=== PATIENT | female | born 1945 | race Caucasian/White ===

== ENCOUNTER → 2019-04-16 10:38 | Outpatient (CLI) | payer MEDICARE, OTHER, SELFPAY ==
--- NOTE | ~2019-04-16 | MM_ITS ---
EXAMINATION: MM screening sukh BI w michelle HISTORY: Screening mammogram TECHNIQUE: Craniocaudal and mediolateral oblique 3-D tomosynthesis images were obtained and synthetic 2-D images were generated. CAD analysis was submitted and interpreted. COMPARISON: Comparison to multiple prior studies sequentially, with oldest reviewed study dated 04/14. BREAST PARENCHYMAL COMPOSITION: There are scattered areas of fibroglandular density. FINDINGS: The left breast is stable without evidence for malignancy. There is a developing cluster of calcifications in the upper outer quadrant of the right breast which are increased in number and den sity compared with prior studies. IMPRESSION: 1. Developing cluster of nonspecific calcifications, upper outer quadrant of the right breast. 2. Magnification views are recommended. BI-RADS Category 0: Incomplete: Needs additional imaging evaluation. Reviewed, dictated and finalized at location A. APEUTIC MASSAGE TECHNICIAN IMPRESSION: 1. Developing cluster of nonspecific calcifications, upper outer quadrant of th e right breast. 2. Magnification views are recommended. BI-RADS Category 0: Incomplete: Needs additional imaging evaluation.
== END ==
PROVIDERS: Visit Provider Internal Medicine
DX: Z12.31 Encounter for screening mammogram for malignant neoplasm of breast (principal); R92.8 Other abnormal and inconclusive findings on diagnostic imaging of breast
CPT/HCPCS: 77063; 77067

== ENCOUNTER → 2019-04-24 09:15 | Outpatient (CLI) | payer MEDICARE, SELFPAY ==
--- NOTE | ~2019-04-24 | MM_ITS ---
EXAMINATION: MM diagnostic mammo unilat RT HISTORY: Follow-up right breast calcifications TECHNIQUE: Additional 3-D tomosynthesis images of the right breast were performed and synthetic 2-D i mages were generated. CAD analysis was submitted and interpreted. COMPARISON: Comparison to multiple prior studies sequentially, with oldest reviewed study dated 05/14. FINDINGS: Breast composed of scattered areas of fibroglandular density. There is a cluster of pleomor phic calcifications in the upper outer quadrant of the right breast which are not specifically benign . No suspicious masses or architectural distortion. IMPRESSION: 1. Clustered pleomorphic right breast calcifications, upper outer quadrant. 2. Stereotactic right breast biopsy recommended. BI-RADS category 4, suspicious findings. Reviewed, dictated and finalized at location A. UELS PLANT MANAGER
== END ==
PROVIDERS: PCP Internal Medicine; Visit Provider Internal Medicine
DX: R92.8 Other abnormal and inconclusive findings on diagnostic imaging of breast (principal)
CPT/HCPCS: 77065

== ENCOUNTER 2019-12-23 12:23 | Inpatient (IN) | payer MEDICARE, SELFPAY ==
[2019-12-23] VITALS (34 sets, daily range): BP systolic 104–129; BP diastolic 41–89; PULSE 67–147; RESP 20–35; TEMP 36.6–36.7; O2SAT 90–99; BMI 30.8
--- NOTE | ~2019-12-23 | XR_ITS ---
EXAMINATION: XR chest 1V portable EXAM DATE: 12/23/2019 13:09 INDICATION: Tachycardia. Lymphoma. TECHNIQUE: Portable AP frontal chest x-ray was obtained. Comparison is made to prior examination from 04/01/2018. FINDINGS: Interval placement of a right-sided portacatheter, line appears intact. There is cardiomega ly and pulmonary vascular congestion. Small to moderate left pleural effusion with adjacent atelectas is, new finding compared to prior study. There is no pneumothorax suspected. There is aortic arterios clerosis. Mild thoracic dextroscoliosis. The bones are osteopenic. There are bony degenerative morales es. IMPRESSION: 1. Cardiomegaly, congestion. 2. Development of small to moderate left pleural effusion, adjacent atelectasis. Reviewed, dictated and finalized at location B. CTOR OF LABOR AND DELIVERY IMPRESSION: 1. Cardiomegaly, congestion. 2. Development of small to moderate left pleural effusion, adjacent atelectasi s.
--- NOTE | 2019-12-23 13:05 | PC.NURSE ---
LAB CALLED FOR ADD-ON'S AT THIS TIME.
--- NOTE | 2019-12-23 13:06 | ECG_ITS ---
Measurements Intervals [place] Rate: 139 P: IN: 0 QRS: -19 QRSD: 110 T: 181 QT: 361 QTc: 551 Interpretive Statements ATRIAL FLUTTER/TACHYCARDIA WITH RAPID VENTRICULAR RESPONSE ST-T WAVE ABNORMALITY IN ANTEROLAT/HIGH LAT LEADS- CONSIDER ISCHEMIA ABNORMAL ECG Electronically Signed On 12-23-2019 13:30:21 DIRECTOR OF DIRECT MARKETING by Flip Staley D.O.
[2019-12-23 13:16] LABS: Basophils Percent Auto 0.3 % (0.2-1.2); Hematocrit 44.3 % (37.0-47.0); Hemoglobin 13.9 g/dL (12.0-15.0); Immature Granulocyte Absolute 0.27 K/mm3 (0.00-0.031); Immature Granulocyte Percent A 3.1 % (0-0.5); Lymphocytes Absolute Auto 1.54 K/mm3 (0.9-3.2); Lymphocytes Percent Auto 17.9 % (18.3-44.2); Mean Corpuscular HGB Conc 31.4 g/dl (32-36); Mean Corpuscular Hemoglobin 26.3 pg (26-34); Mean Corpuscular Volume 83.9 fl (80-100); Mean Platelet Volume 9.8 fl (7.4-10.4); Monocytes Absolute Auto 1.7 K/mm3 (0.1-0.6); Monocytes Percent Auto 19.8 % (2.6-8.5); Neutrophils Absolute Auto 5.1 K/mm3 (1.3-6.7); Neutrophils Percent Auto 58.9 % (45.5-73.1); Platelet Count Result 370 k/mm3 (150-375); Red Blood Count 5.28 M/mm3 (4.2-5.4); Red Cell Distribution Width 15.3 % (11.5-14.5); White Blood Count 8.6 K/mm3 (4.5-10.0)
[2019-12-23 13:26] LABS: INR 1.1; Prothrombin Time 14.4 Seconds (11.1-14.7)
[2019-12-23 13:27] LABS: Partial Thromboplastin Time 31.3 SECONDS (22.3-36.8)
--- NOTE | 2019-12-23 13:31 | ED.ARRPALP ---
HPI - Arrhythmia/Palpitations General Chief Complaint: Arrhythmia/Palpitations Stated Complaint: elevated heart rate Time Seen by Provider: 12/23/19 12:37 Source: patient Mode of arrival: ambulatory Limitations: no limitations History of Present Illness HPI narrative: This patient is a 74 year old female with history CLL who presents for evaluation of tachycardia. She states today she went to have chemotherapy but she was found to have an elevated HR. She was given 2 L IVF by her oncologist and she was referred to her geological specialist Dr. Lizama. He wanted to admit patient to [facility] for new onset atrial flutter with 2:1 but patient did not want to be admitted to [facility]. He referred patient to [place] [facility] for evaluation . PAtient denies any chest pain, sob, palpitations, nausea, vomiting, diarrhea or fever. Dr. Lizama reports this is new onset. She reports she has had history of this in the past. Related Data Home Medications Medication Instructions Recorded Confirmed aspirin 81 mg tablet,delayed 81 mg PO DAILY 07/09/19 07/09/19 release carvedilol 25 mg tablet 25 mg PO Q12H 07/09/19 07/09/19 cholecalciferol (vitamin D3) 1,250 1,250 mcg PO WEEKLY 07/09/19 07/09/19 mcg (50,000 unit) capsule dicyclomine 20 mg tablet 20 mg PO TID 07/09/19 07/09/19 levothyroxine 13 mcg capsule 13 mcg PO 2XW 07/09/19 07/09/19 lisinopril 40 mg tablet 40 mg PO DAILY 07/09/19 07/09/19 metformin 1,000 mg tablet,extended 1,000 mg PO DAILY 07/09/19 07/09/19 release 24hr simvastatin 20 mg tablet 20 mg PO DAILY 07/09/19 07/09/19 venetoclax [Venclexta] 200 mg PO DAILY 12/23/19 Allergies Allergy/AdvReac Type Severity Reaction Status Date / Time No Known Allergies Allergy Unverified 08/21/17 10:00 Review of Systems Review of Systems: All systems reviewed & are unremarkable except as noted in HPI and below Cardiovascular: Cardiovascular: Denies chest pain Respiratory: Respiratory: Denies cough and Denies dyspnea Gastrointestinal: Gastrointestinal: Denies abdominal pain, Denies nausea and Denies vomiting Musculoskeletal: Musculoskeletal: Denies back pain PMFSH Past Medical History Medical History Diabetes per pt, last A1c was 6.0 History of blood clots Hypertension Non-Hodgkin lymphoma Surgical History Surgical History History of cholecystectomy History of hip replacement right 2012 History of knee replacement, total left: 2006 and right: 2009 Family History Family History (Updated 07/09/19 @ 13:18 by Mima Dyer) Mother Hypertension Father Cancer Lung cancer Sibling Heart disease Daughter Bone cancer Social History Social History (Updated 07/09/19 @ 13:21 by Mima Dyer) Smoking status: Never smoker Second hand tobacco smoke exposure: No Alcohol intake: never Substance use: never Gender identity (if verbalized by the patient): Female Spiritual care concerns: No Exam Const: General: no acute distress and alert Orientation/consciousness: patient oriented x3 HENMT: Head: normocephalic and atraumatic Face and sinus: face symmetric Throat: posterior oropharynx normal Eyes: EOM: EOMs intact bilaterally Chest: Chest palpation & inspection: normal inspection of the chest Resp: Effort & Inspection: normal respiratory effort and no retractions Auscultation: clear to auscultation bilaterally Cardio: Rate: tachycardic Rhythm: regular rhythm Heart sounds: no murmurs GI: GI Palp: Yes Soft to palpation, No Tenderness to palpation present (GI), No Guarding due to palpation present (GI), No Rigid due to palpation and No Hernia present Skin: General skin exam: normal color Rashes: no rashes Neuro: General: patient oriented x3 and moves all extremities Psych: Mental Status: mental status grossly normal Affect: normal affect Course Consultations Consul
[2019-12-23 13:45] LABS: Lactic Acid Reflex 1.9 mmol/L (0.7-2.1)
[2019-12-23 13:59] LABS: Alanine Aminotransferase 17 U/L (4-35); Albumin Level 3.2 g/dL (3.5-5.1); Alkaline Phosphatase 115 U/L (38-126); Anion Gap 7 mmol/L (8-16); Aspartate Amino Transferase 30 U/L (14-36); Bilirubin,Total 0.3 mg/dL (0.2-1.3); Blood Urea Nitrogen 16 mg/dL (7-17); Calcium 9.7 mg/dL (8.4-10.2); Carbon Dioxide 31 mmol/L (22-30); Chloride 101 mmol/L (98-107); Estimated CRCL calculation 40 ml/min; Estimated Glomerular Filt Rate 48; Glucose 108 mg/dL (65-105); Magnesium 1.7 mg/dL (1.6-2.3); Potassium 3.5 mmol/L (3.4-5.0); Sodium 139 mmol/L (137-145)
[2019-12-23] MEDS: dilTIAZem HCl INJ 25 MG/5 ML VIAL 15 MG IV PUSH (14:00)
--- NOTE | 2019-12-23 14:45 | PC.NURSE ---
spoke with whitney mcdonough about adding troponin level to bloodwork, WHITNEY Mcdonough states unless the hospitalist wants one, I'm not ordering one. Will continue to monitor.
[2019-12-23 15:44] LABS: NT Pro B Type Natriuretic Pept 4100 PG/ML (5-100)
--- NOTE | 2019-12-23 15:46 | PC.NURSE ---
meal tray provided to pt at this time.
[2019-12-23] MEDS: ENOXAPARIN 80 MG/0.8 ML SYRINGE SUB-Q (16:14)
[2019-12-23] MEDS: FUROSEMIDE INJ 40 MG/4 ML VIAL 20 MG IV PUSH (16:18)
--- NOTE | 2019-12-23 17:06 | ADMGEN ---
This patient, Kavitha Ceron, was admitted to IMU Room 207-01 on 12-23-2019 at 1630. Patient/family oriented to hospital policies and general routines including ID bracelet, bed and alarms, visiting hours, pain management, procedures, bathroom and other care routines, personal items, smoking policy, room service/diet, and visiting hours. Information on how to activate the Rapid Response Team has been discussed. Patient/Family are encouraged to report perceived risks to care and to ask questions if they do not understand what they are told or what they should do.
--- NOTE | 2019-12-23 18:45 | PM.IMHP ---
H&P: HPI History of Present Illness Date/Time: 12/23/19 18:50 Chief complaint: New Onset Atrial Flutter with RVR Narrative: Kavitha Ceron is a 74-year-old female with hypothyroidism, obstructive sleep apnea, type 2 diabetes mellitus, hypertension, and CLL who presented to the emergency department earlier today at the direction of her operations support coordinator, Dr. Lizama for further treatment and evaluation of new onset atrial flutter with rapid ventricular response. She was scheduled for chemotherapy today and was found to be tachycardic and thus she was referred to her operations support coordinator instead. Her operations support coordinator wanted to admit her to [facility] for treatment of new onset atrial flutter with 2 to 1 conduction however the patient did not want to be admitted to that facility and she was directed to the emergency department here at [facility]. Interestingly she is asymptomatic and thus it is difficult to tell how long she has been in this rhythm. She goes on to tell me that she has a pulse oximeter at home that she monitors frequently ?because I am anxious? and she has noticed over the last month that she will occasionally have a pulse in the 130s to 140s which is occasionally irregular. She was given 2 L of fluid at her operations support coordinator office with no change in her rate. She also notes that her levothyroxine dose was decreased recently ?because my thyroid looked overactive.? She goes on to say that she has had as a 15 lb unintentional weight loss as well as increased anxiety, sweats, and diarrhea in the last month or so. She states compliance with her CPAP. She does not consume alcohol or caffeine. She has not had fever, chest pain, pleuritic pain, palpitations, shortness of breath, syncope, near syncope, nausea, or vomiting. Review of Systems Review of Systems: Narrative: Twelve systems were reviewed with pertinent positives and negatives as per HPI. She has had an aunt intentional weight loss as detailed in HPI. No sick contacts. She denies recent travel. No exposure to those positive for COVID-19. She denies cough and shortness of breath. She has loose stools off and on which is not a new finding. No dysuria. No lower extremity edema, calf pain, or tenderness. No orthopnea or PND. Except as documented, all other systems were reviewed and are negative. [facility] Past Medical History Medical History (Updated 12/23/19 @ 22:23 by Nicolette Castro PA-C) Chronic lymphocytic leukemia Patient of Dr. Anderson. Depression with anxiety Diverticulitis History of DVT of lower extremity Hyperlipidemia Hypertension Nephrolithiasis Obstructive sleep apnea on CPAP Osteoarthritis Type 2 diabetes mellitus Reported recent hemoglobin A1c of 6.0%. Surgical History Surgical History (Updated 12/23/19 @ 22:18 by Nicolette Castro PA-C) History of cardiac catheterization (~2002) Patient reports clean coronary arteries. History of cataract extraction History of cholecystectomy History of detached retina repair History of dilatation and curettage History of knee replacement, total Left: 2006 Right: 2009 History of lymph node biopsy History of right hip replacement (~2011) Family History Family History Mother Hypertension Father Cancer Lung cancer Sibling Heart disease Daughter Bone cancer Social History Social History (Updated 12/23/19 @ 22:19 by Nicolette Castro PA-C) Social History: Surrogate decision maker: Khalif Ceron, spouse. Code status: Full code. Smoking status: Never smoker Second hand tobacco smoke exposure: No Alcohol intake: never Substance use: never Additional living arrangements comments: Resides with her in [place]. They had 3 children, all who are . Daughter from bone cancer at age 46. One son in a motorcycle accident age 19, the other perished in a motor vehicle accident at age 54. Additional oc
[2019-12-23 20:20] LABS: Glucose Point of Care 127 (65-105)
[2019-12-23] MEDS: lisinopriL 20 MG TABLET 40 MG PO (22:52)
[2019-12-23] MEDS: GABAPENTIN 300 MG CAPSULE PO (22:52)
[2019-12-24] VITALS (30 sets, daily range): BP systolic 100–177; BP diastolic 47–88; PULSE 54–124; RESP 14–36; TEMP 35.7–36.7; O2SAT 92–100; BMI 30.8
[2019-12-24 05:29] LABS: Basophils Percent Auto 0.4 % (0.2-1.2); Hematocrit 38.2 % (37.0-47.0); Immature Granulocyte Absolute 0.18 K/mm3 (0.00-0.031); Lymphocytes Absolute Auto 1.25 K/mm3 (0.9-3.2); Mean Corpuscular HGB Conc 31.4 g/dl (32-36); Mean Corpuscular Hemoglobin 26.4 pg (26-34); Mean Corpuscular Volume 84.1 fl (80-100); Mean Platelet Volume 9.6 fl (7.4-10.4); Monocytes Absolute Auto 0.7 K/mm3 (0.1-0.6); Monocytes Percent Auto 16.4 % (2.6-8.5); Neutrophils Absolute Auto 2.3 K/mm3 (1.3-6.7); Neutrophils Percent Auto 51.2 % (45.5-73.1); Platelet Count Result 268 k/mm3 (150-375); Red Blood Count 4.54 M/mm3 (4.2-5.4); Red Cell Distribution Width 15.3 % (11.5-14.5); White Blood Count 4.5 K/mm3 (4.5-10.0)
[2019-12-24 05:42] LABS: Alanine Aminotransferase 13 U/L (4-35); Albumin Level 2.9 g/dL (3.5-5.1); Alkaline Phosphatase 94 U/L (38-126); Anion Gap 8 mmol/L (8-16); Aspartate Amino Transferase 28 U/L (14-36); Bilirubin,Total 0.3 mg/dL (0.2-1.3); Blood Urea Nitrogen 21 mg/dL (7-17); Calcium 9.5 mg/dL (8.4-10.2); Carbon Dioxide 30 mmol/L (22-30); Chloride 101 mmol/L (98-107); Estimated CRCL calculation 39 ml/min; Estimated Glomerular Filt Rate 48; Glucose 120 mg/dL (65-105); Magnesium 1.7 mg/dL (1.6-2.3); Potassium 3.3 mmol/L (3.4-5.0); Sodium 139 mmol/L (137-145)
[2019-12-24 05:51] LABS: Hemoglobin A1C 5.7 % (<5.7)
[2019-12-24] MEDS: ENOXAPARIN 80 MG/0.8 ML SYRINGE SUB-Q ×2 (06:35→18:28)
[2019-12-24] MEDS: ACIDOPHILUS/BULGARICUS CHEWABLE TABLET 1 TABLET PO (08:38)
[2019-12-24] MEDS: lisinopriL 20 MG TABLET 40 MG PO ×2 (08:39→19:59)
[2019-12-24] MEDS: SPIRONOLACTONE 25 MG TABLET PO (08:39)
[2019-12-24] MEDS: cloNIDine 0.3 MG/24 HR PATCH 1 PATCH TOPICAL (08:40)
[2019-12-24] MEDS: ROSUVASTATIN 10 MG TABLET PO (08:40)
[2019-12-24] MEDS: ASPIRIN 81 MG ENTERIC TABLET PO (08:43)
[2019-12-24 08:49] LABS: Glucose Point of Care 118 (65-105)
[2019-12-24] MEDS: POTASSIUM CHLORIDE 20 MEQ TABLET 40 MEQ PO (11:28)
--- NOTE | 2019-12-24 11:35 | PM.CNCAR ---
Assessment and Plan Assessment and plan (1) Atrial flutter: Qualifiers: Atrial flutter type: unspecified Qualified Code(s): I48.92 - Unspecified atrial flutter Code(s): I48.92 - Unspecified atrial flutter Status: Acute Assessment and Plan: will discontinue her diltiazem drip. Risks benefits alternatives were discussed and she is agreeable for a ROBERT guided cardioversion. She is NPO. She has been in atrial flutter for greater than 48 hours and so ROBERT is needed. She has received anticoagulation in the form of full-dose Lovenox. She has a chads Vasc score of 7 and will need to be discharged on oral anticoagulation form of Xarelto or Eliquis. Will start her on Xarelto 20 mg daily tonight. Discontinue subcutaneous enoxaparin. Will also check a free T4 level and replace her magnesium at 2 g IV x1. (2) Hypertension associated with diabetes: Code(s): E11.59 - Type 2 diabetes mellitus with other circulatory complications; I10 - Essential (primary) hypertension Status: Acute (3) Obstructive sleep apnea on CPAP: Code(s): G47.33 - Obstructive sleep apnea (adult) (pediatric); Z99.89 - Dependence on other enabling machines and devices Status: Acute Assessment and Plan: she has not been using her CPAP routinely as of late. Recommend compliance and she is understanding and agreeable (4) Hypokalemia: Code(s): E87.6 - Hypokalemia Status: Acute Assessment and Plan: KCL 40 mEq p.o. x1 History of Present Illness History of Present Illness Consult date/time: 12/24/19 11:35 Requesting physician: Clare Mcdonough MD Consult reason: Other (Atrial flutter) Reason For Visit: New Onset Atrial Flutter with RVR Narrative: date of service 12/24/2019 Reason for consultation atrial flutter History patient is a 74-year-old female who has diabetes, CLL, hypertension, history of stroke who was in the process of getting her outpatient chemotherapy yesterday whenever it was noted that she was tachycardic. She you did not want to be admitted at [facility] and came here for or admission. She was found to be in atrial flutter. She was started on diltiazem drip. Heart rate is reasonably controlled but she is still in atrial flutter. Chest x-ray did show pulmonary vascular congestion. She was given IV diuretics. Patient does state that she has checked her pulse oximeter over the past week or so and her heart rate has been elevated. She has felt lethargic and tired. No chest pain however. No significant shortness of breath, syncope, presyncope, paroxysmal nocturnal dyspnea, orthopnea, edema or palpitations. She has not been using her CPAP. Review of Systems Review of Systems: All systems reviewed & are unremarkable except as noted in HPI and below Constitutional: Constitutional: Reports lethargy Eyes: Eyes: Denies blurry vision ENT: Reports Normal hearing present Cardiovascular: Cardiovascular: Denies chest pain Respiratory: Respiratory: Denies dyspnea Gastrointestinal: Gastrointestinal: Denies abdominal pain Genitourinary: Genitourinary: Denies flank pain Musculoskeletal: Musculoskeletal: Denies neck pain Integumentary/Breasts: Skin/Breast: Denies dry skin and Denies pruritus Neurologic: Denies headache(s) and Denies numbness Psychiatric: Psychiatric: Denies anxiety and Denies confusion Endocrine: Endocrine: Denies excessive sweating and Reports fatigue Hematologic/Lymphatic: Hematologic/Lymphatic: Denies easy bleeding and Denies easy bruising Allergic/Immunologic: Allergic/Immunologic: Denies GI upset with certain foods PMFSH Past Medical History Medical History Chronic lymphocytic leukemia Patient of Dr. Anderson. Depression with anxiety Diverticulitis History of DVT of lower extremity Hyperlipidemia Hypertension Nephrolithiasis Obstructive sleep apnea on CPAP Osteoa
[2019-12-24 11:57] LABS: Glucose Point of Care 129 (65-105)
--- NOTE | 2019-12-24 13:10 | WPDMODSED ---
Moderate Sedation Note-Pt Data Patient Data Diagnosis: atrial flutter Present Complaint: atrial flutter Procedure to be performed/Plan: Multiplanar transesophageal echocardiography with color flow and pulse wave Doppler Agitated saline study Electrical cardioversion Moderate sedation Allergies Allergy/AdvReac Type Severity Reaction Status Date / Time No Known Allergies Allergy Verified 12/23/19 17:21 Home Medications Medication Instructions Recorded Confirmed Type alprazolam 1 mg PO BID PRN 12/23/19 12/23/19 History aspirin [Adult Low Dose Aspirin] 81 mg PO DAILY 12/23/19 12/23/19 History clonidine 0.3 mg TOPICAL WEEKLY 12/23/19 12/23/19 History ergocalciferol (vitamin D2) 50,000 unit PO WEEKLY 12/23/19 12/23/19 History gabapentin 300 mg PO HS 12/23/19 12/23/19 History lactobacillus combination no.8 3,000 mmu cells PO DAILY 12/23/19 12/23/19 History [Adult Probiotic] levothyroxine 175 mcg PO DIRECTED 12/23/19 12/23/19 History lisinopril 40 mg PO BID 12/23/19 12/23/19 History metformin 500 mg PO DAILY 12/23/19 12/23/19 History rosuvastatin 10 mg PO DAILY 12/23/19 12/23/19 History spironolactone 25 mg PO DAILY 12/23/19 12/23/19 History venetoclax [Venclexta] 200 mg PO DAILY 12/23/19 12/23/19 History Current Medications: Active Medications Alprazolam (Alprazolam (*Crx) 0.5 Mg Tablet) 1 mg PO BID PRN PRN Reason: Anxiety Aspirin (Aspirin 81 Mg Enteric Tablet) 81 mg PO DAILY [facility] Last Admin: 12/24/19 08:43 Dose: 81 mg Documented by: Clonidine HCl (Clonidine 0.3 Mg/24 Hr Patch) 1 patch TOPICAL We@0900 [facility] Last Admin: 12/24/19 08:40 Dose: 1 patch Documented by: Enoxaparin Sodium (Enoxaparin 80 Mg/0.8 Ml Syringe) 80 mg SUB-Q Q12H [facility] Last Admin: 12/24/19 06:35 Dose: 80 mg Documented by: Gabapentin (Gabapentin 300 Mg Capsule) 300 mg PO HS [facility] Last Admin: 12/23/19 22:52 Dose: 300 mg Documented by: Diltiazem HCl (Cardizem 100 Mg/D5w 100 Ml) 100 mg in 100 mls @ 10 mls/hr IV CONT .Q10H [facility]; Protocol Last Admin: 12/24/19 08:34 Dose: 10 mg/hr, 10 mls/hr Documented by: Magnesium Sulfate (Magnesium Sulf 2 Gm/Water 50ml) 2 gm in 50 mls @ 50 mls/hr IVPB ONCE ONE Stop: 12/24/19 13:32 Lactobacillus Acidophilus (Acidophilus/Bulgaricus Chewable Tablet) 1 tablet PO DAILY [facility] Stop: 01/23/20 09:01 Last Admin: 12/24/19 08:38 Dose: 1 tablet Documented by: Levothyroxine Sodium (Levothyroxine Sodium 100 Mcg Tablet) 100 mcg PO MoFr@0630 [facility] Levothyroxine Sodium (Levothyroxine Sodium 75 Mcg Tablet) 75 mcg PO MoFr@0630 [facility] Lisinopril (Lisinopril 20 Mg Tablet) 40 mg PO Q12HR [facility] Last Admin: 12/24/19 08:39 Dose: 40 mg Documented by: Non-Formulary Medication (Venetoclax [Venclexta]) 200 mg PO DAILY [facility] Stop: 01/23/20 09:01 Rosuvastatin Calcium (Rosuvastatin 10 Mg Tablet) 10 mg PO DAILY [facility] Last Admin: 12/24/19 08:40 Dose: 10 mg Documented by: Spironolactone (Spironolactone 25 Mg Tablet) 25 mg PO DAILY [facility] Last Admin: 12/24/19 08:39 Dose: 25 mg Documented by: Sedation/Anesthesia: No previous sedation/anesthesia problems (including family history). [facility] Past Medical History Medical History Chronic lymphocytic leukemia Patient of Dr. Anderson. Depression with anxiety Diverticulitis History of DVT of lower extremity Hyperlipidemia Hypertension Hypertension associated with diabetes Nephrolithiasis Obstructive sleep apnea on CPAP Osteoarthritis Type 2 diabetes mellitus Reported recent hemoglobin A1c of 6.0%. Surgical History Surgical History History of cardiac catheterization (~2002) Patient reports clean coronary arteries. History of cataract extraction History of cholecystectomy History of detached retina repair History of dilatation and curettage History of knee replacement, total Left: 2006 Right: 2009 History of lymph node biopsy History of right hip replacement (~
--- NOTE | 2019-12-24 13:26 | PM.IMPN ---
Progress Note: A&P Assessment and Plan (1) Atrial flutter with rapid ventricular response: Code(s): I48.92 - Unspecified atrial flutter Status: Acute (2) Cardiomegaly: Code(s): I51.7 - Cardiomegaly Status: Acute (3) Obstructive sleep apnea on CPAP: Code(s): G47.33 - Obstructive sleep apnea (adult) (pediatric); Z99.89 - Dependence on other enabling machines and devices Status: Acute (4) Chronic lymphocytic leukemia: Code(s): C91.10 - Chronic lymphocytic leukemia of B-cell type not having achieved remission Status: Acute (5) Type 2 diabetes mellitus: Code(s): E11.9 - Type 2 diabetes mellitus without complications Status: Acute (6) Hypertension: Code(s): I10 - Essential (primary) hypertension Status: Acute Additional Plan The patient has been admitted to the hospitalist service for further treatment evaluation of new onset atrial flutter with rapid ventricular response. She is asymptomatic with this, thus it is difficult to tell how long this has been going on. Etiology not entirely clear at this time. Currently on a Cardizem drip with improvement in her rate. Continue Lovenox 1 milligram/kilogram b.i.d. for stroke prophylaxis. Echocardiogram ordered for a.m. Pt seen by cardiology, pt is going down for ROBERT. Subjective Date/time seen: 12/24/19 13:26 Interval history: 74-year-old female with hypothyroidism, obstructive sleep apnea, type 2 diabetes mellitus, hypertension, and CLL who presented to the emergency department earlier today at the direction of her superannuation clerk, Dr. Lizama for further treatment and evaluation of new onset atrial flutter with rapid ventricular response. Seen by cardiology and myself, pt is going down for ROBERT. Review of Systems Review of Systems: All systems reviewed & are unremarkable except as noted in HPI and below Exam Narrative: Exam Narrative: General: Well-developed elderly female, chronically ill-appearing HEENT: Slightly hard of hearing. Neck: Supple. Respiratory: Clear Cardiovascular: Irregular rhythm with S1-S2. Gastrointestinal: Abdomen is soft, nontender, and nondistended with positive bowel sounds. Skin: Warm and dry. No rash or lesions on limited exam. Extremities: No cyanosis, clubbing, or edema. Radial and pedal pulses intact. Negative Jasvir sign bilateral. Neurological: Alert. Cranial nerves 2-12 are grossly intact. No gross focal deficits to casual conversation. Psychiatric: Pleasant and cooperative with normal mood and affect. Judgment and insight intact. Objective Data Vital Signs Vital Signs: Vital Signs - 24 hr 12/23/19 13:30 12/23/19 13:32 12/23/19 13:57 Temperature Pulse Rate 137 H 133 H 139 H Respiratory Rate 20 22 H 29 H Blood Pressure 127/86 110/60 Pulse Oximetry 94 91 94 12/23/19 13:59 12/23/19 14:02 12/23/19 14:15 Temperature Pulse Rate 139 H 140 H 112 H Respiratory Rate 28 H 33 H 31 H Blood Pressure Pulse Oximetry 93 96 92 12/23/19 14:30 12/23/19 14:31 12/23/19 14:50 Temperature Pulse Rate 136 H 138 H 138 H Respiratory Rate 25 H 32 H 23 H Blood Pressure 104/76 104/76 Pulse Oximetry 90 92 93 12/23/19 15:00 12/23/19 15:01 12/23/19 15:02 Temperature Pulse Rate 141 H 141 H 139 H Respiratory Rate 26 H 29 H 20 Blood Pressure 106/83 Pulse Oximetry 12/23/19 15:07 12/23/19 15:11 12/23/19 15:15 Temperature Pulse Rate 143 H 142 H 141 H Respiratory Rate 26 H 27 H Blood Pressure 106/83 110/77 Pulse Oximetry 94 93 12/23/19 15:16 12/23/19 16:23 12/23/19 16:35 Temperature 36.6 C Pulse Rate 142 H 120 H 144 H Respiratory Rate 31 H 24 H 20 Blood Pressure 125/89 129/75 122/62 Pulse Oximetry 94 99 97 12/23/19 16:36 12/23/19 17:25 12/23/19 17:30 Temperature Pulse Rate 142 H 93 95 Respiratory Rate Blood Pressure 116/51 L Pulse Oximetry 12/23/19 18:00 12/23/19 18:01 12/23/19 19:46 Temperature 36.7
--- NOTE | 2019-12-24 14:01 | P.OP_ITS ---
Procedure Note - Detailed Date of procedure: 12/24/19 Pre-op diagnosis: New Onset Atrial Flutter with RVR Post-op diagnosis: same Procedure performed: moderate sedation Attempted ROBERT Description of procedure: after discussing the risks, benefits and alternatives of the procedure the patient agreeable via verbal and written informed consent. Risks discussed included esophageal rupture perforation, shocking into a more problematic heart rhythm, stroke. After time-out was taken and after already having established continuous monitor car operator, pulse oxygenation and serial blood pressure assessments, sedation was initiated. Moderate sedation: A total of 3 mg of Versed and 50 mcg of fentanyl are given in divided dosages. Hurricaine spray to hypopharynx x2 for local anesthetic. Medications were administered and patient was monitored by Aleisha Field RN procedure start time 1:44 p.m. Procedure stop time 1:52 p.m. After attempts were made to esophageal intubate the patient, procedure was aborted because of inability to Access.. Blood loss: None Complications: None Surgeon: Ray Warren MD Complications: No immediate complications Condition: stable Disposition: floor Findings: As detailed above Plan: Anticoagulation x4 weeks then outpatient elective cardioversion without ROBERT
[2019-12-24] MEDS: MAGNESIUM SULF 2 GM/WATER 50ML 2 GM/50 ML BAG IVPB (16:15)
[2019-12-24] MEDS: dilTIAZem HCL 60 MG TABLET PO ×2 (18:28→23:18)
[2019-12-24] MEDS: GABAPENTIN 300 MG CAPSULE PO (19:58)
--- NOTE | 2019-12-24 22:29 | ECHO_ITS ---
Patient Info Name: Kavitha Ceron Age: 74 years : 1945 Gender: Female Ht: 63 in Wt: 174 lbs BSA: 1.90 m2 HR: 100 bpm BP: 115 / 51 mmHg Heart Rhythm: Atrial Flutter Technical Quality: Good Exam Date: 12/24/2019 12:00 PM Exam Location: [facility] Patient Status: Inpatient Admit Date: 12/23/2019 Staff Ordering Physician: Nicolette Castro PA-C Child Day Care Teacher: Berny Banerjee RDCS Attending Provider: Shana Martinez MD Referring Physician: Gloria ALVARES; Exam Type: CA echo doppler color flow Study Info Indications 427.32 - Atrial flutter Complete two-dimensional, color flow and Doppler transthoracic echocardiogram is performed. History/Risk Factors Atrial flutter; HTN, DM2. Summary 1. Complete two-dimensional, color flow and Doppler transthoracic echocardiogram is performed. 2. Left ventricular chamber dimension is normal. 3. Left ventricular systolic function is normal, estimated at 60-65%. 4. There is mildly increased left ventricular wall thickness. 5. The left ventricular diastolic function is abnormal. 6. Left atrial chamber dimension is mildly enlarged. 7. There is mild mitral valve regurgitation. 8. The mitral valve has calcified annulus. 9. There is mild tricuspid valve regurgitation. 10. Mild pulmonary hypertension, estimated pulmonary arterial systolic pressure is 36 mmHg. Left Ventricle Left ventricular chamber dimension is normal. Left ventricular systolic function is normal, estimated at 60-65%. There is mildly increased left ventricular wall thickness. The left ventricular diastolic function is abnormal. Right Ventricle Right ventricular chamber dimension is normal. Right ventricular systolic function is normal. Left Atria Left atrial chamber dimension is mildly enlarged. Right Atria Right atrial chamber dimension is normal. Atrial Septum Intact interatrial septum visualized by color flow imaging. Aortic Valve The aortic valve is trileaflet. There is mild aortic valve sclerosis. There is no aortic valve stenosis. There is trace aortic valve regurgitation. Pulmonic Valve The pulmonic valve is normal. There is no pulmonic valve stenosis. There is trace pulmonic regurgitation. Mitral Valve The mitral valve has calcified annulus. There is no mitral valve stenosis. There is mild mitral valve regurgitation. Tricuspid Valve The tricuspid valve leaflets are normal. There is no significant tricuspid valve stenosis. There is mild tricuspid valve regurgitation. Mild pulmonary hypertension, estimated pulmonary arterial systolic pressure is 36 mmHg. Pericardium/Pleural The pericardium appears epicardial fat pad. There is no pericardial effusion. Inferior Vena Cava Dilated inferior vena cava with >50% collapse upon inspiration consistent with elevated right atrial pressure, 10 mmHg. Aorta The aortic root size at the sinus of Valsalva is normal. The prox ascending aorta size is normal. There is mild aortic atherosclerosis. Left Ventricular Outflow Tract Name Value Normal LVOT 2D LVOT Diameter 1.9 cm LVOT Doppler
[2019-12-25] VITALS (11 sets, daily range): BP systolic 108–139; BP diastolic 53–62; PULSE 65–70; RESP 20–21; TEMP 35.7–35.9; O2SAT 94–97
[2019-12-25] MEDS: ENOXAPARIN 80 MG/0.8 ML SYRINGE SUB-Q (06:11)
[2019-12-25] MEDS: dilTIAZem HCL 60 MG TABLET PO (06:11)
[2019-12-25] MEDS: lisinopriL 20 MG TABLET 40 MG PO (09:05)
[2019-12-25] MEDS: ACIDOPHILUS/BULGARICUS CHEWABLE TABLET 1 TABLET PO (09:06)
[2019-12-25] MEDS: ROSUVASTATIN 10 MG TABLET PO (09:06)
[2019-12-25] MEDS: ASPIRIN 81 MG ENTERIC TABLET PO (09:06)
[2019-12-25] MEDS: SPIRONOLACTONE 25 MG TABLET PO (09:06)
--- NOTE | 2019-12-25 10:47 | PM.PNCARD ---
Progress Note: A&P Assessment and Plan (1) Atrial flutter: Qualifiers: Atrial flutter type: unspecified Qualified Code(s): I48.92 - Unspecified atrial flutter Code(s): I48.92 - Unspecified atrial flutter Status: Acute Assessment and Plan: Unable to pass probe for ROBERT 12/24/2019. Will plan cardioversion in [address] Warren. Rate is controlled on short-acting diltiazem. Will transition her to long-acting Cardizem CD 240 mg at noon today. Will monitor her blood pressure and heart rate response for few hours and discharge her later this afternoon. Currently anticoagulated with Lovenox. Will transition her to Eliquis 5 mg q 12 hours Echocardiogram 12/24/2019: Left ventricular chamber dimension is normal. Left ventricular systolic function is normal, estimated at 60-65%. There is mildly increased left ventricular wall thickness. The left ventricular diastolic function is abnormal. Left atrial chamber dimension is mildly enlarged. There is mild mitral valve regurgitation. The mitral valve has calcified annulus. There is mild tricuspid valve regurgitation. Mild pulmonary hypertension, estimated pulmonary arterial systolic pressure is 36 mmHg. Left ventricular chamber dimension is normal. (2) Hypertension associated with diabetes: Code(s): E11.59 - Type 2 diabetes mellitus with other circulatory complications; I10 - Essential (primary) hypertension Status: Acute Assessment and Plan: Better controlled. Will decrease lisinopril to 40 mg daily at discharge with the addition of the long-acting diltiazem. Continue clonidine patch and spironolactone for now. (3) Obstructive sleep apnea on CPAP: Code(s): G47.33 - Obstructive sleep apnea (adult) (pediatric); Z99.89 - Dependence on other enabling machines and devices Status: Acute Assessment and Plan: She has not been using her CPAP routinely as of late. Recommend compliance and she is understanding and agreeable (4) Hypokalemia: Code(s): E87.6 - Hypokalemia Status: Acute Assessment and Plan: Potassium supplemented yesterday. Will check BMP before discharge today. Additional Plan Plan discussed with Dr. Warren 1100 12/25/1999 Subjective Date/time seen: 12/25/19 10:47 Interval history: Follow-up for: Atrial flutter with rapid ventricular response, hypertension, sleep apnea with CPAP use, diabetes, CLL currently undergoing chemotherapy Date of service 12/25/2019 Subjective: Denied chest pain, pressure, tightness or squeezing. No shortness of breath with exertional activities. No orthopnea, no PND no dizziness or lightheadedness no palpitations. Review of Systems Constitutional: Constitutional: Denies excessive sweating, Reports fatigue and Denies headache(s) Eyes: Eyes: Denies blurry vision ENT: Denies headache(s) and Denies neck pain Cardiovascular: Cardiovascular: Denies chest pain and Denies dyspnea Respiratory: Respiratory: Denies dyspnea Gastrointestinal: Gastrointestinal: Denies abdominal pain Genitourinary: Genitourinary: Denies flank pain Musculoskeletal: Musculoskeletal: Denies neck pain and Denies numbness Integumentary/Breasts: Skin/Breast: Denies dry skin and Denies pruritus Neurologic: Denies confusion, Denies headache(s) and Denies numbness Psychiatric: Psychiatric: Denies anxiety and Denies confusion Endocrine: Endocrine: Denies excessive sweating and Reports fatigue Hematologic/Lymphatic: Hematologic/Lymphatic: Denies easy bleeding and Denies easy bruising Allergic/Immunologic: Allergic/Immunologic: Denies GI upset with certain foods Exam Narrative: Exam Narrative: Pleasant, cooperative female laying comfortably in bed. No distress. Const: General: comfortable and no acute distress Orientation/consciousness: No confusion HENMT: General
[2019-12-25 11:54] LABS: Anion Gap 4 mmol/L (8-16); Blood Urea Nitrogen 18 mg/dL (7-17); Calcium 9.5 mg/dL (8.4-10.2); Carbon Dioxide 34 mmol/L (22-30); Chloride 101 mmol/L (98-107); Estimated CRCL calculation 48 ml/min; Estimated Glomerular Filt Rate > 60; Glucose 111 mg/dL (65-105); Potassium 3.8 mmol/L (3.4-5.0); Sodium 139 mmol/L (137-145)
--- NOTE | 2019-12-25 13:03 | PM.DS ---
DS: Admitting Diagnosis Admitting Diagnosis Admitting Diagnosis: New Onset Atrial Flutter with RVR 74-year-old female with hypothyroidism, obstructive sleep apnea, type 2 diabetes mellitus, hypertension, and CLL who presented to the emergency department earlier today at the direction of her set rider, Dr. Lizama for further treatment and evaluation of new onset atrial flutter with rapid ventricular response. Seen by cardiology and myself. DS: Discharge Diagnosis Discharge Diagnosis (1) Atrial flutter with rapid ventricular response: Code(s): I48.92 - Unspecified atrial flutter Status: Acute Assessment and Plan: The patient has been admitted to the hospitalist service for further treatment evaluation of new onset atrial flutter with rapid ventricular response. She is asymptomatic with this, thus it is difficult to tell how long this has been going on. Etiology not entirely clear at this time. Currently on a Cardizem drip with improvement in her rate. Continue Lovenox 1 milligram/kilogram b.i.d. for stroke prophylaxis. Echocardiogram ordered for a.m. Pt seen by cardiology, pt is going down for ROBERT. Unfortunately ROBERT is unsuccessful, pt will need oral diltiazem and eliquis. Pt will return for cardioversion in 6 weeks time under cardiology. Echocardiogram 12/24/2019 shows: Left ventricular chamber dimension is normal. Left ventricular systolic function is normal, estimated at 60-65%. There is mildly increased left ventricular wall thickness. The left ventricular diastolic function is abnormal. Left atrial chamber dimension is mildly enlarged. There is mild mitral valve regurgitation. The mitral valve has calcified annulus. There is mild tricuspid valve regurgitation. Mild pulmonary hypertension, estimated pulmonary arterial systolic pressure is 36 mmHg. Left ventricular chamber dimension is normal. (2) Cardiomegaly: Code(s): I51.7 - Cardiomegaly Status: Chronic (3) Obstructive sleep apnea on CPAP: Code(s): G47.33 - Obstructive sleep apnea (adult) (pediatric); Z99.89 - Dependence on other enabling machines and devices Status: Chronic (4) Chronic lymphocytic leukemia: Code(s): C91.10 - Chronic lymphocytic leukemia of B-cell type not having achieved remission Status: Chronic (5) Type 2 diabetes mellitus: Code(s): E11.9 - Type 2 diabetes mellitus without complications Status: Chronic Assessment and Plan: Continue home medications (6) Hypertension: Code(s): I10 - Essential (primary) hypertension Status: Chronic Assessment and Plan: Continue home medications DS: Summary Time Spent with Patient Time attestation: Total time spent providing and/or coordinating discharge services:40 minutes on day of dischrage Exam Narrative: Exam Narrative: General: Well-developed elderly female, chronically ill-appearing HEENT: Slightly hard of hearing. Neck: Supple. Respiratory: Clear Cardiovascular: Irregular rhythm with S1-S2. Gastrointestinal: Abdomen is soft, nontender, and nondistended with positive bowel sounds. Skin: Warm and dry. No rash or lesions on limited exam. Extremities: No cyanosis, clubbing, or edema. Radial and pedal pulses intact. Negative Jasvir sign bilateral. Neurological: Alert. Cranial nerves 2-12 are grossly intact. No gross focal deficits to casual conversation. Psychiatric: Pleasant and cooperative with normal mood and affect. Judgment and insight intact. DS: Data Data Completed and Pending Labs on day of discharge: Labs from last 24 hours 12/25/19 11:22 Sodium 139 Potassium 3.8 Chloride 101 Carbon Dioxide 34 H Anion Gap 4 L BUN 18 H Creatinine 0.90 Estim Creat Clear Calc 48 Estimated GFR > 60 Glucose 111 H Calcium 9.5 Preliminary micro results at discharge 12/23/19 18:24 Blood Culture - Preliminary Blood 12/23/19 19:16 Blood Culture - Preliminary Blood Di
== END 2019-12-25 15:48 | disposition home or self-care (01) | DRG 309 ==
LOC: ANHED 13:05 → ANHIMU 15:40
PROVIDERS: Internal Medicine Cardiovascular Disease; Nurse Practitioner Adult Health; Physician Assistant; Admitting Provider Family Medicine; Emergency Provider General Practice; PCP Internal Medicine; Visit Provider Family Medicine
PROC: (CPT 93312; principal; 2019-12-24 13:00)
DX: I48.92 Unspecified atrial flutter (principal); C91.10 Chronic lymphocytic leukemia of B-cell type not having achieved remission; Z53.8 Procedure and treatment not carried out for other reasons; I51.7 Cardiomegaly; G47.33 Obstructive sleep apnea (adult) (pediatric); I10 Essential (primary) hypertension; E87.6 Hypokalemia; E11.59 Type 2 diabetes mellitus with other circulatory complications; E78.5 Hyperlipidemia, unspecified; I27.20 Pulmonary hypertension, unspecified; M19.90 Unspecified osteoarthritis, unspecified site; F41.8 Other specified anxiety disorders; Z96.641 Presence of right artificial hip joint; Z96.653 Presence of artificial knee joint, bilateral; Z90.49 Acquired absence of other specified parts of digestive tract; Z86.73 Personal history of transient ischemic attack (TIA), and cerebral infarction without residual deficits; Z86.718 Personal history of other venous thrombosis and embolism; Z98.49 Cataract extraction status, unspecified eye
CPT/HCPCS: 36415; 71045; 80048; 80053; 83036; 83605; 83735; 83880; 84443; 85025; 85610; 85730; 87040; 93005; 93306; 93312; 93320; 93325; 96365; 99285; A9270; J1650; J1940; J2250; J3010; J3475; J7040

== ENCOUNTER 2020-01-03 20:22 | Inpatient (IN) | payer MEDICARE, SELFPAY ==
--- NOTE | ~2020-01-03 | XR_ITS ---
XR chest 2V DATE: 01/07/2020 14:15 INDICATION: Congestive heart failure TECHNIQUE: PA and lateral chest COMPARISON: 12/23/2019 portable AP chest FINDINGS: Cardiac megaly. Aortic calcification. There are bibasilar infiltrates and/atelectasis and small bilateral pleural effusions. Pulmonary vasc ular congestion improved. Diminished prominence of the minor fissure suggesting resolution of subpleu ral edema. Right Port-A-Cath catheter tip overlies the proximal superior vena cava. No pneumothorax. Diffuse osteopenia. Dextroscoliosis and degenerative spurring of the thoracic spine. Diffuse osteopenia. IMPRESSION: Diminished congestive changes since 01/05/2020 Bibasilar infiltrate and/atelectasis and small bilateral pleural effusions Cardiomegaly, aortic atherosclerosis Reviewed, dictated and finalized at location B. CIATE STORE LEADER
--- NOTE | ~2020-01-03 | XR_ITS ---
EXAMINATION: XR chest 1V portable EXAM DATE: 01/03/2020 21:18 INDICATION: Shortness of breath, chest discomfort, low-grade fever. History atrial fibrillation. TECHNIQUE: Portable AP frontal chest x-ray was obtained. Comparison is made to prior examination from 12/23/2019. FINDINGS: There is a right-sided portacatheter, IJ approach. There is moderate cardiomegaly. Small to moderate pleural effusions, appears unchanged on the left but has developed on the right. Associated adjacent nonspecific airspace disease partly atelectasis. Superimposed edema or pneumonia not exclud able. No pneumothorax. Some chronic hyperinflation. There are bony degenerative changes. IMPRESSION: 1. Cardiomegaly, small to moderate bilateral pleural effusions and adjacent atelectasis. 2. Basilar pneumonia and/or edema not excludable. Reviewed, dictated and finalized at location G. TANK OPERATOR IMPRESSION: 1. Cardiomegaly, small to moderate bilateral pleural effusions and adjacent at electasis. 2. Basilar pneumonia and/or edema not excludable.
--- NOTE | ~2020-01-03 | XR_ITS ---
EXAMINATION: XR chest 1V portable DATE: 01/05/2020 06:23 INDICATION: Congestive heart failure. COVID-19 negative on 01/03/2020. TECHNIQUE: A single frontal view of the chest was obtained. COMPARISON: Chest single view 01/03/2020, CT abdomen and pelvis 03/12/2017 FINDINGS: There are small pleural effusions. There are airspace opacities at the lung bases. No pneum othorax. Cardiomegaly is noted. There is a right internal jugular port with tip in superior vena cava . IMPRESSION: 1. Stable small pleural effusions. 2. Stable airspace opacities at the lung bases, consistent with atelectasis versus pneumonia. 3. Cardiomegaly. Reviewed, dictated and finalized at location A. PROJECT MANAGER IMPRESSION: 1. Stable small pleural effusions. 2. Stable airspace opacities at the lung bases, consistent with atelectasis kenney veronica pneumonia. 3. Cardiomegaly.
--- NOTE | 2020-01-03 20:48 | ECG_ITS ---
Measurements Intervals Holmen Rate: 138 P: ID: 0 QRS: -3 QRSD: 110 T: 221 QT: 281 QTc: 427 Interpretive Statements ATRIAL FLUTTER/TACHYCARDIA WITH RAPID VENTRICULAR RESPONSE ST-T WAVE ABNORMALITY IN LATERAL LEADS- CONIDER ISCHEMIA BASELINE ARTIFACT- I, II, III, AVR, AVL, AVF, V1-V2 ABNORMAL ECG Electronically Signed On 01-04-2020 8:51:18 BLACK TOP ROLLER by Flip Staley D.O.
--- NOTE | 2020-01-03 20:50 | ED.SOB ---
HPI - SOB/Dyspnea General Chief Complaint: Chest Pain Stated Complaint: high heart rate Time Seen by Provider: 01/03/20 20:40 Source: patient Mode of arrival: ambulatory Limitations: no limitations History of Present Illness HPI Narrative: This patient is a 74 year old female with history of atrial flutter, CLL on chemo, and anxiety who presents for evaluation of rapid heart rate and shortness of breath. Patient states she has had shortness of breath for 3 days and it is getting worse. She has been talking to the office of Dr. Warren about her symptoms and her elevated heart rate. Her heart rate has consistently been elevated to the 140s. She denies chest pain, cough, nausea, vomiting or diarrhea. She does report constant shortness of breath. Her reports she had a fever last night but no fever today. She is taking Diltiazem 240 and she took the medication this morning at 10 am. She last had chemotherapy on Sunday, and her oncologist is Dr. Duffy. Related Data Home Medications Medication Instructions Recorded Confirmed Adult Probiotic 3,000 mmu cells PO DAILY 12/23/19 01/04/20 Venclexta 200 mg PO DAILY 12/23/19 01/04/20 alprazolam 1 mg PO BID PRN 12/23/19 01/04/20 aspirin [Adult Low Dose Aspirin] 81 mg PO DAILY 12/23/19 01/04/20 clonidine 0.3 mg TOPICAL WEEKLY 12/23/19 01/04/20 ergocalciferol (vitamin D2) 50,000 unit PO WEEKLY 12/23/19 01/04/20 gabapentin 300 mg PO HS 12/23/19 01/04/20 levothyroxine 175 mcg PO DIRECTED 12/23/19 01/04/20 metformin 500 mg PO DAILY 12/23/19 01/04/20 rosuvastatin 10 mg PO DAILY 12/23/19 01/04/20 spironolactone 25 mg PO DAILY 12/23/19 01/04/20 Allergies Allergy/AdvReac Type Severity Reaction Status Date / Time No Known Allergies Allergy Verified 12/23/19 17:21 Review of Systems Review of Systems: All systems reviewed & are unremarkable except as noted in HPI and below Constitutional: Constitutional: Denies chills and Denies fever(s) Cardiovascular: Cardiovascular: Denies chest pain Respiratory: Respiratory: Denies cough and Reports dyspnea Gastrointestinal: Gastrointestinal: Denies abdominal pain PMFSH Past Medical History Medical History Chronic lymphocytic leukemia Patient of Dr. Anderson. Depression with anxiety Diverticulitis History of DVT of lower extremity Hyperlipidemia Hypertension Hypertension associated with diabetes Nephrolithiasis Obstructive sleep apnea on CPAP Osteoarthritis Type 2 diabetes mellitus Reported recent hemoglobin A1c of 6.0%. Surgical History Surgical History History of cardiac catheterization (~2002) Patient reports clean coronary arteries. History of cataract extraction History of cholecystectomy History of detached retina repair History of dilatation and curettage History of knee replacement, total Left: 2006 Right: 2009 History of lymph node biopsy History of right hip replacement (~2011) Family History Family History Mother Hypertension Father Cancer Lung cancer Sibling Heart disease Daughter Bone cancer Social History Social History Social History: Surrogate decision maker: Khalif Ceron, spouse. Code status: Full code. Smoking status: Never smoker Second hand tobacco smoke exposure: No Alcohol intake: never Substance use: never Additional living arrangements comments: Resides with her in [place]. They had 3 children, all who are . Daughter from bone cancer at age 46. One son in a motorcycle accident age 19, the other perished in a motor vehicle accident at age 54. 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 Gender identity (if verbalized by the patient): Female Spiritual care concerns: No
[2020-01-03 20:58] VITALS: PULSE 139; RESP 30; TEMP 37.4; O2SAT 97
[2020-01-03 21:02] LABS: Basophils Percent Auto 0.2 % (0.2-1.2); Hematocrit 41.4 % (37.0-47.0); Hemoglobin 13.4 g/dL (12.0-15.0); Immature Granulocyte Absolute 0.24 K/mm3 (0.00-0.031); Immature Granulocyte Percent A 2.8 % (0-0.5); Lymphocytes Absolute Auto 0.66 K/mm3 (0.9-3.2); Lymphocytes Percent Auto 7.8 % (18.3-44.2); Mean Corpuscular HGB Conc 32.4 g/dl (32-36); Mean Corpuscular Hemoglobin 26.6 pg (26-34); Mean Corpuscular Volume 82.3 fl (80-100); Mean Platelet Volume 10.4 fl (7.4-10.4); Monocytes Absolute Auto 0.9 K/mm3 (0.1-0.6); Monocytes Percent Auto 10.5 % (2.6-8.5); Neutrophils Absolute Auto 6.7 K/mm3 (1.3-6.7); Neutrophils Percent Auto 78.7 % (45.5-73.1); Platelet Count Result 197 k/mm3 (150-375); Red Blood Count 5.03 M/mm3 (4.2-5.4); Red Cell Distribution Width 16.8 % (11.5-14.5); White Blood Count 8.5 K/mm3 (4.5-10.0)
[2020-01-03 21:13] LABS: INR 2.2; Partial Thromboplastin Time 49.4 SECONDS (22.3-36.8); Prothrombin Time 24.9 Seconds (11.1-14.7)
[2020-01-03 21:25] LABS: Alanine Aminotransferase 14 U/L (4-35); Albumin Level 3.9 g/dL (3.5-5.1); Alkaline Phosphatase 123 U/L (38-126); Anion Gap 12 mmol/L (8-16); Aspartate Amino Transferase 33 U/L (14-36); Bilirubin,Total 0.8 mg/dL (0.2-1.3); Blood Urea Nitrogen 14 mg/dL (7-17); Calcium 10.3 mg/dL (8.4-10.2); Carbon Dioxide 25 mmol/L (22-30); Chloride 100 mmol/L (98-107); Estimated CRCL calculation 40 ml/min; Estimated Glomerular Filt Rate 48; Glucose 160 mg/dL (65-105); Lactic Acid Reflex 1.5 mmol/L (0.7-2.1); Magnesium 1.6 mg/dL (1.6-2.3); Potassium 3.6 mmol/L (3.4-5.0); Sodium 137 mmol/L (137-145)
[2020-01-03 21:37] LABS: NT Pro B Type Natriuretic Pept 2640 PG/ML (5-100); Troponin I < 0.012 ng/mL (0.000-0.034)
[2020-01-03] MEDS: dilTIAZem HCl INJ 25 MG/5 ML VIAL 15 MG IV PUSH (21:40)
[2020-01-03 21:42] VITALS: BP 104/47; PULSE 134
[2020-01-03 22:34] VITALS: BP 109/77; PULSE 110; RESP 28; O2SAT 93
--- NOTE | 2020-01-03 23:01 | PM.IMHP ---
H&P: HPI History of Present Illness Date/Time: 01/03/20 23:01 Chief complaint: atrial flutter with RVR Narrative: This is a 74-year-old female obese female with hypothyroidism, obstructive sleep apnea, type 2 diabetes mellitus, hypertension, and CLL who presented to the hospital today secondary to heart palpitations and shortness of breath. She noticed that she has had a heart rate up no 130s for over the past day now. Her binder cutter has told her that as long as her heart rate comes down that it is okay for to go up briefly. She decided come to the hospital tonight as her heart rate simply would not come down. Associated symptoms include shortness of breath and generalized fatigue. She denies any chest pain or coughing. The patient also reports having intermittent fevers including 1 last night. She is known to get infusion treatments for her leukemia and her last treatment was on December 29. Her reports that she has had decreased p.o. intake of food since she has been discharged from the hospital almost 2 weeks ago. The patient has been compliant with home home medications including her Eliquis therapy. She denies any abdominal pain, nausea, vomiting, headache, neck stiffness, dysuria, hematuria, lower extremity swelling or redness, or focal neurological deficits. The patient was evaluated emergency room and found to be in atrial flutter with rapid ventricular response. She was started on a diltiazem IV drip for rate control. Chest x-ray which was obtained tonight demonstrated interval worsening of left-sided pleural effusion and now with right-sided pleural effusion and increased pulmonary congestion. ER provider has consulted Cardiology, Dr. Briscoe. The patient was swabbed for COVID-19 in the ER tonight. No other complaints. Review of Systems Review of Systems: All systems reviewed & are unremarkable except as noted in HPI and below PMFSH Past Medical History Medical History Chronic lymphocytic leukemia Patient of Dr. Anderson. Depression with anxiety Diverticulitis History of DVT of lower extremity Hyperlipidemia Hypertension Hypertension associated with diabetes Nephrolithiasis Obstructive sleep apnea on CPAP Osteoarthritis Type 2 diabetes mellitus Reported recent hemoglobin A1c of 6.0%. Surgical History Surgical History History of cardiac catheterization (~2002) Patient reports clean coronary arteries. History of cataract extraction History of cholecystectomy History of detached retina repair History of dilatation and curettage History of knee replacement, total Left: 2006 Right: 2009 History of lymph node biopsy History of right hip replacement (~2011) Family History Family History Mother Hypertension Father Cancer Lung cancer Sibling Heart disease Daughter Bone cancer Social History Social History Social History: Surrogate decision maker: Khalif Ceron, spouse. Code status: Full code. Smoking status: Never smoker Second hand tobacco smoke exposure: No Alcohol intake: never Substance use: never Additional living arrangements comments: Resides with her in [place]. They had 3 children, all who are . Daughter from bone cancer at age 46. One son in a motorcycle accident age 19, the other perished in a motor vehicle accident at age 54. 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 Gender identity (if verbalized by the patient): Female Spiritual care concerns: No Meds Home Medications and Allergies Home Medications Medication Instructions Recorded Confirmed Type Adult Probiotic 3,000 mmu cells PO DAILY 12/23/19 01/04/20 History Venclexta 200 mg P
[2020-01-03 23:49] LABS: Add Urine Microscopic? YES; Amorphous Sediment Urine Few; Appearance Urine Cloudy (Clear); Bacteria Urine 1+ /hpf; Bilirubin Urine Negative (Negative); Blood Urine Negative (Negative); Color Urine Amber (Yellow); Glucose Urine UA Negative (Negative); Ketones Urine Negative (Negative); Leukocyte Esterase Ur Trace LEU/UL (Negative); Mucus Urine Few /lpf; Nitrate Urine Negative (Negative); Protein Urine 2+ mg/dL (Negative); RBC Urine 0-2 /hpf (0-2); Specific Grav Ur 1.019 (1.001-1.035); Squamous Epithelial Cell Urine Many /hpf (Few); WBC Urine 31-50 /hpf
[2020-01-04] VITALS (17 sets, daily range): BP systolic 102–157; BP diastolic 58–86; PULSE 61–138; RESP 18–28; TEMP 35.8–36.6; O2SAT 91–97; BMI 31.5
[2020-01-04] MEDS: METOPROLOL TARTRATE 25 MG TABLET PO ×3 (00:54→21:38)
[2020-01-04] MEDS: FUROSEMIDE INJ 40 MG/4 ML VIAL 20 MG IV PUSH (00:55)
[2020-01-04 01:46] LABS: Glucose Point of Care 143 (65-105)
--- NOTE | 2020-01-04 04:02 | PC.NURSE ---
This patient, Kavitha Ceron, was admitted to IMU Room 204-01. Patient/family oriented to hospital policies and general routines including ID bracelet, bed and alarms, visiting hours, pain management, procedures, bathroom and other care routines, personal items, smoking policy, room service/diet, and visiting hours. Information on how to activate the Rapid Response Team has been discussed. Patient/Family are encouraged to report perceived risks to care and to ask questions if they do not understand what they are told or what they should do.
[2020-01-04 05:26] LABS: Basophils Percent Auto 0.3 % (0.2-1.2); Hematocrit 37.5 % (37.0-47.0); Hemoglobin 11.9 g/dL (12.0-15.0); Immature Granulocyte Absolute 0.29 K/mm3 (0.00-0.031); Immature Granulocyte Percent A 4.6 % (0-0.5); Lymphocytes Absolute Auto 1.14 K/mm3 (0.9-3.2); Lymphocytes Percent Auto 18.2 % (18.3-44.2); Mean Corpuscular HGB Conc 31.7 g/dl (32-36); Mean Corpuscular Hemoglobin 26.2 pg (26-34); Mean Corpuscular Volume 82.4 fl (80-100); Mean Platelet Volume 10.4 fl (7.4-10.4); Monocytes Absolute Auto 0.7 K/mm3 (0.1-0.6); Monocytes Percent Auto 11.7 % (2.6-8.5); Neutrophils Absolute Auto 4.1 K/mm3 (1.3-6.7); Neutrophils Percent Auto 65.2 % (45.5-73.1); Platelet Count Result 176 k/mm3 (150-375); Red Blood Count 4.55 M/mm3 (4.2-5.4); Red Cell Distribution Width 16.5 % (11.5-14.5); White Blood Count 6.3 K/mm3 (4.5-10.0)
[2020-01-04 05:45] LABS: Alanine Aminotransferase 12 U/L (4-35); Albumin Level 3.4 g/dL (3.5-5.1); Alkaline Phosphatase 95 U/L (38-126); Anion Gap 7 mmol/L (8-16); Aspartate Amino Transferase 27 U/L (14-36); Bilirubin,Total 0.6 mg/dL (0.2-1.3); Blood Urea Nitrogen 18 mg/dL (7-17); Calcium 9.9 mg/dL (8.4-10.2); Carbon Dioxide 29 mmol/L (22-30); Chloride 99 mmol/L (98-107); Estimated CRCL calculation 39 ml/min; Estimated Glomerular Filt Rate 48; Glucose 134 mg/dL (65-105); Potassium 3.5 mmol/L (3.4-5.0); Sodium 135 mmol/L (137-145)
[2020-01-04 09:10] LABS: Glucose Point of Care 112 (65-105)
--- NOTE | 2020-01-04 09:46 | PM.CNCAR ---
Assessment and Plan Assessment and plan (1) Atrial flutter with rapid ventricular response: Code(s): I48.92 - Unspecified atrial flutter Status: Acute Assessment and Plan: 74-year-old female with atrial flutter on chronic anticoagulation with apixaban; hypertension, diabetes mellitus type 2, CLL, hypothyroidism on thyroxine replacement, AMAN, anxiety. Patient admitted with palpitations and shortness of breath, found to be in atrial flutter with RVR. Patient also reported fever at home. -patient is currently in isolation, COVID-19 PCR is pending. -her heart rate has significantly improved with IV diltiazem, which will be bridged with oral diltiazem and oral metoprolol tartrate. -continue anticoagulation with apixaban -gentle diuresis with furosemide; monitor renal function and electrolytes. -repeat chest x-ray in morning to check for improvement pulmonary vascular congestion and pleural effusions. -continue to monitor on telemetry -patient will keep her outpatient scheduled appointment for DC cardioversion, unless it is indicated earlier. -recommend outpatient evaluation by electrophysiology for consideration for atrial flutter ablation. (2) Diastolic CHF: Code(s): I50.30 - Unspecified diastolic (congestive) heart failure Status: Acute Assessment and Plan: Gentle diuresis; blood pressure control History of Present Illness History of Present Illness Consult date/time: 01/04/20 09:46 Date of consult: 01/04/2020 Reason for consult: Atrial flutter with RVR Requesting physician: Chief complaint: HPI: 74-year-old female with atrial flutter on chronic anticoagulation with apixaban; hypertension, diabetes mellitus type 2, CLL, hypothyroidism on thyroxine replacement, AMAN, anxiety. Patient was recently admitted to [facility] on 12/24/2019 with tachycardia and found to be in atrial flutter with RVR. She was initiated on anticoagulation. She had attempted ROBERT-guided cardioversion on 12/24/2019, but reportedly unable to intubate, therefore cardioversion was not performed. Patient was initiated on rate control with metoprolol tartrate and diltiazem, and started on anticoagulation with apixaban. She was anticipated to undergo outpatient cardioversion. Patient returned to [facility] on 01/03/2020 with complaints of palpitations and shortness of breath for last 3 days. Patient notes that her heart rates were elevated at home and 140s. Patient also had fever, and reported that her temperature was up to 103? F. Her COVID PCR is pending. Her EKG which I personally evaluated showed atrial flutter with RVR, heart rate 138 beats per minute, ST-T abnormalities. Patient was initiated on IV diltiazem, and her heart rates improved to 60s and 70s on telemetry. First set of troponins negative. NT proBNP is elevated at 2640. Chest x-ray shows cardiomegaly, small to moderate bilateral pleural effusions and adjacent atelectasis; basilar pneumonia and/or edema not excludable. Recent echocardiogram from 12/24/2019 showed mild LVH, EF 60-65%, mild MR. Recent TSH was normal. Reason For Visit: atrial flutter with RVR Review of Systems Review of Systems: Narrative: General: Positive for fever, generalized fatigue Psychological: Positive for anxiety Ophthalmic: negative for loss of vision ENT: Negative for epistaxis, headaches Allergy and immunology: Negative for hives, nasal congestion Hematologic and lymphatic: Negative for overt bleeding problems Endocrine: Negative for hot flashes, palpitations Respiratory: Negative for cough, hemoptysis Cardiovascular: Negative for chest pain, positive for palpitations, shortness of breath Gastrointestinal: Negative for abdominal pain, nausea, vomiting, hematochezia Musculoskeletal: Negative for myalgia, joint pains Neurological: Negative for weakness Dermatological: Negative for rash, skin discoloration PMFSH Past Medical History Medical History (Reviewed 01/04/20
[2020-01-04] MEDS: APIXABAN 5 MG TABLET PO ×2 (09:59→21:37)
[2020-01-04] MEDS: ACIDOPHILUS/BULGARICUS CHEWABLE TABLET 1 TABLET PO (09:59)
[2020-01-04] MEDS: metFORMIN HCL 500 MG TABLET PO (09:59)
[2020-01-04] MEDS: ASPIRIN 81 MG ENTERIC TABLET PO (10:00)
[2020-01-04] MEDS: ROSUVASTATIN 10 MG TABLET PO (10:00)
[2020-01-04] MEDS: SPIRONOLACTONE 25 MG TABLET PO (10:00)
[2020-01-04] MEDS: lisinopriL 20 MG TABLET 40 MG PO (10:00)
[2020-01-04 12:56] LABS: Glucose Point of Care 106 (65-105)
[2020-01-04] MEDS: dilTIAZem HCL CD 180 MG CAP.ER.24H PO (13:34)
[2020-01-04] MEDS: FUROSEMIDE 40 MG TABLET PO (13:35)
[2020-01-04] MEDS: ACETAMINOPHEN 325 MG TABLET 650 MG PO (15:45)
--- NOTE | 2020-01-04 16:11 | PM.IMPN ---
Progress Note: A&P Assessment and Plan (1) Atrial flutter with rapid ventricular response: Code(s): I48.92 - Unspecified atrial flutter Status: Acute Assessment and Plan: ----- patient was well controlled on a diltiazem drip but is now tachycardic again after being transition to oral. Cardiology has been contacted by the nurse and we will wait further additional recommendations. She is on Eliquis currently for stroke prophylaxis. Continue furosemide and repeat chest x-ray ordered for the morning.\ . (2) Suspected 2019 novel coronavirus infection: Code(s): Z20.828 - Contact with and (suspected) exposure to other viral communicable diseases Status: Acute Assessment and Plan: ----- patient had subjective fever before admission and was COVID-19 swabbed. Continue isolation until resulted. COVID-19 seems less likely (3) Hypertension: Qualifiers: Hypertension type: unspecified Qualified Code(s): I10 - Essential (primary) hypertension Code(s): I10 - Essential (primary) hypertension Status: Chronic Assessment and Plan: ----- last blood pressure 143/71. Continue metoprolol, Lasix,spironolactone, diltiazem and lisinopril (4) Obstructive sleep apnea on CPAP: Code(s): G47.33 - Obstructive sleep apnea (adult) (pediatric); Z99.89 - Dependence on other enabling machines and devices Status: Chronic Assessment and Plan: ----- continue home CPAP once COVID-19 negative (5) Chronic lymphocytic leukemia: Code(s): C91.10 - Chronic lymphocytic leukemia of B-cell type not having achieved remission Status: Chronic Assessment and Plan: ------continue oncology recommendations. (6) Type 2 diabetes mellitus: Qualifiers: 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 custodial insulin use: without keno terminal operator use 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 complication status: without complication Qualified Code(s): E11.9 - Type 2 diabetes mellitus without complications Code(s): E11.9 - Type 2 diabetes mellitus without complications Status: Chronic Assessment and Plan: ----- last glucose 106. Continue metformin and sliding scale insulin (7) Hypothyroidism: Qualifiers: Hypothyroidism type: unspecified Qualified Code(s): E03.9 - Hypothyroidism, unspecified Code(s): E03.9 - Hypothyroidism, unspecified Status: Chronic Assessment and Plan: ----- continue levothyroxine p.o. TSH normal 12/22 Time Spent With Patient Time with patient: 25 - 35 minutes Subjective Date/time seen: 01/04/20 16:11 Interval history: Pt is a 74-year-old female here for AFib with RVR and COVID-19 rule out. Patient was seen today and states she usually can't feel that her heart is racing but today she can. She does not have any chest pain, arm pain or jaw pain at this time. She is not short of breath with sitting or walking short distances. She has not had any cough or contacts that have COVID-19. She denies nausea, vomiting, fevers and diarrhea. Eating and drinking well. Review of Systems Review of Systems: All systems reviewed & are unremarkable except as noted in HPI and below Exam Narrative: Exam Narrative: General: Well developed well nourished patient in NAD HEENT: normocephalic Neck: supple Neuro: Alert and oriented x4 CV: Irregularly irregular with rate of 130 on exam. Telemetry shws paroxysmal atrial fibrillation currently rate of 138 Resp:CTA Abd: Soft, non distended. No pain to palpation. Positive bowel sounds Extremities: No swelling, erythema, or pain to palpation. Objective Data Vital Signs Vital Signs: Vital Signs - 24 hr 01/03/20 20:58 01/03/20 21:42 01/03/20 22:34 Temperature 99.3 F Pulse Rate 139 H 134 H 110 H Respiratory Rate 30 H 28 H Blood Pressure 104/47 L 109/77 Pulse Oximetry 97 93 01/04/20 00:48 01/04/20 03:35 01/04/20 04:00 Temperature 96.8 F L Pulse Rat
[2020-01-04 17:16] LABS: Glucose Point of Care 119 (65-105)
[2020-01-04 20:05] LABS: Glucose Point of Care 171 (65-105)
[2020-01-04] MEDS: GABAPENTIN 300 MG CAPSULE PO (21:37)
[2020-01-04 23:54] LABS: SARS-CoV-2 RNA PCR Negative
[2020-01-05] VITALS (16 sets, daily range): BP systolic 103–150; BP diastolic 50–107; PULSE 50–105; RESP 18–20; TEMP 36.1–36.7; O2SAT 90–97; BMI 31.5
[2020-01-05 05:29] LABS: Hematocrit 41.4 % (37.0-47.0); Hemoglobin 13.2 g/dL (12.0-15.0); Mean Corpuscular HGB Conc 31.9 g/dl (32-36); Mean Corpuscular Hemoglobin 26.2 pg (26-34); Mean Corpuscular Volume 82.1 fl (80-100); Mean Platelet Volume 10.2 fl (7.4-10.4); Platelet Count Result 215 k/mm3 (150-375); Red Blood Count 5.04 M/mm3 (4.2-5.4); Red Cell Distribution Width 16.6 % (11.5-14.5); White Blood Count 5.9 K/mm3 (4.5-10.0)
[2020-01-05 05:38] LABS: INR 2.1; Prothrombin Time 24.3 Seconds (11.1-14.7)
[2020-01-05 05:40] LABS: Anion Gap 9 mmol/L (8-16); Blood Urea Nitrogen 20 mg/dL (7-17); Calcium 10.4 mg/dL (8.4-10.2); Carbon Dioxide 31 mmol/L (22-30); Chloride 99 mmol/L (98-107); Estimated CRCL calculation 39 ml/min; Estimated Glomerular Filt Rate 48; Glucose 143 mg/dL (65-105); Potassium 3.6 mmol/L (3.4-5.0); Sodium 139 mmol/L (137-145)
[2020-01-05] MEDS: dilTIAZem HCL CD 180 MG CAP.ER.24H PO (08:37)
[2020-01-05] MEDS: LEVOTHYROXINE SODIUM 100 MCG TABLET PO (08:37)
[2020-01-05] MEDS: APIXABAN 5 MG TABLET PO ×2 (08:37→20:53)
[2020-01-05] MEDS: LEVOTHYROXINE SODIUM 75 MCG TABLET PO (08:37)
[2020-01-05] MEDS: SPIRONOLACTONE 25 MG TABLET PO (08:37)
[2020-01-05] MEDS: lisinopriL 10 MG TABLET PO (08:37)
[2020-01-05] MEDS: FUROSEMIDE 40 MG TABLET PO (08:37)
[2020-01-05] MEDS: metFORMIN HCL 500 MG TABLET PO (08:37)
[2020-01-05] MEDS: ACIDOPHILUS/BULGARICUS CHEWABLE TABLET 1 TABLET PO (08:37)
[2020-01-05] MEDS: ROSUVASTATIN 10 MG TABLET PO (08:37)
[2020-01-05] MEDS: METOPROLOL TARTRATE 25 MG TABLET PO ×2 (08:37→20:53)
[2020-01-05 09:39] LABS: Glucose Point of Care 122 (65-105)
--- NOTE | 2020-01-05 09:59 | PM.PNCARD ---
Progress Note: A&P Assessment and Plan (1) Atrial flutter with rapid ventricular response: Code(s): I48.92 - Unspecified atrial flutter Status: Acute Assessment and Plan: 74-year-old female with atrial flutter on chronic anticoagulation with apixaban; hypertension, diabetes mellitus type 2, CLL, hypothyroidism on thyroxine replacement, AMAN, anxiety. Admitted with palpitations and shortness of breath, found to be in atrial flutter with RVR. She also reported fever at home. COVID-19 ruled out. Was bridged to p.o. Cardizem yesterday however went back into atrial flutter with rapid ventricular response and was restarted on a diltiazem drip. Heart rate elevated this morning prior to medications. Diltiazem drip at 5 milligrams/hour. Heart rate 64-61 at this time. Discontinue Cardizem drip again. Will add additional Cardizem CD 120 mg this evening at 6:00 p.m.. She seems to be rate controlled until her medications start to wear off. Will change her Cardizem CD in the morning to 120 mg (for a total dose 240 mg daily) tomorrow starting at 6:00 a.m.. Continue Metoprolol tartrate 25 mg every 12 hours. She states that she takes this generally in the morning and in the evening before bedtime. Monitor blood pressure and heart rate with medication changes. Continue anticoagulation with apixaban She is scheduled for outpatient cardioversion on February 05 after she has been anticoagulated since for 6 weeks. She expresses a concern that she cannot wait that long. Discussed need to wait as she is unable to have transesophageal echocardiogram to confirm that she does not have any apical clot. May need outpatient evaluation by wealth management director for consideration for atrial flutter ablation sooner than later. (2) Diastolic CHF: Qualifiers: Heart failure chronicity: acute Qualified Code(s): I50.31 - Acute diastolic (congestive) heart failure Code(s): I50.30 - Unspecified diastolic (congestive) heart failure Status: Acute Assessment and Plan: Intake and output this not reflect much diuresis. Will give an additional 20 mg IV push this morning. She still complains of short of notice of breath even when her heart rate is better controlled. Chest x-ray from this morning personally reviewed still with pulmonary vascular congestion. Additional Plan Plan discussed with Dr. Slaughter 1050 01/05/2020. Subjective Date/time seen: 01/05/20 09:59 Interval history: Follow-up for: Atrial flutter with rapid ventricular response. COVID 19 has been ruled out. Date of service: 01/05/2020 Subjective: Denied chest discomfor. Short of breath with conversation and any activty. No lightheadedness or palpitations. Review of Systems Constitutional: Constitutional: Denies chills, Denies fever(s) and Denies headache(s) Eyes: Eyes: Denies blind spots and Denies blurry vision ENT: Reports Normal hearing present, Denies dizziness and Denies epistaxis Cardiovascular: Cardiovascular: Denies chest pain, Denies pedal edema, Denies leg edema and Reports dyspnea on exertion Respiratory: Respiratory: Reports dyspnea on exertion Gastrointestinal: Gastrointestinal: Denies abdominal pain, Denies bloating, Denies nausea and Denies vomiting Genitourinary: Genitourinary: Denies hematuria Musculoskeletal: Musculoskeletal: Denies back pain and Denies myalgias Integumentary/Breasts: Skin/Breast: Denies erythema and Denies rash Neurologic: Denies Abnormal speech present, Denies dizziness and Denies syncope Psychiatric: Psychiatric: Denies anxiety Endocrine: Endocrine: Denies cold intolerance, Denies excessive sweating, Denies fatigue and Denies flushing Hematologic/Lymphatic: Hematologic/Lymphatic: Denies easy bleeding and Denies easy bruising Allergic/Immunologic: Allergic/Immunologic: Denies lip swelling, Denies throat swelling and Denies tongue swelling
[2020-01-05] MEDS: POTASSIUM CHLORIDE 20 MEQ TABLET PO (12:27)
[2020-01-05] MEDS: FUROSEMIDE INJ 40 MG/4 ML VIAL 20 MG IV PUSH (12:32)
[2020-01-05 12:40] LABS: Glucose Point of Care 137 (65-105)
--- NOTE | 2020-01-05 13:35 | PM.IMPN ---
Progress Note: A&P Assessment and Plan (1) Atrial flutter with rapid ventricular response: Code(s): I48.92 - Unspecified atrial flutter Status: Acute Assessment and Plan: ----- Patient has been on and off IV diltizem since admitted. Plan to restart oral today to see if she continues to be controlled. She was SOB today with activity, will continue lasix. CXR unchanged. She is on Eliquis currently for stroke prophylaxis. . (2) Suspected 2019 novel coronavirus infection: Code(s): Z20.828 - Contact with and (suspected) exposure to other viral communicable diseases Status: Acute Assessment and Plan: ----- patient had subjective fever before admission and is negative for covid. (3) Hypertension: Qualifiers: Hypertension type: unspecified Qualified Code(s): I10 - Essential (primary) hypertension Code(s): I10 - Essential (primary) hypertension Status: Chronic Assessment and Plan: ----- last blood pressure 121/50. Continue metoprolol, Lasix,spironolactone, diltiazem and lisinopril (4) Obstructive sleep apnea on CPAP: Code(s): G47.33 - Obstructive sleep apnea (adult) (pediatric); Z99.89 - Dependence on other enabling machines and devices Status: Chronic Assessment and Plan: ----- continue home CPAP (5) Chronic lymphocytic leukemia: Code(s): C91.10 - Chronic lymphocytic leukemia of B-cell type not having achieved remission Status: Chronic Assessment and Plan: ------continue oncology recommendations. (6) Type 2 diabetes mellitus: Qualifiers: 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 truck terminal manager insulin use: without fci use 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 complication status: without complication Qualified Code(s): E11.9 - Type 2 diabetes mellitus without complications Code(s): E11.9 - Type 2 diabetes mellitus without complications Status: Chronic Assessment and Plan: ----- last glucose 137. Continue metformin and sliding scale insulin (7) Hypothyroidism: Qualifiers: Hypothyroidism type: unspecified Qualified Code(s): E03.9 - Hypothyroidism, unspecified Code(s): E03.9 - Hypothyroidism, unspecified Status: Chronic Assessment and Plan: ----- continue levothyroxine p.o. TSH normal 12/22 Subjective Date/time seen: 01/05/20 13:35 Interval history: Pt is a 74-year-old female here for AFib with RVR. patient was seen today and states she is feeling short of breath when walking to the bathroom. This is not typical for her but feels better when she is at rest. She no longer has feelings of palpitations at this time and no chest pain has been reported. She is eating and drinking well and has no additional complaints. Denies swelling. Exam Narrative: Exam Narrative: General: Well developed well nourished patient in NAD HEENT: normocephalic Neck: supple Neuro: Alert and oriented x4 CV: irregularly irregular with a rate of 70 currently. She had atrial fib/flutter earlier this morning Resp:CTA Abd: Soft, non distended. No pain to palpation. Positive bowel sounds Extremities: No swelling, erythema, or pain to palpation. Objective Data Vital Signs Vital Signs: Vital Signs - 24 hr 01/04/20 14:00 01/04/20 15:45 01/04/20 16:00 Temperature Pulse Rate 96 138 H 132 H Respiratory Rate Blood Pressure Pulse Oximetry 01/04/20 16:53 01/04/20 18:00 01/04/20 20:00 Temperature 96.7 F L 97.9 F Pulse Rate 106 H 92 72 Respiratory Rate 20 18 Blood Pressure 102/64 138/58 L Pulse Oximetry 95 97 01/04/20 23:53 01/05/20 00:49 01/05/20 02:00 Temperature 97.9 F Pulse Rate 77 50 L 85 Respiratory Rate 20 20 Blood Pressure 127/76 Pulse Oximetry 97 90 90 01/05/20 04:00 01/05/20 06:00 01/05/20 08:00 Temperature 97.9 F 97 F L Pulse Rate 105 H 80 73 Respiratory Rate 18 18 20 Blood Pressure 150/76 H 145/107 H Pulse Oxim
[2020-01-05 17:34] LABS: Glucose Point of Care 143 (65-105)
[2020-01-05] MEDS: LOPERAMIDE HCL 2 MG CAPSULE PO (17:55)
[2020-01-05 20:46] LABS: Glucose Point of Care 144 (65-105)
[2020-01-05] MEDS: GABAPENTIN 300 MG CAPSULE PO (20:53)
[2020-01-06] VITALS (18 sets, daily range): BP systolic 101–123; BP diastolic 46–62; PULSE 51–132; RESP 14–20; TEMP 36.2–36.7; O2SAT 90–99
[2020-01-06 04:35] LABS: Hematocrit 35.6 % (37.0-47.0); Hemoglobin 11.4 g/dL (12.0-15.0); Mean Corpuscular Volume 81.3 fl (80-100); Mean Platelet Volume 9.5 fl (7.4-10.4); Platelet Count Result 182 k/mm3 (150-375); Red Blood Count 4.38 M/mm3 (4.2-5.4); Red Cell Distribution Width 16.3 % (11.5-14.5); White Blood Count 4.4 K/mm3 (4.5-10.0)
[2020-01-06 04:51] LABS: Anion Gap 6 mmol/L (8-16); Blood Urea Nitrogen 26 mg/dL (7-17); Calcium 9.7 mg/dL (8.4-10.2); Carbon Dioxide 32 mmol/L (22-30); Chloride 99 mmol/L (98-107); Estimated CRCL calculation 43 ml/min; Estimated Glomerular Filt Rate 54; Glucose 133 mg/dL (65-105); Potassium 3.5 mmol/L (3.4-5.0); Sodium 137 mmol/L (137-145)
[2020-01-06 06:11] LABS: Vitamin D 25 Hydroxy 44.3 ng/mL
[2020-01-06 08:34] LABS: Glucose Point of Care 128 (65-105)
[2020-01-06] MEDS: lisinopriL 10 MG TABLET PO (08:58)
[2020-01-06] MEDS: metFORMIN HCL 500 MG TABLET PO (08:58)
[2020-01-06] MEDS: ACIDOPHILUS/BULGARICUS CHEWABLE TABLET 1 TABLET PO (08:58)
[2020-01-06] MEDS: METOPROLOL TARTRATE 25 MG TABLET PO ×2 (08:59→20:17)
[2020-01-06] MEDS: ROSUVASTATIN 10 MG TABLET PO (08:59)
[2020-01-06] MEDS: FUROSEMIDE 40 MG TABLET PO (08:59)
[2020-01-06] MEDS: SPIRONOLACTONE 25 MG TABLET PO (08:59)
[2020-01-06] MEDS: APIXABAN 5 MG TABLET PO ×2 (08:59→20:17)
[2020-01-06] MEDS: dilTIAZem HCL CD 180 MG CAP.ER.24H PO (08:59)
--- NOTE | 2020-01-06 09:26 | PM.PNCARD ---
Progress Note: A&P Assessment and Plan (1) Atrial flutter with rapid ventricular response: Code(s): I48.92 - Unspecified atrial flutter Status: Acute Assessment and Plan: 74-year-old female with atrial flutter on chronic anticoagulation with apixaban; hypertension, diabetes mellitus type 2, CLL, hypothyroidism on thyroxine replacement, AMAN, anxiety. Admitted with palpitations and shortness of breath, found to be in atrial flutter with RVR. She also reported fever at home. COVID-19 negative. Patient was on IV diltiazem, which was bridged with oral diltiazem and metoprolol. Patient is back and forth in atrial flutter with RVR with heart rate in the 130s. Will change long-acting diltiazem to short-acting diltiazem 90 mg p.o. q.6 hours with holding parameters; continue metoprolol tartrate. Hold lisinopril and spironolactone for now to avoid hypotension and make room for AV david blocking agents. Continue anticoagulation with apixaban She is scheduled for outpatient cardioversion on February 05. Her previous attempted cardioversion was aborted due to difficulty in doing the ROBERT on her. Patient is unable to tolerate the recurrent episodes of atrial flutter with RVR. After discussion with the patient, she is willing to be evaluated by electrophysiology for consideration for radiofrequency ablation. I attempted to call electrophysiology, awaiting call back. If feasible, will prefer transfer of patient to either [facility] or [facility] for EP evaluation and consideration for inpatient radiofrequency ablation. (2) Diastolic CHF: Qualifiers: Heart failure chronicity: acute Qualified Code(s): I50.31 - Acute diastolic (congestive) heart failure Code(s): I50.30 - Unspecified diastolic (congestive) heart failure Status: Acute Assessment and Plan: Continue gentle diuresis with furosemide Subjective Date/time seen: 01/06/20 09:26 Interval history: Follow-up for: Atrial flutter with rapid ventricular response. COVID 19 negative. Date of service: 01/05/2020 Subjective: Denied chest discomfor. Short of breath with conversation and any activty. No lightheadedness or palpitations. Date of service: 01/06/2020: Patient reports palpitations. She is back in atrial flutter with RVR with heart rates in 130s. Patient has been on diltiazem and metoprolol oral. She denies chest pain. She has shortness of breath with exertion. Exam Narrative: Exam Narrative: PHYSICAL EXAMINATION: GENERAL: Alert, oriented, no acute distress MENTAL STATUS: affect appropriate to mood EYES: Extraocular movements intact, no pallor EARS: External ears appear normal, hearing grossly normal NOSE: Normal and patent, no discharge MOUTH: Mucous membranes moist, tongue normal NECK: Supple, no JVD CHEST: Decreased breath sounds bilaterally. Increased respiratory rate with conversation HEART: Tachycardia, irregular rhythm ABDOMEN: Soft, nontender NEUROLOGICAL: Alert, oriented, normal speech, no gross motor deficits MUSCULOSKELETAL: Arthritic changes; no amputation EXTREMITIES: No pedal edema, no clubbing, no cyanosis SKIN: no rash on the exposed area, no cyanosis PSYCHIATRIC: Normal mood, appropriate affect Neuro: Cranial nerves: Yes Normal hearing present Speech: No Abnormal speech present Objective Data Vital Signs Vital Signs: Vital Signs - 24 hr 01/05/20 10:00 01/05/20 12:00 01/05/20 14:00 Temperature 36.3 C L Pulse Rate 61 64 87 Respiratory Rate 18 Blood Pressure 121/50 L Pulse Oximetry 92 01/05/20 16:00 01/05/20 18:00 01/05/20 19:55 Temperature 36.2 C L 36.5 C Pulse Rate 55 L 91 92 Respiratory Rate 18 18 Blood Pressure 120/87 130/71 Pulse Oximetry 96 97 01/05/20 20:00 01/05/20 20:53 01/05/20 22:00 Temperature Pulse Rate 95 91 86 Respiratory Rate 18 Blood Pressure Pulse Oximet
--- NOTE | 2020-01-06 10:38 | PM.IMPN ---
Progress Note: A&P Assessment and Plan (1) Atrial flutter with rapid ventricular response: Code(s): I48.92 - Unspecified atrial flutter Status: Acute Assessment and Plan: Off diltiazem drip, was bridged with oral diltiazem and metoprolol, continues to go in and out of a flutter. Management per cardiology - appreciate recommendations. Switched from long-acting diltiazem to short-acting diltiazem q.6, continue metoprolol. Lisinopril and spironolactone held. Continue Eliquis for stroke prophylaxis. Scheduled for outpatient cardioversion 02/06/20; Cardiology discussing possible transfer for electrophysiology evaluation. (2) Suspected 2019 novel coronavirus infection: Code(s): Z20.828 - Contact with and (suspected) exposure to other viral communicable diseases Status: Ruled-out Assessment and Plan: Ruled out. COVID negative. (3) Hypertension: Qualifiers: Hypertension type: unspecified Qualified Code(s): I10 - Essential (primary) hypertension Code(s): I10 - Essential (primary) hypertension Status: Chronic Assessment and Plan: Appreciate further input from cardiology. Today she is maintained on metoprolol, diltiazem, oral Lasix; spironolactone and lisinopril held. (4) Obstructive sleep apnea on CPAP: Code(s): G47.33 - Obstructive sleep apnea (adult) (pediatric); Z99.89 - Dependence on other enabling machines and devices Status: Chronic Assessment and Plan: Continue home CPAP (5) Chronic lymphocytic leukemia: Code(s): C91.10 - Chronic lymphocytic leukemia of B-cell type not having achieved remission Status: Chronic Assessment and Plan: Continue oncology recommendations. She describes she is undergoing chemotherapy and immunotherapy. (6) Type 2 diabetes mellitus: Qualifiers: 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 penitentiary insulin use: without penitentiary use 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 complication status: without complication Qualified Code(s): E11.9 - Type 2 diabetes mellitus without complications Code(s): E11.9 - Type 2 diabetes mellitus without complications Status: Chronic Assessment and Plan: A1c 5.7%. Blood sugars are stable. Continue to monitor with Accu-Cheks and cover with SSI. (7) Hypothyroidism: Qualifiers: Hypothyroidism type: unspecified Qualified Code(s): E03.9 - Hypothyroidism, unspecified Code(s): E03.9 - Hypothyroidism, unspecified Status: Chronic Assessment and Plan: Continue home levothyroxine. Subjective Date/time seen: 01/06/20 0845 Interval history: Ms. Ceron is a 74yo F admitted for atrial flutter with RVR. She reports feeling okay today, feeling weak. She denies chest pain or shortness of breath at present. She feels short of breath with walking. She says she does notice when her heart races but she is not feeling any palpitations at this time. She has tolerated some breakfast without nausea or vomiting. Review of Systems Review of Systems: All systems reviewed & are unremarkable except as noted in HPI and below Exam Narrative: Exam Narrative: General: Female resting comfortably sitting on edge of bed in no acute distress. HEENT: Normocephalic, EOMI, oral mucosa moist. Cardiovascular: Rate and rhythm irregular. Telemetry review shows A flutter rate 104bpm at time of my encounter, later in the morning is noted to be 63bpm. Respiratory: Diminished breath sounds bilaterally. Respirations even and nonlabored. Tolerating room air. Abdomen: Soft, non-tender, non-distended, bowel sounds present. Extremities: Peripheral pulses intact. No edema. Neuro: No foc
[2020-01-06] MEDS: dilTIAZem HCL TAB 30 MG, dilTIAZem HCL TAB 60 MG 90 MG PO ×2 (13:43→18:46)
[2020-01-06 16:52] LABS: Glucose Point of Care 122 (65-105)
[2020-01-06 16:52] LABS: Glucose Point of Care 108 (65-105)
[2020-01-06] MEDS: ACETAMINOPHEN 325 MG TABLET 650 MG PO (18:45)
[2020-01-06 20:12] LABS: Glucose Point of Care 170 (65-105)
[2020-01-06] MEDS: GABAPENTIN 300 MG CAPSULE PO (20:17)
[2020-01-07] VITALS (12 sets, daily range): BP systolic 103–120; BP diastolic 41–70; PULSE 47–90; RESP 18; TEMP 36.1–36.4; O2SAT 94–98
[2020-01-07 04:56] LABS: Basophils Percent Auto 0.3 % (0.2-1.2); Eosinophils Percent Auto 0.3 % (0-4.4); Hematocrit 35.6 % (37.0-47.0); Hemoglobin 11.4 g/dL (12.0-15.0); Immature Granulocyte Absolute 0.13 K/mm3 (0.00-0.031); Immature Granulocyte Percent A 3.9 % (0-0.5); Lymphocytes Absolute Auto 1.04 K/mm3 (0.9-3.2); Lymphocytes Percent Auto 31.5 % (18.3-44.2); Mean Corpuscular Hemoglobin 26.1 pg (26-34); Mean Corpuscular Volume 81.5 fl (80-100); Monocytes Absolute Auto 0.3 K/mm3 (0.1-0.6); Monocytes Percent Auto 9.7 % (2.6-8.5); Neutrophils Absolute Auto 1.8 K/mm3 (1.3-6.7); Neutrophils Percent Auto 54.3 % (45.5-73.1); Platelet Count Result 193 k/mm3 (150-375); Red Blood Count 4.37 M/mm3 (4.2-5.4); Red Cell Distribution Width 16.3 % (11.5-14.5); White Blood Count 3.3 K/mm3 (4.5-10.0)
[2020-01-07 05:18] LABS: Anion Gap 8 mmol/L (8-16); Blood Urea Nitrogen 30 mg/dL (7-17); Calcium 9.7 mg/dL (8.4-10.2); Carbon Dioxide 33 mmol/L (22-30); Chloride 95 mmol/L (98-107); Estimated CRCL calculation 36 ml/min; Estimated Glomerular Filt Rate 44; Glucose 121 mg/dL (65-105); Magnesium 1.6 mg/dL (1.6-2.3); Potassium 3.4 mmol/L (3.4-5.0); Sodium 136 mmol/L (137-145)
[2020-01-07] MEDS: dilTIAZem HCL TAB 30 MG, dilTIAZem HCL TAB 60 MG 90 MG PO ×3 (06:00→17:30)
[2020-01-07] MEDS: FUROSEMIDE 40 MG TABLET PO (08:07)
[2020-01-07] MEDS: ROSUVASTATIN 10 MG TABLET PO (08:07)
[2020-01-07] MEDS: metFORMIN HCL 500 MG TABLET PO (08:07)
[2020-01-07] MEDS: ERGOCALCIFEROL 50,000 UNIT CAPSULE 50000 UNITS PO (08:07)
[2020-01-07] MEDS: ACIDOPHILUS/BULGARICUS CHEWABLE TABLET 1 TABLET PO (08:07)
[2020-01-07] MEDS: APIXABAN 5 MG TABLET PO (08:07)
[2020-01-07] MEDS: METOPROLOL TARTRATE 25 MG TABLET PO (08:07)
--- NOTE | 2020-01-07 08:07 | WPDCDIQUERY2 ---
CDI Query Clarification Request -Cardiology has documented acute on chronic diastolic CHF -No mention of CHF by hospitalists -BNP 2640 on 01/02 -01/02 CXR impression, Cardiomegaly, small to moderate bilateral pleural effusions and adjacent atelectasis. Basilar pneumonia and/or edema not excludable -Lasix 20mg IV given once in ED and again on 01/04. Pt currently on Lasix 40mg po daily. Please clarify if acute on chronic diastolic CHF has been ruled in or ruled out.
[2020-01-07] MEDS: MAGNESIUM SULF 2 GM/WATER 50ML 2 GM/50 ML BAG IVPB (08:08)
[2020-01-07] MEDS: POTASSIUM CHLORIDE 20 MEQ TABLET PO ×2 (08:08→11:16)
[2020-01-07 08:11] LABS: Glucose Point of Care 127 (65-105)
--- NOTE | 2020-01-07 09:30 | PM.PNCARD ---
Progress Note: A&P Assessment and Plan (1) Atrial flutter with rapid ventricular response: Code(s): I48.92 - Unspecified atrial flutter Status: Acute Assessment and Plan: 74-year-old female with atrial flutter on chronic anticoagulation with apixaban; hypertension, diabetes mellitus type 2, CLL, hypothyroidism on thyroxine replacement, AMAN, anxiety. Admitted with palpitations and shortness of breath, found to be in atrial flutter with RVR. She also reported fever at home. COVID-19 negative. She is scheduled for outpatient cardioversion on February 05. Her previous attempted cardioversion was aborted due to difficulty in doing the ROBERT on her, and is too early to do a cardioversion safely since she has only been anticoagulated for 2 weeks. Patient is unable to tolerate the recurrent episodes of atrial flutter with RVR. After discussion with the patient, she is willing to be evaluated by electrophysiology for consideration for radiofrequency ablation. Dr. Rodriguez tried calling 3 toll line repairer yesterday to discuss transfer for EP evaluation and consideration for inpatient radiofrequency ablation, but has not received any call backs, so it looks like transfer would be difficult during the pandemic.. Heart rate has been difficult to control but doing well for nearly 24 hours with the addition of metoprolol and changing Cardizem to short-acting 90 mg q.6 hours. Mildly bradycardic last night. Her recent fever may have exacerbated her atrial flutter problems. Holding lisinopril and spironolactone for now to avoid hypotension and make room for AV david blocking agents. Continue anticoagulation with apixaban. Let's see how patient does today, up and ambulate, perhaps home tomorrow on current therapy. Keep cardioversion as scheduled on February 05 and outpatient follow-up with electrophysiology. If she has further a flutter RVR we may add amiodarone, though that would put her at risk of pharmacologic cardioversion. (2) Diastolic CHF: Qualifiers: Heart failure chronicity: acute Qualified Code(s): I50.31 - Acute diastolic (congestive) heart failure Code(s): I50.30 - Unspecified diastolic (congestive) heart failure Status: Acute Assessment and Plan: ACute diastolic CHF 2ng to a flutter RVR Lung sound clear, oxygen, blood pressure is somewhat soft, BUN elevating. Will reduce diuretic from furosemide 40 mg to 20 mg qd, maybe DC it depending on CXR results. Check CXR to assess for residual CHF. Extra Kcl for hypokalemia. (3) Fever: Code(s): R50.9 - Fever, unspecified Status: Acute Assessment and Plan: Fever has subsided, no obvious source of infection. COVID negative. Subjective Date/time seen: 01/07/20 09:30 Interval history: Follow-up for: Atrial flutter with rapid ventricular response. COVID 19 negative. Echo from earlier this month also showed cardiomegaly but EF 60-65%, diastolic dysfunction and mild MR. Date of service: 01/05/2020 Subjective: Denied chest discomfort. Short of breath with conversation and any activity. No lightheadedness or palpitations. Date of service: 01/06/2020: Patient reports palpitations. She is back in atrial flutter with RVR with heart rates in 130s. Patient has been on diltiazem and metoprolol oral. She denies chest pain. She has shortness of breath with exertion. Diltiazem chnaged to 90 mg q 6Hr Date of service: 01/07/2020: Patient has been feeling well overnight, short of breath at times yesterday but not today so far. A little lightheaded earlier today. 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 Tele: Heart rate has been controlled generally in the 60s, dropping to the 40s last night and her midnight dose of diltiazem was held. No longer on oxygen. Chest x-ray from the showed cardiomegaly and small effusions.
[2020-01-07 12:29] LABS: Glucose Point of Care 81 (65-105)
--- NOTE | 2020-01-07 17:11 | PM.DS ---
DS: Admitting Diagnosis Admitting Diagnosis Admitting Diagnosis: atrial flutter with RVR DS: Discharge Diagnosis Discharge Diagnosis (1) Atrial flutter with rapid ventricular response: Code(s): I48.92 - Unspecified atrial flutter Status: Acute Assessment and Plan: Date of Admission 01/03/20 Date of Discharge 01/07/20 Ms. Ceron is a 74yo F with history of with hypothyroidism, obstructive sleep apnea, type 2 diabetes mellitus, hypertension, and CLL who presented to the ED for evaluation of heart palpitations and shortness of breath. Workup showed that the patient was in a flutter RVR and chest XR showed effusions with increased pulmonary congestion. She was admitted to the hospitalist service for management of the tachyarrhythmia and acute on chronic CHF. She was evaluated by cardiology. She was started on diltiazem drip and maintained on her home chronic anticoagulation with Eliquis. She was gently diuresed with Lasix. Eventually she was bridged with oral diltiazem and maintained on her home metoprolol as well. Her rates improved with the medication adjustments made by cardiology. She was feeling well and hemodynamically stable for discharge on 01/07/20 with plans to follow up with Dr Hameed's office in 1 week for a repeat EKG. [facility] has plans to help her establish care with an risk advisor in the near future. She has an appointment for outpatient cardioversion 02/06/20 once she has been on anticoagulation x 6 weeks. Cardiac medications at discharge: -Diltiazem 90mg PO TID -Metoprolol tartrate 25mg PO Q12 - Eliquis 5mg PO BID - Lisinopril and spironolactone held (2) Suspected 2019 novel coronavirus infection: Code(s): Z20.828 - Contact with and (suspected) exposure to other viral communicable diseases Status: Ruled-out Assessment and Plan: Ruled out. COVID negative. (3) Hypertension: Qualifiers: Hypertension type: unspecified Qualified Code(s): I10 - Essential (primary) hypertension Code(s): I10 - Essential (primary) hypertension Status: Chronic Assessment and Plan: Pressures stable, on lower end of normal. Discharged maintained on metoprolol, diltiazem; spironolactone and lisinopril are held. (4) Obstructive sleep apnea on CPAP: Code(s): G47.33 - Obstructive sleep apnea (adult) (pediatric); Z99.89 - Dependence on other enabling machines and devices Status: Chronic Assessment and Plan: Continue home CPAP (5) Chronic lymphocytic leukemia: Code(s): C91.10 - Chronic lymphocytic leukemia of B-cell type not having achieved remission Status: Chronic Assessment and Plan: Continue oncology recommendations. She describes she is undergoing chemotherapy and immunotherapy. (6) Type 2 diabetes mellitus: Qualifiers: 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 care home insulin use: without assistant terminal manager use 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 complication status: without complication Qualified Code(s): E11.9 - Type 2 diabetes mellitus without complications Code(s): E11.9 - Type 2 diabetes mellitus without complications Status: Chronic Assessment and Plan: A1c 5.7%. Blood sugars are stable. Continue her metformin and follow up with PCP. (7) Hypothyroidism: Qualifiers: Hypothyroidism type: unspecified Qualified Code(s): E03.9 - Hypothyroidism, unspecified Code(s): E03.9 - Hypothyroidism, unspecified Status: Chronic Assessment and Plan: Continue home levothyroxine. (8) Diastolic CHF: Qualifiers: Heart failure chronicity: acute Qualified Code(s): I50.31 - Acute diastolic (celestina
[2020-01-07 17:22] LABS: Glucose Point of Care 121 (65-105)
== END 2020-01-07 18:41 | disposition home or self-care (01) | DRG 308 ==
LOC: ANHED 21:08 → ANHIMU 01-04 03:49
PROVIDERS: Physician Assistant; Admitting Provider Family Medicine; Emergency Provider General Practice; PCP Internal Medicine; Visit Provider Internal Medicine
DX: I48.92 Unspecified atrial flutter (principal); I50.33 Acute on chronic diastolic (congestive) heart failure; C91.10 Chronic lymphocytic leukemia of B-cell type not having achieved remission; Z20.828 Contact with and (suspected) exposure to other viral communicable diseases; E11.59 Type 2 diabetes mellitus with other circulatory complications; I11.0 Hypertensive heart disease with heart failure; E03.9 Hypothyroidism, unspecified; G47.33 Obstructive sleep apnea (adult) (pediatric); F41.8 Other specified anxiety disorders; E78.5 Hyperlipidemia, unspecified; M19.90 Unspecified osteoarthritis, unspecified site; Z96.653 Presence of artificial knee joint, bilateral; Z79.01 Long term (current) use of anticoagulants; Z79.82 Long term (current) use of aspirin; Z79.84 Long term (current) use of oral hypoglycemic drugs; Z79.899 Other long term (current) drug therapy; Z86.718 Personal history of other venous thrombosis and embolism; Z98.49 Cataract extraction status, unspecified eye; Z99.89 Dependence on other enabling machines and devices
CPT/HCPCS: 36415; 71045; 71046; 80048; 80053; 81001; 82306; 83605; 83735; 83880; 84484; 85025; 85027; 85610; 85730; 87086; 87088; 87635; 93005; 96365; 96366; 96375; 99285; A9270; C9803; G0378; J1940; J3475; U0003

== ENCOUNTER 2020-01-14 09:32 | Outpatient (CLI) | payer MEDICARE, SELFPAY ==
[2020-01-14 10:12] LABS: Anion Gap 9 mmol/L (8-16); Blood Urea Nitrogen 17 mg/dL (7-17); Calcium 9.7 mg/dL (8.4-10.2); Carbon Dioxide 27 mmol/L (22-30); Chloride 108 mmol/L (98-107); Estimated Glomerular Filt Rate 54; Glucose 117 mg/dL (65-105); Potassium 4.1 mmol/L (3.4-5.0); Sodium 144 mmol/L (137-145)
== END 2020-01-14 09:33 | disposition home or self-care (01) ==
PROVIDERS: PCP Internal Medicine; Referring Provider Internal Medicine; Visit Provider Physician Assistant
DX: I50.30 Unspecified diastolic (congestive) heart failure (principal)
CPT/HCPCS: 36415; 80048

== ENCOUNTER 2020-02-02 02:07 | Outpatient (CLI) | payer MEDICARE, SELFPAY ==
[2020-02-02 18:35] LABS: SARS-CoV-2 RNA PCR Negative
== END 2020-02-02 02:08 | disposition home or self-care (01) ==
LOC: ANHCOVIDDT 02:08
PROVIDERS: PCP Internal Medicine; Visit Provider Internal Medicine Cardiovascular Disease
DX: Z01.812 Encounter for preprocedural laboratory examination (principal); Z20.828 Contact with and (suspected) exposure to other viral communicable diseases
CPT/HCPCS: 87635; C9803; U0003

== ENCOUNTER 2020-02-05 05:25 | Day surgery (SDC) | payer MEDICARE, SELFPAY ==
[2020-02-04 14:09] VITALS: BMI 32.6
[2020-02-04 14:40] VITALS: BMI 32.5
[2020-02-04 14:43] VITALS: BMI 32.5
[2020-02-05] VITALS (8 sets, daily range): BP systolic 103–148; BP diastolic 47–76; PULSE 72–93; RESP 18–25; TEMP 37.7; O2SAT 91–98; BMI 32.9
--- NOTE | 2020-02-05 10:22 | ECG_ITS ---
ATRIAL FLUTTER WITH RAPID VENTRICULAR RESPONSE BORDERLINE ST-T WAVE ABNORMALITY- LAT/HIGH LAT LEADS ABNORMAL ECG Electronically Signed On 02-05-2020 13:14:50 AUDIO VISUAL ENGINEER by Flip Staley D.O. COMPARED TO ECG 01/03/2020 20:38:01 NO SIGNIFICANT CHANGES MTDD
[2020-02-05 11:05] LABS: Anion Gap 6 mmol/L (8-16); Blood Urea Nitrogen 15 mg/dL (7-17); Carbon Dioxide 33 mmol/L (22-30); Chloride 98 mmol/L (98-107); Estimated CRCL calculation 46 ml/min; Estimated Glomerular Filt Rate 54; Glucose 152 mg/dL (65-105); Magnesium 1.7 mg/dL (1.6-2.3); Potassium 3.6 mmol/L (3.4-5.0); Sodium 137 mmol/L (137-145)
[2020-02-05] MEDS: POTASSIUM CHLORIDE 20 MEQ TABLET 40 MEQ PO (12:30)
--- NOTE | 2020-02-05 12:30 | WPDMODSED ---
Moderate Sedation Note-Pt Data Patient Data Diagnosis: Atrial flutter Present Complaint: atrial flutter Procedure to be performed/Plan: 1. Moderate sedation 2. Electrical cardioversion Allergies Allergy/AdvReac Type Severity Reaction Status Date / Time No Known Allergies Allergy Verified 02/05/20 11:37 Home Medications Medication Instructions Recorded Confirmed Type Adult Probiotic 3,000 mmu cells PO DAILY 12/23/19 02/04/20 History Venclexta 200 mg PO DAILY 12/23/19 02/04/20 History alprazolam 1 mg PO BID PRN 12/23/19 02/04/20 History aspirin [Adult Low Dose Aspirin] 81 mg PO DAILY 12/23/19 02/04/20 History ergocalciferol (vitamin D2) 50,000 unit PO WEEKLY 12/23/19 02/04/20 History gabapentin 300 mg PO HS 12/23/19 02/04/20 History levothyroxine 175 mcg PO DIRECTED 12/23/19 02/04/20 History metformin 500 mg PO DAILY 12/23/19 02/04/20 History rosuvastatin 10 mg PO DAILY 12/23/19 02/04/20 History spironolactone 25 mg PO DAILY 12/23/19 02/04/20 History Eliquis 5 mg PO Q12HR #60 tablet 12/25/19 02/04/20 Rx lisinopril 40 mg PO DAILY #30 tablet 12/25/19 02/04/20 Rx diltiazem HCl 90 mg PO TID 30 Days #90 tablet 01/07/20 02/04/20 Rx metoprolol tartrate 25 mg PO Q12HR 30 Days #60 tablet 01/07/20 02/04/20 Rx furosemide 20 mg PO DAILY 02/04/20 02/04/20 History Sedation/Anesthesia: No previous sedation/anesthesia problems (including family history). [facility] Past Medical History Medical History Chronic lymphocytic leukemia Patient of Dr. Anderson. Depression with anxiety Diverticulitis History of DVT of lower extremity Hyperlipidemia Hypertension Hypertension associated with diabetes Nephrolithiasis Obstructive sleep apnea on CPAP Osteoarthritis Type 2 diabetes mellitus Reported recent hemoglobin A1c of 6.0%. Surgical History Surgical History History of cardiac catheterization (~2002) Patient reports clean coronary arteries. History of cataract extraction History of cholecystectomy History of detached retina repair History of dilatation and curettage History of knee replacement, total Left: 2006 Right: 2009 History of lymph node biopsy History of right hip replacement (~2011) Family History Family History Mother Hypertension Father Cancer Lung cancer Sibling Heart disease Daughter Bone cancer Social History Social History Social History: Surrogate decision maker: Khalif Ceron, spouse. Code status: Full code. Smoking status: Never smoker Second hand tobacco smoke exposure: No Alcohol intake: never Substance use: never Substance use type: does not use Living arrangements: with family Additional living arrangements comments: Resides with her in [place]. They had 3 children, all who are . Daughter from bone cancer at age 46. One son in a motorcycle accident age 19, the other perished in a motor vehicle accident at age 54. 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 Gender identity (if verbalized by the patient): Female Spiritual care concerns: No Mod Sed Physical Exam Physical Exam Pre Procedural Exam: Normal: Appearance, Eyes, Ears, Nose, Neck, Throat, Airway, Lungs, Heart Size, Heart Rate, Neuro Exam, Abdomen, Extremities and Skin and Variation: Heart Rhythm ( regularly irregular) Hours since solid foods: 12 Hours since liquid intake: 12 Internal Medicine - PN: Obj Da Vital Signs Vital Signs: Vital Signs - 24 hr 02/05/20 10:30 Temperature 37.7 C H Pulse Rate 93 Respiratory Rate 25 H Blood Pressure 148/63 H Pulse Oximetry 91 Labs CBC & Chem 7: 02/05/20 10:36 02/05/20 10:36 Labs: Laboratory Results - last 24 hr 02/05/20 10:36
--- NOTE | 2020-02-05 12:35 | PM.IMHP ---
H&P: HPI History of Present Illness Date/Time: 02/05/20 12:35 Chief Complaint: atrial flutter Narrative: Kavitha Ceron is a 74 year old female with atrial flutter. She is here today for cardioversion. Currently denies any chest pain or shortness of breath. Review of Systems Review of Systems: All systems reviewed & are unremarkable except as noted in HPI and below Constitutional: Constitutional: Denies weakness Eyes: Eyes: Denies blurry vision ENT: Denies epistaxis Cardiovascular: Cardiovascular: Denies leg edema Respiratory: Respiratory: Denies hemoptysis and Denies dyspnea Gastrointestinal: Gastrointestinal: Denies diarrhea Genitourinary: Genitourinary: Denies flank pain Musculoskeletal: Musculoskeletal: Denies neck pain Integumentary/Breasts: Skin/Breast: Denies rash Neurologic: Denies confusion PMFSH Past Medical History Medical History Chronic lymphocytic leukemia Patient of Dr. Anderson. Depression with anxiety Diverticulitis History of DVT of lower extremity Hyperlipidemia Hypertension Hypertension associated with diabetes Nephrolithiasis Obstructive sleep apnea on CPAP Osteoarthritis Type 2 diabetes mellitus Reported recent hemoglobin A1c of 6.0%. Surgical History Surgical History History of cardiac catheterization (~2002) Patient reports clean coronary arteries. History of cataract extraction History of cholecystectomy History of detached retina repair History of dilatation and curettage History of knee replacement, total Left: 2006 Right: 2009 History of lymph node biopsy History of right hip replacement (~2011) Family History Family History Mother Hypertension Father Cancer Lung cancer Sibling Heart disease Daughter Bone cancer Social History Social History Social History: Surrogate decision maker: Khalif Ceron, spouse. Code status: Full code. Smoking status: Never smoker Second hand tobacco smoke exposure: No Alcohol intake: never Substance use: never Substance use type: does not use Living arrangements: with family Additional living arrangements comments: Resides with her in [place]. They had 3 children, all who are . Daughter from bone cancer at age 46. One son in a motorcycle accident age 19, the other perished in a motor vehicle accident at age 54. 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 Gender identity (if verbalized by the patient): Female Spiritual care concerns: No Meds Home Medications and Allergies Home Medications Medication Instructions Recorded Confirmed Type Adult Probiotic 3,000 mmu cells PO DAILY 12/23/19 02/04/20 History Venclexta 200 mg PO DAILY 12/23/19 02/04/20 History alprazolam 1 mg PO BID PRN 12/23/19 02/04/20 History aspirin [Adult Low Dose Aspirin] 81 mg PO DAILY 12/23/19 02/04/20 History ergocalciferol (vitamin D2) 50,000 unit PO WEEKLY 12/23/19 02/04/20 History gabapentin 300 mg PO HS 12/23/19 02/04/20 History levothyroxine 175 mcg PO DIRECTED 12/23/19 02/04/20 History metformin 500 mg PO DAILY 12/23/19 02/04/20 History rosuvastatin 10 mg PO DAILY 12/23/19 02/04/20 History spironolactone 25 mg PO DAILY 12/23/19 02/04/20 History Eliquis 5 mg PO Q12HR #60 tablet 12/25/19 02/04/20 Rx lisinopril 40 mg PO DAILY #30 tablet 12/25/19 02/04/20 Rx diltiazem HCl 90 mg PO TID 30 Days #90 tablet 01/07/20 02/04/20 Rx metoprolol tartrate 25 mg PO Q12HR 30 Days #60 tablet 01/07/20 02/04/20 Rx furosemide 20 mg PO DAILY 02/04/20 02/04/20 History Allergies Allergy/AdvReac Type Severity Reaction Status Date / Time No Known Allergies Allergy Verified 02/05/20 11:37 Vital Signs Vital Signs - 24 hr
--- NOTE | 2020-02-05 12:50 | WPDCARDVER ---
Cardioversion Cardioversion Date of procedure: 02/05/20 Procedure: 1. Electrical cardioversion 2. Moderate sedation Pre-op diagnosis: atrial flutter Post-op diagnosis: same Indications: atrial flutter Description of procedure: after discussing the risks, benefits alternatives of the procedure patient agreeable via verbal and written informed consent. Risks discussed included stroke, adverse reaction to anesthesia, shocking into a more problematic heart rhythm, skin irritation or burn. After establishing continuous telemetry monitoring, pulse oxygenation and serial blood pressure assessments, time-out was taken in the procedure was initiated. Procedure start time 12:39 p.m. Procedure stop time 12:48 p.m. Complications: None Blood loss: None Medications were administered and patient was monitored by Isha Castaneda RN Medications given: 3 mg Versed and 50 mcg of fentanyl given in divided dosages. After adequate sedation, patient was successfully cardioverted out of atrial flutter into sinus rhythm using 100 joules of biphasic synchronized energy x1. Sedation: As above Findings: as above Conclusion: 1. Successful congregation of sinus rhythm using 100 joules of synchronized biphasic energy 2. Moderate sedation
--- NOTE | 2020-02-05 12:55 | ECG_ITS ---
Measurements Intervals [place] Rate: 72 P: -4 PA: 174 QRS: 20 QRSD: 102 T: 130 QT: 392 QTc: 431 Interpretive Statements SINUS RHYTHM INCOMPLETE RIGHT BUNDLE BRANCH BLOCK ST-T WAVE ABNORMALITY IN HIGH LATERAL LEADS- CONSIDER ISCHEMIA BASELINE ARTIFACT- II, III ABNORMAL ECG Electronically Signed On 02-05-2020 13:15:22 WHITE SPOOLER by Flip QUINONES
--- NOTE | 2020-02-05 14:06 | SUR.PREOP ---
1400 D/c instructions reviewed with patient, questions answered pt verbalized understanding. IV d/c'd, cath intact, pressure applied. Pt transported via wheelchair to [facility] where her drove her home in private vehicle.
== END 2020-02-05 14:00 | disposition home or self-care (01) ==
PROVIDERS: PCP Internal Medicine; Visit Provider Internal Medicine Cardiovascular Disease
PROC: 5A2204Z Restoration of Cardiac Rhythm, Single (ICD-10-PCS; principal; 2020-02-05 11:30)
DX: I48.20 Chronic atrial fibrillation, unspecified (principal); Z79.82 Long term (current) use of aspirin; Z79.84 Long term (current) use of oral hypoglycemic drugs; F41.8 Other specified anxiety disorders; K57.92 Diverticulitis of intestine, part unspecified, without perforation or abscess without bleeding; E78.5 Hyperlipidemia, unspecified; I10 Essential (primary) hypertension; E11.9 Type 2 diabetes mellitus without complications; Z87.442 Personal history of urinary calculi; Z87.898 Personal history of other specified conditions; G47.33 Obstructive sleep apnea (adult) (pediatric); M19.90 Unspecified osteoarthritis, unspecified site; Z86.718 Personal history of other venous thrombosis and embolism; E03.9 Hypothyroidism, unspecified
CPT/HCPCS: 36415; 80048; 83735; 92960; A9270; J2250; J3010; J7040

== ENCOUNTER → 2020-03-11 08:15 | Outpatient (CLI) | payer MEDICARE, SELFPAY ==
--- NOTE | ~2020-03-11 | MMUS_ITS ---
EXAMINATION: MM diagnostic sukh LT w michelle, US breast LT limited HISTORY: Left breast pain TECHNIQUE: ML, MLO and craniocaudal full field and spot 3-D tomosynthesis images of the left breast w ere performed and synthetic 2-D images were generated. CAD analysis was submitted and interpreted. Hi gh resolution targeted left breast ultrasound was performed. COMPARISON: 04/16/2019 bilateral digital screening mammogram BREAST PARENCHYMAL COMPOSITION: There are scattered areas of fibroglandular density. FINDINGS: MAMMOGRAPHIC FINDINGS: A low-density circumscribed approximately 7.5 mm opacity is noted in the mid to upper inner left sabino st at mid depth. Sonographic correlation was performed. Otherwise no suspicious mass, architectural distortion, malignant calcification, skin thickening or r etraction or significant new or developing density of the left breast is evident. There are scattered benign calcifications. ULTRASOUND: Corresponding to the mammographic finding is at 11:00 3 cm from nipple sonolucency measuring 3.7 x 7. 1 x 6.6 mm, without internal vascularity, with no suspicious shadowing, consistent with simple cyst. IMPRESSION: 1. No mammographic evidence of malignancy 2. Routine annual mammographic screening is recommended. BI-RADS Category 2: Benign finding(s). Reviewed, dictated and finalized at location A. NCT PROFESSOR OF [employer]ORY IMPRESSION: 1. No mammographic evidence of malignancy 2. Routine annual mammographic screening is recommended. BI-RADS Category 2: Benign finding(s).
== END ==
PROVIDERS: PCP Internal Medicine; Visit Provider Internal Medicine
DX: N64.4 Mastodynia (principal)
CPT/HCPCS: 76642; 77061; 77065; G0279

== ENCOUNTER 2020-05-07 12:26 | Inpatient (IN) | payer MEDICARE, SELFPAY ==
[2020-05-07] VITALS (7 sets, daily range): BP systolic 84–133; BP diastolic 33–59; PULSE 67–76; RESP 18–20; TEMP 37.1–37.2; O2SAT 91–94
--- NOTE | ~2020-05-07 | CT_ITS ---
EXAMINATION: CT diagnostic chest wo con DATE: 05/21/2020 09:48 INDICATION: pneumonia TECHNIQUE: Computed tomography (CT) of the chest was performed without intravenous contrast. Addition al 3D reconstructions utilizing coronal maximum intensity projection (MIP) were performed. Automated exposure control and iterative reconstruction technique were employed. The dose-length product was 52 5.78 mGy-cm. COMPARISON: 05/15/2020 FINDINGS: Similar pattern of extensive patchy groundglass opacities throughout both lungs with slight improveme nt in the left upper lobe and slight worsening in the right lung. No pleural effusion or pneumothorax . Mild cardiomegaly. Atherosclerotic coronary artery catheter cases along with aortic valve and marvin l annular calcification. No pericardial effusion. Ectatic ascending thoracic aorta measuring up to 3. 9 cm. Right internal jugular central venous port catheter with distal tip at the caudal superior vena cava. No pathologically enlarged thoracic lymphadenopathy. Cholecystectomy clips at the gallbladder fossa. There are bridging osteophytes at multiple levels in the spine, consistent with diffuse idiopa thic skeletal hyperostosis (DISH). T12 hemangioma. IMPRESSION: 1. Similar pattern of diffuse lung disease most likely secondary to COVID pneumonia with slight incre ase in the right lung and slight improvement in the left upper lobe. 2. Mild cardiomegaly. Reviewed, dictated and finalized at location A. IMPRESSION: 1. Similar pattern of diffuse lung disease most likely secondary to COVID pneum onia with slight increase in the right lung and slight improvement in the left upper lobe. 2. Mild cardiomegaly.
--- NOTE | ~2020-05-07 | XR_ITS ---
EXAMINATION: XR chest 1V portable INDICATION: Increased oxygen needs, hypoxia TECHNIQUE: Portable AP chest at 0803 hours COMPARISON: 05/14/2020 FINDINGS: A right internal jugular Port-A-Cath is noted. Diffuse opacities persist in all lung zones with worsening in the left mid and lower lung zones. There is no pleural effusion or pneumothorax. Ca rdiomegaly is noted. IMPRESSION: 1. Diffuse lung disease with worsening in the left mid and lower lung zones, consistent with pulmonar y edema and/or pneumonia and/or atelectasis. 2. Cardiomegaly. Reviewed, dictated and finalized at location A. IMPRESSION: 1. Diffuse lung disease with worsening in the left mid and lower lung zones, co nsistent with pulmonary edema and/or pneumonia and/or atelectasis. 2. Cardiomegaly.
--- NOTE | ~2020-05-07 | XR_ITS ---
XR chest 1V portable 05/20/2020 09:48 Indication: Pneumonia Procedure: AP portable chest Comparison: Comparison to multiple prior studies sequentially, with oldest reviewed study dated 05/13. Findings: Portacatheter tip in the SVC. Cardiomegaly. Diffuse bilateral airspace disease, compatible with edema or pneumonia. No significant effusion. No pneumothorax. No acute osseous abnormality. Impression: 1: Diffuse bilateral airspace disease which may represent edema or pneumonia. No significant change c ompared with 05/18/2020. 2: Cardiomegaly. Reviewed, dictated and finalized at location B. Impression: 1: Diffuse bilateral airspace disease which may represent edema or pneumonia. N o significant change compared with 05/18/2020. 2: Cardiomegaly.
--- NOTE | ~2020-05-07 | CT_ITS ---
EXAMINATION: CTA chest PE protocol DATE: 05/15/2020 10:24 INDICATION: Shortness of breath TECHNIQUE: Computed tomography angiography (CTA) of the chest was performed with 100 mL Omnipaque-350 intravenous contrast timed to evaluate the pulmonary arteries. Coronal maximum intensity projection 3D-reconstructions were created by the technologist. The dose-length product (DLP) was 747.13 mGy-cm. Automated exposure control and iterative reconstruction technique were employed. COMPARISON: 05/04/2016 FINDINGS: The pulmonary arteries are well-opacified. No pulmonary embolism is identified. There are w idespread groundglass opacities throughout all lung zones, worst in the mid and lower lung zones. The re are trace pleural effusions. No pneumothorax is identified. Cardiomegaly is noted. There are no pa thologically enlarged thoracic lymph nodes. There are bridging osteophytes at multiple levels in the spine, consistent with diffuse idiopathic skeletal hyperostosis (DISH). A hemangioma is noted at the T12 vertebral body. The gallbladder is surgically absent. IMPRESSION: 1. Diffuse lung disease, consistent with COVID 19 pneumonia. 2. No pulmonary embolism identified. Reviewed, dictated and finalized at location A.
--- NOTE | ~2020-05-07 | XR_ITS ---
EXAMINATION: XR chest 1V portable EXAM DATE: 05/14/2020 21:09 INDICATION: Low o2 saturation TECHNIQUE: Portable AP frontal chest x-ray was obtained. Comparison is made to prior examination from 05/13/2020. FINDINGS: Again there is extensive bilateral ill-defined airspace disease, consistent with edema and/ or pneumonia. Cardiomegaly and pulmonary vascular congestion also unchanged. No pneumothorax or sizab le pleural effusion. There are bony degenerative changes. Right-sided portacatheter. IMPRESSION: Diffuse bilateral edema and/or pneumonia unchanged. Cardiomegaly, congestion. Reviewed, dictated and finalized at location G.
--- NOTE | ~2020-05-07 | XR_ITS ---
XR chest 1V portable DATE: 05/09/2020 12:48 INDICATION: Pulmonary infiltrates. Weakness. TECHNIQUE: Portable upright AP chest on 05/09/2020 at 1242 hours COMPARISON: 05/07/2020 AP and lateral chest FINDINGS: Right Port-A-Cath catheter tip overlies the proximal superior vena cava. Cardiomegaly. There is aortic arch calcification. Pulmonary vascular congestion. There are patchy bilateral pulmonary infiltrates involving the mid and lower lung zones. Differential diagnosis includes pulmonary edema and pneumonia. Diffuse osteopenia. Dextroscoliosis and degenerative spurring of the thoracic spine. Postoperative change is noted at the right upper quadrant, consistent with cholecystectomy. IMPRESSION: Cardiomegaly, pulmonary vascular congestion, bilateral pulmonary infiltrates. Findings simon ggest congestive heart failure, pulmonary edema. Pneumonia is not excluded Reviewed, dictated and finalized at location A. IMPRESSION: Cardiomegaly, pulmonary vascular congestion, bilateral pulmonary in filtrates. Findings suggest congestive heart failure, pulmonary edema. Pneumoni a is not excluded
--- NOTE | ~2020-05-07 | XR_ITS ---
XR chest 1V portable 05/12/2020 02:49 Indication: Shortness of breath Procedure: AP portable chest Comparison: Comparison to multiple prior studies sequentially, with oldest reviewed study dated 12/20. Findings: There has been progression of diffuse bilateral airspace disease, consistent with pneumonia . Portacatheter tip in the SVC. No pneumothorax. No significant effusion. No acute osseous abnormalit y. Impression: 1: Interval progression of diffuse bilateral airspace disease, consistent with pneumonia. Pulmonary e chasity not excluded. Reviewed, dictated and finalized at location A. Impression: 1: Interval progression of diffuse bilateral airspace disease, consistent with pneumonia. Pulmonary edema not excluded.
--- NOTE | ~2020-05-07 | XR_ITS ---
EXAMINATION: XR chest 1V portable DATE: 05/27/2020 05:32 INDICATION: Shortness of breath. COVID-19 pneumonia. TECHNIQUE: A single frontal view of the chest was obtained. COMPARISON: Chest single view 05/20/2020, chest CT 05/21/2020 FINDINGS: There are patchy airspace opacities and interstitial opacities in all lung zones bilaterall y with relative sparing of the lung apices. No pleural effusion. Cardiomegaly is noted. There is a ri ght internal jugular port with tip in superior vena cava. IMPRESSION: 1. Stable diffuse lung disease, consistent with pneumonia versus pulmonary edema versus diffuse alveo lar damage. 2. Cardiomegaly. Reviewed, dictated and finalized at location A. IMPRESSION: 1. Stable diffuse lung disease, consistent with pneumonia versus pulmonary bianca a versus diffuse alveolar damage. 2. Cardiomegaly.
--- NOTE | ~2020-05-07 | XR_ITS ---
EXAMINATION: XR chest 2V EXAM DATE: 05/07/2020 13:26 INDICATION: weakness; CA remission 2 mos ago; denies HTN. TECHNIQUE: Frontal and lateral projections of the chest obtained and reviewed. Comparison is made to prior examination from 01/07/2020. FINDINGS: There is right-sided Chemo-Port with intact catheter. There is cardiomegaly and pulmonary vascular congestion. There is indistinct reticulation with a bibasal predominance which may indicate pulmonary edema. Developing infection not excludable. No pneumothorax. No pleural effusion. Patient h as diffuse idiopathic skeletal hyperostosis (DISH). There are bony degenerative changes. There is aortic arteriosclerosis. IMPRESSION: 1. Findings suspicious for mild CHF exacerbation. 2. Can't exclude developing infection rather than cardiogenic edema. Reviewed, dictated and finalized at location A.
--- NOTE | ~2020-05-07 | XR_ITS ---
EXAMINATION: XR chest 1V portable EXAM DATE: 05/31/2020 07:31 INDICATION: Shortness of breath. COVID pneumonia. TECHNIQUE: Portable AP frontal chest x-ray was obtained. There is no prior study for comparison. FINDINGS: Interval development of moderate amount of gas within the right side of the supraclavicular region, source unknown. There is no pneumothorax identified, but suspicion of pneumomediastinum. T here is a right-sided portacatheter. Extensive bilateral acute airspace disease again noted, with ryan e increase in regions of atelectasis compared to previous examination. No sizable pleural effusion. T he cardiomediastinal silhouette is prominent but magnified on this AP technique. There are bony degen erative changes. IMPRESSION: 1. Right supraclavicular emphysema. Suspicion of pneumomediastinum. 2. Extensive bilateral airspace disease, appearance consistent with subacute COVID pneumonia. Reviewed, dictated and finalized at location A. IMPRESSION: 1. Right supraclavicular emphysema. Suspicion of pneumomediastinum. 2. Extensive bilateral airspace disease, appearance consistent with subacute C OVID pneumonia.
--- NOTE | ~2020-05-07 | XR_ITS ---
XR chest 1V portable 05/13/2020 05:49 Indication: Shortness of breath Procedure: AP portable chest Comparison: Comparison to multiple prior studies sequentially, with oldest reviewed study dated 12/20. Findings: Diffuse bilateral airspace disease unchanged. Portacatheter tip in the SVC. No significant pleural effusion or pneumothorax. No acute osseous abnormality. Impression: 1: Diffuse bilateral airspace disease unchanged, pneumonia versus edema. Reviewed, dictated and finalized at location A. Impression: 1: Diffuse bilateral airspace disease unchanged, pneumonia versus edema.
--- NOTE | ~2020-05-07 | XR_ITS ---
EXAMINATION: XR chest 1V portable DATE: 05/18/2020 06:12 INDICATION: Post COVID pneumonia TECHNIQUE: frontal view of the chest was obtained. COMPARISON: Chest radiograph dated 05/15/2020 FINDINGS: Right internal jugular central venous port catheter with distal tip at the cephalad superior vena cav a. No significant change in diffuse patchy airspace opacities in all lung zones on both the left and rig ht. No pneumothorax or pleural effusion. Cardiomegaly. IMPRESSION: 1. No significant interval change in diffuse bilateral lung disease which could represent computed pn eumonia, pulmonary edema, atelectasis/scarring or some combination thereof. 2. Cardiomegaly. Reviewed, dictated and finalized at location A. IMPRESSION: 1. No significant interval change in diffuse bilateral lung disease which could represent computed pneumonia, pulmonary edema, atelectasis/scarring or some co mbination thereof. 2. Cardiomegaly.
--- NOTE | 2020-05-07 12:45 | ECG_ITS ---
Measurements Intervals [place] Rate: 66 P: -5 MS: 118 QRS: 7 QRSD: 94 T: 69 QT: 372 QTc: 392 Interpretive Statements SINUS RHYTHM WITH SHORT MS INTERVAL INCOMPLETE RIGHT BUNDLE BRANCH BLOCK BORDERLINE ST-T WAVE ABNORMALITY- HIGH LATERAL LEADS BASELINE ARTIFACT- II, III, AVR, AVL, AVF BORDERLINE ECG Electronically Signed On 05-07-2020 13:47:20 CDT by Flip Staley D.O.
[2020-05-07 13:03] LABS: Basophils Percent Auto 0.3 % (0.2-1.2); Hematocrit 39.4 % (37.0-47.0); Hemoglobin 12.8 g/dL (12.0-15.0); Immature Granulocyte Absolute 0.03 K/mm3 (0.00-0.031); Immature Granulocyte Percent A 0.8 % (0-0.5); Lymphocytes Absolute Auto 0.29 K/mm3 (0.9-3.2); Lymphocytes Percent Auto 7.7 % (18.3-44.2); Mean Corpuscular HGB Conc 32.5 g/dl (32-36); Mean Corpuscular Hemoglobin 28.9 pg (26-34); Mean Corpuscular Volume 88.9 fl (80-100); Mean Platelet Volume 10.2 fl (7.4-10.4); Monocytes Absolute Auto 0.4 K/mm3 (0.1-0.6); Monocytes Percent Auto 9.8 % (2.6-8.5); Neutrophils Absolute Auto 3.1 K/mm3 (1.3-6.7); Neutrophils Percent Auto 81.4 % (45.5-73.1); Platelet Count Result 123 k/mm3 (150-375); Red Blood Count 4.43 M/mm3 (4.2-5.4); Red Cell Distribution Width 15.9 % (11.5-14.5); White Blood Count 3.8 K/mm3 (4.5-10.0)
[2020-05-07 13:19] LABS: Alanine Aminotransferase 20 U/L (4-35); Albumin Level 3.6 g/dL (3.5-5.1); Alkaline Phosphatase 77 U/L (38-126); Anion Gap 6 mmol/L (8-16); Aspartate Amino Transferase 77 U/L (14-36); Bilirubin,Total 0.3 mg/dL (0.2-1.3); Blood Urea Nitrogen 24 mg/dL (7-17); Calcium 8.7 mg/dL (8.4-10.2); Carbon Dioxide 26 mmol/L (22-30); Chloride 105 mmol/L (98-107); Estimated CRCL calculation 30 ml/min; Estimated Glomerular Filt Rate 34; Glucose 122 mg/dL (65-105); Potassium 3.8 mmol/L (3.4-5.0); Sodium 137 mmol/L (137-145)
--- NOTE | 2020-05-07 13:36 | ED.GENADULT ---
HPI - General Adult General Chief complaint: Weakness Stated complaint: weakness Time Seen by Provider: 05/07/20 12:38 History of Present Illness HPI narrative: Patient is a 74-year-old female who presents ER with weakness. Patient has history of CLL and has finished her chemotherapy and is currently on oral pill for the medication. Patient was diagnosed with COVID-19 on 04/21/2020 and was released by the health department on 05/01/2020. She received her second Covid vaccination on 05/04/2020. reports that patient has had increased weakness since having Covid. She is not been eating or drinking as well she is recently developed some loose stools. Patient has dizziness when going from sitting to standing. Patient denies any runny nose or sore throat or productive cough. She denies exertional dyspnea. She was never diagnosed with pneumonia while having Covid and had not been on steroids or antibiotics. Related Data Home Medications Medication Instructions Recorded Confirmed Adult Probiotic 3,000 mmu cells PO DAILY 12/23/19 02/04/20 Venclexta 200 mg PO DAILY 12/23/19 02/04/20 alprazolam 1 mg PO BID PRN 12/23/19 02/04/20 aspirin [Adult Low Dose Aspirin] 81 mg PO DAILY 12/23/19 02/04/20 ergocalciferol (vitamin D2) 50,000 unit PO WEEKLY 12/23/19 02/04/20 gabapentin 300 mg PO HS 12/23/19 02/04/20 levothyroxine 175 mcg PO DIRECTED 12/23/19 02/04/20 rosuvastatin 10 mg PO DAILY 12/23/19 02/04/20 spironolactone 25 mg PO DAILY 12/23/19 02/04/20 furosemide 20 mg PO DAILY 02/04/20 02/04/20 Allergies Allergy/AdvReac Type Severity Reaction Status Date / Time No Known Allergies Allergy Verified 05/07/20 18:53 Review of Systems Review of Systems: All systems reviewed & are unremarkable except as noted in HPI and below Constitutional: Constitutional: Denies chills, Reports fatigue, Denies fever(s) and Reports weakness ENT: Denies nasal congestion and Denies sore throat Cardiovascular: Cardiovascular: Denies chest pain and Denies radiating jaw, neck or arm pain Respiratory: Respiratory: Denies cough, Denies dyspnea and Denies wheezing Gastrointestinal: Gastrointestinal: Denies abdominal pain, Reports diarrhea, Denies nausea and Denies vomiting Genitourinary: Genitourinary: Denies nocturia and Denies dysuria Neurologic: Reports dizziness, Denies focal weakness and Denies numbness PMF Past Medical History Medical History Chronic lymphocytic leukemia Patient of Dr. Anderson. Depression with anxiety Diverticulitis History of DVT of lower extremity Hyperlipidemia Hypertension Hypertension associated with diabetes Nephrolithiasis Obstructive sleep apnea on CPAP Osteoarthritis Type 2 diabetes mellitus Reported recent hemoglobin A1c of 6.0%. Surgical History Surgical History History of cardiac catheterization (~2002) Patient reports clean coronary arteries. History of cataract extraction History of cholecystectomy History of detached retina repair History of dilatation and curettage History of knee replacement, total Left: 2006 Right: 2009 History of lymph node biopsy History of right hip replacement (~2011) Family History Family History Mother Hypertension Father Cancer Lung cancer Sibling Heart disease Daughter Bone cancer Social History Social History Social History: Surrogate decision maker: Khalif Ceron, spouse. Code status: Full code. Smoking status: Never smoker Second hand tobacco smoke exposure: No Alcohol intake: never Substance use: never Substance use type: does not use Additional living arrangements comments: Resides with her in [place]. They had 3 children, all who are . Daughter from bone cancer at age 46. One son
[2020-05-07 14:15] LABS: NT Pro B Type Natriuretic Pept 603 PG/ML (5-100)
[2020-05-07] MEDS: SODIUM CHLORIDE 0.9% IV 1,000 ML 999 ML IV CONT ×2 (14:40→17:14)
[2020-05-07 15:32] LABS: Add Urine Microscopic? YES; Appearance Urine Cloudy (Clear); Bacteria Urine Trace /hpf; Bilirubin Urine Negative (Negative); Blood Urine Negative (Negative); Color Urine Amber (Yellow); Glucose Urine UA Negative (Negative); Ketones Urine Negative (Negative); Leukocyte Esterase Ur Negative LEU/UL (Negative); Mucus Urine Rare /lpf; Nitrate Urine Negative (Negative); Protein Urine 2+ mg/dL (Negative); RBC Urine 0-2 /hpf (0-2); Specific Grav Ur 1.018 (1.001-1.035); Squamous Epithelial Cell Urine Many /hpf (Few); Urobilinogen Urine Negative mg/dL (<2.0)
--- NOTE | 2020-05-07 18:32 | ADMGEN ---
This patient, Kavitha Ceron, was admitted to Medical Room 257-01. Patient/family oriented to hospital policies and general routines including ID bracelet, bed and alarms, visiting hours, pain management, procedures, bathroom and other care routines, personal items, smoking policy, room service/diet, and visiting hours. Information on how to activate the Rapid Response Team has been discussed. Patient/Family are encouraged to report perceived risks to care and to ask questions if they do not understand what they are told or what they should do.
[2020-05-07] MEDS: SODIUM CHLORIDE 0.9% IV 1,000 ML 125 ML IV CONT (18:49)
--- NOTE | 2020-05-07 20:00 | PM.IMHP ---
H&P: HPI History of Present Illness Date/Time: 05/07/20 20:00 Chief Complaint: Generalized weakness. Narrative: This is a 74-year-old female with hypothyroidism, obstructive sleep apnea, type 2 diabetes mellitus, hypertension, paroxysmal atrial flutter status post cardioversion, and chronic lymphocytic leukemia who presented to the emergency department earlier today from home for evaluation of generalized weakness. She has not been feeling well for at least 3 weeks and in fact tested positive for COVID-19 on 04/21/2020. Since that time she has had progressive weakness and continues to have a decrease in appetite and frequent loose stools. Health department released her from quarantine on 05/01/2020 and she received her 2nd COVID vaccine on 05/04/2020. Since that time she has felt progressively worse and is knows that her blood pressures have been running a bit low. Over the last couple of days she has been feeling lightheaded and dizzy upon standing and reports a near syncopal episode earlier today. She continues to take her antihypertensives and I believe she took them this morning as well. In the emergency department her blood pressures were running soft, as low as 84/33 but have responded nicely to IV fluids and she feels perhaps a bit better. No fever, chills, or sweats. She denies headache. She has not had any falls. No syncope. No chest pain, pleuritic pain, or palpitations. She denies significant cough and shortness of breath. No vomiting. She also denies orthopnea, PND, and lower extremity edema. Review of Systems Review of Systems: Narrative: Twelve systems were reviewed with pertinent positives and negatives as per HPI. Except as documented, all other systems were reviewed and are negative. [facility] Past Medical History Medical History (Updated 05/07/20 @ 23:08 by Nicolette Castro PA-C) Chronic kidney disease, stage 3 Baseline GFR ranges between 48 and 54%. Chronic lymphocytic leukemia Patient of Dr. Anderson. COVID-19 (~04/21/20) Depression with anxiety Diastolic dysfunction Echocardiogram in 12/2019 showed normal left ventricular systolic function with an EF of 60 to 65% and diastolic dysfunction. Diverticulitis History of DVT of lower extremity Hyperlipidemia Hypertension Nephrolithiasis Obstructive sleep apnea on CPAP Osteoarthritis Paroxysmal atrial flutter Status post cardioversion in January 2020. Type 2 diabetes mellitus Reported recent hemoglobin A1c of 6.0%. Surgical History Surgical History History of cardiac catheterization (~2002) Patient reports clean coronary arteries. History of cataract extraction History of cholecystectomy History of detached retina repair History of dilatation and curettage History of knee replacement, total Left: 2006 Right: 2009 History of lymph node biopsy History of right hip replacement (~2011) Family History Family History Mother Hypertension Father Cancer Lung cancer Sibling Heart disease Daughter Bone cancer Social History Social History Social History: Surrogate decision maker: Khalif Ceron, spouse. Code status: Full code. Smoking status: Never smoker Second hand tobacco smoke exposure: No Alcohol intake: never Substance use: never Substance use type: does not use Additional living arrangements comments: Resides with her in [place]. They had 3 children, all who are . Daughter from bone cancer at age 46. One son in a motorcycle accident age 19, the other perished in a motor vehicle accident at age 54. 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 Gender identity (if verbalized by the patient): Female Spiritual care concerns: No Meds Home Medications and Allergies Home
[2020-05-07] MEDS: SODIUM CHLORIDE 0.9% IV 1,000 ML 80 ML IV CONT (20:33)
[2020-05-07] MEDS: CENTRAL LINE FLUSH 10 ML IV PUSH (20:34)
[2020-05-07] MEDS: GABAPENTIN 300 MG CAPSULE PO (23:49)
[2020-05-07] MEDS: APIXABAN 5 MG TABLET PO (23:49)
[2020-05-08] VITALS (14 sets, daily range): BP systolic 104–172; BP diastolic 52–78; PULSE 79–108; RESP 16–20; TEMP 36.4–39.4; O2SAT 89–94
[2020-05-08] MEDS: CENTRAL LINE FLUSH 10 ML IV PUSH ×3 (05:34→21:30)
[2020-05-08] MEDS: SODIUM CHLORIDE 0.9% IV 1,000 ML 80 ML IV CONT ×2 (05:38→17:53)
[2020-05-08] MEDS: ACETAMINOPHEN 325 MG TABLET 650 MG PO ×2 (05:43→21:32)
[2020-05-08 06:30] LABS: Alanine Aminotransferase 17 U/L (4-35); Albumin Level 3.1 g/dL (3.5-5.1); Alkaline Phosphatase 63 U/L (38-126); Anion Gap 2 mmol/L (8-16); Aspartate Amino Transferase 63 U/L (14-36); Bilirubin,Total 0.2 mg/dL (0.2-1.3); Blood Urea Nitrogen 17 mg/dL (7-17); Calcium 7.9 mg/dL (8.4-10.2); Carbon Dioxide 27 mmol/L (22-30); Chloride 110 mmol/L (98-107); Estimated CRCL calculation 51 ml/min; Estimated Glomerular Filt Rate > 60; Glucose 88 mg/dL (65-105); Magnesium 1.7 mg/dL (1.6-2.3); Potassium 3.7 mmol/L (3.4-5.0); Sodium 139 mmol/L (137-145)
[2020-05-08 06:36] LABS: Hematocrit 36.1 % (37.0-47.0); Hemoglobin 11.7 g/dL (12.0-15.0); Mean Corpuscular HGB Conc 32.4 g/dl (32-36); Mean Corpuscular Hemoglobin 28.3 pg (26-34); Mean Corpuscular Volume 87.4 fl (80-100); Mean Platelet Volume 9.6 fl (7.4-10.4); Platelet Count Result 113 k/mm3 (150-375); Red Blood Count 4.13 M/mm3 (4.2-5.4); Red Cell Distribution Width 15.4 % (11.5-14.5); White Blood Count 2.1 K/mm3 (4.5-10.0)
[2020-05-08] MEDS: ASCORBIC ACID 500 MG TABLET 1000 MG PO (08:49)
[2020-05-08] MEDS: APIXABAN 5 MG TABLET PO ×2 (08:49→21:30)
[2020-05-08] MEDS: ACYCLOVIR 400 MG TABLET PO (08:49)
[2020-05-08] MEDS: ROSUVASTATIN 10 MG TABLET PO (08:49)
[2020-05-08] MEDS: CHOLECALCIFEROL 1,000 UNITS TABLET 1000 UNITS PO (08:49)
--- NOTE | 2020-05-08 14:42 | PM.IMPN ---
Progress Note: A&P Assessment and Plan (1) Paroxysmal atrial flutter: Code(s): I48.92 - Unspecified atrial flutter Status: Acute Assessment and Plan: rate control currently stable diltiazem has been held due to hypotension we restarted when possible clinical (2) Chronic kidney disease, stage 3: Code(s): N18.30 - Chronic kidney disease, stage 3 unspecified Status: Acute Assessment and Plan: patient's BUN and creatinine at baseline (3) Orthostatic hypotension: Code(s): I95.1 - Orthostatic hypotension Status: Acute Assessment and Plan: patient being fluid resuscitated continue to monitor over intake/ output balance (4) Obstructive sleep apnea on CPAP: Code(s): G47.33 - Obstructive sleep apnea (adult) (pediatric); Z99.89 - Dependence on other enabling machines and devices Status: Chronic Assessment and Plan: CPAP at night (5) Chronic lymphocytic leukemia: Code(s): C91.10 - Chronic lymphocytic leukemia of B-cell type not having achieved remission Status: Chronic Assessment and Plan: patient undergoing chemotherapy follow-up in the outpatient setting (6) Type 2 diabetes mellitus: Qualifiers: 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 care home insulin use: without manager intermediate use 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 complication status: without complication Qualified Code(s): E11.9 - Type 2 diabetes mellitus without complications Code(s): E11.9 - Type 2 diabetes mellitus without complications Status: Chronic Assessment and Plan: insulin sliding scale as needed hemoglobin A1c is 6 (7) Abnormal chest x-ray: Code(s): R93.89 - Abnormal findings on diagnostic imaging of other specified body structures Status: Acute Assessment and Plan: will hold off antibiotics for now clinically no signs of pneumonia Subjective Date/time seen: 05/08/20 14:42 I feel fine Review of Systems Review of Systems: Narrative: patient is here due to weakness after undergoing her chemotherapy treatment Constitutional: Comments: no fevers no rigors or chills Cardiovascular: Comments: no chest pain or shortness of breath no PND no orthopnea Respiratory: Comments: no cough or sputum production Gastrointestinal: Comments: no nausea no vomiting no diarrhea no abdominal pain Musculoskeletal: Comments: generalized weakness Integumentary/Breasts: Comments: no rashes Neurologic: Comments: no sensorimotor deficit Exam Narrative: Exam Narrative: laying in bed in no acute distress Const: General: comfortable, no acute distress, well developed, alert, awake and other ( chronically ill-looking) Nutritional Appearance: average body habitus Orientation/consciousness: patient oriented x3 HENMT: Head: normal to inspection, normocephalic and atraumatic Ears: hearing grossly normal bilaterally Face and sinus: normal facial exam Eyes: General: appearance normal, both eyes and all related structures Pupils: Equal, round and reactive pupils present EOM: EOMs intact bilaterally Neck: Neck: full ROM, no lymphadenopathy and no JVD Thyroid: thyroid normal Lymphatic: no lymphadenopathy noted Resp: Effort & Inspection: normal respiratory effort and able to speak in complete sentences Auscultation: clear to auscultation bilaterally Cardio: Jugular venous distension: no JVD Rate: regular rate Rhythm: regular rhythm Heart sounds: S1 normal heart sound present and S2 normal heart sound present GI: GI Palp: Yes Soft to palpation and Yes No hepatosplenomegaly present : General: Yes deferred Skin: Rashes: no rashes Wounds: no wounds Neuro: General: patient oriented x3 and CN's II-XI intact bilaterally Cranial nerves: Yes CN's II-XII intact bilaterally and Yes Equal, round and reactive pupils present Cognition (Neuro): normal cognition Speech: normal speech Gait exam (Neuro): Normal gait present Motor exam (neuro): 5/5 motor s
--- NOTE | 2020-05-08 17:21 | PHAR ---
Drug Name: Diannadaniela Ingredients: Venetoclax -- 100 MG Related Documents: [employer]UG[employer] Evaluations - VENETOCLAX Color: Pale Yellow Shape: [place] Imprint: 100 , V Form: Oral Tablet
[2020-05-08] MEDS: ONDANSETRON INJ 4 MG/2 ML VIAL IV PUSH (20:28)
[2020-05-08] MEDS: GABAPENTIN 300 MG CAPSULE PO (21:30)
[2020-05-09] VITALS (16 sets, daily range): BP systolic 110–182; BP diastolic 46–72; PULSE 61–101; RESP 16–18; TEMP 35.8–37.7; O2SAT 86–97
[2020-05-09] MEDS: SODIUM CHLORIDE 0.9% IV 1,000 ML 80 ML IV CONT ×2 (05:54→18:05)
[2020-05-09] MEDS: CENTRAL LINE FLUSH 10 ML IV PUSH ×3 (05:54→20:16)
[2020-05-09] MEDS: ACYCLOVIR 400 MG TABLET PO (08:40)
[2020-05-09] MEDS: ASCORBIC ACID 500 MG TABLET 1000 MG PO (08:41)
[2020-05-09] MEDS: APIXABAN 5 MG TABLET PO ×2 (08:41→20:16)
[2020-05-09] MEDS: CHOLECALCIFEROL 1,000 UNITS TABLET 1000 UNITS PO (08:41)
[2020-05-09] MEDS: ROSUVASTATIN 10 MG TABLET PO (08:41)
--- NOTE | 2020-05-09 11:24 | PM.IMPN ---
Progress Note: A&P Assessment and Plan (1) Weakness generalized: Code(s): R53.1 - Weakness Status: Acute Assessment and Plan: Patient presented with primary complaint of generalized weakness she has had chronic lymphoma for which she just recently finished chemotherapy currently on immunotherapy Will obtain a PT OT will assess patient's knee it going home (2) Chronic lymphocytic leukemia: Code(s): C91.10 - Chronic lymphocytic leukemia of B-cell type not having achieved remission Status: Chronic Assessment and Plan: Just recently culminated her chemotherapy Currently on immunotherapy Will follow-up in outpatient setting with oncology (3) Abnormal chest x-ray: Code(s): R93.89 - Abnormal findings on diagnostic imaging of other specified body structures Status: Acute Assessment and Plan: Patient with conflicting in chest x-ray open presentation to emergency no clinical picture of pneumonia will repeat HX is rate today if infiltrates persist will start on antibiotic (4) Paroxysmal atrial flutter: Code(s): I48.92 - Unspecified atrial flutter Status: Acute Assessment and Plan: Rate controlled (5) Chronic kidney disease, stage 3: Code(s): N18.30 - Chronic kidney disease, stage 3 unspecified Status: Acute Assessment and Plan: Continue to monitor BUN and creatinine Daily BMP (6) Orthostatic hypotension: Code(s): I95.1 - Orthostatic hypotension Status: Acute Assessment and Plan: Has been fluid resuscitated Will stop Fluids However patient with poor oral intake Will add Megace Will obtain dietitian consult as well (7) Diastolic CHF: Qualifiers: Heart failure chronicity: acute Qualified Code(s): I50.31 - Acute diastolic (congestive) heart failure Code(s): I50.30 - Unspecified diastolic (congestive) heart failure Status: Acute Assessment and Plan: Appears to be compensated Continue to monitor (8) Obstructive sleep apnea on CPAP: Code(s): G47.33 - Obstructive sleep apnea (adult) (pediatric); Z99.89 - Dependence on other enabling machines and devices Status: Chronic Assessment and Plan: Continue CPAP (9) Type 2 diabetes mellitus: 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 and HS However patient's last hemoglobin A1c was 6% (10) Atrial flutter: Qualifiers: Atrial flutter type: unspecified Qualified Code(s): I48.92 - Unspecified atrial flutter Code(s): I48.92 - Unspecified atrial flutter Status: Acute Assessment and Plan: rate control On Eliquis Subjective Date/time seen: 05/09/20 11:24 I feel fine Review of Systems Review of Systems: Narrative: Patient here due to fatigue Constitutional: Constitutional: Reports fatigue and Reports poor appetite Cardiovascular: Comments: No chest pain or shortness of breath no PND no orthopnea no leg swelling Respiratory: Comments: No cough no sputum production Gastrointestinal: Comments: No nausea no vomiting no abdominal pain no diarrhea Genitourinary: Comments: No pain or burning with urination Musculoskeletal: Comments: Generalized weakness Integumentary/Breasts: Comments: No rash Neurologic: Comments: No sensorimotor deficit Exam Const: General: comfortable, no acute distress, well developed, alert, awake and other (Chronically ill appy) Nutritional Appearance: average body habitus Orientation/consciousness: patient oriented x3 HENMT: Head: normal to inspection, normocephalic and atraumatic Ears: hearing grossly normal bilaterally Face and sinus: normal facial
[2020-05-09] MEDS: MEGESTROL ACETATE (*CHEMO) 40 MG TABLET PO ×3 (13:15→20:16)
[2020-05-09] MEDS: ACETAMINOPHEN 325 MG TABLET 650 MG PO ×2 (14:03→20:19)
--- NOTE | 2020-05-09 14:38 | PCOTNOTE ---
Pt refused OT eval due to being too cold and tired. Stated she would like to try tomorrow morning.
--- NOTE | 2020-05-09 14:40 | PCPTNOTE ---
attempted eval...patient declined, she is cold and tired, doesn't know how she could do anything today...agreed to try in the morning...will see tomorrow as able
[2020-05-09] MEDS: GABAPENTIN 300 MG CAPSULE PO (20:16)
[2020-05-10] VITALS (11 sets, daily range): BP systolic 103–163; BP diastolic 52–83; PULSE 64–100; RESP 16–18; TEMP 36.1–38.1; O2SAT 85–96; BMI 32.4
[2020-05-10] MEDS: CENTRAL LINE FLUSH 10 ML IV PUSH ×3 (05:46→20:08)
[2020-05-10] MEDS: SODIUM CHLORIDE 0.9% IV 1,000 ML 80 ML IV CONT ×2 (05:48→20:06)
[2020-05-10] MEDS: ONDANSETRON INJ 4 MG/2 ML VIAL IV PUSH (07:48)
[2020-05-10 08:44] LABS: Hematocrit 36.7 % (37.0-47.0); Hemoglobin 12.2 g/dL (12.0-15.0); Immature Granulocyte Absolute 0.02 K/mm3 (0.00-0.031); Immature Granulocyte Percent A 0.9 % (0-0.5); Lymphocytes Absolute Auto 0.27 K/mm3 (0.9-3.2); Lymphocytes Percent Auto 12.4 % (18.3-44.2); Mean Corpuscular HGB Conc 33.2 g/dl (32-36); Mean Corpuscular Hemoglobin 29.1 pg (26-34); Mean Corpuscular Volume 87.6 fl (80-100); Mean Platelet Volume 9.6 fl (7.4-10.4); Monocytes Absolute Auto 0.2 K/mm3 (0.1-0.6); Monocytes Percent Auto 9.2 % (2.6-8.5); Neutrophils Absolute Auto 1.7 K/mm3 (1.3-6.7); Neutrophils Percent Auto 77.5 % (45.5-73.1); Platelet Count Result 109 k/mm3 (150-375); Red Blood Count 4.19 M/mm3 (4.2-5.4); Red Cell Distribution Width 15.5 % (11.5-14.5); White Blood Count 2.2 K/mm3 (4.5-10.0)
--- NOTE | 2020-05-10 08:47 | PCPTNOTE ---
Attempted PT eval. Pt refused, states she's not feeling well. Encouraged her to participate w/ therapy and she still refused. Will try again later today.
[2020-05-10 08:53] LABS: Anion Gap 5 mmol/L (8-16); Blood Urea Nitrogen 8 mg/dL (7-17); Calcium 7.7 mg/dL (8.4-10.2); Carbon Dioxide 27 mmol/L (22-30); Chloride 107 mmol/L (98-107); Estimated CRCL calculation 56 ml/min; Estimated Glomerular Filt Rate > 60; Glucose 93 mg/dL (65-105); Potassium 3.1 mmol/L (3.4-5.0); Sodium 139 mmol/L (137-145)
[2020-05-10] MEDS: ACYCLOVIR 400 MG TABLET PO (09:17)
[2020-05-10] MEDS: ASCORBIC ACID 500 MG TABLET 1000 MG PO (09:17)
[2020-05-10] MEDS: APIXABAN 5 MG TABLET PO ×2 (09:17→20:07)
[2020-05-10] MEDS: ROSUVASTATIN 10 MG TABLET PO (09:18)
[2020-05-10] MEDS: CHOLECALCIFEROL 1,000 UNITS TABLET 1000 UNITS PO (09:18)
[2020-05-10] MEDS: MEGESTROL ACETATE (*CHEMO) 40 MG TABLET PO ×4 (09:18→20:07)
[2020-05-10] MEDS: ACETAMINOPHEN 325 MG TABLET 650 MG PO ×2 (09:31→16:45)
--- NOTE | 2020-05-10 12:21 | PCNSR ---
On 05/10/20, the student, April Coombs, provided care and completed [facility] documentation on this patient. I have reviewed the student's documentation and agree with the findings.
--- NOTE | 2020-05-10 13:02 | PM.IMPN ---
Progress Note: A&P Assessment and Plan (1) Lung infiltrate: Code(s): R91.8 - Other nonspecific abnormal finding of lung field Status: Acute Assessment and Plan: on presentation patient was not so obvious infiltrate on chest x-ray chest x-ray repeated yesterday show more defined infiltrates patient has been started on cefepime and Zithromax blood cultures have been obtained supportive care continue to monitor (2) Weakness generalized: Code(s): R53.1 - Weakness Status: Acute Assessment and Plan: will order PT OT to work with patient likely secondary to illness and chemotherapy (3) Dehydration: Code(s): E86.0 - Dehydration Status: Acute Assessment and Plan: patient has been adequately fluid resuscitated continue to monitor daily intake and output (4) Suspected 2019 novel coronavirus infection: Code(s): Z20.828 - Contact with and (suspected) exposure to other viral communicable diseases Status: Ruled-out Assessment and Plan: patient tested positive for COVID-19 on the 21 of April will continue to monitor (5) Diastolic dysfunction: Code(s): I51.89 - Other ill-defined heart diseases Status: Chronic Assessment and Plan: stable continue to monitor (6) Obstructive sleep apnea on CPAP: Code(s): G47.33 - Obstructive sleep apnea (adult) (pediatric); Z99.89 - Dependence on other enabling machines and devices Status: Chronic Assessment and Plan: CPAP at nighttime (7) Atrial flutter with rapid ventricular response: Code(s): I48.92 - Unspecified atrial flutter Status: Acute Assessment and Plan: rate control anticoagulated (8) Type 2 diabetes mellitus: Qualifiers: 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 group home insulin use: without group home use 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 complication status: without complication Qualified Code(s): E11.9 - Type 2 diabetes mellitus without complications Code(s): E11.9 - Type 2 diabetes mellitus without complications Status: Chronic Assessment and Plan: patient's last hemoglobin A1c was 6% continue to monitor Subjective Date/time seen: 05/10/20 13:02 I feel fine Review of Systems Review of Systems: Narrative: patient with generalized weakness and fatigue she just completed chemotherapy currently on p.o. immunomodulating Constitutional: Comments: no fevers no rigors noted poor appetite ENT: Comments: no nasal congestion or discharge no dysphasia Cardiovascular: Comments: no chest pain no PND no orthopnea Respiratory: Comments: no shortness of breath no cough no sputum Gastrointestinal: Comments: no nausea no vomiting no diarrhea no constipation no abdominal pain Musculoskeletal: Comments: no muscle pain or joint pain Integumentary/Breasts: Comments: no rash Neurologic: Comments: no sensorimotor deficit Exam Narrative: Exam Narrative: this is a chronically ill-looking female laying in bed in no acute distress generalized pallor evidence Const: General: comfortable, no acute distress, well developed, alert and awake Nutritional Appearance: average body habitus Orientation/consciousness: patient oriented x3 HENMT: Head: normal to inspection, normocephalic and atraumatic Ears: hearing grossly normal bilaterally Face and sinus: normal facial exam Eyes: General: appearance normal, both eyes and all related structures Pupils: Equal, round and reactive pupils present EOM: EOMs intact bilaterally Neck: Neck: full ROM, no lymphadenopathy and no JVD Thyroid: thyroid normal Lymphatic: no lymphadenopathy noted Resp: Effort & Inspection: normal respiratory effort and able to speak in complete sentences Auscultation: clear to auscultation bilaterally Cardio: Jugular venous distension: no JVD Rate: regular rate Rhythm: regular rhythm Heart sounds: S1 normal heart sound present and S2 normal heart sound present GI
--- NOTE | 2020-05-10 13:47 | PCPTNOTE ---
Attempted PT eval. Pt lying in bed w/ ice pack on head. Pt states she has a bad headache and does not want to get up. Will try again tomorrow.
--- NOTE | 2020-05-10 13:52 | P.CDI_ITS ---
CDI Query Clarification Request - Suspected 2019 novel coronavirus infection: Z20.828 - Contact with and (suspected) exposure to other viral communicable diseases Status: Ruled-out patient tested positive for COVID-19 on the 21 of April documented in progress notes. Please clarify if COVID 19 is: * Acute manifestation/Current infection * Sequelae or residual effect of COVID 19 * History of COVID 19 * Unable to determine <Kavitha Gusman RN - Last Filed: 05/10/20 13:57> Clarified Diagnosis (1) Suspected 2019 novel coronavirus infection: Code(s): Z20.828 - Contact with and (suspected) exposure to other viral communicable diseases <Kavitha Gusman RN - Last Filed: 05/10/20 13:57> Status: Ruled-out <Kavitha Gusman RN - Last Filed: 05/10/20 13:57> Assessment and Plan: Patient tested positive for Covid 19 on 04/21/20 presented to the hospital ED with generalized fatigue, preliminary chest xr wok up in ED with faint infiltrate which on repeat chest xr shows manifested diffuse infiltrate, patient started on Cefepime and Zithromax. However unable to tell if this infiltrates are from Covid 19 it's been roughly 19 days. Will continue to mo nitor. <Brandt Chris MD - Last Filed: 05/10/20 18:24>
[2020-05-10] MEDS: GABAPENTIN 300 MG CAPSULE PO (20:07)
[2020-05-11] VITALS (19 sets, daily range): BP systolic 96–169; BP diastolic 51–74; PULSE 76–93; RESP 16–20; TEMP 36.4–39.6; O2SAT 88–96
[2020-05-11] MEDS: ACETAMINOPHEN 325 MG TABLET 650 MG PO ×2 (05:50→17:51)
[2020-05-11] MEDS: CENTRAL LINE FLUSH 10 ML IV PUSH ×3 (05:51→22:10)
[2020-05-11] MEDS: APIXABAN 5 MG TABLET PO ×2 (08:33→21:26)
[2020-05-11] MEDS: ACYCLOVIR 400 MG TABLET PO (08:33)
[2020-05-11] MEDS: ASCORBIC ACID 500 MG TABLET 1000 MG PO (08:33)
[2020-05-11] MEDS: ROSUVASTATIN 10 MG TABLET PO (08:34)
[2020-05-11] MEDS: MEGESTROL ACETATE (*CHEMO) 40 MG TABLET PO ×4 (08:34→21:26)
[2020-05-11] MEDS: CHOLECALCIFEROL 1,000 UNITS TABLET 1000 UNITS PO (08:34)
--- NOTE | 2020-05-11 09:13 | PC.NURSE ---
Water Resource Engineer called Dr. Chris to see pt. Pt returned from walking to bathroom and was very S.O.B took awhile to recover pulse ox was 80% RA oxygen re-applied at 2Ln spo2 82%, increased to 4LNC 86% increased to 6LNC 91%. Once patient rested in bed pulse ox increased to 98% with 6LNC, Oxygen decreased to 4LNC Spo2 98%, decreased to 3lnc 94%. Dr. Chris on floor to see patient, ordered albuterol every 6 hrs and incentive spirometer.
--- NOTE | 2020-05-11 09:19 | PCPTNOTE ---
Attempted PT eval. Caterina ORTEGA stated to hold therapy due to decreased O2 sats. Will try again at later time.
[2020-05-11] MEDS: SODIUM CHLORIDE 0.9% IV 1,000 ML 80 ML IV CONT ×2 (09:46→22:53)
--- NOTE | 2020-05-11 10:14 | PCOTNOTE ---
Per RN, patient feeling better but suggested holding off till this PM to see patient for OT. Will attempt then.
--- NOTE | 2020-05-11 12:36 | PM.IMPN ---
Progress Note: A&P Assessment and Plan (1) Lung infiltrate: Code(s): R91.8 - Other nonspecific abnormal finding of lung field Status: Acute Assessment and Plan: patient is currently on cefepime and Zithromax await cultures (2) Weakness generalized: Code(s): R53.1 - Weakness Status: Acute Assessment and Plan: likely secondary to chronic illness participating in therapy with physical therapy and occupational therapy (3) Diastolic dysfunction: Code(s): I51.89 - Other ill-defined heart diseases Status: Chronic Assessment and Plan: seems to be euvolemic will continue to monitor daily intake and output (4) Chronic kidney disease, stage 3: Code(s): N18.30 - Chronic kidney disease, stage 3 unspecified Status: Acute Assessment and Plan: continue to monitor BUN and creatinine at patient's baseline (5) Suspected 2019 novel coronavirus infection: Code(s): Z20.828 - Contact with and (suspected) exposure to other viral communicable diseases Status: Ruled-out Assessment and Plan: patient tested positive for COVID on the 21 of April (6) Obstructive sleep apnea on CPAP: Code(s): G47.33 - Obstructive sleep apnea (adult) (pediatric); Z99.89 - Dependence on other enabling machines and devices Status: Chronic Assessment and Plan: CPAP at night time (7) Chronic lymphocytic leukemia: Code(s): C91.10 - Chronic lymphocytic leukemia of B-cell type not having achieved remission Status: Chronic Assessment and Plan: patient is status post chemotherapy on immunomodulator follow-up in outpatient setting (8) Type 2 diabetes mellitus: Qualifiers: 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 long winder tender insulin use: without senior care use 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 complication status: without complication Qualified Code(s): E11.9 - Type 2 diabetes mellitus without complications Code(s): E11.9 - Type 2 diabetes mellitus without complications Status: Chronic Assessment and Plan: patient's last hemoglobin A1c was 6% well controlled continue to monitor (9) Atrial flutter with rapid ventricular response: Code(s): I48.92 - Unspecified atrial flutter Status: Acute Assessment and Plan: rate controlled Subjective Date/time seen: 05/11/20 12:36 I feel better Review of Systems Review of Systems: Narrative: patient presented to emergency room due to generalized weakness and poor appetite Constitutional: Comments: poor appetite Cardiovascular: Comments: no shortness of breath no leg swelling no chest pain Respiratory: Comments: shortness of breath with activity Gastrointestinal: Comments: no nausea no vomiting no diarrhea no constipation no abdominal pain Musculoskeletal: Comments: no muscle pain no joint pain Integumentary/Breasts: Comments: no rashes Neurologic: Comments: no sensorimotor deficit Exam Narrative: Exam Narrative: chronically ill looking Const: General: comfortable, no acute distress, well developed, alert and awake Nutritional Appearance: average body habitus Orientation/consciousness: patient oriented x3 HENMT: Head: normal to inspection, normocephalic and atraumatic Ears: hearing grossly normal bilaterally Face and sinus: normal facial exam Eyes: General: appearance normal, both eyes and all related structures Pupils: Equal, round and reactive pupils present EOM: EOMs intact bilaterally Neck: Neck: full ROM, no lymphadenopathy and no JVD Thyroid: thyroid normal Lymphatic: no lymphadenopathy noted Resp: Effort & Inspection: normal respiratory effort and able to speak in complete sentences Auscultation: clear to auscultation bilaterally Cardio: Jugular venous distension: no JVD Rate: regular rate Rhythm: regular rhythm Heart sounds: S1 normal heart sound present and S2 normal heart sound present GI: GI Palp: Yes Soft to palpation and
[2020-05-11] MEDS: ALBUTEROL SULFATE NEB 2.5 MG/0.5 ML INH INHALATION (20:15)
[2020-05-11] MEDS: GABAPENTIN 300 MG CAPSULE PO (21:28)
[2020-05-12] VITALS (29 sets, daily range): BP systolic 117–146; BP diastolic 51–70; PULSE 73–97; RESP 16–20; TEMP 36.2–39.3; O2SAT 86–100
[2020-05-12] MEDS: ALBUTEROL SULFATE NEB 2.5 MG/0.5 ML INH INHALATION ×4 (02:23→20:00)
--- NOTE | 2020-05-12 02:40 | PC.NURSE ---
Pt required increased bleed in from 3L to 4.5L with CPAP. pt has been saturating 90-91 since placed on CPAP a 2130. RT spot check at 0230 shows 86-87%. Dr Marte notified and new orders have been received.
--- NOTE | 2020-05-12 02:52 | PM.EVENT ---
Event Note Event Note Event Note: Called by nursing staff to evaluate this patient as she was found to be desaturating down to the 80s and has required to be placed on 4L of oxygen bleed in on her CPAP. On arrival to bedside the patient has IV fluids running and on exam she has coarse bilateral diffuse crackles. CXR was obtained which demonstrated bilateral pulmonary edema. ABG was obtained. Lasix 40 mg IV once was administerd. I will continue to evaluate overnight as needed.
[2020-05-12 02:56] LABS: Base Excess ABG 0.8 mEq/l (+/-2.0); Device OTHER DEVICE; Fractional Inspired Oxygen 40 %; HCO3 ABG 24.4 mEq/l (22.0-26.0); Modified Allen's Test Pass; Oxygen Content ABG 14.6 %vol (16.0-22.0); Oxyhemoglobin 88.4 % THb (90.0-100.0); PCO2 ABG 35.5 mmHg (35.0-45.0); PO2 ABG 56.4 mmHg (80.0-100.0); PO2 FiO2 Ratio Arterial Blood 1.41 %; Site Drawn RIGHT RADIAL; Total Hemoglobin 11.7 g/dL (12.0-18.0); pH ABG 7.455 (7.350-7.450)
[2020-05-12] MEDS: FUROSEMIDE INJ 40 MG/4 ML VIAL IV PUSH (03:05)
--- NOTE | 2020-05-12 05:34 | PC.NURSE ---
Dr Marte notified pt O2 sats 86-89% on 5L CPAP bleed and increased to 6L with no improvement. Hiflow NC ordered, RT initiated. pt currently on 10L hiflow sats 100%.
[2020-05-12 06:57] LABS: Hematocrit 34.7 % (37.0-47.0); Hemoglobin 11.9 g/dL (12.0-15.0); Immature Granulocyte Absolute 0.02 K/mm3 (0.00-0.031); Immature Granulocyte Percent A 0.8 % (0-0.5); Lymphocytes Absolute Auto 0.22 K/mm3 (0.9-3.2); Lymphocytes Percent Auto 9.3 % (18.3-44.2); Mean Corpuscular HGB Conc 34.3 g/dl (32-36); Mean Corpuscular Hemoglobin 29.5 pg (26-34); Mean Corpuscular Volume 86.1 fl (80-100); Mean Platelet Volume 9.4 fl (7.4-10.4); Monocytes Absolute Auto 0.2 K/mm3 (0.1-0.6); Monocytes Percent Auto 8.5 % (2.6-8.5); Neutrophils Absolute Auto 1.9 K/mm3 (1.3-6.7); Neutrophils Percent Auto 81.4 % (45.5-73.1); Platelet Count Result 94 k/mm3 (150-375); Red Blood Count 4.03 M/mm3 (4.2-5.4); Red Cell Distribution Width 15.3 % (11.5-14.5); White Blood Count 2.4 K/mm3 (4.5-10.0)
[2020-05-12 07:11] LABS: Anion Gap 3 mmol/L (8-16); Blood Urea Nitrogen 9 mg/dL (7-17); Carbon Dioxide 32 mmol/L (22-30); Chloride 103 mmol/L (98-107); Estimated CRCL calculation 57 ml/min; Estimated Glomerular Filt Rate > 60; Glucose 86 mg/dL (65-105); Potassium 2.7 mmol/L (3.4-5.0); Sodium 138 mmol/L (137-145)
[2020-05-12] MEDS: CENTRAL LINE FLUSH 10 ML IV PUSH ×3 (08:07→22:38)
[2020-05-12] MEDS: MAGNESIUM SULF 2 GM/WATER 50ML 2 GM/50 ML BAG IVPB (08:13)
[2020-05-12] MEDS: POTASSIUM CHLORIDE 20 MEQ TABLET 40 MEQ PO (08:14)
[2020-05-12] MEDS: MEGESTROL ACETATE (*CHEMO) 40 MG TABLET PO ×4 (08:21→21:42)
[2020-05-12] MEDS: CHOLECALCIFEROL 1,000 UNITS TABLET 1000 UNITS PO (08:22)
[2020-05-12] MEDS: ASCORBIC ACID 500 MG TABLET 1000 MG PO (08:22)
[2020-05-12] MEDS: ROSUVASTATIN 10 MG TABLET PO (08:22)
[2020-05-12] MEDS: ACYCLOVIR 400 MG TABLET PO (08:22)
[2020-05-12] MEDS: APIXABAN 5 MG TABLET PO ×2 (08:22→21:42)
--- NOTE | 2020-05-12 09:48 | PCPTNOTE ---
The PT treatment was unable to be completed today due to patient refusal. Will continue per Plan of Care frequency and duration.
[2020-05-12] MEDS: ACETAMINOPHEN 325 MG TABLET 650 MG PO (11:21)
--- NOTE | 2020-05-12 13:51 | PCOTNOTE ---
Attempted to see patient this pm. Pt reported already completing ADLs and declined exercises at this time.
[2020-05-12 14:46] LABS: Potassium 3.8 mmol/L (3.4-5.0)
--- NOTE | 2020-05-12 15:24 | PM.IMPN ---
Progress Note: A&P Assessment and Plan (1) Lung infiltrate: Code(s): R91.8 - Other nonspecific abnormal finding of lung field Status: Acute Assessment and Plan: patient is currently on cefepime and Zithromax blood cultreus has been negative. patient had yet another spike of temperature today. will add flagyl for anaerobic. ?aspiration. since cultures did not come back positive unlikely MRSA so will hold on vancomycin. await cultures (2) Weakness generalized: Code(s): R53.1 - Weakness Status: Acute Assessment and Plan: likely secondary to chronic illness participating in therapy with physical therapy and occupational therapy (3) Diastolic dysfunction: Code(s): I51.89 - Other ill-defined heart diseases Status: Chronic Assessment and Plan: cxr with congestive changes. receive a dose of lasix this am. hypokaemia, will replace it. will check bnp and recheck cxr in am. continue oxygen supplemenation. check ECHO diused 2.5 l since lasix. will redose as needed. reheck cxr in am. (4) Chronic kidney disease, stage 3: Code(s): N18.30 - Chronic kidney disease, stage 3 unspecified Status: Acute Assessment and Plan: continue to monitor BUN and creatinine at patient's baseline (5) Suspected 2019 novel coronavirus infection: Code(s): Z20.828 - Contact with and (suspected) exposure to other viral communicable diseases Status: Ruled-out Assessment and Plan: patient tested positive for COVID on the 21 of April (6) Obstructive sleep apnea on CPAP: Code(s): G47.33 - Obstructive sleep apnea (adult) (pediatric); Z99.89 - Dependence on other enabling machines and devices Status: Chronic Assessment and Plan: CPAP at night time (7) Chronic lymphocytic leukemia: Code(s): C91.10 - Chronic lymphocytic leukemia of B-cell type not having achieved remission Status: Chronic Assessment and Plan: patient is status post chemotherapy on immunomodulator follow-up in outpatient setting (8) Type 2 diabetes mellitus: Qualifiers: 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 intermediate accountant insulin use: without intermediate accountant use 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 complication status: without complication Qualified Code(s): E11.9 - Type 2 diabetes mellitus without complications Code(s): E11.9 - Type 2 diabetes mellitus without complications Status: Chronic Assessment and Plan: patient's last hemoglobin A1c was 6% well controlled continue to monitor (9) Atrial flutter with rapid ventricular response: Code(s): I48.92 - Unspecified atrial flutter Status: Acute Assessment and Plan: rate controlled Subjective Date/time seen: 05/12/20 15:24 overniht event noted. oxygen was up to 10 l now with lasix, it has been down to 7 l. she still feels crabby she states. she is warm to touch, no nausea, vomiting. she reports its sore everywhere. she deenies any overt shortness of breath. Review of Systems Constitutional: Constitutional: Reports fatigue, Reports lethargy, Reports poor appetite and Reports weakness Eyes: Eyes: Denies blurry vision and Denies photophobia ENT: Denies epistaxis and Denies nasal discharge Cardiovascular: Cardiovascular: Denies chest pain and Denies palpitations Respiratory: Respiratory: Reports cough, Denies hemoptysis, Denies dyspnea, Reports dyspnea on exertion and Denies wheezing Gastrointestinal: Gastrointestinal: Denies abdominal pain, Denies bloating, Denies constipation, Denies diarrhea, Denies nausea and Denies vomiting Genitourinary: Genitourinary: Denies hematuria and Denies flank pain Musculoskeletal: Musculoskeletal: Denies back pain and Denies neck pain Integumentary/Breasts: Skin/Breast: Denies dry skin and Denies pruritus Neurologic: Denies abnormal gait and Denies vertigo Psychiatric: Psychiatric: Denies anxiety and Denies confusion Endocrine: Endocrine: Repor
[2020-05-12 16:05] LABS: NT Pro B Type Natriuretic Pept 2830 PG/ML (5-100)
[2020-05-12] MEDS: metroNIDAZOLE 500 MG/ISO 100ML 500 MG/100 ML BAG 100 MG IVPB ×2 (16:12→22:37)
[2020-05-12] MEDS: GABAPENTIN 300 MG CAPSULE PO (21:42)
[2020-05-13] VITALS (25 sets, daily range): BP systolic 97–152; BP diastolic 44–86; PULSE 68–119; RESP 16–20; TEMP 36.3–39.2; O2SAT 88–98
--- NOTE | 2020-05-13 | ECHO_ITS ---
Patient Info Name: Kavitha Ceron Age: 74 years : 1945 Gender: Female Ht: 64 in Wt: 195 lbs BSA: 2.03 m2 BP: 97 / 44 mmHg Heart Rhythm: Indeterminant Technical Quality: Poor Exam Date: 05/13/2020 1:30 PM Exam Location: [facility] Patient Status: Inpatient Admit Date: 05/07/2020 Staff Ordering Physician: Gume Ambriz MD Field Administrator: Shantell Mayers RDCS Attending Provider: Janak Brandt MD Exam Type: CA echo dop color flow w con Study Info Indications R06.02 - Shortness of breath I50.9 - Heart failure, unspecified Complete two-dimensional, color flow and Doppler transthoracic echocardiogram is performed with contrast to opacify the left ventricle and to improve the deliniation of the left ventricle endocardial borders. Contrast/Agitated Saline Contrast/Ag. Saline: Definity Amount: 2.00 ml Administered By: Sabina Montgomery RN Reason for Poor Study: poor echocardiographic windows Summary 1. Normal left ventricular size with good contractility of all segments and no focal wall motion abnormalities. Calculated ejection fraction is 60 3%, visual 60-65%. Grade 2 diastolic dysfunction is present. Mild left ventricular hypertrophy. 2. Mild right ventricular enlargement and hypokinesis. 3. No significant valve disease. 4. Mild pulmonary hypertension, estimated pulmonary arterial systolic pressure is 36 mmHg. 5. Anterior echogenic area is present. This could be a pericardial effusion with thickened exudate, thickened pericardium, or simply a fat pad. Consider CT of the chest for further clarification. 6. Rhythm is indeterminate. Left Ventricle Left ventricular chamber dimension is normal. Left ventricular systolic function is normal, estimated at 60-65%. There is mildly increased left ventricular wall thickness. Left ventricular septal wall motion is normal. The left ventricular diastolic function is grade II diastolic dysfunction. Right Ventricle Right ventricular chamber dimension is mildly enlarged. Right ventricular systolic function is reduced. Left Atria Left atrial chamber dimension is normal. Right Atria Right atrial chamber dimension is normal. Aortic Valve The aortic valve is trileaflet. There is mild aortic valve sclerosis. There is no aortic valve stenosis. There is no aortic valve regurgitation. Pulmonic Valve The pulmonic valve is normal. There is no pulmonic valve stenosis. There is no pulmonic regurgitation. Mitral Valve The mitral valve has calcified annulus. There is no mitral valve stenosis. There is no mitral valve regurgitation. Tricuspid Valve The tricuspid valve leaflets are normal. There is no significant tricuspid valve stenosis. There is trace tricuspid valve regurgitation. Mild pulmonary hypertension, estimated pulmonary arterial systolic pressure is 36 mmHg. Pericardium/Pleural The pericardium appears normal. There is no pericardial effusion. Inferior Vena Cava Normal inferior vena cava with >50% collapse upon inspiration consistent with Empty right atrial pressure, 10 mmHg. Aorta The aortic root size at the sinus of Valsalva is normal. The prox ascending aorta size is normal. Left Ventricular Outflow Tract Name Value Normal LVOT 2D -
[2020-05-13] MEDS: ACETAMINOPHEN 325 MG TABLET 650 MG PO ×2 (02:29→11:34)
[2020-05-13] MEDS: ALBUTEROL SULFATE NEB 2.5 MG/0.5 ML INH INHALATION ×4 (03:05→20:02)
[2020-05-13] MEDS: metroNIDAZOLE 500 MG/ISO 100ML 500 MG/100 ML BAG 100 MG IVPB ×2 (05:11→14:14)
[2020-05-13] MEDS: CENTRAL LINE FLUSH 10 ML IV PUSH ×3 (05:13→20:25)
[2020-05-13 06:29] LABS: Hematocrit 33.7 % (37.0-47.0); Immature Granulocyte Absolute 0.03 K/mm3 (0.00-0.031); Immature Granulocyte Percent A 1.1 % (0-0.5); Lymphocytes Absolute Auto 0.22 K/mm3 (0.9-3.2); Lymphocytes Percent Auto 8.3 % (18.3-44.2); Mean Corpuscular HGB Conc 32.6 g/dl (32-36); Mean Corpuscular Hemoglobin 28.9 pg (26-34); Mean Corpuscular Volume 88.7 fl (80-100); Mean Platelet Volume 9.7 fl (7.4-10.4); Monocytes Absolute Auto 0.3 K/mm3 (0.1-0.6); Monocytes Percent Auto 10.2 % (2.6-8.5); Neutrophils Absolute Auto 2.1 K/mm3 (1.3-6.7); Neutrophils Percent Auto 80.4 % (45.5-73.1); Platelet Count Result 91 k/mm3 (150-375); Red Cell Distribution Width 15.6 % (11.5-14.5); White Blood Count 2.7 K/mm3 (4.5-10.0)
[2020-05-13 07:06] LABS: Anion Gap 4 mmol/L (8-16); Blood Urea Nitrogen 12 mg/dL (7-17); Calcium 8.3 mg/dL (8.4-10.2); Carbon Dioxide 31 mmol/L (22-30); Chloride 105 mmol/L (98-107); Estimated CRCL calculation 46 ml/min; Estimated Glomerular Filt Rate 54; Glucose 91 mg/dL (65-105); Potassium 3.1 mmol/L (3.4-5.0); Sodium 140 mmol/L (137-145)
[2020-05-13] MEDS: CHOLECALCIFEROL 1,000 UNITS TABLET 1000 UNITS PO (08:37)
[2020-05-13] MEDS: ROSUVASTATIN 10 MG TABLET PO (08:37)
[2020-05-13] MEDS: ASCORBIC ACID 500 MG TABLET 1000 MG PO (08:37)
[2020-05-13] MEDS: APIXABAN 5 MG TABLET PO ×2 (08:37→20:24)
[2020-05-13] MEDS: MEGESTROL ACETATE (*CHEMO) 40 MG TABLET PO ×4 (08:38→20:25)
[2020-05-13] MEDS: ACYCLOVIR 400 MG TABLET PO (08:38)
[2020-05-13] MEDS: FUROSEMIDE INJ 40 MG/4 ML VIAL IV PUSH (08:47)
--- NOTE | 2020-05-13 09:57 | PM.IMPN ---
Progress Note: A&P Assessment and Plan (1) Lung infiltrate: Code(s): R91.8 - Other nonspecific abnormal finding of lung field Status: Acute Assessment and Plan: patient is currently on cefepime and Zithromax blood cultreus has been negative. patient had yet another spike of temperature today. will add flagyl for anaerobic. ?aspiration. since cultures did not come back positive unlikely MRSA so will hold on vancomycin. await cultures (2) Weakness generalized: Code(s): R53.1 - Weakness Status: Acute Assessment and Plan: likely secondary to chronic illness participating in therapy with physical therapy and occupational therapy (3) Diastolic dysfunction: Code(s): I51.89 - Other ill-defined heart diseases Status: Chronic Assessment and Plan: cxr with congestive changes. receive a dose of lasix this am. hypokaemia, will replace it. will check bnp and recheck cxr in am. continue oxygen supplemenation. check ECHO diused 2.5 l since lasix. will redose as needed. reheck cxr in am. (4) Chronic kidney disease, stage 3: Code(s): N18.30 - Chronic kidney disease, stage 3 unspecified Status: Acute Assessment and Plan: continue to monitor BUN and creatinine at patient's baseline (5) Suspected 2019 novel coronavirus infection: Code(s): Z20.828 - Contact with and (suspected) exposure to other viral communicable diseases Status: Ruled-out Assessment and Plan: patient tested positive for COVID on the 21 of April (6) Obstructive sleep apnea on CPAP: Code(s): G47.33 - Obstructive sleep apnea (adult) (pediatric); Z99.89 - Dependence on other enabling machines and devices Status: Chronic Assessment and Plan: CPAP at night time (7) Chronic lymphocytic leukemia: Code(s): C91.10 - Chronic lymphocytic leukemia of B-cell type not having achieved remission Status: Chronic Assessment and Plan: patient is status post chemotherapy on immunomodulator follow-up in outpatient setting (8) Type 2 diabetes mellitus: Qualifiers: 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 bed bug exterminator insulin use: without bed bug exterminator use 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 complication status: without complication Qualified Code(s): E11.9 - Type 2 diabetes mellitus without complications Code(s): E11.9 - Type 2 diabetes mellitus without complications Status: Chronic Assessment and Plan: patient's last hemoglobin A1c was 6% well controlled continue to monitor (9) Atrial flutter with rapid ventricular response: Code(s): I48.92 - Unspecified atrial flutter Status: Acute Assessment and Plan: rate controlled Additional Plan Patient is on multiple antibiotics. Chest x-ray did not show any significant improvement. Will continue current treatment and request Infectious Disease consultation. Potassium was replaced. Will recheck in the morning. Subjective Date/time seen: 05/13/20 09:58 Interval history: Patient was seen during the morning rounds today. Feeling slightly better today. Mild shortness of breath. No chest pain. No abdominal pain, no nausea, no vomiting. Mood stable. Review of Systems Constitutional: Constitutional: Reports fatigue, Reports lethargy, Reports poor appetite and Reports weakness Eyes: Eyes: Denies blurry vision and Denies photophobia ENT: Denies vertigo, Denies epistaxis, Denies nasal discharge and Denies neck pain Cardiovascular: Cardiovascular: Denies chest pain, Denies palpitations, Denies dyspnea and Reports dyspnea on exertion Respiratory: Respiratory: Reports cough, Denies hemoptysis, Denies dyspnea, Reports dyspnea on exertion and Denies wheezing Gastrointestinal: Gastrointestinal: Denies abdominal pain, Denies bloating, Denies constipation, Denies diarrhea, Denies nausea and Denies vomiting Genitourinary: Genitourinary: Denies hematuria and Denies flank pain Musculoskeletal:
[2020-05-13] MEDS: MAGNESIUM OXIDE 400 MG TABLET PO (11:06)
--- NOTE | 2020-05-13 11:15 | PCOTNOTE ---
Attempted to see Pt for AM OT session. Pt declined to participate in therapy session including ADLs, therapeutic activities, and bue strengthening due to not feeling good. Will continue per POC duration and frequency tomorrow.
--- NOTE | 2020-05-13 11:31 | PCNFU ---
Nutrition Follow-Up Complete: Inadequate oral intake related to nausea, vomiting, and poor appetite as evidenced by average meal consumption of 13% and patient reported weight loss of 20 pounds in the past 2 weeks. Goal: Patient to consume 75% or more of meals on current diet order. Patient is progressing towards goal. No new goal at this time. Pt current nutrition is a heart healthy diet. Last recorded weight is 88.5 kg. Stable weight upon admission. Bowel Motility: + BM 05/12 Labs Reviewed: Hgb 11.0, Hct 33.7, K 3.1, GFR 54 Meds Noted: Zithromax, Eliquis, Crestor, Vitamin D, Heparin Sodium, Vitamin C, Neurontin, Megace, Acyclovir Additional Notes: Spoke with patient. patient reports having a poor appetite but eating as much as she can. She is receiving ensure compact BID providing her with an additional 220 calories and 9 grams of protein. She enjoys receiving the nutritional supplement. She has been eating anywhere from 0-90% of meals and refused two meals. Monitor patients labs, medications, weight, and oral intake every 5 days.
--- NOTE | 2020-05-13 12:15 | PCNSR ---
On 05/13/20, the student,April Coombs, provided care and completed [facility] documentation on this patient. I have reviewed the student's documentation and agree with the findings.
--- NOTE | 2020-05-13 12:31 | WPDCDIQUERY2 ---
CDI Query Clarification Request 1) - Lung infiltrate and ?aspiration documented -Pt on Zithromax, Cefepime and Flagyl IV -CXR 05/13 impression: Diffuse bilateral airspace disease unchanged, pneumonia vs edema -Pt with temp up to 102.8 on 05/12 and 102.6 early 05/13 Please clarify if there is a corresponding diagnosis for CXR findings of lung infiltrate. 2) -05/12 ABG's pH 7.455 pCO2 35.5 pO2 56.4 HCO3 24.4 O2 sats 91% on 5L O2 -Pt was placed on high flow nasal cannula at 10L and has been weaned down to 6L -Lasix 40mg IV given 05/12 and pt started on Lasix 40mg IV daily -BNP 2830 on 05/12 - cxr with congestive changes. receive a dose of lasix this am documented 05/13 -Diastolic CHF has been documented Please clarify acuity of diastolic CHF: Acute, Chronic, Acute on chronic, unable to determine.
[2020-05-13] MEDS: PERFLUTREN LIPID MICROSPHERES 1.5 ML VIAL DILUTED TO 10 ML TOTAL VOLUME IV PUSH (14:05)
--- NOTE | 2020-05-13 15:02 | WPDINFPN2 ---
Progress Note: A&P Assessment and Plan (1) Fever: Qualifiers: Fever type: unspecified Qualified Code(s): R50.9 - Fever, unspecified Code(s): R50.9 - Fever, unspecified Status: Acute Assessment and Plan: 1. Fever, lung source, unknown microbiology 2. CLL 3. CoVid 19 infection, symptomatic 3/ 4. DM 5. Multiple joint replacements REC Ctx #1 (stop cefepime due to low suspicion for Pseudomonas and potential BOOK SEWER toxicity of cefepime) and TMP-SMX #1. Beta-d Glucan assay, helpful to exclude PJP if negative. Serologies for other lung pathogens. I think she needs diuresis. On O2. No treatment specific to CoVid. Consider bronchoscopy if above non-diagnostic and still hypoxic/febrile. Subjective Date/time seen: 05/13/20 15:02 Objective Data Vital Signs Vital Signs: Vital Signs - 24 hr 05/12/20 15:07 05/12/20 18:00 05/12/20 19:02 Temperature 36.2 C L Pulse Rate 73 82 Respiratory Rate 20 18 Blood Pressure 129/70 143/66 H Pulse Oximetry 97 05/12/20 20:00 05/12/20 20:02 05/12/20 20:08 Temperature Pulse Rate 83 Respiratory Rate 18 Blood Pressure Pulse Oximetry 96 96 05/12/20 20:12 05/12/20 21:57 05/12/20 23:25 Temperature 37.7 C H Pulse Rate 88 97 96 Respiratory Rate 18 18 Blood Pressure 146/62 H Pulse Oximetry 91 92 05/13/20 02:00 05/13/20 02:29 05/13/20 03:07 Temperature 39.2 C H 39.2 C H Pulse Rate 95 96 Respiratory Rate 16 18 Blood Pressure 124/63 Pulse Oximetry 91 90 05/13/20 03:40 05/13/20 04:00 05/13/20 05:21 Temperature 36.4 C 36.4 C Pulse Rate 99 96 Respiratory Rate 18 18 Blood Pressure 97/44 L Pulse Oximetry 93 05/13/20 08:38 05/13/20 09:50 05/13/20 09:58 Temperature Pulse Rate 96 82 Respiratory Rate 20 20 20 Blood Pressure Pulse Oximetry 91 91 05/13/20 10:00 05/13/20 10:02 05/13/20 10:05 Temperature 36.4 C L Pulse Rate 84 Respiratory Rate 16 Blood Pressure 110/62 108/58 L 108/56 L Pulse Oximetry 96 05/13/20 14:18 05/13/20 14:25 Temperature Pulse Rate 92 76 Respiratory Rate 20 20 Blood Pressure Pulse Oximetry Intake/Output Intake/Output: Intake & Output 05/10/20 05/11/20 05/12/20 05/13/20 23:59 23:59 23:59 23:59 Intake Total 3490 3430 1700 600 Output Total 750 1800 3200 Balance 2740 1630 -1500 600 Meds/Results Medications: Active Medications Generic Name Dose Route Start Last Admin Trade Name Freq PRN Reason Stop Dose Admin Acetaminophen 650 mg 05/07/20 16:56 05/13/20 11:34 Acetaminophen 325 Mg Tablet PO 650 mg Q4H PRN Administration Mild Pain (1-3) or Fever Acyclovir 400 mg 05/08/20 09:00 05/13/20 08:38 Acyclovir 400 Mg Tablet PO 400 mg DAILY ROXANN Administration Albuterol 2.5 mg 05/11/20 20:00 05/13/20 14:18 Albuterol Sulfate Neb 2.5 Mg/0.5 Ml Inh INHALATION 2.5 mg Q6HRT ROXANN Administration Apixaban 5 mg 05/07/20 23:20 05/13/20 08:37 Apixaban 5 Mg Tablet PO 5 mg Q12HR ROXANN Administration Ascorbic Acid 1,000 mg 05/08/20 09:00 05/13/20 08:37 Ascorbic Acid 500 Mg Tablet PO 1,000 mg DAILY ROXANN Administration Furosemide 40 mg 05/13/20 09:00 05/13/20 08:47 Furosemide Inj 40 Mg/4 Ml Vial IV PUSH 40 mg DAILY ROXANN Administration Gabapentin 300 mg 05/07/20 23:15 05/12/20 21:42 Gabapentin 300 Mg Capsule PO 300 mg HS ROXANN Administration Heparin Sodium (Beef Lung) 50 units 05/07/20 16:12 Heparin Flush 50 Units/5 Ml Syringe IV PUSH PRN PRN after intermittent infusion Ceftriaxone Sodium/Dextrose 1 gm in 50 mls @ 100 mls/hr 05/13/20 15:00 Rocephin 1 Gm/D5w 50 Ml IVPB Q24H ROXANN Trimethoprim/Sulfamethoxazole 268 mls @ 260 mls/hr 05/13/20 18:00 18 ml/ Dextrose IVPB Q6HR ROXANN Magnesium Oxide 400 mg 05/13/20 10:00 05/13/20 11:06 Magnesium Oxide 400 Mg Tablet PO 400 mg QAM ROXANN Administration Megestrol Acetate 40 mg 05/09/20 13:00 05/13/20 1
[2020-05-13] MEDS: POTASSIUM CHLORIDE 20 MEQ TABLET 40 MEQ PO (17:21)
--- NOTE | 2020-05-13 19:54 | CONS_ITS ---
DATE OF CONSULTATION: 05/13/2020 REASON FOR CONSULTATION: Fever. HISTORY OF PRESENT ILLNESS: A 74-year-old female who has been on treatment for CLL for about the last 8 months and that she had 7 rounds of IV chemotherapy and now on maintenance with Venclexta. She has had no recent neutropenia. She has been on no antibacterials recently at home, though is on acyclovir presumably for suppression. She is on no antifungal suppressants. She has never had previous lung illness, previous lung infection, previous bloodstream infection. She had contact with grand children in last weekend in March and on the morning of the , she began experiencing malaise. She had received her 1st coronavirus vaccination the previous day, April 20. With the next several days, she also developed 1-day of loss of smell. Later on the day of April 21, she had a positive coronavirus test, following 2 prior negative tests done last year at various times. Her has since tested negative. No particular therapy was recommended for her positive diagnosis test. She did have malaise as well as chills without michele rigors. There is no known fever at home. No dyspnea. Shortly, before her current admission she had sputum with blood streaks, but otherwise has had no cough nor sputum production. She has had no chest pain. Has had some nausea, anorexia, headache, and generalized weakness. She presented to the hospital on May 07 with dizziness and generalized weakness. Has admitted since admission she has been febrile as noted below. She also has had oxygen desaturation, though without any sensation of air hunger or dyspnea on exertion. After she became febrile, blood cultures were collected for the 1st time and she was started on cefepime and azithromycin. Metronidazole was added today, consultation requested. She has not required any type of surgical intervention. No prior such episodes and she is unaware of the fever other than feeling cold. ALLERGIES: NONE KNOWN. HABITS: No tobacco. No alcohol to excess. PRESENT MEDICATIONS: List reviewed. She remains on her chemotherapy. FAMILY HISTORY: Not pertinent to her present illness. PAST MEDICAL HISTORY: Right hip replacement 2011, bilateral knee replacements at a later date, previous D and C, detached retina repair, cholecystectomy, cataracts, type 2 diabetes mellitus, PAF, DJD, AMAN, kidney stones, hypertension, hyperlipidemia, previous DVT, diastolic dysfunction, depression, and past stage 3 chronic renal insufficiency. REVIEW OF SYSTEMS: Some weight loss associated with her poor appetite. 14-point review otherwise negative. SOCIAL HISTORY: Retired. Lives locally. , 3 children, all have . PHYSICAL EXAMINATION: GENERAL: An elderly female, who appears younger than her actual age, in no distress at rest. VITAL SIGNS: Shortly after arrival she was febrile up to 38.6, and since then has had daily temperatures as high as 39.6 two days ago, in the last 24 hours T-max 39.2. 108/56, 76, 20, saturation is 96% on 6 L SKIN: No rashes. Warm and dry. No ulcerations. No areas of gangrene or necrosis. NODES: She has no axillary or cervical adenopathy. EENT: No conjunctival injection. Pupils are equal, round, and reactive to light. Oropharynx, oral mucosa normal. Teeth in good repair. NECK: Without meningismus, mass, tenderness. LUNGS: Clear to auscultation and percussion. Good air entry. No egophony, no fremitus change. CHEST: She has a right upper chest Port-A-Cath which is accessed. CARDIAC: Regular rate and rhythm with ectopics. No murmurs or gallops, no heaves. Pulses are 1+. ABDOMEN: Morbidly obese, nontender. No masses. No organomegaly. Normal bowel sounds. EXTREMITIES: No clubbing, cyanosis, or edema.
[2020-05-13] MEDS: GABAPENTIN 300 MG CAPSULE PO (20:25)
[2020-05-13] MEDS: ONDANSETRON INJ 4 MG/2 ML VIAL IV PUSH (21:24)
[2020-05-14] VITALS (20 sets, daily range): BP systolic 90–130; BP diastolic 43–81; PULSE 80–100; RESP 16–24; TEMP 35.9–37; O2SAT 83–96
[2020-05-14] MEDS: ALBUTEROL SULFATE NEB 2.5 MG/0.5 ML INH INHALATION ×4 (01:42→20:33)
[2020-05-14] MEDS: CENTRAL LINE FLUSH 10 ML IV PUSH ×3 (05:27→20:57)
[2020-05-14 05:37] LABS: Anion Gap 5 mmol/L (8-16); Blood Urea Nitrogen 14 mg/dL (7-17); Calcium 8.1 mg/dL (8.4-10.2); Carbon Dioxide 30 mmol/L (22-30); Chloride 102 mmol/L (98-107); Estimated CRCL calculation 46 ml/min; Estimated Glomerular Filt Rate 54; Glucose 85 mg/dL (65-105); Potassium 3.7 mmol/L (3.4-5.0); Sodium 137 mmol/L (137-145)
--- NOTE | 2020-05-14 08:28 | PM.IMPN ---
Progress Note: A&P Assessment and Plan (1) Lung infiltrate: Code(s): R91.8 - Other nonspecific abnormal finding of lung field Status: Acute Assessment and Plan: patient is currently on cefepime and Zithromax blood cultreus has been negative. patient had yet another spike of temperature today. will add flagyl for anaerobic. ?aspiration. since cultures did not come back positive unlikely MRSA so will hold on vancomycin. await cultures (2) Weakness generalized: Code(s): R53.1 - Weakness Status: Acute Assessment and Plan: likely secondary to chronic illness participating in therapy with physical therapy and occupational therapy (3) Diastolic dysfunction: Code(s): I51.89 - Other ill-defined heart diseases Status: Chronic Assessment and Plan: cxr with congestive changes. receive a dose of lasix this am. hypokaemia, will replace it. will check bnp and recheck cxr in am. continue oxygen supplemenation. check ECHO diused 2.5 l since lasix. will redose as needed. reheck cxr in am. (4) Chronic kidney disease, stage 3: Code(s): N18.30 - Chronic kidney disease, stage 3 unspecified Status: Acute Assessment and Plan: continue to monitor BUN and creatinine at patient's baseline (5) Suspected 2019 novel coronavirus infection: Code(s): Z20.828 - Contact with and (suspected) exposure to other viral communicable diseases Status: Ruled-out Assessment and Plan: patient tested positive for COVID on the 21 of April (6) Obstructive sleep apnea on CPAP: Code(s): G47.33 - Obstructive sleep apnea (adult) (pediatric); Z99.89 - Dependence on other enabling machines and devices Status: Chronic Assessment and Plan: CPAP at night time (7) Chronic lymphocytic leukemia: Code(s): C91.10 - Chronic lymphocytic leukemia of B-cell type not having achieved remission Status: Chronic Assessment and Plan: patient is status post chemotherapy on immunomodulator follow-up in outpatient setting (8) Type 2 diabetes mellitus: Qualifiers: 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 Chest x-ray did not show any significant improvement. Will continue current treatment and request Infectious Disease consultation. Potassium is normal now Will repeat chest x-ray in the morning. Start physical therapy. Possible discharge over the weekend. Subjective Date/time seen: 05/14/20 08:28 Interval history: Patient was seen during the morning rounds today. Feeling slightly better today. Decreased shortness of breath. No chest pain. No abdominal pain, no nausea, no vomiting. Mood stable. No new complaint. Review of Systems Constitutional: Constitutional: Reports fatigue, Reports lethargy, Reports poor appetite and Reports weakness Eyes: Eyes: Denies blurry vision and Denies photophobia ENT: Denies vertigo, Denies epistaxis, Denies nasal discharge and Denies neck pain Cardiovascular: Cardiovascular: Denies chest pain, Denies palpitations, Denies dyspnea and Reports dyspnea on exertion Respiratory: Respiratory: Reports cough, Denies hemoptysis, Denies dyspnea, Reports dyspnea on exertion and Denies wheezing Gastrointestinal: Gastrointestinal: Denies abdominal pain, Denies bloating, Denies constipation, Denies diarrhea, Denies nausea and Denies vo
[2020-05-14] MEDS: APIXABAN 5 MG TABLET PO ×2 (08:56→20:58)
[2020-05-14] MEDS: MEGESTROL ACETATE (*CHEMO) 40 MG TABLET PO ×4 (08:56→20:57)
[2020-05-14] MEDS: MAGNESIUM OXIDE 400 MG TABLET PO (08:56)
[2020-05-14] MEDS: CHOLECALCIFEROL 1,000 UNITS TABLET 1000 UNITS PO (08:56)
[2020-05-14] MEDS: FUROSEMIDE INJ 40 MG/4 ML VIAL IV PUSH (08:56)
[2020-05-14] MEDS: ROSUVASTATIN 10 MG TABLET PO (08:56)
[2020-05-14] MEDS: ASCORBIC ACID 500 MG TABLET 1000 MG PO (08:56)
[2020-05-14] MEDS: ACYCLOVIR 400 MG TABLET PO (08:56)
[2020-05-14] MEDS: POTASSIUM CHLORIDE 20 MEQ TABLET 40 MEQ PO (09:07)
[2020-05-14] MEDS: ONDANSETRON INJ 4 MG/2 ML VIAL IV PUSH ×2 (12:27→18:08)
--- NOTE | 2020-05-14 15:01 | WPDINFPN2 ---
Progress Note: A&P Assessment and Plan (1) Fever: Qualifiers: Fever type: unspecified Qualified Code(s): R50.9 - Fever, unspecified Code(s): R50.9 - Fever, unspecified Status: Acute Assessment and Plan: 1. Fever, lung source, unknown microbiology. Temp resolved for the moment 2. CLL 3. CoVid 19 infection, symptomatic 04/21/2020 4. DM 5. Multiple joint replacements REC Ctx #2 and TMP-SMX #2. Beta-d Glucan assay in process, helpful to exclude PJP if negative. Serologies for other lung pathogens also pending. On O2. No treatment specific to CoVid. Consider bronchoscopy if above non-diagnostic and still hypoxic/febrile. Subjective Date/time seen: 05/14/20 15:01 Interval history: no new complaints Exam Narrative: Exam Narrative: afebrile. Sats generally low 90s, on 6 lpm, down from 10 Const: General: in distress Resp: Effort & Inspection: abnormal respiratory effort Auscultation: clear to auscultation bilaterally, no rales, no rhonchi, no wheezes and diminished lung sounds Cardio: Rate: regular rate Rhythm: regular rhythm Heart sounds: no murmurs GI: Inspection: non-distended GI Palp: Yes Soft to palpation and No Tenderness to palpation present (GI) Skin: General skin exam: normal color and no rashes or lesions noted Objective Data Vital Signs Vital Signs: Vital Signs - 24 hr 05/13/20 18:30 05/13/20 20:00 05/13/20 20:04 Temperature 36.4 C L Pulse Rate 76 86 Respiratory Rate 16 20 Blood Pressure 146/62 H Pulse Oximetry 98 92 05/13/20 20:07 05/13/20 20:14 05/13/20 20:35 Temperature Pulse Rate 90 Respiratory Rate 20 Blood Pressure Pulse Oximetry 88 L 92 05/13/20 22:00 05/13/20 22:04 05/13/20 22:06 Temperature 37.2 C 37.2 C 37.2 C Pulse Rate 100 104 H 119 H Respiratory Rate 16 16 16 Blood Pressure 152/75 H 149/86 H 142/80 H Pulse Oximetry 92 93 94 05/13/20 22:30 05/14/20 01:40 05/14/20 01:44 Temperature Pulse Rate 68 96 96 Respiratory Rate 20 Blood Pressure Pulse Oximetry 92 91 05/14/20 01:54 05/14/20 02:00 05/14/20 06:00 Temperature 36.9 C 37.0 C Pulse Rate 98 100 94 Respiratory Rate 20 18 16 Blood Pressure 117/62 130/56 L Pulse Oximetry 96 93 05/14/20 08:15 05/14/20 08:25 05/14/20 10:00 Temperature 37.0 C Pulse Rate 88 90 90 Respiratory Rate 18 18 24 H Blood Pressure 106/46 L Pulse Oximetry 91 92 05/14/20 10:02 05/14/20 10:04 05/14/20 14:00 Temperature 35.9 C L Pulse Rate 80 Respiratory Rate 24 H Blood Pressure 97/81 L 90/55 L 115/43 L Pulse Oximetry 90 05/14/20 14:49 05/14/20 15:00 Temperature Pulse Rate 91 90 Respiratory Rate 18 18 Blood Pressure Pulse Oximetry Intake/Output Intake/Output: Intake & Output 05/11/20 05/12/20 05/13/20 05/14/20 23:59 23:59 23:59 23:59 Intake Total 3430 1700 1318 1106 Output Total 1800 3200 650 800 Balance 1630 -1500 668 306 Meds/Results Medications: Active Medications Generic Name Dose Route Start Last Admin Trade Name Ambreen PRN Reason Stop Dose Admin Acetaminophen 650 mg 05/07/20 16:56 05/13/20 11:34 Acetaminophen 325 Mg Tablet PO 650 mg Q4H PRN Administration Mild Pain (1-3) or Fever Acyclovir 400 mg 05/08/20 09:00 05/14/20 08:56 Acyclovir 400 Mg Tablet PO 400 mg DAILY ROXANN Administration Albuterol 2.5 mg 05/11/20 20:00 05/14/20 14:49 Albuterol Sulfate Neb 2.5 Mg/0.5 Ml Inh INHALATION 2.5 mg Q6HRT ROXANN Administration Apixaban 5 mg 05/07/20 23:20 05/14/20 08:56 Apixaban 5 Mg Tablet PO 5 mg Q12HR ROXANN Administration Ascorbic Acid 1,000 mg 05/08/20 09:00 05/14/20 08:56 Ascorbic Acid 500 Mg Tablet PO 1,000 mg DAILY ROXANN Administration Furosemide 40 mg 05/13/20 09:00 05/14/20 08:56 Furosemide Inj 40 Mg/4 Ml Vial IV PUSH 40 mg DAILY ROXANN Administration Gabapentin 300 mg 05/07/20 23:15 05/13/20 20:25 Gabapentin 300 Mg Capsule PO 300 mg HS ROXANN
[2020-05-14] MEDS: POTASSIUM CHLORIDE 20 MEQ PACKET (FOR LIQUID) 40 MEQ PO (17:20)
[2020-05-14] MEDS: GABAPENTIN 300 MG CAPSULE PO (20:58)
[2020-05-14 21:06] LABS: Alveolar/Arterial O2 Gradient 399.3 mmHg; Base Excess ABG 4.2 mEq/l (+/-2.0); Carboxyhemoglobin 0.3 % THb (0-2.0); Fractional Inspired Oxygen 70 %; HCO3 ABG 27.2 mEq/l (22.0-26.0); Methemoglobin ABG 0.4 %THb (0-1.5); Oxygen Content ABG 14.9 %vol (16.0-22.0); Oxygen Saturation ABG 93.9 % (95.0-100.0); Oxyhemoglobin 91.1 % THb (90.0-100.0); PCO2 ABG 35.1 mmHg (35.0-45.0); PO2 ABG 62.1 mmHg (80.0-100.0); PO2 FiO2 Ratio Arterial Blood 0.89 %; Reduced Hemoglobin 8.2 %THb (0-5.0); Total Hemoglobin 11.6 g/dL (12.0-18.0)
--- NOTE | 2020-05-14 21:08 | PM.EVENT ---
Event Note Event Note Event Note: The patient became hypoxic overnight. Her home a CPAP machine has already been ordered I did reiterate that she needs to use that. Her oxygen level was increased. Repeat chest x-ray and ABGs.
[2020-05-14] MEDS: FUROSEMIDE INJ 40 MG/4 ML VIAL 10 MG IV PUSH (21:41)
[2020-05-15] VITALS (28 sets, daily range): BP systolic 90–151; BP diastolic 44–64; PULSE 63–98; RESP 18–23; TEMP 36.1–36.9; O2SAT 90–98
[2020-05-15] MEDS: ALBUTEROL SULFATE NEB 2.5 MG/0.5 ML INH INHALATION ×4 (03:45→20:49)
[2020-05-15] MEDS: CENTRAL LINE FLUSH 10 ML IV PUSH ×3 (06:39→23:38)
[2020-05-15 06:50] LABS: Device HIGH FLOW NASAL CANN; Modified Allen's Test Pass; Site Drawn LEFT RADIAL
[2020-05-15 06:53] LABS: pH ABG 7.507 (7.350-7.450)
[2020-05-15] MEDS: ONDANSETRON INJ 4 MG/2 ML VIAL IV PUSH ×2 (07:12→14:30)
[2020-05-15] MEDS: FUROSEMIDE INJ 40 MG/4 ML VIAL IV PUSH ×2 (07:38→16:45)
[2020-05-15 08:29] LABS: Hematocrit 32.9 % (37.0-47.0); Immature Platelet Fraction Pct 5.7 % (0.9-11.2); Mean Corpuscular HGB Conc 33.4 g/dl (32-36); Mean Corpuscular Hemoglobin 28.8 pg (26-34); Mean Corpuscular Volume 86.1 fl (80-100); Mean Platelet Volume 11.4 fl (7.4-10.4); Platelet Count Result 111 k/mm3 (150-375); Red Blood Count 3.82 M/mm3 (4.2-5.4); Red Cell Distribution Width 15.5 % (11.5-14.5); White Blood Count 3.8 K/mm3 (4.5-10.0)
[2020-05-15 08:43] LABS: Potassium 3.8 mmol/L (3.4-5.0)
[2020-05-15 08:48] LABS: Alanine Aminotransferase 14 U/L (4-35); Alkaline Phosphatase 51 U/L (38-126); Anion Gap 5 mmol/L (8-16); Aspartate Amino Transferase 69 U/L (14-36); Bilirubin,Total 0.2 mg/dL (0.2-1.3); Blood Urea Nitrogen 14 mg/dL (7-17); Calcium 8.5 mg/dL (8.4-10.2); Carbon Dioxide 31 mmol/L (22-30); Chloride 96 mmol/L (98-107); Estimated CRCL calculation 42 ml/min; Estimated Glomerular Filt Rate 48; Glucose 107 mg/dL (65-105); Sodium 132 mmol/L (137-145)
--- NOTE | 2020-05-15 08:51 | PM.IMPN ---
Progress Note: A&P Assessment and Plan (1) Lung infiltrate: Code(s): R91.8 - Other nonspecific abnormal finding of lung field Status: Acute Assessment and Plan: patient is currently on cefepime and Zithromax blood cultreus has been negative. on flagyl. cefepime switched to ceftraixone. ID on board. on PJP treatment as well. (2) Weakness generalized: Code(s): R53.1 - Weakness Status: Acute Assessment and Plan: likely secondary to chronic illness participating in therapy with physical therapy and occupational therapy (3) Diastolic dysfunction: Code(s): I51.89 - Other ill-defined heart diseases Status: Chronic Assessment and Plan: cxr with congestive changes. worsneed. will redose lasix 40 mg iv this am. get cta chest. pulmonary consultation. ECHO with EF 60-65%, anterior echogenic area, coud be pericardial effusion w2ith thicekned exudate, thicekened pericardium or simply a fat pad. continue diuresis increase to twice daily. (4) Chronic kidney disease, stage 3: Code(s): N18.30 - Chronic kidney disease, stage 3 unspecified Status: Acute Assessment and Plan: continue to monitor BUN and creatinine at patient's baseline (5) Suspected 2019 novel coronavirus infection: Code(s): Z20.828 - Contact with and (suspected) exposure to other viral communicable diseases Status: Ruled-out Assessment and Plan: patient tested positive for COVID on the 21 of April (6) Obstructive sleep apnea on CPAP: Code(s): G47.33 - Obstructive sleep apnea (adult) (pediatric); Z99.89 - Dependence on other enabling machines and devices Status: Chronic Assessment and Plan: CPAP at night time (7) Chronic lymphocytic leukemia: Code(s): C91.10 - Chronic lymphocytic leukemia of B-cell type not having achieved remission Status: Chronic Assessment and Plan: patient is status post chemotherapy on immunomodulator follow-up in outpatient setting (8) Type 2 diabetes mellitus: Qualifiers: 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 residential insulin use: without terminal gauger use 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 complication status: without complication Qualified Code(s): E11.9 - Type 2 diabetes mellitus without complications Code(s): E11.9 - Type 2 diabetes mellitus without complications Status: Chronic Assessment and Plan: patient's last hemoglobin A1c was 6% well controlled continue to monitor (9) Atrial flutter with rapid ventricular response: Code(s): I48.92 - Unspecified atrial flutter Status: Acute Assessment and Plan: rate controlled Additional Plan cxr continues to be worse. believe these are congestive changes. on bactrim for possible PJP infection still hypoxic, will consult pulmaorny, get CTA chest, though on apixaban. diureis to continue with 40 mg iv bid. Subjective Date/time seen: 05/15/20 08:51 Interval history: patient's oxygenation worsened overnight. she is currently on airvo. was placed on bipap last night. she had 10 mg of iv lasix last evening. she is also gettting lasix 40 mg iv daily. no fever currently. she feels okay but has nausea. no abdominal pain. Review of Systems Constitutional: Constitutional: Reports fatigue, Reports lethargy, Reports poor appetite and Reports weakness Eyes: Eyes: Denies blurry vision and Denies photophobia ENT: Denies vertigo, Denies epistaxis, Denies nasal discharge and Denies neck pain Cardiovascular: Cardiovascular: Denies chest pain, Denies palpitations, Denies dyspnea and Reports dyspnea on exertion Respiratory: Respiratory: Reports cough, Denies hemoptysis, Denies dyspnea, Reports dyspnea on exertion and Denies wheezing Gastrointestinal: Gastrointestinal: Denies abdominal pain, Denies bloating, Denies constipation, Denies diarrhea, Reports nausea and Denies vomiting Genitourinary: Genitourinary: Denies hematuria and Denies flank pain
--- NOTE | 2020-05-15 10:19 | PCPTNOTE ---
Patient was transferred to IMU. Due to change in status, will need a re eval to resume treatment.
[2020-05-15] MEDS: ASCORBIC ACID 500 MG TABLET 1000 MG PO (12:12)
[2020-05-15] MEDS: MEGESTROL ACETATE (*CHEMO) 40 MG TABLET PO ×3 (12:13→20:22)
[2020-05-15] MEDS: MAGNESIUM OXIDE 400 MG TABLET PO (12:13)
[2020-05-15] MEDS: ROSUVASTATIN 10 MG TABLET PO (12:13)
[2020-05-15] MEDS: CHOLECALCIFEROL 1,000 UNITS TABLET 1000 UNITS PO (12:13)
[2020-05-15] MEDS: ACYCLOVIR 400 MG TABLET PO (12:13)
[2020-05-15] MEDS: APIXABAN 5 MG TABLET PO ×2 (12:14→20:22)
--- NOTE | 2020-05-15 13:26 | PM.CNPUL ---
Assessment and Plan Assessment and plan (1) Acute and chronic respiratory failure with hypoxia: Code(s): J96.21 - Acute and chronic respiratory failure with hypoxia Status: Acute Assessment and Plan: This patient has acute hypoxemic respiratory failure with worsening bilateral infiltrates which are ground-glass and airspace in nature. The differential here may be late onset inflammatory phase from COVID-19 infection. This seems to be more likely given the recent infection on April 21. Opportunistic infections such as atypical bacteria and fungi are also possible given her immune compromised state. I agree with ID in that she will likely need a bronchoscopy but given the severity of her hypoxia it is unsafe to do under conscious sedation and will likely have to be done once the patient is intubated and under general anesthesia. If this occurs it is very likely that the patient will remain on the ventilator and may even decline and get worse. I did explain to her all of this she was hesitant about the bronchoscopy but in the end she said to do what we can to save her life the plan today is to start her on high-dose systemic steroids to see if she gets clinically better. If she does not then a decision will be made to bring her to the Intensive Care Unit have her intubated so that we can safely do a bronchoscopy knowing all the risks that are mentioned above. I will start her on methylprednisolone 80 mg IV Q 6 hours and monitor her oxygen function. Which continue to monitor for any fevers or signs of sepsis including hypotension. We should have a low threshold for moving her to the intensive care unit. At this stage she appears to be stable where she is. (2) Bilateral pneumonia: Code(s): J18.9 - Pneumonia, unspecified organism Status: Acute History of Present Illness History of Present Illness Consult date: 05/15/20 Chief complaint: dehydration/orthostatic hypotension Narrative: This is a very pleasant 74-year-old female with a history of CLL who is currently immune-compromised on BCL-2 inhibitor and has other comorbidities including AMAN, diabetes, obesity, hyperlipidemia, Afib and hypertension as well as osteoarthritis. She developed COVID-19 infection on April 21 and had symptoms a day prior and went to the urgent care clinic and was sent home with no therapy as her case was considered mild at the time without evidence of hypoxia or pneumonia. She continued to feel weak over the past few weeks and about a week ago she brought herself to the emergency department as and was admitted with hypoxic respiratory failure and bilateral pneumonia. She denies fever chills or night sweats. She denies a cough. Denies hemoptysis. She was slightly pancytopenia which Rich comes to be improving. I believe her immune suppressive medications have been held as I do not see them on the current medication chart but she is of the view that she will getting them. Since she was approximately 3 weeks out from her COVID infection she was not started on systemic steroids or antiviral medication. She is currently on ceftriaxone, Bactrim clear. The Bactrim is covered BP. urine Legionella antigen, pneumococcal pneumonia and Histoplasma are currently pending. Between yesterday and today she has become more hypoxic and is now requiring high-flow oxygen but she denies being short of breath and does not appear to be in any respiratory distress. She had a CT of the chest done today which shows diffuse multi lobe were bilateral ground-glass opacities and airspace disease. When looking back at x-rays from many days ago it is obvious that her condition is worsening. Review of Systems Review of Systems: All systems reviewed & are unremarkable except as noted in HPI and below [facility] Past Medical History Medical History (Updated 05/15/20 @ 13:31 by Leonardo Osuna MD) Chronic kidney disease, stage 3 Baseline GFR ranges between 48 and
[2020-05-15] MEDS: methylPREDNISolone SOD SUCC 125 MG VIAL 80 MG IV PUSH ×3 (14:30→23:37)
[2020-05-15] MEDS: POTASSIUM CHLORIDE 20 MEQ TABLET.ER 40 MEQ PO (16:46)
[2020-05-15] MEDS: GABAPENTIN 300 MG CAPSULE PO (20:22)
[2020-05-16] VITALS (31 sets, daily range): BP systolic 85–136; BP diastolic 47–79; PULSE 56–80; RESP 16–20; TEMP 35.9–36.6; O2SAT 90–95
[2020-05-16] MEDS: ALBUTEROL SULFATE NEB 2.5 MG/0.5 ML INH INHALATION ×4 (02:46→20:31)
[2020-05-16 05:50] LABS: Legionella pneumophila Ag Ur Not Detected (Not Detected)
[2020-05-16 06:42] LABS: Hematocrit 32.8 % (37.0-47.0); Hemoglobin 10.9 g/dL (12.0-15.0); Immature Granulocyte Absolute 0.02 K/mm3 (0.00-0.031); Immature Granulocyte Percent A 0.9 % (0-0.5); Immature Platelet Fraction Pct 6.7 % (0.9-11.2); Lymphocytes Percent Auto 8.7 % (18.3-44.2); Mean Corpuscular HGB Conc 33.2 g/dl (32-36); Mean Corpuscular Hemoglobin 27.9 pg (26-34); Mean Corpuscular Volume 84.1 fl (80-100); Mean Platelet Volume 11.1 fl (7.4-10.4); Monocytes Absolute Auto 0.2 K/mm3 (0.1-0.6); Monocytes Percent Auto 6.6 % (2.6-8.5); Neutrophils Absolute Auto 1.9 K/mm3 (1.3-6.7); Neutrophils Percent Auto 83.8 % (45.5-73.1); Platelet Count Result 105 k/mm3 (150-375); Red Cell Distribution Width 15.1 % (11.5-14.5); White Blood Count 2.3 K/mm3 (4.5-10.0)
[2020-05-16] MEDS: methylPREDNISolone SOD SUCC 125 MG VIAL 80 MG IV PUSH ×4 (06:48→20:28)
[2020-05-16] MEDS: CENTRAL LINE FLUSH 10 ML IV PUSH ×3 (06:48→20:28)
[2020-05-16 06:50] LABS: Anion Gap 7 mmol/L (8-16); Blood Urea Nitrogen 21 mg/dL (7-17); Calcium 8.3 mg/dL (8.4-10.2); Carbon Dioxide 33 mmol/L (22-30); Chloride 94 mmol/L (98-107); Estimated CRCL calculation 36 ml/min; Estimated Glomerular Filt Rate 40; Glucose 141 mg/dL (65-105); Potassium 4.2 mmol/L (3.4-5.0); Sodium 134 mmol/L (137-145)
[2020-05-16] MEDS: ASCORBIC ACID 500 MG TABLET 1000 MG PO (07:59)
[2020-05-16] MEDS: MAGNESIUM OXIDE 400 MG TABLET PO (08:00)
[2020-05-16] MEDS: ROSUVASTATIN 10 MG TABLET PO (08:00)
[2020-05-16] MEDS: APIXABAN 5 MG TABLET PO ×2 (08:00→20:28)
[2020-05-16] MEDS: CHOLECALCIFEROL 1,000 UNITS TABLET 1000 UNITS PO (08:01)
[2020-05-16] MEDS: FUROSEMIDE INJ 40 MG/4 ML VIAL IV PUSH (08:01)
[2020-05-16] MEDS: ACYCLOVIR 400 MG TABLET PO (08:01)
[2020-05-16] MEDS: MEGESTROL ACETATE (*CHEMO) 40 MG TABLET PO ×4 (08:01→20:28)
[2020-05-16] MEDS: POTASSIUM CHLORIDE 20 MEQ TABLET.ER 40 MEQ PO (08:02)
--- NOTE | 2020-05-16 08:09 | PCOTNOTE ---
Discussed patient status with RN this morning. RN reports she is good to continue therapy at this time, with medical status change.
--- NOTE | 2020-05-16 09:04 | PM.PNPUL ---
Progress Note: A&P Assessment and Plan (1) Acute and chronic respiratory failure with hypoxia: Code(s): J96.21 - Acute and chronic respiratory failure with hypoxia Status: Acute Assessment and Plan: This patient has acute hypoxemic respiratory failure with worsening bilateral infiltrates which are ground-glass and airspace in nature. The differential here may be late onset inflammatory phase from COVID-19 infection. This seems to be more likely given the recent infection on April 21. Opportunistic infections such as atypical bacteria and fungi are also possible given her immune compromised state. I agree with ID in that she will likely need a bronchoscopy but given the severity of her hypoxia it is unsafe to do under conscious sedation and will likely have to be done once the patient is intubated and under general anesthesia. If this occurs it is very likely that the patient will remain on the ventilator and may even decline and get worse. Today she said that she does not want a bronchoscopy under any circumstances. - Continue methylprednisolone 80 mg IV q.6 hours continue monitoring oxygenation and weaning oxygen for sats of 92% or greater continue current antibiotics and current antiviral medications per ID recommendations I will hold her Venclexta chemotherapy medication for at least 2 weeks to give time for any possible infection to resolve and let her immune system recover somewhat hold Lasix and oral potassium as her creatinine is going up and there are no signs of congestive heart failure. (2) Bilateral pneumonia: Code(s): J18.9 - Pneumonia, unspecified organism Status: Acute Subjective Date/time seen: 05/16/20 09:04 Interval history: Kavitha feels like she is doing better today. She says that she is less short of breath. Her oxygen on high-flow has been weaned from 80% to 70% this morning. Today she voiced her opinion about the bronchoscopy and says that she does not want a bronchoscopy under any circumstances. Review of Systems Review of Systems: All systems reviewed & are unremarkable except as noted in HPI and below Exam Narrative: Exam Narrative: chronically ill looking, on airvo Const: General: comfortable, no acute distress, well developed, alert, awake and other (Chronically ill appy); No confusion Nutritional Appearance: average body habitus Orientation/consciousness: patient oriented x3 and No confusion HENMT: Head: normal to inspection, normocephalic and atraumatic Ears: hearing grossly normal bilaterally Face and sinus: normal facial exam Eyes: General: appearance normal, both eyes and all related structures Pupils: Equal, round and reactive pupils present EOM: EOMs intact bilaterally Direct Ophthalmoscopy: No photophobia Neck: Neck: full ROM, no lymphadenopathy and no JVD Thyroid: thyroid normal Lymphatic: no lymphadenopathy noted Resp: Effort & Inspection: normal respiratory effort, able to speak in complete sentences, not labored and no respiratory distress Auscultation: no crackles, no rales, no rhonchi, no wheezes and diminished lung sounds Cardio: Jugular venous distension: no JVD Rate: regular rate Rhythm: regular rhythm Heart sounds: S1 normal heart sound present and S2 normal heart sound present : General: Yes deferred Skin: General skin exam: pallor Rashes: no rashes Wounds: no wounds Neuro: General: patient oriented x3, CN's II-XI intact bilaterally and No confusion Cranial nerves: Yes CN's II-XII intact bilaterally and Yes Equal, round and reactive pupils present Cognition (Neuro): normal cognition Speech: normal speech Gait exam (Neuro): Normal gait present Motor exam (neuro): 5/5 motor strength present throughout Extrem: General: normal to inspection, full ROM, no joint enlargement and no pedal edema Objective Data Vital Signs Vital Signs: Vital Signs - 24 hr 05/15/20 09:32 05/15/20 09:44 05/15/20 10:00 Temperature 36.7 C Pu
--- NOTE | 2020-05-16 09:21 | PCPTNOTE ---
Discussed patient status with RN this morning. RN reports she is good to continue therapy at this time.
--- NOTE | 2020-05-16 11:28 | PM.IMPN ---
Progress Note: A&P Assessment and Plan (1) Lung infiltrate: Code(s): R91.8 - Other nonspecific abnormal finding of lung field Status: Acute Assessment and Plan: Patient is currently on multiple antibiotics. cefepime was switched to ceftraixone. ID on board. on PJP treatment as well. (2) Weakness generalized: Code(s): R53.1 - Weakness Status: Acute Assessment and Plan: likely secondary to chronic illness participating in therapy with physical therapy and occupational therapy (3) Diastolic dysfunction: Code(s): I51.89 - Other ill-defined heart diseases Status: Chronic Assessment and Plan: cxr with congestive changes. worsneed. will redose lasix 40 mg iv this am. get cta chest. pulmonary consultation. ECHO with EF 60-65%, anterior echogenic area, coud be pericardial effusion w2ith thicekned exudate, thicekened pericardium or simply a fat pad. continue diuresis increase to twice daily. (4) Chronic kidney disease, stage 3: Code(s): N18.30 - Chronic kidney disease, stage 3 unspecified Status: Acute Assessment and Plan: continue to monitor BUN and creatinine at patient's baseline (5) Suspected 2019 novel coronavirus infection: Code(s): Z20.828 - Contact with and (suspected) exposure to other viral communicable diseases Status: Ruled-out Assessment and Plan: patient tested positive for COVID on the 21 of April (6) Obstructive sleep apnea on CPAP: Code(s): G47.33 - Obstructive sleep apnea (adult) (pediatric); Z99.89 - Dependence on other enabling machines and devices Status: Chronic Assessment and Plan: CPAP at night time (7) Chronic lymphocytic leukemia: Code(s): C91.10 - Chronic lymphocytic leukemia of B-cell type not having achieved remission Status: Chronic Assessment and Plan: patient is status post chemotherapy on immunomodulator follow-up in outpatient setting (8) Type 2 diabetes mellitus: Qualifiers: 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 Patient expressed feeling that she does not want bronchoscopy at present time. Will monitor electrolytes and CBC. Subjective Date/time seen: 05/16/20 11:28 Interval history: Patient was seen during the morning rounds today. Patient is feeling slightly better today. Kavitha feels like she is breathing better now. She says that she is less short of breath. Her oxygen on high-flow has been weaned from 80% to 70% this morning. She has voiced her opinion about the bronchoscopy and said that she does not want a bronchoscopy under any circumstances. No chest pain. No nausea,vomiting or diarrhea. Mood stable. Review of Systems Constitutional: Constitutional: Reports fatigue, Reports lethargy, Reports poor appetite and Reports weakness Eyes: Eyes: Denies blurry vision and Denies photophobia ENT: Denies vertigo, Denies epistaxis, Denies nasal discharge and Denies neck pain Cardiovascular: Cardiovascular: Denies chest pain, Denies palpitations, Denies dyspnea and Reports dyspnea on exertion Respiratory: Respiratory: Reports cough, Denies hemoptysis, Denies dyspnea, Reports dyspnea on exertion and Denies wheezing Gastrointestinal: Gastrointestinal: Denies abdominal pain, Denies bloating, Denies constip
[2020-05-16] MEDS: ALPRAZolam (*CRX) 0.5 MG TABLET PO ×2 (15:05→23:34)
[2020-05-16] MEDS: GABAPENTIN 300 MG CAPSULE PO (20:28)
[2020-05-17] VITALS (26 sets, daily range): BP systolic 101–143; BP diastolic 51–70; PULSE 66–95; RESP 16–28; TEMP 35.5–36.2; O2SAT 89–99
[2020-05-17] MEDS: ALBUTEROL SULFATE NEB 2.5 MG/0.5 ML INH INHALATION ×4 (02:05→20:29)
[2020-05-17] MEDS: CENTRAL LINE FLUSH 10 ML IV PUSH ×3 (06:58→20:49)
[2020-05-17] MEDS: methylPREDNISolone SOD SUCC 125 MG VIAL 80 MG IV PUSH ×3 (06:58→18:24)
[2020-05-17] MEDS: ROSUVASTATIN 10 MG TABLET PO (08:14)
[2020-05-17] MEDS: ACYCLOVIR 400 MG TABLET PO (08:14)
[2020-05-17] MEDS: APIXABAN 5 MG TABLET PO ×2 (08:14→20:48)
[2020-05-17] MEDS: ASCORBIC ACID 500 MG TABLET 1000 MG PO (08:14)
[2020-05-17] MEDS: MAGNESIUM OXIDE 400 MG TABLET PO (08:14)
[2020-05-17] MEDS: MEGESTROL ACETATE (*CHEMO) 40 MG TABLET PO ×4 (08:14→20:48)
[2020-05-17] MEDS: CHOLECALCIFEROL 1,000 UNITS TABLET 1000 UNITS PO (08:14)
[2020-05-17 08:34] LABS: Pneumococcal Antigen Urine Not Detected (Not Detected)
--- NOTE | 2020-05-17 11:15 | PM.PNPUL ---
Progress Note: A&P Assessment and Plan (1) Acute and chronic respiratory failure with hypoxia: Code(s): J96.21 - Acute and chronic respiratory failure with hypoxia Status: Acute Assessment and Plan: 05/15 Patient with hypoxia and bilateral ground glass infiltrates post covid. No interstitial or reticulnodular infiltrates on CT scan. On Airvo 45L and 80%. Treated with ceftraizxone, bactrim and acyclovir per ID. Started on solumedrol 80 Q 6 emperically for post COVID inflammatory response. 05/16 On Airvo 45L and 80%. Today she said that she does not want a bronchoscopy under any circumstances. Continue methylprednisolone 80 mg IV q.6 hours continue monitoring oxygenation and weaning oxygen for sats of 92% or greater continue current antibiotics and current antiviral medications per ID recommendations I will hold her Venclexta chemotherapy medication for at least 2 weeks to give time for any possible infection to resolve and let her immune system recover somewhat hold Lasix and oral potassium as her creatinine is going up and there are no signs of congestive heart failure. 05/17 Clinically she feels better. Improved oxygenation on high dose steroids with solumedrol 80 Q 6 for 48 hours. Today on 8 L NC. Will repeat CXR on morning. (2) Obstructive sleep apnea on CPAP: Code(s): G47.33 - Obstructive sleep apnea (adult) (pediatric); Z99.89 - Dependence on other enabling machines and devices Status: Chronic Assessment and Plan: Patient on CPAP 10 on RA for last 5 years with nasal cushions. Attempted hospital BiPAP but did not tolerate hospital full face mask. 05/17 will attempt home CPAP machine with 8 L bleed in [facility]. Subjective Date/time seen: 05/17/20 11:15 Interval history: 05/15 Narrative: This is a very pleasant 74-year-old female with a history of CLL who is currently immune-compromised on BCL-2 inhibitor and has other comorbidities including AMAN (on CPAP 10 with room air for 5 years), diabetes, obesity, hyperlipidemia, Afib and hypertension as well as osteoarthritis. She developed COVID-19 infection on April 21 (tested at outside facility) and had symptoms a day prior and went to the urgent care clinic and was sent home with no therapy as her case was considered mild at the time without evidence of hypoxia or pneumonia. She continued to feel weak over the past few weeks and about a week ago she brought herself to the emergency department as and was admitted with hypoxic respiratory failure and bilateral pneumonia. She denies fever chills or night sweats. She denies a cough. Denies hemoptysis. She was slightly pancytopenia which Rich comes to be improving. I believe her immune suppressive medications have been held as I do not see them on the current medication chart but she is of the view that she will getting them. Since she was approximately 3 weeks out from her COVID infection she was not started on systemic steroids or antiviral medication. She is currently on ceftriaxone, Bactrim and acyclovir. Urine Legionella antigen is negative, urine pneumococcal pneumonia is negative and Histoplasma are currently pending. Between yesterday and today she has become more hypoxic and is now requiring high-flow oxygen but she denies being short of breath and does not appear to be in any respiratory distress. She had a CT of the chest done today which shows diffuse multi lobe were bilateral ground-glass opacities and airspace disease. When looking back at x-rays from many days ago it is obvious that her condition is worsening. She refuses bronchoscopy. Emperically started on solumedrol 80 mg IV Q6. On Airvo 45L and 80% 05/16 Interval history: Kavitha feels like she is doing better today. She says that she is less short of breath. Her oxygen on high-flow has been weaned from 80% to 70% this morning. Today she voiced her opinion about the bronchoscopy and says that she does not want a bronchoscopy under any circumstances
[2020-05-17] MEDS: ALPRAZolam (*CRX) 0.5 MG TABLET PO (14:29)
--- NOTE | 2020-05-17 14:59 | PM.IMPN ---
Progress Note: A&P Assessment and Plan (1) Bilateral pneumonia: Code(s): J18.9 - Pneumonia, unspecified organism Status: Acute Assessment and Plan: On ceftriaxone +Bactrim SEEMS TO HAVE IMPROVED (2) Acute and chronic respiratory failure with hypoxia: Code(s): J96.21 - Acute and chronic respiratory failure with hypoxia Status: Acute Assessment and Plan: Currently on high-flow nasal cannula Follow pulmonology recommendations Appreciated pulmonary (3) Lung infiltrate: Code(s): R91.8 - Other nonspecific abnormal finding of lung field Status: Acute Assessment and Plan: With repeat chest x-ray to assess for resolution or worsening or persistency (4) Weakness generalized: Code(s): R53.1 - Weakness Status: Acute Assessment and Plan: Likely secondary to acute on chronic illness PT OT when clinically appropriate (5) Paroxysmal atrial flutter: Code(s): I48.92 - Unspecified atrial flutter Status: Acute Assessment and Plan: rate controlled Continue to monitor (6) Diastolic dysfunction: Code(s): I51.89 - Other ill-defined heart diseases Status: Chronic Assessment and Plan: Appears to be compensated Monitor intake and output (7) Obstructive sleep apnea on CPAP: Code(s): G47.33 - Obstructive sleep apnea (adult) (pediatric); Z99.89 - Dependence on other enabling machines and devices Status: Chronic Assessment and Plan: On CPAP at home with nasal pillows at home We will attempt CPAP tonight as per pulmonology (8) Type 2 diabetes mellitus: Qualifiers: 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 ferry terminal agent insulin use: without ferry terminal agent use 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 complication status: without complication Qualified Code(s): E11.9 - Type 2 diabetes mellitus without complications Code(s): E11.9 - Type 2 diabetes mellitus without complications Status: Chronic Assessment and Plan: Insulin sliding scale as needed Subjective Date/time seen: 05/17/20 14:59 I feel better Review of Systems Review of Systems: Narrative: No new issues currently Constitutional: Comments: Not chills Cardiovascular: Comments: No PND nor orthopnea no leg swelling Respiratory: Comments: Shortness of breath Gastrointestinal: Comments: No nausea no vomiting no abdominal pain Musculoskeletal: Comments: No muscle or joint pain Integumentary/Breasts: Comments: No rash Neurologic: Comments: No sensory motor deficit Exam Narrative: Exam Narrative: Chronically ill-looking Const: General: comfortable, no acute distress, well developed, alert and awake Nutritional Appearance: average body habitus Orientation/consciousness: patient oriented x3 HENMT: Head: normal to inspection, normocephalic and atraumatic Ears: hearing grossly normal bilaterally Face and sinus: normal facial exam Eyes: General: appearance normal, both eyes and all related structures Pupils: Equal, round and reactive pupils present EOM: EOMs intact bilaterally Neck: Neck: full ROM, no lymphadenopathy and no JVD Thyroid: thyroid normal Lymphatic: no lymphadenopathy noted Resp: Effort & Inspection: normal respiratory effort and able to speak in complete sentences Auscultation: clear to auscultation bilaterally Cardio: Jugular venous distension: no JVD Rate: regular rate Rhythm: regular rhythm Heart sounds: S1 normal heart sound present and S2 normal heart sound present GI: GI Palp: Yes Soft to palpation and Yes No hepatosplenomegaly present : General: Yes deferred Skin: General skin exam: pallor (Generalized) Rashes: no rashes Wounds: no wounds Neuro: General: patient oriented x3 and CN's II-XI intact bilaterally Cranial nerves: Yes CN's II-XII intact bilaterally and Yes Equal, round and reactive pupils present Cognition (Neuro): normal cognition Speech: normal speech Gait exam (Neuro): Normal gait present Motor exam (neuro): 06/23 licha
[2020-05-17] MEDS: GABAPENTIN 300 MG CAPSULE PO (20:48)
--- NOTE | 2020-05-17 23:57 | PCRCNOTE ---
Unable to maintain pt SPO2 above 89% on her home CPAP with up to 10LPM oxygen bleed in. It appears that pts nasal pillows are not sealing against nares. Pt was unsure of the last time her nasal pillows were replaced so we discussed calling home care company when she is discharged to have her equipment checked and replaced as necessary. Pt was placed on Airvo at 40L/65% for overnight with SPO2 99%.
[2020-05-18] VITALS (28 sets, daily range): BP systolic 96–141; BP diastolic 46–71; PULSE 72–93; RESP 16–20; TEMP 36.1–36.6; O2SAT 90–100
[2020-05-18] MEDS: methylPREDNISolone SOD SUCC 125 MG VIAL 80 MG IV PUSH ×2 (00:59→06:35)
[2020-05-18] MEDS: ALBUTEROL SULFATE NEB 2.5 MG/0.5 ML INH INHALATION ×4 (02:25→19:45)
[2020-05-18] MEDS: CENTRAL LINE FLUSH 10 ML IV PUSH ×3 (06:36→21:10)
[2020-05-18 10:05] LABS: Hematocrit 35.2 % (37.0-47.0); Hemoglobin 11.8 g/dL (12.0-15.0); Mean Corpuscular HGB Conc 33.5 g/dl (32-36); Mean Corpuscular Volume 83.6 fl (80-100); Mean Platelet Volume 10.3 fl (7.4-10.4); Platelet Count Result 145 k/mm3 (150-375); Red Blood Count 4.21 M/mm3 (4.2-5.4); Red Cell Distribution Width 14.7 % (11.5-14.5); White Blood Count 8.2 K/mm3 (4.5-10.0)
[2020-05-18 10:17] LABS: Anion Gap 10 mmol/L (8-16); Blood Urea Nitrogen 36 mg/dL (7-17); Calcium 8.8 mg/dL (8.4-10.2); Carbon Dioxide 28 mmol/L (22-30); Chloride 90 mmol/L (98-107); Estimated CRCL calculation 27 ml/min; Estimated Glomerular Filt Rate 29; Glucose 193 mg/dL (65-105); Potassium 4.6 mmol/L (3.4-5.0); Sodium 128 mmol/L (137-145)
[2020-05-18] MEDS: MEGESTROL ACETATE (*CHEMO) 40 MG TABLET PO ×4 (10:26→21:10)
[2020-05-18] MEDS: ACYCLOVIR 400 MG TABLET PO (10:26)
[2020-05-18] MEDS: CHOLECALCIFEROL 1,000 UNITS TABLET 1000 UNITS PO (10:26)
[2020-05-18] MEDS: ROSUVASTATIN 10 MG TABLET PO (10:26)
[2020-05-18] MEDS: ASCORBIC ACID 500 MG TABLET 1000 MG PO (10:26)
[2020-05-18] MEDS: MAGNESIUM OXIDE 400 MG TABLET PO (10:27)
[2020-05-18] MEDS: APIXABAN 5 MG TABLET PO ×2 (10:27→21:10)
[2020-05-18] MEDS: ALTEPLASE 2 MG VIAL (CATHFLO) IV PUSH (10:28)
--- NOTE | 2020-05-18 11:19 | PCDIET ---
Nutrition Follow-Up Complete: Nutrition Diagnosis: Inadequate oral intake related to nausea, vomiting, and poor appetite as evidenced by average meal consumption of 13% and patient reported weight loss of 20 pounds in the past 2 weeks. Nutrition Goal: Patient to consume 75% or more of meals on current diet order. Goal in progress. Intakes significantly improved, and patient reports significant improvement in appetite with Megace. Does not care for Ensure Compact and would prefer alternate supplement. Recommend change to Frozen Nutritional Treat (300kcal, 9g protein) twice daily. Last recorded weight is 85.4 kg which is down from last review, but stable with admission. Bowel Motility: Last documented BM on 05/15/20. Labs Reviewed: Hgb (10.9), Hct (32.8), Glu (141), BUN (21), Cr (1.3), Na (134), Ca (8.3) Meds Noted: Albuterol, Vitamin C, Rocephin, Lasix, Mag-Ox, Megace, Solu Medrol, KCl, Crestor, Sulfa, Vitamin D Additional Notes: No skin breakdown documented. Will continue to monitor with same goal. Nutrition Monitoring and Evaluation: Follow up in 5 days.
--- NOTE | 2020-05-18 11:41 | PM.PNPUL ---
Progress Note: A&P Assessment and Plan (1) Acute and chronic respiratory failure with hypoxia: Code(s): J96.21 - Acute and chronic respiratory failure with hypoxia Status: Acute Assessment and Plan: 05/15 Patient with hypoxia and bilateral ground glass infiltrates post covid. No interstitial or reticulnodular infiltrates on CT scan. Etiology includes infection (bacterial, viral and opportunistic), post COVID inflammatory response. Doubt immune related toxicity due to chemotherapy. On Airvo 45L and 80%. Treated with ceftriaxone, bactrim and acyclovir per ID. Started on solumedrol 80 Q 6 emperically for post COVID inflammatory response. 05/16 On Airvo 45L and 80%. Today she said that she does not want a bronchoscopy under any circumstances. Continue methylprednisolone 80 mg IV q.6 hours continue monitoring oxygenation and weaning oxygen for sats of 92% or greater continue current antibiotics (ceftriaxone and septra started 05/13) and current antiviral (home dose of acyclovir since 05/08) medications per ID recommendations I will hold her Venclexta chemotherapy medication for at least 2 weeks to give time for any possible infection to resolve and let her immune system recover somewhat 05/17 Clinically she feels better. Improved oxygenation on high dose steroids with solumedrol 80 Q 6 for 48 hours. Today on 8 L NC. Will repeat CXR on morning. 05/18 States she continues to feel better. Still denies SOB, minimal cough. Walking in room. CXR unchanged diffuse infiltraes. Currently on NC oxygen at 7 L. Changed to prednisone 40 BID today. DC lasix as Cr 1.70, check BNP in morning. (2) Obstructive sleep apnea on CPAP: Code(s): G47.33 - Obstructive sleep apnea (adult) (pediatric); Z99.89 - Dependence on other enabling machines and devices Status: Chronic Assessment and Plan: Patient on CPAP 10 on RA for last 5 years with nasal cushions. Attempted hospital BiPAP but did not tolerate hospital full face mask. 05/17 will attempt home CPAP machine with 8 L bleed in tonight. 05/18 Home CPAP 10 with nasal pillows tried but her mask does not seal properly and had desats even on 10 L due to poor seal. Was swithced to Airvo 45L 65% las tnight. Called DME and they can't bring in new equipment while in-patient. Will attempt to obtain hospital nasal mask/pillows that will work,. She is unable to tolerate full face mask due top claustrophobia. Subjective Date/time seen: 05/18/20 11:41 Interval history: 05/15 Narrative: This is a very pleasant 74-year-old female with a history of CLL who is currently immune-compromised on BCL-2 inhibitor and has other comorbidities including AMAN (on CPAP 10 with room air for 5 years), diabetes, obesity, hyperlipidemia, Afib and hypertension as well as osteoarthritis. She developed COVID-19 infection on April 21 (tested at outside facility) and had symptoms a day prior and went to the urgent care clinic and was sent home with no therapy as her case was considered mild at the time without evidence of hypoxia or pneumonia. She continued to feel weak over the past few weeks and about a week ago she brought herself to the emergency department as and was admitted with hypoxic respiratory failure and bilateral pneumonia. She denies fever chills or night sweats. She denies a cough. Denies hemoptysis. She was slightly pancytopenia which Rich comes to be improving. I believe her immune suppressive medications have been held as I do not see them on the current medication chart but she is of the view that she will getting them. Since she was approximately 3 weeks out from her COVID infection she was not started on systemic steroids or antiviral medication. She is currently on ceftriaxone, Bactrim and acyclovir. Urine Legionella antigen is negative, urine pneumococcal pneumonia is negative and Histoplasma are currently pending. Between yesterday and today she has become more hypoxic and is now requiring high-flow oxygen
--- NOTE | 2020-05-18 15:59 | PM.IMPN ---
Progress Note: A&P Assessment and Plan (1) Acute and chronic respiratory failure with hypoxia: Code(s): J96.21 - Acute and chronic respiratory failure with hypoxia Status: Acute Assessment and Plan: patient is on nasal cannula 8 L of oxygen saturating in between 89-91% continue breathing treatment continue systemic steroid appreciate pulmonology note (2) Bilateral pneumonia: Code(s): J18.9 - Pneumonia, unspecified organism Status: Acute Assessment and Plan: on ceftriaxone Bactrim and acyclovir appreciate ID note (3) Obstructive sleep apnea on CPAP: Code(s): G47.33 - Obstructive sleep apnea (adult) (pediatric); Z99.89 - Dependence on other enabling machines and devices Status: Chronic Assessment and Plan: patient currently using BiPAP nighttime (4) Weakness generalized: Code(s): R53.1 - Weakness Status: Acute Assessment and Plan: likely secondary to chronic illness and acute illness PT OT (5) Diastolic dysfunction: Code(s): I51.89 - Other ill-defined heart diseases Status: Chronic Assessment and Plan: continue to monitor daily intake and output (6) Chronic kidney disease, stage 3: Code(s): N18.30 - Chronic kidney disease, stage 3 unspecified Status: Acute Assessment and Plan: continue to monitor will repeat BMP in the morning (7) Chronic lymphocytic leukemia: Code(s): C91.10 - Chronic lymphocytic leukemia of B-cell type not having achieved remission Status: Chronic Assessment and Plan: patient has completed her chemotherapy treatment she is on Venclexta Will hold Venclexta as per Pulmonology recs. (8) Type 2 diabetes mellitus: Qualifiers: 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 nursing home insulin use: without nursing home use 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 complication status: without complication Qualified Code(s): E11.9 - Type 2 diabetes mellitus without complications Code(s): E11.9 - Type 2 diabetes mellitus without complications Status: Chronic Assessment and Plan: continue to monitor hemoglobin A1c at 6 % Subjective Date/time seen: 05/18/20 15:59 a states that she feels better Review of Systems Review of Systems: Narrative: no new issues Constitutional: Comments: no rigors or chills no fevers Cardiovascular: Comments: no PND no orthopnea no leg swelling Respiratory: Comments: shortness of breath Gastrointestinal: Comments: improved appetite Genitourinary: Comments: no pain or burning with urination Musculoskeletal: Comments: no muscle pain or joint pain Integumentary/Breasts: Comments: no rashes Exam Narrative: Exam Narrative: sitting in the chair NC cannula on 8 L of oxygen Const: General: comfortable, no acute distress, well developed, alert, awake and other ( CHRONICALLY ILL-LOOKING) Nutritional Appearance: average body habitus Orientation/consciousness: patient oriented x3 HENMT: Head: normal to inspection, normocephalic and atraumatic Ears: hearing grossly normal bilaterally Face and sinus: normal facial exam Eyes: General: appearance normal, both eyes and all related structures Pupils: Equal, round and reactive pupils present EOM: EOMs intact bilaterally Neck: Neck: full ROM, no lymphadenopathy and no JVD Thyroid: thyroid normal Lymphatic: no lymphadenopathy noted Resp: Effort & Inspection: able to speak in complete sentences and other ( patient is on supplemental oxygen by nasal cannula on 8 L) Auscultation: clear to auscultation bilaterally and diminished lung sounds Cardio: Jugular venous distension: no JVD Rate: regular rate Rhythm: regular rhythm Heart sounds: S1 normal heart sound present and S2 normal heart sound present GI: GI Palp: Yes Soft to palpation and Yes No hepatosplenomegaly present : General: Yes deferred Skin: General skin exam: pallor Rashes: no rashes Wounds: no wounds Neuro: General: p
[2020-05-18] MEDS: predniSONE 20 MG TABLET 40 MG PO (16:12)
[2020-05-18] MEDS: ALPRAZolam (*CRX) 0.5 MG TABLET PO (21:10)
[2020-05-18] MEDS: GABAPENTIN 300 MG CAPSULE PO (21:10)
[2020-05-19] VITALS (29 sets, daily range): BP systolic 112–147; BP diastolic 46–64; PULSE 63–98; RESP 18–22; TEMP 36.2–36.9; O2SAT 86–98
[2020-05-19] MEDS: ALBUTEROL SULFATE NEB 2.5 MG/0.5 ML INH INHALATION ×4 (02:32→20:53)
[2020-05-19 06:13] LABS: NT Pro B Type Natriuretic Pept 939 PG/ML (5-100)
--- NOTE | 2020-05-19 08:33 | PM.PNPUL ---
Progress Note: A&P Assessment and Plan (1) Acute and chronic respiratory failure with hypoxia: Code(s): J96.21 - Acute and chronic respiratory failure with hypoxia Status: Acute Assessment and Plan: Patient with CLL, AMAN, DM, PAF s/p cardioversion admitted 05/07 with weakness and orhtosttic hypotension. COVID positive 04/21 and not well since then. Worsening hypoxia 2 L on 05/09, 3/ L on 05/11, 7- 10 L on 05/12, 6 L on 05/13 and 05/14 and Airvo on 05/[address] with bilateral ground glass infiltrates post covid. No interstitial or reticulnodular infiltrates on CT scan. Etiology includes infection (bacterial, viral and opportunistic), post COVID inflammatory response. Doubt immune related toxicity due to chemotherapy. On Airvo 45L and 80%. Treated with ceftriaxone, bactrim and acyclovir per ID. Started on solumedrol 80 Q 6 emperically for post COVID inflammatory response. 05/16 On Airvo 45L and 80%. Today she said that she does not want a bronchoscopy under any circumstances. Continue methylprednisolone 80 mg IV q.6 hours continue monitoring oxygenation and weaning oxygen for sats of 92% or greater continue current antibiotics (ceftriaxone and septra started 05/13) and current antiviral (home dose of acyclovir since 05/08) medications per ID recommendations I will hold her Venclexta chemotherapy medication for at least 2 weeks to give time for any possible infection to resolve and let her immune system recover somewhat 05/17 Clinically she feels better. Improved oxygenation on high dose steroids with solumedrol 80 Q 6 for 48 hours. Today on 8 L NC. Will repeat CXR on morning. 05/18 States she continues to feel better. Still denies SOB, minimal cough. Walking in room. CXR unchanged diffuse infiltraes. Currently on NC oxygen at 7 L. Changed to prednisone 40 BID today. DC lasix as Cr 1.70, check BNP in morning. 05/19 Feels well but remains hypoxic. BNP 939. Pred 40 BID (day 5). Will change to 40 Q day on 05/20. (2) Obstructive sleep apnea on CPAP: Code(s): G47.33 - Obstructive sleep apnea (adult) (pediatric); Z99.89 - Dependence on other enabling machines and devices Status: Chronic Assessment and Plan: Patient on CPAP 10 on RA for last 5 years with nasal cushions. Attempted hospital BiPAP but did not tolerate hospital full face mask. 05/17 will attempt home CPAP machine with 8 L bleed in tonight. 05/18 Home CPAP 10 with nasal pillows tried but her mask does not seal properly and had desats even on 10 L due to poor seal. Was swithced to Airvo 45L 65% las tnight. Called DME and they can't bring in new equipment while in-patient. Will attempt to obtain hospital nasal mask/pillows that will work,. She is unable to tolerate full face mask due top claustrophobia. 05/19 Wore her home CPAP10 with hospital nasal mask and 6 L bleed in and did well until she exerted herself and then desats to 70s and placed on 15 L NC oxygen. I put her back on home CPAP 10 with 8 L bleed in this morning and sats 91% and felt comfortable. Continue home machine tonight with FIO2 to maintain sats > 90%. Subjective Date/time seen: 05/19/20 08:33 Interval history: 05/15 Narrative: This is a very pleasant 74-year-old female with a history of CLL who is currently immune-compromised on BCL-2 inhibitor and has other comorbidities including AMAN (on CPAP 10 with room air for 5 years), diabetes, obesity, hyperlipidemia, Afib and hypertension as well as osteoarthritis. She developed COVID-19 infection on April 21 (tested at outside facility) and had symptoms a day prior and went to the urgent care clinic and was sent home with no therapy as her case was considered mild at the time without evidence of hypoxia or pneumonia. She continued to feel weak over the past few weeks and about a week ago she brought herself to the emergency department as and was admitted with hypoxic respiratory failure and bilateral pneumonia. She denies fever chills
[2020-05-19] MEDS: CENTRAL LINE FLUSH 10 ML IV PUSH ×3 (10:11→20:57)
[2020-05-19] MEDS: CHOLECALCIFEROL 1,000 UNITS TABLET 1000 UNITS PO (10:11)
[2020-05-19] MEDS: ASCORBIC ACID 500 MG TABLET 1000 MG PO (10:12)
[2020-05-19] MEDS: APIXABAN 5 MG TABLET PO ×2 (10:12→20:57)
[2020-05-19] MEDS: ROSUVASTATIN 10 MG TABLET PO (10:12)
[2020-05-19] MEDS: ACYCLOVIR 400 MG TABLET PO (10:13)
[2020-05-19] MEDS: MAGNESIUM OXIDE 400 MG TABLET PO (10:13)
[2020-05-19] MEDS: predniSONE 20 MG TABLET 40 MG PO ×2 (10:14→17:20)
[2020-05-19] MEDS: MEGESTROL ACETATE (*CHEMO) 40 MG TABLET PO ×4 (10:14→20:57)
--- NOTE | 2020-05-19 11:44 | PM.IMPN ---
Progress Note: A&P Assessment and Plan (1) Bilateral pneumonia: Code(s): J18.9 - Pneumonia, unspecified organism Status: Acute Assessment and Plan: Currently on ceftriaxone, acyclovir and Bactrim. Patient appears to have a slowly shown some improvement (2) Acute and chronic respiratory failure with hypoxia: Code(s): J96.21 - Acute and chronic respiratory failure with hypoxia Status: Acute Assessment and Plan: Patient on CPAP at nighttime Currently on high-flow nasal cannula at 7 L Repeat ABG today shows some hypoxemia however Ph shows compensation Continue to monitor Continuous pulse ox Appreciate pulmonology note (3) Weakness generalized: Code(s): R53.1 - Weakness Status: Acute Assessment and Plan: Likely secondary to chronic illness and acute illness PT OT (4) Paroxysmal atrial flutter: Code(s): I48.92 - Unspecified atrial flutter Status: Acute Assessment and Plan: Patient is status post cardioversion Rate controlled Continue to monitor (5) Diastolic dysfunction: Code(s): I51.89 - Other ill-defined heart diseases Status: Chronic Assessment and Plan: Patient is a slightly positive in her balance Continue to monitor intake and output Lasix p.r.n. as needed (6) Obstructive sleep apnea on CPAP: Code(s): G47.33 - Obstructive sleep apnea (adult) (pediatric); Z99.89 - Dependence on other enabling machines and devices Status: Chronic Assessment and Plan: The patient did well on CPAP last night with nasal mask Continue to monitor (7) Chronic lymphocytic leukemia: Code(s): C91.10 - Chronic lymphocytic leukemia of B-cell type not having achieved remission Status: Chronic Assessment and Plan: Patient has completed chemotherapy Holding Venclexta (8) Hemoglobin A1c less than 7.0%: Code(s): R73.09 - Other abnormal glucose Status: Acute Assessment and Plan: Continue to monitor Diet controlled Subjective Date/time seen: 05/19/20 11:44 I feel fine Review of Systems Review of Systems: Narrative: states that she feels fine however patient with episode of desaturation upon standing up and exerting herself Exam Narrative: Exam Narrative: The patient is lying in bed CPAP with nasal mask on. Const: General: comfortable, no acute distress, well developed, alert, awake and other ( chronically ill looking.) Nutritional Appearance: average body habitus Orientation/consciousness: patient oriented x3 HENMT: Head: normal to inspection, normocephalic and atraumatic Ears: hearing grossly normal bilaterally Face and sinus: normal facial exam Eyes: General: appearance normal, both eyes and all related structures Pupils: Equal, round and reactive pupils present EOM: EOMs intact bilaterally Neck: Neck: full ROM, no lymphadenopathy and no JVD Thyroid: thyroid normal Lymphatic: no lymphadenopathy noted Resp: Effort & Inspection: normal respiratory effort and able to speak in complete sentences Auscultation: clear to auscultation bilaterally and diminished lung sounds Cardio: Jugular venous distension: no JVD Rate: regular rate Rhythm: regular rhythm Heart sounds: S1 normal heart sound present and S2 normal heart sound present GI: GI Palp: Yes Soft to palpation and Yes No hepatosplenomegaly present : General: Yes deferred Skin: Rashes: no rashes Wounds: no wounds Neuro: General: patient oriented x3 and CN's II-XI intact bilaterally Cranial nerves: Yes CN's II-XII intact bilaterally and Yes Equal, round and reactive pupils present Cognition (Neuro): normal cognition Speech: normal speech Gait exam (Neuro): Normal gait present Motor exam (neuro): 5/5 motor strength present throughout Extrem: General: normal to inspection, full ROM, no joint enlargement and no pedal edema Objective Data Vital Signs Vital Signs: Vital Signs - 24 hr 05/18/20 12:00 05/18/20 12:04 0
[2020-05-19 12:14] LABS: Alveolar/Arterial O2 Gradient 458.6 mmHg; Base Excess ABG 4.3 mEq/l (+/-2.0); Fractional Inspired Oxygen 80 %; HCO3 ABG 27.7 mEq/l (22.0-26.0); Oxygen Saturation ABG 95.9 % (95.0-100.0); Oxyhemoglobin 92.9 % THb (90.0-100.0); PCO2 ABG 36.8 mmHg (35.0-45.0); PO2 ABG 73.2 mmHg (80.0-100.0); PO2 FiO2 Ratio Arterial Blood 0.91 %; Total Hemoglobin 11.4 g/dL (12.0-18.0); pH ABG 7.494 (7.350-7.450)
[2020-05-19 12:15] LABS: Device HIGH FLOW NASAL CANN; Modified Allen's Test Pass; Site Drawn LEFT RADIAL
[2020-05-19 15:42] LABS: Estimated CRCL calculation 31 ml/min; Estimated Glomerular Filt Rate 34
[2020-05-19] MEDS: GABAPENTIN 300 MG CAPSULE PO (20:57)
--- NOTE | 2020-05-19 22:17 | PC.NURSE ---
Pt desatting into low 80's while asleep. Pt switched to home CPAP with worsening sats noted into high 70's. Moved patient back to high juli AIRvo therapy 40L80% and able to maintain sats into the low 90's. Will continue to monitor.
[2020-05-20] VITALS (29 sets, daily range): BP systolic 122–153; BP diastolic 48–98; PULSE 72–93; RESP 18–24; TEMP 35.7–36.6; O2SAT 87–99
--- NOTE | 2020-05-20 | ECHO_ITS ---
Patient Info Name: Kavitha Ceron Age: 74 years : 1945 Gender: Female Ht: 64 in Wt: 192 lbs BSA: 2.02 m2 HR: 84 bpm BP: 132 / 52 mmHg Heart Rhythm: Sinus Rhythm Technical Quality: Fair Exam Date: 05/20/2020 10:32 AM Exam Location: [facility] Card Pulmonary Patient Status: Inpatient Admit Date: 05/07/2020 Staff Ordering Physician: Charles Gerard MD Ironing Pleater: Shantell Mayers RDCS Attending Provider: Janak Brandt MD Referring Physician: Moustapha MACIEL; Exam Type: CA echo limited w bubble study Study Info Indications J96.91 - Respiratory failure, unspecified with hypoxia Limited two-dimensional transthoracic echocardiogram is performed with agitated saline. Contrast/Agitated Saline Contrast/Ag. Saline: Agitated Saline Amount: 30.00 ml Administered By: Catarina Mortensen RN Summary 1. Left ventricular chamber dimension is normal. 2. Left ventricular systolic function is normal, estimated at 65-70%. 3. Left atrial chamber dimension is mildly enlarged. 4. Intact interatrial septum visualized by color flow and agitated saline imaging. Left Ventricle Left ventricular chamber dimension is normal. Left ventricular systolic function is normal, estimated at 65-70%. There is no increased left ventricular wall thickness. Right Ventricle Right ventricular chamber dimension is normal. Right ventricular systolic function is normal. Left Atria Left atrial chamber dimension is mildly enlarged. Right Atria Right atrial chamber dimension is normal. Atrial Septum Intact interatrial septum visualized by color flow and agitated saline imaging. Mitral Valve The mitral valve has calcified annulus. Tricuspid Valve The tricuspid valve leaflets are normal. Report Signatures
--- NOTE | 2020-05-20 01:06 | PCRCNOTE ---
CALLED TO PT ROOM FOR LOW SPO2. ATTEMPTED PT HOME CPAP WITH INCREASED O2 BLEED IN UP TO 11 LPM, SPO2 86%. CHANGED PT TO AIRVO HFT 40LPM/80% FOR SPO2 92%.
[2020-05-20] MEDS: ALBUTEROL SULFATE NEB 2.5 MG/0.5 ML INH INHALATION ×4 (02:34→20:45)
[2020-05-20 05:47] LABS: Rheumatoid Factor < 8.6 IU/ML (<12)
[2020-05-20] MEDS: CENTRAL LINE FLUSH 10 ML IV PUSH ×3 (06:11→20:36)
[2020-05-20] MEDS: MAGNESIUM OXIDE 400 MG TABLET PO (07:46)
[2020-05-20] MEDS: ROSUVASTATIN 10 MG TABLET PO (07:46)
[2020-05-20] MEDS: ACYCLOVIR 400 MG TABLET PO (07:46)
[2020-05-20] MEDS: APIXABAN 5 MG TABLET PO (07:46)
[2020-05-20] MEDS: predniSONE 20 MG TABLET 40 MG PO ×2 (07:46→16:37)
[2020-05-20] MEDS: MEGESTROL ACETATE (*CHEMO) 40 MG TABLET PO ×4 (07:46→20:36)
[2020-05-20] MEDS: CHOLECALCIFEROL 1,000 UNITS TABLET 1000 UNITS PO (07:46)
[2020-05-20] MEDS: ASCORBIC ACID 500 MG TABLET 1000 MG PO (07:46)
--- NOTE | 2020-05-20 10:11 | PM.PNPUL ---
Progress Note: A&P Assessment and Plan (1) Acute and chronic respiratory failure with hypoxia: Code(s): J96.21 - Acute and chronic respiratory failure with hypoxia Status: Acute Assessment and Plan: Patient with CLL, AMAN, DM, PAF s/p cardioversion admitted 05/07 with weakness and orhtosttic hypotension. COVID positive 04/21 and not well since then. Worsening hypoxia 2 L on 05/09, 3/ L on 05/11, 7- 10 L on 05/12, 6 L on 05/13 and 05/14 and Airvo on 05/[address] with bilateral ground glass infiltrates post covid. No interstitial or reticulnodular infiltrates on CT scan. Etiology includes infection (bacterial, viral and opportunistic), post COVID inflammatory response, acute interstial pneumonia. Doubt immune related toxicity due to chemotherapy or vasculitis. On Airvo 45L and 80%. Treated with ceftriaxone, bactrim and acyclovir per ID. Started on solumedrol 80 Q 6 emperically for post COVID inflammatory response. 05/16 On Airvo 45L and 80%. Today she said that she does not want a bronchoscopy under any circumstances. Continue methylprednisolone 80 mg IV q.6 hours continue monitoring oxygenation and weaning oxygen for sats of 92% or greater continue current antibiotics (ceftriaxone and septra started 05/13) and current antiviral (home dose of acyclovir since 05/08) medications per ID recommendations I will hold her Venclexta chemotherapy medication for at least 2 weeks to give time for any possible infection to resolve and let her immune system recover somewhat 05/17 Clinically she feels better. Improved oxygenation on high dose steroids with solumedrol 80 Q 6 for 48 hours. Today on 8 L NC. Will repeat CXR on morning. 05/18 States she continues to feel better. Still denies SOB, minimal cough. Walking in room. CXR unchanged diffuse infiltraes. Currently on NC oxygen at 7 L. Changed to prednisone 40 BID today. DC lasix as Cr 1.70, check BNP in morning. 05/19 Feels well but remains hypoxic. BNP 939. Pred 40 BID (day 5). ZOLTAN, ANCA, hypersenisitivity panel and RF sent. 05/20 worsening oxygenation yesterday and last night, now on high flow Airvo 40L and 88% with sats 89%. Will check CXR, bubble study. Continue prednisone 40 BID. (2) Obstructive sleep apnea on CPAP: Code(s): G47.33 - Obstructive sleep apnea (adult) (pediatric); Z99.89 - Dependence on other enabling machines and devices Status: Chronic Assessment and Plan: Patient on CPAP 10 on RA for last 5 years with nasal cushions. Attempted hospital BiPAP but did not tolerate hospital full face mask. 05/17 will attempt home CPAP machine with 8 L bleed in tonight. 05/18 Home CPAP 10 with nasal pillows tried but her mask does not seal properly and had desats even on 10 L due to poor seal. Was swithced to Airvo 45L 65% las tnight. Called DME and they can't bring in new equipment while in-patient. Will attempt to obtain hospital nasal mask/pillows that will work,. She is unable to tolerate full face mask due top claustrophobia. 05/19 Wore her home CPAP10 with hospital nasal mask and 6 L bleed in and did well until she exerted herself and then desats to 70s and placed on 15 L NC oxygen. I put her back on home CPAP 10 with 8 L bleed in this morning and sats 91% and felt comfortable. Continue home machine tonight with FIO2 to maintain sats > 90%. 05/20 not tolerating home machine from hypoxia. Continue high flow for now. Subjective Date/time seen: 05/20/20 10:11 Interval history: 05/15 Narrative: This is a very pleasant 74-year-old female with a history of CLL who is currently immune-compromised on BCL-2 inhibitor and has other comorbidities including AMAN (on CPAP 10 with room air for 5 years), diabetes, obesity, hyperlipidemia, Afib and hypertension as well as osteoarthritis. She developed COVID-19 infection on April 21 (tested at outside facility) and had symptoms a day prior and went to the urgent care clinic and was sent home with no therapy as her case
--- NOTE | 2020-05-20 13:03 | PCOTNOTE ---
Attempted therapy session with patient, but patient declined stating she was not feeling up to doing anything today and requested to check back tomorrow.
--- NOTE | 2020-05-20 13:25 | PM.IMPN ---
Progress Note: A&P Assessment and Plan (1) Acute and chronic respiratory failure with hypoxia: Code(s): J96.21 - Acute and chronic respiratory failure with hypoxia Status: Acute Assessment and Plan: currently on Airvo high-flow nasal cannula continue breathing treatments on high-dose steroids no significant improvement appreciate construction person note (2) Bilateral pneumonia: Code(s): J18.9 - Pneumonia, unspecified organism Status: Acute Assessment and Plan: currently on ceftriaxone, Bactrim and acyclovir will repeat a chest x-ray discussed with pulmonology (3) Weakness generalized: Code(s): R53.1 - Weakness Status: Acute Assessment and Plan: likely secondary to chronic illness and acute illness PTOT when clinically stable patient is desaturating with exertion (4) Paroxysmal atrial flutter: Code(s): I48.92 - Unspecified atrial flutter Status: Acute Assessment and Plan: rate controlled anticoagulated (5) Diastolic dysfunction: Code(s): I51.89 - Other ill-defined heart diseases Status: Chronic Assessment and Plan: stable continue to monitor intake and output (6) Obstructive sleep apnea on CPAP: Code(s): G47.33 - Obstructive sleep apnea (adult) (pediatric); Z99.89 - Dependence on other enabling machines and devices Status: Chronic Assessment and Plan: patient was not able to tolerate home equipment due to hypoxia continue high-flow for the time being (7) Type 2 diabetes mellitus: Qualifiers: 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: without regional intermodal truck driver use 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 complication status: without complication Qualified Code(s): E11.9 - Type 2 diabetes mellitus without complications Code(s): E11.9 - Type 2 diabetes mellitus without complications Status: Chronic Assessment and Plan: hemoglobin A1c is below 7 continue to monitor insulin sliding scale as needed (8) Atrial flutter with rapid ventricular response: Code(s): I48.92 - Unspecified atrial flutter Status: Acute Assessment and Plan: rate control on diltiazem on Eliquis (9) Hemoglobin A1c less than 7.0%: Code(s): R73.09 - Other abnormal glucose Status: Acute Assessment and Plan: continue to monitor Subjective Date/time seen: 05/20/20 13:25 I feel fine Review of Systems Review of Systems: Narrative: patient with some epistaxis overnight has been switched over to Airvo high-flow nasal cannula patient denies any other issues does not feel short of breath Constitutional: Comments: no fevers no rigors no chills Cardiovascular: Comments: no chest pain ,no leg swelling Respiratory: Comments: denies shortness of breath Gastrointestinal: Comments: no nausea vomiting abdominal pain Genitourinary: Comments: no pain or burning with urination Musculoskeletal: Comments: no muscle pain or joint pain Integumentary/Breasts: Comments: no rashes Neurologic: Comments: no sensorimotor deficit Exam Narrative: Exam Narrative: patient is laying in bed in no acute distress on Airvo high-flow nasal cannula obvious blood in the nares Const: General: comfortable, no acute distress, well developed, alert, awake and other ( chronically ill-looking) Nutritional Appearance: average body habitus Orientation/consciousness: patient oriented x3 HENMT: Head: normal to inspection, normocephalic and atraumatic Ears: hearing grossly normal bilaterally General nose exam: Epistaxis present bilaterally Face and sinus: normal facial exam Eyes: General: appearance normal, both eyes and all related structures Pupils: Equal, round and reactive pupils present EOM: EOMs intact bilaterally Neck: Neck: full ROM, no lymphadenopathy and no JVD Thyroid: thyroid normal Lymphatic: no lymphadenopathy noted Resp: Effort & Inspection: normal respiratory effort and
[2020-05-20] MEDS: POTASSIUM CHLORIDE 20 MEQ TABLET.ER 40 MEQ PO (17:12)
--- NOTE | 2020-05-20 17:43 | WPDPROCEDUR ---
Procedures Epistaxis Control Epistaxis Comment: Small bleeder located on the anterior right nasal septum abutting the cannula. Cauterized with silver nitrate. gelfoam placed against protecting from cannula.
--- NOTE | 2020-05-20 17:43 | WPDCN ---
Assessment and Plan Assessment and plan (1) Right-sided epistaxis: Code(s): R04.0 - Epistaxis Status: Acute Assessment and Plan: Please squirt nasal saline 6-10 times daily when awake. Antibiotic ointment to the anterior nasal passages bid. Recommend discontinuing nasal cannulas when able. HPI Data of Consult Date/Time: 05/20/20 17:43 Requesting Physician: Janak Brandt MD Primary Care Provider: Karan Lizama, Consult Narrative Narrative: Kavitha Ceron is a 74 year old female with right sided epistaxis and O2 dependent. Consulted for right sided epistaxis. Review of Systems ENT: Comments: Right anterior septal bleeding PMFSH Past Medical History Medical History (Updated 05/20/20 @ 17:45 by Eduardo Peguero MD) Chronic kidney disease, stage 3 Baseline GFR ranges between 48 and 54%. Chronic lymphocytic leukemia Patient of Dr. Anderson. COVID-19 (~04/21/20) Depression with anxiety Diastolic dysfunction Echocardiogram in 12/2019 showed normal left ventricular systolic function with an EF of 60 to 65% and diastolic dysfunction. Diverticulitis History of DVT of lower extremity Hyperlipidemia Hypertension Nephrolithiasis Obstructive sleep apnea on CPAP Osteoarthritis Paroxysmal atrial flutter Status post cardioversion in January 2020. Type 2 diabetes mellitus Reported recent hemoglobin A1c of 6.0%. Surgical History Surgical History History of cardiac catheterization (~2002) Patient reports clean coronary arteries. History of cataract extraction History of cholecystectomy History of detached retina repair History of dilatation and curettage History of knee replacement, total Left: 2006 Right: 2009 History of lymph node biopsy History of right hip replacement (~2011) Family History Family History Mother Hypertension Father Cancer Lung cancer Sibling Heart disease Daughter Bone cancer Social History Social History Social History: Surrogate decision maker: Khalif Ceron, spouse. Code status: Full code. Smoking status: Never smoker Second hand tobacco smoke exposure: No Alcohol intake: never Substance use: never Substance use type: does not use Additional living arrangements comments: Resides with her in [place]. They had 3 children, all who are . Daughter from bone cancer at age 46. One son in a motorcycle accident age 19, the other perished in a motor vehicle accident at age 54. 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 Gender identity (if verbalized by the patient): Female Spiritual care concerns: No Meds Home Medications and Allergies Home Medications Medication Instructions Recorded Confirmed Type Venclexta 100 mg PO DAILY 12/23/19 05/07/20 History gabapentin 300 mg PO HS 12/23/19 05/07/20 History rosuvastatin 10 mg PO DAILY 12/23/19 05/07/20 History Eliquis 5 mg PO Q12HR #60 tablet 12/25/19 05/07/20 Rx furosemide 20 mg PO DAILY 02/04/20 05/07/20 History acyclovir 400 mg PO DAILY 05/07/20 05/07/20 History ascorbic acid (vitamin C) 1 g PO DAILY 05/07/20 05/07/20 History cholecalciferol (vitamin D3) 25 mcg PO DAILY 05/07/20 05/07/20 History [Vitamin D3] diltiazem HCl 90 mg PO BID 05/07/20 05/07/20 History lisinopril 40 mg PO BID 05/07/20 05/07/20 History zinc oxide-zinc citrate 50 mg PO DAILY 05/07/20 05/07/20 History Allergies Allergy/AdvReac Type Severity Reaction Status Date / Time No Known Allergies Allergy Verified 05/07/20 18:53 Vital Signs Vital Signs - 24 hr 05/19/20 18:00 05/19/20 20:00 05/19/20 20:18 Temperature 36.3 C L 36.3 C L Pulse Rate 90 63 98 Respiratory Rate 20 22 H Blood Pressure 140/53 L 139/64 Pulse Oximetry 90 90 05/19/20
[2020-05-20] MEDS: FUROSEMIDE INJ 40 MG/4 ML VIAL IV PUSH (18:16)
[2020-05-20] MEDS: GABAPENTIN 300 MG CAPSULE PO (20:36)
[2020-05-21] VITALS (29 sets, daily range): BP systolic 134–151; BP diastolic 44–75; PULSE 79–94; RESP 12–24; TEMP 35.9–36.6; O2SAT 89–97
[2020-05-21] MEDS: ALBUTEROL SULFATE NEB 2.5 MG/0.5 ML INH INHALATION ×4 (02:13→20:44)
[2020-05-21] MEDS: CENTRAL LINE FLUSH 10 ML IV PUSH ×3 (05:32→21:20)
[2020-05-21 08:50] LABS: Basophils Percent Auto 0.2 % (0.2-1.2); Hematocrit 32.1 % (37.0-47.0); Hemoglobin 10.9 g/dL (12.0-15.0); Immature Granulocyte Absolute 0.15 K/mm3 (0.00-0.031); Immature Granulocyte Percent A 2.7 % (0-0.5); Immature Platelet Fraction Pct 5.4 % (0.9-11.2); Lymphocytes Absolute Auto 0.08 K/mm3 (0.9-3.2); Lymphocytes Percent Auto 1.4 % (18.3-44.2); Mean Corpuscular Hemoglobin 29.1 pg (26-34); Mean Corpuscular Volume 85.6 fl (80-100); Mean Platelet Volume 10.1 fl (7.4-10.4); Monocytes Absolute Auto 0.1 K/mm3 (0.1-0.6); Neutrophils Absolute Auto 5.2 K/mm3 (1.3-6.7); Neutrophils Percent Auto 93.7 % (45.5-73.1); Platelet Count Result 111 k/mm3 (150-375); Red Blood Count 3.75 M/mm3 (4.2-5.4); Red Cell Distribution Width 14.7 % (11.5-14.5); White Blood Count 5.6 K/mm3 (4.5-10.0)
[2020-05-21 09:01] LABS: Anion Gap 6 mmol/L (8-16); Blood Urea Nitrogen 34 mg/dL (7-17); Calcium 9.3 mg/dL (8.4-10.2); Carbon Dioxide 30 mmol/L (22-30); Chloride 93 mmol/L (98-107); Estimated CRCL calculation 36 ml/min; Estimated Glomerular Filt Rate 40; Glucose 135 mg/dL (65-105); Potassium 5.5 mmol/L (3.4-5.0); Sodium 129 mmol/L (137-145)
[2020-05-21] MEDS: MAGNESIUM OXIDE 400 MG TABLET PO (09:59)
[2020-05-21] MEDS: ACYCLOVIR 400 MG TABLET PO (10:01)
[2020-05-21] MEDS: MEGESTROL ACETATE (*CHEMO) 40 MG TABLET PO ×4 (10:01→21:19)
[2020-05-21] MEDS: CHOLECALCIFEROL 1,000 UNITS TABLET 1000 UNITS PO (10:02)
[2020-05-21] MEDS: predniSONE 20 MG TABLET 40 MG PO (10:02)
[2020-05-21] MEDS: ASCORBIC ACID 500 MG TABLET 1000 MG PO (10:02)
[2020-05-21] MEDS: ROSUVASTATIN 10 MG TABLET PO (10:03)
[2020-05-21] MEDS: POTASSIUM CHLORIDE 20 MEQ TABLET.ER 40 MEQ PO ×2 (10:43→17:22)
[2020-05-21] MEDS: NEOMYCIN/POLYMYXIN/BACITRACIN OINTMENT 15 GM TUBE 1 APPLIC TOPICAL (10:43)
[2020-05-21] MEDS: FUROSEMIDE INJ 40 MG/4 ML VIAL IV PUSH ×2 (10:43→17:23)
[2020-05-21 10:52] LABS: Ovalocytes 1+ (NORMAL); Platelet Estimate Decreased (Adequate)
--- NOTE | 2020-05-21 10:57 | PM.PNPUL ---
Progress Note: A&P Assessment and Plan (1) Acute and chronic respiratory failure with hypoxia: Code(s): J96.21 - Acute and chronic respiratory failure with hypoxia Status: Acute Assessment and Plan: Patient with CLL, AMAN, DM, PAF s/p cardioversion admitted 05/07 with weakness and orhtosttic hypotension. COVID positive 04/21 and not well since then. Worsening hypoxia 2 L on 05/09, 3/ L on 05/11, 7- 10 L on 05/12, 6 L on 05/13 and 05/14 and Airvo on 05/[address] with bilateral ground glass infiltrates post covid. No interstitial or reticulnodular infiltrates on CT scan. Etiology includes infection (bacterial, viral and opportunistic), post COVID pneumonia and or inflammatory response, acute interstitial pneumonia. Doubt immune related toxicity due to chemotherapy or vasculitis. On Airvo 45L and 80%. Treated with ceftriaxone, bactrim and acyclovir per ID. Started on solumedrol 80 Q 6 emperically for post COVID inflammatory response. 05/16 On Airvo 45L and 80%. Today she said that she does not want a bronchoscopy under any circumstances. Continue methylprednisolone 80 mg IV q.6 hours continue monitoring oxygenation and weaning oxygen for sats of 92% or greater continue current antibiotics (ceftriaxone and septra started 05/13) and current antiviral (home dose of acyclovir since 05/08) medications per ID recommendations I will hold her Venclexta chemotherapy medication for at least 2 weeks to give time for any possible infection to resolve and let her immune system recover somewhat 05/17 Clinically she feels better. Improved oxygenation on high dose steroids with solumedrol 80 Q 6 for 48 hours. Today on 8 L NC. Will repeat CXR on morning. 05/18 States she continues to feel better. Still denies SOB, minimal cough. Walking in room. CXR unchanged diffuse infiltraes. Currently on NC oxygen at 7 L. Changed to prednisone 40 BID today. DC lasix as Cr 1.70, check BNP in morning. 05/19 Feels well but remains hypoxic. BNP 939. Pred 40 BID (day 5). ZOLTAN, ANCA, hypersenisitivity panel pending and RF negative at < 8.6 05/20 worsening oxygenation yesterday and last night, now on high flow Airvo 40L and 88% with sats 89%. CXR no change. Bubble study negative for PFO. Continue prednisone 40 BID. ENT consulted for nose bleed (NS spray and antibioticointment nares) / Patient now treated with ceftriaxone (day 9), bacrim (Day 9), steroids for 7 days with imrpoved clinical condition, minimal change in CT scan (mild improve ROSA and mild worsen RLL infiltrates) and no change in oxygenation. Will DC ceftriaxone and bactrim as B-D glucan is negative. Patient is immunocompromised and clinical course consistent with COVID infection. Patient is deteriorating and given report of prolonged COVID replication in immunocompromised patient (The Journal of Infectious Diseases, Volume 223, Issue 1, 20 February 2020, Pages 23?27) will attempt course of remdesivir, dexamethasone 6 and convalescent plasma. (2) Obstructive sleep apnea on CPAP: Code(s): G47.33 - Obstructive sleep apnea (adult) (pediatric); Z99.89 - Dependence on other enabling machines and devices Status: Chronic Assessment and Plan: Patient on CPAP 10 on RA for last 5 years with nasal cushions. Attempted hospital BiPAP but did not tolerate hospital full face mask. 05/17 will attempt home CPAP machine with 8 L bleed in tonight. 05/18 Home CPAP 10 with nasal pillows tried but her mask does not seal properly and had desats even on 10 L due to poor seal. Was swithced to Airvo 45L 65% las tnight. Called DME and they can't bring in new equipment while in-patient. Will attempt to obtain hospital nasal mask/pillows that will work,. She is unable to tolerate full face mask due top claustrophobia. 05/19 Wore her home CPAP10 with hospital nasal mask and 6 L bleed in and did well until she exerted herself and then desats to 70s and placed on 15 L NC oxygen. I put her back on home CPAP 10 with
--- NOTE | 2020-05-21 11:20 | PCOTNOTE ---
Attempted therapy session with patient, but patient declined stating she didn't feel up to it and to check back later today.
--- NOTE | 2020-05-21 13:24 | PCDIET ---
Nutrition Follow-Up Complete: Nutrition Diagnosis: Inadequate oral intake related to nausea, vomiting, and poor appetite as evidenced by average meal consumption of 13% and patient reported weight loss of 20 pounds in the past 2 weeks. Nutrition Goal: Patient to consume 75% or more of meals on current diet order. Goal in progress. Patient with average of 35% of meals consumed since 05/19/20. Patient feels appetite is still a little better than before, but has not been eating much at meal times. Does report taking Frozen Nutritional Treat which is being provided twice per daily. Recommend adding Ensure Clear (240kcal, 8g protein) with breakfast daily. Could also consider liberalizing diet to 2g sodium without fat/cholesterol restrictions. Recommend discontinuing potassium supplement. Last recorded weight is 87 kg which is stable with last review. Bowel Motility: BM x 2 today. Labs Reviewed: Hgb (10.9), Hct (32.1), Glu (135), BUN (34), Cr (1.3), K (5.5), Na (129) Meds Noted: Acyclovir, Rocephin, Albuterol, Lasix, KCl, Prednisone, Crestor, Vitamin C, Mag-Ox, Megace, Sulfat, Vitamin D Additional Notes: No skin breakdown documented. Will continue to monitor with same goal. Nutrition Monitoring and Evaluation: Follow up every 3 days.
[2020-05-21 13:58] LABS: Alanine Aminotransferase 24 U/L (4-35)
[2020-05-21] MEDS: DEXAMETHASONE SOD PHOS INJ 4 MG/ML VIAL 6 MG IV PUSH (14:16)
[2020-05-21] MEDS: REMDESIVIR 200 MG/NS 250 ML 200 MG/250 ML BAG 250 MG IVPB (14:50)
--- NOTE | 2020-05-21 16:18 | PM.IMPN ---
Progress Note: A&P Assessment and Plan (1) Right-sided epistaxis: Code(s): R04.0 - Epistaxis Status: Acute Assessment and Plan: appreciate ENT note patient is status post a local cauterization with silver nitrate bleeding has stopped continue to monitor (2) Bilateral pneumonia: Code(s): J18.9 - Pneumonia, unspecified organism Status: Acute Assessment and Plan: patient is on ceftriaxone Bactrim and acyclovir however repeat CT of the chest shows worsening of the infiltrates (3) Acute and chronic respiratory failure with hypoxia: Code(s): J96.21 - Acute and chronic respiratory failure with hypoxia Status: Acute Assessment and Plan: the patient is currently on Airvo high-flow nasal cannula high-dose steroids patient saturating on 40 L and 90% FiO2 in between 92-95% (4) Weakness generalized: Code(s): R53.1 - Weakness Status: Acute Assessment and Plan: likely secondary to chronic illness and acute illness patient has not been able to exercise due to desaturation significant to 70% by only sitting by the edge of the bed encourage passage range of motion (5) Paroxysmal atrial flutter: Code(s): I48.92 - Unspecified atrial flutter Status: Acute Assessment and Plan: rate controlled hold in blood thinner due to epistaxis will receive home in another day or so provided epistaxis has been controlled (6) Diastolic dysfunction: Code(s): I51.89 - Other ill-defined heart diseases Status: Chronic Assessment and Plan: continue to monitor daily intake and output (7) Chronic kidney disease, stage 3: Code(s): N18.30 - Chronic kidney disease, stage 3 unspecified Status: Acute Assessment and Plan: continue to monitor BUN and creatinine continue BMPs daily (8) Obstructive sleep apnea on CPAP: Code(s): G47.33 - Obstructive sleep apnea (adult) (pediatric); Z99.89 - Dependence on other enabling machines and devices Status: Chronic Assessment and Plan: patient has not been able to tolerate her CPAP machine currently on high-flow nasal cannula with Airvo (9) Type 2 diabetes mellitus: Qualifiers: 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 Exam Narrative: Exam Narrative: laying in bed in no acute distress Const: General: comfortable, no acute distress, well developed, alert, awake and other ( chronically ill-looking) Nutritional Appearance: average body habitus Orientation/consciousness: patient oriented x3 HENMT: Head: normal to inspection, normocephalic and atraumatic Ears: hearing grossly normal bilaterally Face and sinus: normal facial exam Eyes: General: appearance normal, both eyes and all related structures Pupils: Equal, round and reactive pupils present EOM: EOMs intact bilaterally Neck: Neck: full ROM, no lymphadenopathy and no JVD Thyroid: thyroid normal Lymphatic: no lymphadenopathy noted Resp: Effort & Inspection: normal respiratory effort, able to speak in complete sentences and other ( on Airvo high-flow nasal cannula) Auscultation: clear to auscultation bilaterally and diminished lung sounds Cardio: Jugular venous distension: no JVD Rate: regular rate Rhythm: regular rhythm Heart sounds: S1 normal heart sound present and S2 normal heart sound present GI: GI Palp: Yes Soft to pa
[2020-05-21] MEDS: ALPRAZolam (*CRX) 0.5 MG TABLET PO (17:32)
[2020-05-21] MEDS: GABAPENTIN 300 MG CAPSULE PO (21:19)
[2020-05-22] VITALS (29 sets, daily range): BP systolic 137–167; BP diastolic 56–89; PULSE 78–105; RESP 18–23; TEMP 36.1–36.5; O2SAT 91–97
[2020-05-22 05:03] LABS: Alanine Aminotransferase 25 U/L (4-35); Estimated CRCL calculation 31 ml/min; Estimated Glomerular Filt Rate 34
[2020-05-22] MEDS: CENTRAL LINE FLUSH 10 ML IV PUSH ×3 (05:38→21:08)
[2020-05-22] MEDS: ROSUVASTATIN 10 MG TABLET PO (08:17)
[2020-05-22] MEDS: CHOLECALCIFEROL 1,000 UNITS TABLET 1000 UNITS PO (08:17)
[2020-05-22] MEDS: ACYCLOVIR 400 MG TABLET PO (08:18)
[2020-05-22] MEDS: ASCORBIC ACID 500 MG TABLET 1000 MG PO (08:18)
[2020-05-22] MEDS: DEXAMETHASONE SOD PHOS INJ 4 MG/ML VIAL 6 MG IV PUSH (08:18)
[2020-05-22] MEDS: FUROSEMIDE INJ 40 MG/4 ML VIAL IV PUSH ×2 (08:19→17:20)
[2020-05-22] MEDS: MAGNESIUM OXIDE 400 MG TABLET PO (08:20)
[2020-05-22] MEDS: POTASSIUM CHLORIDE 20 MEQ TABLET.ER 40 MEQ PO ×2 (08:20→17:20)
[2020-05-22] MEDS: MEGESTROL ACETATE (*CHEMO) 40 MG TABLET PO ×4 (08:20→21:08)
[2020-05-22] MEDS: ALBUTEROL SULFATE NEB 2.5 MG/0.5 ML INH INHALATION ×3 (08:29→21:43)
[2020-05-22] MEDS: TUBING, BLOOD PLUM PUMP TUBING 1 EACH XX (09:15)
[2020-05-22] MEDS: REMDESIVIR 100 MG/NS 250 ML 100 MG/250 ML BAG 250 MG IVPB (10:37)
--- NOTE | 2020-05-22 11:44 | PM.PNPUL ---
Progress Note: A&P Assessment and Plan (1) Acute and chronic respiratory failure with hypoxia: Code(s): J96.21 - Acute and chronic respiratory failure with hypoxia Status: Acute Assessment and Plan: Patient with CLL, AMAN, DM, PAF s/p cardioversion admitted 05/07 with weakness and orhtosttic hypotension. COVID positive 04/21 and not well since then. Worsening hypoxia 2 L on 05/09, 3/ L on 05/11, 7- 10 L on 05/12, 6 L on 05/13 and 05/14 and Airvo on 05/[address] with bilateral ground glass infiltrates post covid. No interstitial or reticulnodular infiltrates on CT scan. Etiology includes infection (bacterial, viral and opportunistic), post COVID pneumonia and or inflammatory response, acute interstitial pneumonia. Doubt immune related toxicity due to chemotherapy or vasculitis. On Airvo 45L and 80%. Treated with ceftriaxone, bactrim and acyclovir per ID. Started on solumedrol 80 Q 6 emperically for post COVID inflammatory response. 05/16 On Airvo 45L and 80%. Today she said that she does not want a bronchoscopy under any circumstances. Continue methylprednisolone 80 mg IV q.6 hours continue monitoring oxygenation and weaning oxygen for sats of 92% or greater continue current antibiotics (ceftriaxone and septra started 05/13) and current antiviral (home dose of acyclovir since 05/08) medications per ID recommendations I will hold her Venclexta chemotherapy medication for at least 2 weeks to give time for any possible infection to resolve and let her immune system recover somewhat 05/17 Clinically she feels better. Improved oxygenation on high dose steroids with solumedrol 80 Q 6 for 48 hours. Today on 8 L NC. Will repeat CXR on morning. 05/18 States she continues to feel better. Still denies SOB, minimal cough. Walking in room. CXR unchanged diffuse infiltraes. Currently on NC oxygen at 7 L. Changed to prednisone 40 BID today. DC lasix as Cr 1.70, check BNP in morning. 05/19 Feels well but remains hypoxic. BNP 939. Pred 40 BID (day 5). ZOLTAN, ANCA, hypersenisitivity panel pending and RF negative at < 8.6 05/20 worsening oxygenation yesterday and last night, now on high flow Airvo 40L and 88% with sats 89%. CXR no change. Bubble study negative for PFO. Continue prednisone 40 BID. ENT consulted for nose bleed (NS spray and antibioticointment nares) 4/2 Patient now treated with ceftriaxone (day 9), bacrim (Day 9), steroids for 7 days with imrpoved clinical condition, minimal change in CT scan (mild improve ROSA and mild worsen RLL infiltrates) and no change in oxygenation. Will DC ceftriaxone and bactrim as B-D glucan is negative. Patient is immunocompromised and clinical course consistent with COVID infection. Patient is deteriorating and given report of prolonged COVID replication in immunocompromised patient (The Journal of Infectious Diseases, Volume 223, Issue 1, 20 February 2020, Pages 23?27) will attempt course of remdesivir, dexamethasone 6 and convalescent plasma. / Required BiPAP overnight 10/5, 100% and tolerated full face mask. Now on 15 L NRB with sats 96. Still says she feels good. Nosebleed improved. Getting convalescent plasma now. Day 2 remdesivir and dexamethasone. (2) Obstructive sleep apnea on CPAP: Code(s): G47.33 - Obstructive sleep apnea (adult) (pediatric); Z99.89 - Dependence on other enabling machines and devices Status: Chronic Assessment and Plan: Patient on CPAP 10 on RA for last 5 years with nasal cushions. Attempted hospital BiPAP but did not tolerate hospital full face mask. 05/17 will attempt home CPAP machine with 8 L bleed in tonight. 05/18 Home CPAP 10 with nasal pillows tried but her mask does not seal properly and had desats even on 10 L due to poor seal. Was swithced to Airvo 45L 65% las tnight. Called DME and they can't bring in new equipment while in-patient. Will attempt to obtain hospital nasal mask/pillows that will work,. She is unable to tolerate full face mask due
--- NOTE | 2020-05-22 12:47 | PM.IMPN ---
Progress Note: A&P Assessment and Plan (1) Acute and chronic respiratory failure with hypoxia: Code(s): J96.21 - Acute and chronic respiratory failure with hypoxia Status: Acute Assessment and Plan: patient require BiPAP overnight 10/5 FiO2 of 100% currently on non-rebreather at 15 L saturating at 91-92% (2) Bilateral pneumonia: Code(s): J18.9 - Pneumonia, unspecified organism Status: Acute Assessment and Plan: patient is on Bactrim, Remdesivir ceftriaxone has been discontinued CT of the lungs with extensive diffuse infiltrates (3) Right-sided epistaxis: Code(s): R04.0 - Epistaxis Status: Acute Assessment and Plan: a status post silver nitrate cautery resolved (4) Weakness generalized: Code(s): R53.1 - Weakness Status: Acute Assessment and Plan: likely secondary to chronic illness and acute illness patient desaturates with minimal activity hold of PT OT for now maybe passive range of motion as an alternative (5) Paroxysmal atrial flutter: Code(s): I48.92 - Unspecified atrial flutter Status: Acute Assessment and Plan: rate controlled Eliquis held because of epistaxis might be able to resume (6) Diastolic dysfunction: Code(s): I51.89 - Other ill-defined heart diseases Status: Chronic Assessment and Plan: stable continue to monitor daily intake and output (7) Chronic kidney disease, stage 3: Code(s): N18.30 - Chronic kidney disease, stage 3 unspecified Status: Acute Assessment and Plan: continue to monitor your kidney function daily BMP (8) Obstructive sleep apnea on CPAP: Code(s): G47.33 - Obstructive sleep apnea (adult) (pediatric); Z99.89 - Dependence on other enabling machines and devices Status: Chronic Assessment and Plan: patient uses a CPAP with nasal pillows however has not been able to tolerated and the hospital also patient had epistaxis on BiPAP overnight (9) Hemoglobin A1c less than 7.0%: Code(s): R73.09 - Other abnormal glucose Status: Acute Assessment and Plan: continue to monitor Subjective Date/time seen: 05/22/20 12:47 patient states that she had a hard night Review of Systems Review of Systems: Narrative: patient was on BiPAP overnight, however denies any issues at the present time. Exam Narrative: Exam Narrative: lying in bed in no acute distress she is on a non-rebreather mask and on 15 L saturating on 92% Const: General: comfortable, no acute distress, well developed, alert, awake and other ( chronically ill-looking) Nutritional Appearance: average body habitus Orientation/consciousness: patient oriented x3 HENMT: Head: normal to inspection, normocephalic and atraumatic Ears: hearing grossly normal bilaterally Face and sinus: normal facial exam Eyes: General: appearance normal, both eyes and all related structures Pupils: Equal, round and reactive pupils present EOM: EOMs intact bilaterally Neck: Neck: full ROM, no lymphadenopathy and no JVD Thyroid: thyroid normal Lymphatic: no lymphadenopathy noted Resp: Effort & Inspection: normal respiratory effort and able to speak in complete sentences Auscultation: diminished lung sounds Cardio: Jugular venous distension: no JVD Rate: regular rate Rhythm: regular rhythm Heart sounds: S1 normal heart sound present and S2 normal heart sound present GI: GI Palp: Yes Soft to palpation and Yes No hepatosplenomegaly present : General: Yes deferred Skin: Rashes: no rashes Wounds: no wounds Neuro: General: patient oriented x3 and CN's II-XI intact bilaterally Cranial nerves: Yes CN's II-XII intact bilaterally and Yes Equal, round and reactive pupils present Cognition (Neuro): normal cognition Speech: normal speech Gait exam (Neuro): Normal gait present Motor exam (neuro): 5/5 motor strength present throughout Extrem: Gener
[2020-05-22] MEDS: GABAPENTIN 300 MG CAPSULE PO (21:08)
[2020-05-22] MEDS: NEOMYCIN/POLYMYXIN/BACITRACIN OINTMENT 15 GM TUBE 1 APPLIC TOPICAL (21:09)
[2020-05-22] MEDS: SALINE 0.65% NAS SOLN 44 ML BTL 1 SPRAY NASAL (21:09)
[2020-05-22] MEDS: ALPRAZolam (*CRX) 0.5 MG TABLET PO (21:47)
[2020-05-23] VITALS (31 sets, daily range): BP systolic 121–150; BP diastolic 43–83; PULSE 86–107; RESP 16–44; TEMP 35.7–36.6; O2SAT 91–98
[2020-05-23] MEDS: ALBUTEROL SULFATE NEB 2.5 MG/0.5 ML INH INHALATION ×4 (04:03→21:03)
[2020-05-23] MEDS: CENTRAL LINE FLUSH 10 ML IV PUSH ×3 (05:01→21:15)
[2020-05-23 05:28] LABS: Basophils Percent Auto 0.3 % (0.2-1.2); Hematocrit 35.1 % (37.0-47.0); Hemoglobin 11.4 g/dL (12.0-15.0); Immature Granulocyte Percent A 2.7 % (0-0.5); Lymphocytes Absolute Auto 0.14 K/mm3 (0.9-3.2); Lymphocytes Percent Auto 1.9 % (18.3-44.2); Mean Corpuscular HGB Conc 32.5 g/dl (32-36); Mean Corpuscular Hemoglobin 27.9 pg (26-34); Mean Corpuscular Volume 85.8 fl (80-100); Mean Platelet Volume 9.6 fl (7.4-10.4); Monocytes Absolute Auto 0.2 K/mm3 (0.1-0.6); Monocytes Percent Auto 2.2 % (2.6-8.5); Neutrophils Absolute Auto 6.9 K/mm3 (1.3-6.7); Neutrophils Percent Auto 92.9 % (45.5-73.1); Platelet Count Result 77 k/mm3 (150-375); Red Blood Count 4.09 M/mm3 (4.2-5.4); Red Cell Distribution Width 14.7 % (11.5-14.5); White Blood Count 7.4 K/mm3 (4.5-10.0)
[2020-05-23 05:52] LABS: Anion Gap 3 mmol/L (8-16); Blood Urea Nitrogen 47 mg/dL (7-17); Calcium 10.3 mg/dL (8.4-10.2); Carbon Dioxide 32 mmol/L (22-30); Chloride 97 mmol/L (98-107); Estimated CRCL calculation 27 ml/min; Estimated Glomerular Filt Rate 29; Glucose 110 mg/dL (65-105); Potassium 6.2 mmol/L (3.4-5.0); Sodium 132 mmol/L (137-145)
[2020-05-23] MEDS: DEXTROSE 50% 25 GM/50 ML SYRINGE IV PUSH (06:38)
[2020-05-23] MEDS: SODIUM BICARBONATE 8.4% 50 MEQ/50 ML VIAL IV PUSH (06:40)
[2020-05-23] MEDS: CALCIUM GLUC 1,000 MG/NS 50 ML 1,000 MG/50 ML BAG 100 MG IVPB (06:42)
[2020-05-23] MEDS: INSULIN HUMAN REGULAR (*BKC) 100 UNITS/ML 10 UNITS IV PUSH (06:42)
[2020-05-23 06:52] LABS: Alanine Aminotransferase 27 U/L (4-35)
[2020-05-23 07:02] LABS: NT Pro B Type Natriuretic Pept 986 PG/ML (5-100)
[2020-05-23 08:21] LABS: Glucose Point of Care 125 (65-105)
[2020-05-23 08:35] LABS: Anion Gap 7 mmol/L (8-16); Blood Urea Nitrogen 45 mg/dL (7-17); Calcium 10.4 mg/dL (8.4-10.2); Carbon Dioxide 31 mmol/L (22-30); Chloride 97 mmol/L (98-107); Estimated CRCL calculation 30 ml/min; Estimated Glomerular Filt Rate 34; Glucose 109 mg/dL (65-105); Potassium 5.5 mmol/L (3.4-5.0); Sodium 135 mmol/L (137-145)
[2020-05-23] MEDS: NEOMYCIN/POLYMYXIN/BACITRACIN OINTMENT 15 GM TUBE 1 APPLIC TOPICAL (09:02)
[2020-05-23] MEDS: SALINE 0.65% NAS SOLN 44 ML BTL 1 SPRAY NASAL (09:03)
[2020-05-23] MEDS: ASCORBIC ACID 500 MG TABLET 1000 MG PO (09:04)
[2020-05-23] MEDS: MEGESTROL ACETATE (*CHEMO) 40 MG TABLET PO ×4 (09:04→21:15)
[2020-05-23] MEDS: ROSUVASTATIN 10 MG TABLET PO (09:04)
[2020-05-23] MEDS: CHOLECALCIFEROL 1,000 UNITS TABLET 1000 UNITS PO (09:05)
[2020-05-23] MEDS: MAGNESIUM OXIDE 400 MG TABLET PO (09:05)
[2020-05-23] MEDS: ACYCLOVIR 400 MG TABLET PO (09:06)
[2020-05-23] MEDS: DEXAMETHASONE SOD PHOS INJ 4 MG/ML VIAL 6 MG IV PUSH (09:07)
[2020-05-23] MEDS: FUROSEMIDE INJ 40 MG/4 ML VIAL IV PUSH ×2 (09:10→18:21)
[2020-05-23 09:14] LABS: Glucose Point of Care 94 (65-105)
[2020-05-23] MEDS: REMDESIVIR 100 MG/NS 250 ML 100 MG/250 ML BAG 250 MG IVPB (10:09)
[2020-05-23 10:24] LABS: Glucose Point of Care 130 (65-105)
[2020-05-23 11:23] LABS: Glucose Point of Care 142 (65-105)
--- NOTE | 2020-05-23 12:23 | PM.PNPUL ---
Progress Note: A&P Assessment and Plan (1) Acute and chronic respiratory failure with hypoxia: Code(s): J96.21 - Acute and chronic respiratory failure with hypoxia Status: Acute Assessment and Plan: Patient with CLL, AMAN, DM, PAF s/p cardioversion admitted 05/07 with weakness and orhtosttic hypotension. COVID positive 04/21 and not well since then. Worsening hypoxia 2 L on 05/09, 3/ L on 05/11, 7- 10 L on 05/12, 6 L on 05/13 and 05/14 and Airvo on 05/[address] with bilateral ground glass infiltrates post covid. No interstitial or reticulnodular infiltrates on CT scan. Etiology includes infection (bacterial, viral and opportunistic), post COVID pneumonia and or inflammatory response, acute interstitial pneumonia. Doubt immune related toxicity due to chemotherapy or vasculitis. On Airvo 45L and 80%. Treated with ceftriaxone, bactrim and acyclovir per ID. Started on solumedrol 80 Q 6 emperically for post COVID inflammatory response. Lasic 40 IV BID. 05/16 On Airvo 45L and 80%. Today she said that she does not want a bronchoscopy under any circumstances. Continue methylprednisolone 80 mg IV q.6 hours continue monitoring oxygenation and weaning oxygen for sats of 92% or greater continue current antibiotics (ceftriaxone and septra started 05/13) and current antiviral (home dose of acyclovir since 05/08) medications per ID recommendations I will hold her Venclexta chemotherapy medication for at least 2 weeks to give time for any possible infection to resolve and let her immune system recover somewhat 05/17 Clinically she feels better. Improved oxygenation on high dose steroids with solumedrol 80 Q 6 for 48 hours. Today on 8 L NC. Will repeat CXR on morning. 05/18 States she continues to feel better. Still denies SOB, minimal cough. Walking in room. CXR unchanged diffuse infiltraes. Currently on NC oxygen at 7 L. Changed to prednisone 40 BID today. DC lasix as Cr 1.70, check BNP in morning. 05/19 Feels well but remains hypoxic. BNP 939. Pred 40 BID (day 5). ZOLTAN, ANCA, hypersenisitivity panel pending and RF negative at < 8.6 05/20 worsening oxygenation yesterday and last night, now on high flow Airvo 40L and 88% with sats 89%. CXR no change. Bubble study negative for PFO. Continue prednisone 40 BID. ENT consulted for nose bleed (NS spray and antibioticointment nares) 4/2 Patient now treated with ceftriaxone (day 9), bacrim (Day 9), steroids for 7 days with imrpoved clinical condition, minimal change in CT scan (mild improve ROSA and mild worsen RLL infiltrates) and no change in oxygenation. Will DC ceftriaxone and bactrim as B-D glucan is negative. Patient is immunocompromised and clinical course consistent with COVID infection. Patient is deteriorating and given report of prolonged COVID replication in immunocompromised patient (The Journal of Infectious Diseases, Volume 223, Issue 1, 20 February 2020, Pages 23?27) will attempt course of remdesivir, dexamethasone 6 and convalescent plasma. 05/22 Required BiPAP overnight 10/5, 100% and tolerated full face mask. Now on 15 L NRB with sats 96. Still says she feels good. Nosebleed improved. Getting convalescent plasma now. Day 2 remdesivir and dexamethasone. 05/23 Using BiPAP overnight 10/5, 70% and tolerated full face mask. Now on 15 L NRB with sats 95. Wean as tolerated. Still says she feels good. Nosebleed improved. Day 3 remdesivir and dexamethasone. Continue (2) Obstructive sleep apnea on CPAP: Code(s): G47.33 - Obstructive sleep apnea (adult) (pediatric); Z99.89 - Dependence on other enabling machines and devices Status: Chronic Assessment and Plan: Patient on CPAP 10 on RA for last 5 years with nasal cushions. Attempted hospital BiPAP but did not tolerate hospital full face mask. 05/17 will attempt home CPAP machine with 8 L bleed in tonight. 05/18 Home CPAP 10 with nasal pillows tried but her mask does not seal properly and had desats even on 10 L due to poor s
[2020-05-23 12:44] LABS: Glucose Point of Care 141 (65-105)
--- NOTE | 2020-05-23 13:48 | PCPTNOTE ---
Patient declined treatment this session due to just getting up with OT, and is just to tired.
[2020-05-23 14:12] LABS: Glucose Point of Care 171 (65-105)
--- NOTE | 2020-05-23 14:26 | PM.IMPN ---
Progress Note: A&P Assessment and Plan (1) Bilateral pneumonia: Code(s): J18.9 - Pneumonia, unspecified organism Status: Acute Assessment and Plan: extensive infiltrates on CT of the lungs patient was on ceftriaxone, Bactrim, acyclovir. Now on Remdesivir and Dexamethasone continue to monitor (2) Acute and chronic respiratory failure with hypoxia: Code(s): J96.21 - Acute and chronic respiratory failure with hypoxia Status: Acute Assessment and Plan: currently on non-rebreather at 15 L saturating at 95% BiPAP overnight appreciate pulmonology note (3) Obstructive sleep apnea on CPAP: Code(s): G47.33 - Obstructive sleep apnea (adult) (pediatric); Z99.89 - Dependence on other enabling machines and devices Status: Chronic Assessment and Plan: currently wearing BiPAP (4) Weakness generalized: Code(s): R53.1 - Weakness Status: Acute Assessment and Plan: patient has been unable to work with PT OT due to profound desaturation when getting up and minimally exerting herself (5) Right-sided epistaxis: Code(s): R04.0 - Epistaxis Status: Acute Assessment and Plan: status pose silver nitrate cautery no new bleed (6) Paroxysmal atrial flutter: Code(s): I48.92 - Unspecified atrial flutter Status: Acute Assessment and Plan: rate controlled holding Eliquis (7) Chronic kidney disease, stage 3: Code(s): N18.30 - Chronic kidney disease, stage 3 unspecified Status: Acute Assessment and Plan: continue to monitor (8) Hemoglobin A1c less than 7.0%: Code(s): R73.09 - Other abnormal glucose Status: Acute Assessment and Plan: continue to monitor (9) Suspected 2019 novel coronavirus infection: Code(s): Z20.828 - Contact with and (suspected) exposure to other viral communicable diseases Status: Ruled-out Assessment and Plan: patient tested positive to Coronavirus COVID-19 Subjective Date/time seen: 05/23/20 14:26 I am fine Review of Systems Review of Systems: Narrative: patient states that she feels well and she denies any issues Exam Narrative: Exam Narrative: patient is currently on 15 L with non-rebreather mask and saturating at 95% Const: General: comfortable, no acute distress, well developed, alert, awake and other ( chronically ill looking) Nutritional Appearance: average body habitus Orientation/consciousness: patient oriented x3 HENMT: Head: normal to inspection, normocephalic and atraumatic Ears: hearing grossly normal bilaterally Face and sinus: normal facial exam Eyes: General: appearance normal, both eyes and all related structures Pupils: Equal, round and reactive pupils present EOM: EOMs intact bilaterally Neck: Neck: full ROM, no lymphadenopathy and no JVD Thyroid: thyroid normal Lymphatic: no lymphadenopathy noted Resp: Effort & Inspection: normal respiratory effort and able to speak in complete sentences Auscultation: diminished lung sounds Cardio: Jugular venous distension: no JVD Rate: regular rate Rhythm: regular rhythm Heart sounds: S1 normal heart sound present and S2 normal heart sound present GI: GI Palp: Yes Soft to palpation and Yes No hepatosplenomegaly present : General: Yes deferred Skin: Rashes: no rashes Wounds: no wounds Neuro: General: patient oriented x3 and CN's II-XI intact bilaterally Cranial nerves: Yes CN's II-XII intact bilaterally and Yes Equal, round and reactive pupils present Cognition (Neuro): normal cognition Speech: normal speech Gait exam (Neuro): Normal gait present Motor exam (neuro): 5/5 motor strength present throughout Extrem: General: normal to inspection, full ROM, no joint enlargement and no pedal edema Objective Data Vital Signs Vital Signs: Vital Signs - 24 hr 05/22/20 16:00 05/22/20 18:00 05/22/20 20:00 Temperature 97.7 F 97.5 F L Pulse Rate 102 H
[2020-05-23 17:21] LABS: Glucose Point of Care 215 (65-105)
[2020-05-23 19:03] LABS: Glucose Point of Care 211 (65-105)
[2020-05-23] MEDS: APIXABAN 5 MG TABLET PO (21:15)
[2020-05-23] MEDS: GABAPENTIN 300 MG CAPSULE PO (21:15)
[2020-05-24] VITALS (28 sets, daily range): BP systolic 112–141; BP diastolic 50–75; PULSE 86–110; RESP 12–28; TEMP 36.4–36.7; O2SAT 78–98
[2020-05-24] MEDS: ALBUTEROL SULFATE NEB 2.5 MG/0.5 ML INH INHALATION ×4 (03:28→20:44)
[2020-05-24] MEDS: CENTRAL LINE FLUSH 10 ML IV PUSH ×3 (05:59→21:04)
[2020-05-24 07:32] LABS: Alanine Aminotransferase 19 U/L (4-35); Estimated CRCL calculation 30 ml/min; Estimated Glomerular Filt Rate 34
--- NOTE | 2020-05-24 08:26 | PM.PNPUL ---
Progress Note: A&P Assessment and Plan (1) Acute and chronic respiratory failure with hypoxia: Code(s): J96.21 - Acute and chronic respiratory failure with hypoxia Status: Acute Assessment and Plan: Patient with CLL, AMAN, DM, PAF s/p cardioversion admitted 05/07 with weakness and orhtosttic hypotension. COVID positive 04/21 and not well since then. Worsening hypoxia 2 L on 05/09, 3/ L on 05/11, 7- 10 L on 05/12, 6 L on 05/13 and 05/14 and Airvo on 05/[address] with bilateral ground glass infiltrates post covid. No interstitial or reticulnodular infiltrates on CT scan. Etiology includes infection (bacterial, viral and opportunistic), post COVID pneumonia and or inflammatory response, acute interstitial pneumonia. Doubt immune related toxicity due to chemotherapy or vasculitis. On Airvo 45L and 80%. Treated with ceftriaxone, bactrim and acyclovir per ID. Started on solumedrol 80 Q 6 emperically for post COVID inflammatory response. Lasic 40 IV BID. 05/16 On Airvo 45L and 80%. Today she said that she does not want a bronchoscopy under any circumstances. Continue methylprednisolone 80 mg IV q.6 hours continue monitoring oxygenation and weaning oxygen for sats of 92% or greater continue current antibiotics (ceftriaxone and septra started 05/13) and current antiviral (home dose of acyclovir since 05/08) medications per ID recommendations I will hold her Venclexta chemotherapy medication for at least 2 weeks to give time for any possible infection to resolve and let her immune system recover somewhat 05/17 Clinically she feels better. Improved oxygenation on high dose steroids with solumedrol 80 Q 6 for 48 hours. Today on 8 L NC. Will repeat CXR on morning. 05/18 States she continues to feel better. Still denies SOB, minimal cough. Walking in room. CXR unchanged diffuse infiltraes. Currently on NC oxygen at 7 L. Changed to prednisone 40 BID today. DC lasix as Cr 1.70, check BNP in morning. 05/19 Feels well but remains hypoxic. BNP 939. Pred 40 BID (day 5). ZOLTAN, ANCA, hypersenisitivity panel pending and RF negative at < 8.6 05/20 worsening oxygenation yesterday and last night, now on high flow Airvo 40L and 88% with sats 89%. CXR no change. Bubble study negative for PFO. Continue prednisone 40 BID. ENT consulted for nose bleed (NS spray and antibiotic ointment nares) 4/2 Patient now treated with ceftriaxone (day 9), bacrim (Day 9), steroids for 7 days with imrpoved clinical condition, minimal change in CT scan (mild improve ROSA and mild worsen RLL infiltrates) and no change in oxygenation. Will DC ceftriaxone and bactrim as B-D glucan is negative. Patient is immunocompromised and clinical course consistent with COVID infection. Patient is deteriorating and given report of prolonged COVID replication in immunocompromised patient (The Journal of Infectious Diseases, Volume 223, Issue 1, 20 February 2020, Pages 23?27) will attempt course of remdesivir, dexamethasone 6 and convalescent plasma. 4/3 Required BiPAP overnight 10/5, 100% and tolerated full face mask. Now on 15 L NRB with sats 96. Still says she feels good. Nosebleed improved. Getting convalescent plasma now. Day 2 remdesivir and dexamethasone. 4/4 Using BiPAP overnight 10/5, 70% and tolerated full face mask. Now on 15 L NRB with sats 95. Wean as tolerated. Still says she feels good. Nosebleed improved. Day 3 remdesivir and dexamethasone. 4/5 On 15 L NRB last night with sats 96%. Now on 15 L NRB with sats 91-96%. Still says she feels good. Nosebleed improved. Day 4 remdesivir and dexamethasone. At this point I believe she has COVID pneumonia without any additional cardiac or pulmonary issues leading to her hypoxia if her ZOLTAN, ANCA and hypersenitivity panels are negative (pending now). Hopefully she will improve with convalescent plasma remdesivir and dexamethasone which are the only recommended treatment options available at this time. For now continue remdesivir and dexamethason
[2020-05-24] MEDS: APIXABAN 5 MG TABLET PO ×2 (08:29→21:04)
[2020-05-24] MEDS: ACYCLOVIR 400 MG TABLET PO (08:31)
[2020-05-24] MEDS: CHOLECALCIFEROL 1,000 UNITS TABLET 1000 UNITS PO (08:31)
[2020-05-24] MEDS: DEXAMETHASONE SOD PHOS INJ 4 MG/ML VIAL 6 MG IV PUSH (08:31)
[2020-05-24] MEDS: ASCORBIC ACID 500 MG TABLET 1000 MG PO (08:31)
[2020-05-24] MEDS: MEGESTROL ACETATE (*CHEMO) 40 MG TABLET PO ×4 (08:32→21:04)
[2020-05-24] MEDS: FUROSEMIDE INJ 40 MG/4 ML VIAL IV PUSH ×2 (08:32→17:04)
[2020-05-24] MEDS: ROSUVASTATIN 10 MG TABLET PO (08:32)
[2020-05-24] MEDS: MAGNESIUM OXIDE 400 MG TABLET PO (08:32)
--- NOTE | 2020-05-24 08:35 | PCRCNOTE ---
Order for home CPAP supplies sent to patient's DME provider, [facility]. They will provide replacement supplies upon discharge.
[2020-05-24 08:42] LABS: ANA Cascade Screen Negative (Negative)
[2020-05-24] MEDS: REMDESIVIR 100 MG/NS 250 ML 100 MG/250 ML BAG 250 MG IVPB (10:24)
--- NOTE | 2020-05-24 10:57 | PCDIET ---
Nutrition Follow-Up Complete: Nutrition Diagnosis: Inadequate oral intake related to nausea, vomiting, and poor appetite as evidenced by average meal consumption of 13% and patient reported weight loss of 20 pounds in the past 2 weeks. Nutrition Goal: Patient to consume 75% or more of meals on current diet order. Goal in progress. Average intake since 05/22/20 has been 43% of recorded meals. Patient does report taking Ensure Clear and Frozen Nutritional Treat. Recommend continuing Ensure Clear (0mg potassium) once per day and changing Frozen Nutritional Treat (360mg potassium) to Nepro 1x daily for 425kcal, 19g protein and 250mg potassium. Last recorded weight is 82 kg which is decreased from admission. Bowel Motility: Last documented BM on 05/21/20 x 2. Labs Reviewed: Hgb (11.4), Hct (35.1), Glu (211), Cr (1.5), K (5.5), BNP (986) Meds Noted: Acyclovir, Albuterol, Vitamin C, Decadron, Lasix, Mag-Ox, Megace, Remdesivir, Crestor, Vitamin D Additional Notes: Right buttock pink. No open sores documented. Will continue to monitor with same goals. Nutrition Monitoring and Evaluation: Follow up every 5 days.
--- NOTE | 2020-05-24 13:06 | PM.IMPN ---
Progress Note: A&P Assessment and Plan (1) Bilateral pneumonia: Code(s): J18.9 - Pneumonia, unspecified organism Status: Acute Assessment and Plan: Patient completed a course of ceftriaxone Bactrim and acyclovir Was started on Remdesivir and Dexamethasone Supportive care (2) Acute and chronic respiratory failure with hypoxia: Code(s): J96.21 - Acute and chronic respiratory failure with hypoxia Status: Acute Assessment and Plan: Patient on BiPAP at night time Currently on non-rebreather 15 L saturating at 95-96% Appreciate pulmonology note (3) Obstructive sleep apnea on CPAP: Code(s): G47.33 - Obstructive sleep apnea (adult) (pediatric); Z99.89 - Dependence on other enabling machines and devices Status: Chronic Assessment and Plan: Will try house in house CPAP tonight or patient's on at 10 units (4) Chronic lymphocytic leukemia: Code(s): C91.10 - Chronic lymphocytic leukemia of B-cell type not having achieved remission Status: Chronic Assessment and Plan: Patient completed chemotherapy for the Holding Venclexta (5) Type 2 diabetes mellitus: Qualifiers: 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 snf insulin use: without snf use 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 complication status: without complication Qualified Code(s): E11.9 - Type 2 diabetes mellitus without complications Code(s): E11.9 - Type 2 diabetes mellitus without complications Status: Chronic Assessment and Plan: Well controlled Continue to monitor (6) Hemoglobin A1c less than 7.0%: Code(s): R73.09 - Other abnormal glucose Status: Acute Assessment and Plan: Well controlled (7) Right-sided epistaxis: Code(s): R04.0 - Epistaxis Status: Acute Assessment and Plan: Status post silver nitrate cautery Resolved (8) Weakness generalized: Code(s): R53.1 - Weakness Status: Acute Assessment and Plan: Patient has been unable to participated in therapy sessions due to desaturating (9) Paroxysmal atrial flutter: Code(s): I48.92 - Unspecified atrial flutter Status: Acute Assessment and Plan: Rate controlled (10) Diastolic dysfunction: Code(s): I51.89 - Other ill-defined heart diseases Status: Chronic Assessment and Plan: Continue to monitor Intake and output daily Subjective Date/time seen: 05/24/20 13:06 I FEEL FINE Review of Systems Review of Systems: Narrative: Patient denies any issues at this time states that she feels fine and she was able to eat breakfast she were BiPAP at nighttime Exam Narrative: Exam Narrative: Chronically ill-looking in bed non-rebreather 15 L saturating and 95% Const: General: comfortable, no acute distress, well developed, alert and awake Nutritional Appearance: average body habitus Orientation/consciousness: patient oriented x3 HENMT: Head: normal to inspection, normocephalic and atraumatic Ears: hearing grossly normal bilaterally Face and sinus: normal facial exam Eyes: General: appearance normal, both eyes and all related structures Pupils: Equal, round and reactive pupils present EOM: EOMs intact bilaterally Neck: Neck: full ROM, no lymphadenopathy and no JVD Thyroid: thyroid normal Lymphatic: no lymphadenopathy noted Resp: Effort & Inspection: normal respiratory effort and able to speak in complete sentences Auscultation: diminished lung sounds Cardio: Jugular venous distension: no JVD Rate: regular rate Rhythm: regular rhythm Heart sounds: S1 normal heart sound present and S2 normal heart sound present GI: GI Palp: Yes Soft to palpation and Yes No hepatosplenomegaly present : General: Yes deferred Skin: Rashes: no rashes Wounds: no wounds Neuro: General: patient oriented x3 and CN's II-XI intact bilaterally Cranial nerves: Yes CN's II-XII intact bilaterally and Yes Equal, round and reactive pupils present Cognition (Neuro): normal
[2020-05-24] MEDS: GABAPENTIN 300 MG CAPSULE PO (21:04)
[2020-05-25] VITALS (28 sets, daily range): BP systolic 112–145; BP diastolic 60–96; PULSE 83–113; RESP 20–32; TEMP 35.7–36.9; O2SAT 91–97
[2020-05-25] MEDS: ALBUTEROL SULFATE NEB 2.5 MG/0.5 ML INH INHALATION ×4 (02:00→20:39)
[2020-05-25] MEDS: CENTRAL LINE FLUSH 10 ML IV PUSH ×3 (05:04→20:41)
[2020-05-25 06:31] LABS: Alanine Aminotransferase 17 U/L (4-35); Estimated CRCL calculation 28 ml/min; Estimated Glomerular Filt Rate 31
[2020-05-25] MEDS: ASCORBIC ACID 500 MG TABLET 1000 MG PO (09:30)
[2020-05-25] MEDS: DEXAMETHASONE SOD PHOS INJ 4 MG/ML VIAL 6 MG IV PUSH (09:30)
[2020-05-25] MEDS: MEGESTROL ACETATE (*CHEMO) 40 MG TABLET PO ×4 (09:30→20:40)
[2020-05-25] MEDS: CHOLECALCIFEROL 1,000 UNITS TABLET 1000 UNITS PO (09:30)
[2020-05-25] MEDS: APIXABAN 5 MG TABLET PO ×2 (09:30→20:40)
[2020-05-25] MEDS: ROSUVASTATIN 10 MG TABLET PO (09:30)
[2020-05-25] MEDS: ACYCLOVIR 400 MG TABLET PO (09:30)
[2020-05-25] MEDS: MAGNESIUM OXIDE 400 MG TABLET PO (09:30)
[2020-05-25] MEDS: NEOMYCIN/POLYMYXIN/BACITRACIN OINTMENT 15 GM TUBE 1 APPLIC TOPICAL (09:30)
[2020-05-25] MEDS: FUROSEMIDE INJ 40 MG/4 ML VIAL IV PUSH ×2 (09:31→17:14)
--- NOTE | 2020-05-25 10:49 | PCOTNOTE ---
Attempted therapy session with patient, but patient declined all ADLs, exercises and functional transfers, stating she didn't feel up to doing anything right now and to check back later today.
[2020-05-25 10:54] LABS: Hematocrit 36.2 % (37.0-47.0); Hemoglobin 11.6 g/dL (12.0-15.0); Immature Platelet Fraction Pct 4.8 % (0.9-11.2); Mean Corpuscular Hemoglobin 28.4 pg (26-34); Mean Corpuscular Volume 88.5 fl (80-100); Mean Platelet Volume 10.5 fl (7.4-10.4); Platelet Count Result 56 k/mm3 (150-375); Red Blood Count 4.09 M/mm3 (4.2-5.4); Red Cell Distribution Width 14.6 % (11.5-14.5); White Blood Count 6.2 K/mm3 (4.5-10.0)
--- NOTE | 2020-05-25 11:05 | P.CDI_ITS ---
CDI Query Clarification Request -COVID pneumonia has been documented by legal entity controller. Remdesivir, Decadron and convalescent plasma ordered. - Patient is immunocompromised and clinical course consistent with COVID infection. Patient is deteriorating and given report of prolonged COVID replication in immunocompromised patient, will attempt course of remdesivir,dexamethason and convalescent plasma documented by legal entity controller -Bilateral Pneumonia documented by hospitalist -Earlier in the stay, patient tested positive for Covid 19 on 04/21/20 and unable to tell if this infiltrates are from Covid 19 documented by hospitalist. Please clarify if COVID 19 is: * Acute manifestation/Current infection * Sequelae or residual effect of COVID 19 * History of COVID 19 * Unable to determine <Kavitha Gusman RN - Last Filed: 05/25/20 11:14> COVID PNEUMONIA DOCUMENTED BY PULMONOLOGY <Shana Martinez MD - Last Filed: 05/31/20 07:43>
--- NOTE | 2020-05-25 11:05 | WPDCDIQUERY2 ---
CDI Query Clarification Request -COVID pneumonia has been documented by physical therapy attendant. Remdesivir, Decadron and convalescent plasma ordered. - Patient is immunocompromised and clinical course consistent with COVID infection. Patient is deteriorating and given report of prolonged COVID replication in immunocompromised patient, will attempt course of remdesivir,dexamethason and convalescent plasma documented by physical therapy attendant -Bilateral Pneumonia documented by hospitalist -Earlier in the stay, patient tested positive for Covid 19 on 04/21/20 and unable to tell if this infiltrates are from Covid 19 documented by hospitalist. Please clarify if COVID 19 is: Acute manifestation/Current infection Sequelae or residual effect of COVID 19 History of COVID 19 Unable to determine <Kavitha Gusman RN - Last Filed: 05/25/20 11:14> COVID PNEUMONIA DOCUMENTED BY PULMONOLOGY <Shana Martinez MD - Last Filed: 05/31/20 07:43>
[2020-05-25] MEDS: REMDESIVIR 100 MG/NS 250 ML 100 MG/250 ML BAG 250 MG IVPB (13:01)
--- NOTE | 2020-05-25 13:15 | PCOTNOTE ---
Attempted therapy session with patient, but patient was eating lunch. Will check again later.
[2020-05-25 13:54] LABS: Anion Gap 5 mmol/L (8-16); Blood Urea Nitrogen 64 mg/dL (7-17); Calcium 9.6 mg/dL (8.4-10.2); Carbon Dioxide 33 mmol/L (22-30); Chloride 98 mmol/L (98-107); Estimated CRCL calculation 28 ml/min; Estimated Glomerular Filt Rate 31; Glucose 154 mg/dL (65-105); Potassium 4.6 mmol/L (3.4-5.0); Sodium 136 mmol/L (137-145)
--- NOTE | 2020-05-25 15:37 | PM.IMPN ---
Progress Note: A&P Assessment and Plan (1) Bilateral pneumonia: Code(s): J18.9 - Pneumonia, unspecified organism Status: Acute Assessment and Plan: Patient completed a course of ceftriaxone Bactrim and acyclovir Was started on Remdesivir and Dexamethasone Supportive care (2) Acute and chronic respiratory failure with hypoxia: Code(s): J96.21 - Acute and chronic respiratory failure with hypoxia Status: Acute Assessment and Plan: Patient on BiPAP at night time Currently on non-rebreather Appreciate pulmonology note (3) Obstructive sleep apnea on CPAP: Code(s): G47.33 - Obstructive sleep apnea (adult) (pediatric); Z99.89 - Dependence on other enabling machines and devices Status: Chronic Assessment and Plan: Will try house in house CPAP tonight or patient's on at 10 units (4) Chronic lymphocytic leukemia: Code(s): C91.10 - Chronic lymphocytic leukemia of B-cell type not having achieved remission Status: Chronic Assessment and Plan: Patient completed chemotherapy for the Holding Venclexta (5) Type 2 diabetes mellitus: Qualifiers: 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 complication status: without complication 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 [facility] insulin use: without [facility] use Qualified Code(s): E11.9 - Type 2 diabetes mellitus without complications Code(s): E11.9 - Type 2 diabetes mellitus without complications Status: Chronic Assessment and Plan: Well controlled Continue to monitor (6) Hemoglobin A1c less than 7.0%: Code(s): R73.09 - Other abnormal glucose Status: Acute Assessment and Plan: Well controlled (7) Right-sided epistaxis: Code(s): R04.0 - Epistaxis Status: Acute Assessment and Plan: Status post silver nitrate cautery Resolved (8) Weakness generalized: Code(s): R53.1 - Weakness Status: Acute Assessment and Plan: Patient has been unable to participated in therapy sessions due to desaturating (9) Paroxysmal atrial flutter: Code(s): I48.92 - Unspecified atrial flutter Status: Acute Assessment and Plan: Rate controlled (10) Diastolic dysfunction: Code(s): I51.89 - Other ill-defined heart diseases Status: Chronic Assessment and Plan: Continue to monitor Intake and output daily Subjective Date/time seen: 05/25/20 15:37 Interval history: 74-year-old female with hypothyroidism, obstructive sleep apnea, type 2 diabetes mellitus, hypertension, paroxysmal atrial flutter status post cardioversion, and chronic lymphocytic leukemia who presented to the emergency department earlier today from home for evaluation of generalized weakness. Pt is here with covid pneumonia, pt is still oxygen dependent. Pt seen by ID and pulmonology see their recommendations. Review of Systems Review of Systems: All systems reviewed & are unremarkable except as noted in HPI and below Exam Narrative: Exam Narrative: Chronically ill-looking in bed Objective Data Vital Signs Vital Signs: Vital Signs - 24 hr 05/24/20 16:00 05/24/20 18:00 05/24/20 20:00 Temperature 36.6 C 36.7 C Pulse Rate 101 H 105 H 96 Respiratory Rate 12 28 H Blood Pressure 112/63 130/63 Pulse Oximetry 98 96 05/24/20 20:44 05/24/20 20:53 05/24/20 22:00 Temperature Pulse Rate 86 102 H 96 Respiratory Rate 28 H 28 H Blood Pressure Pulse Oximetry 96 05/24/20 22:29 05/24/20 23:45 05/25/20 00:00 Temperature 36.6 C Pulse Rate 97 90 87 Respiratory Rate 27 H 22 H 22 H Blood Pressure 112/50 L Pulse Oximetry 92 93 93 05/25/20 01:58 05/25/20 02:00 05/25/20 02:18 Temperature Pulse Rate 90 92 85 Respiratory Rate 28 H 28 H 25 H Blood Pressure Pulse Oximetry 97 05/25/20 02:19 05/25/20 03:58 05/25/20 04:00 Temperature 36.7 C Pulse Rate 98 83 92 Respiratory Rate 20 20 Blood Pressure 129/71 Pulse Oximetry 95 97 97 05/25/20 06:00
[2020-05-25] MEDS: GABAPENTIN 300 MG CAPSULE PO (20:40)
[2020-05-25] MEDS: ALPRAZolam (*CRX) 0.5 MG TABLET PO (20:46)
[2020-05-26] VITALS (24 sets, daily range): BP systolic 114–153; BP diastolic 45–73; PULSE 88–113; RESP 12–24; TEMP 36.1–36.6; O2SAT 86–100
[2020-05-26] MEDS: ALBUTEROL SULFATE NEB 2.5 MG/0.5 ML INH INHALATION ×4 (02:42→20:44)
[2020-05-26] MEDS: CENTRAL LINE FLUSH 10 ML IV PUSH ×3 (05:03→21:15)
[2020-05-26] MEDS: DEXAMETHASONE SOD PHOS INJ 4 MG/ML VIAL 6 MG IV PUSH (09:27)
[2020-05-26] MEDS: FUROSEMIDE INJ 40 MG/4 ML VIAL IV PUSH ×2 (09:27→17:32)
[2020-05-26] MEDS: ASCORBIC ACID 500 MG TABLET 1000 MG PO (09:30)
[2020-05-26] MEDS: ROSUVASTATIN 10 MG TABLET PO (09:30)
[2020-05-26] MEDS: NEOMYCIN/POLYMYXIN/BACITRACIN OINTMENT 15 GM TUBE 1 APPLIC TOPICAL (09:30)
[2020-05-26] MEDS: APIXABAN 5 MG TABLET PO ×2 (09:30→21:16)
[2020-05-26] MEDS: MEGESTROL ACETATE (*CHEMO) 40 MG TABLET PO ×4 (09:30→21:16)
[2020-05-26] MEDS: ACYCLOVIR 400 MG TABLET PO (09:30)
[2020-05-26] MEDS: CHOLECALCIFEROL 1,000 UNITS TABLET 1000 UNITS PO (09:30)
[2020-05-26] MEDS: MAGNESIUM OXIDE 400 MG TABLET PO (09:30)
[2020-05-26 13:17] LABS: Basophils Percent Auto 0.2 % (0.2-1.2); Hematocrit 37.1 % (37.0-47.0); Immature Granulocyte Absolute 0.29 K/mm3 (0.00-0.031); Immature Granulocyte Percent A 2.7 % (0-0.5); Immature Platelet Fraction Pct 4.8 % (0.9-11.2); Lymphocytes Percent Auto 1.8 % (18.3-44.2); Mean Corpuscular HGB Conc 32.3 g/dl (32-36); Mean Corpuscular Hemoglobin 28.4 pg (26-34); Mean Corpuscular Volume 87.9 fl (80-100); Mean Platelet Volume 11.2 fl (7.4-10.4); Monocytes Absolute Auto 0.6 K/mm3 (0.1-0.6); Monocytes Percent Auto 5.7 % (2.6-8.5); Neutrophils Absolute Auto 9.8 K/mm3 (1.3-6.7); Neutrophils Percent Auto 89.6 % (45.5-73.1); Platelet Count Result 54 k/mm3 (150-375); Red Blood Count 4.22 M/mm3 (4.2-5.4); Red Cell Distribution Width 14.5 % (11.5-14.5); White Blood Count 10.9 K/mm3 (4.5-10.0)
[2020-05-26 13:31] LABS: Anion Gap 4 mmol/L (8-16); Blood Urea Nitrogen 67 mg/dL (7-17); Calcium 9.6 mg/dL (8.4-10.2); Carbon Dioxide 34 mmol/L (22-30); Chloride 98 mmol/L (98-107); Estimated CRCL calculation 30 ml/min; Estimated Glomerular Filt Rate 34; Glucose 169 mg/dL (65-105); Potassium 4.3 mmol/L (3.4-5.0); Sodium 136 mmol/L (137-145)
[2020-05-26 13:47] LABS: Hypochromasia 1+ (NORMAL); Platelet Estimate Decreased (Adequate)
[2020-05-26 13:48] LABS: Ovalocytes 1+ (NORMAL)
[2020-05-26 13:49] LABS: Burr Cells 1+ (NORMAL)
--- NOTE | 2020-05-26 15:17 | PCSTNOTE ---
Please refer to the Bedside Swallow Evaluation in the EMR. Please note, silent aspiration cannot be ruled out at bedside.
--- NOTE | 2020-05-26 16:22 | PM.IMPN ---
Progress Note: A&P Assessment and Plan (1) Bilateral pneumonia: Code(s): J18.9 - Pneumonia, unspecified organism Status: Acute Assessment and Plan: Patient completed a course of ceftriaxone Bactrim and acyclovir Was started on Remdesivir and Dexamethasone Supportive care now Awaiting improvement from convalescent plasma remdesivir and dexamethasone for 10 days with supportive care with high flow oxygen. Rpt CXr anticipated DC is 05/30. (2) Acute and chronic respiratory failure with hypoxia: Code(s): J96.21 - Acute and chronic respiratory failure with hypoxia Status: Acute Assessment and Plan: Patient on BiPAP at night time Currently on non-rebreather Appreciate pulmonology note (3) Obstructive sleep apnea on CPAP: Code(s): G47.33 - Obstructive sleep apnea (adult) (pediatric); Z99.89 - Dependence on other enabling machines and devices Status: Chronic Assessment and Plan: Will try house in house CPAP overnite (4) Chronic lymphocytic leukemia: Code(s): C91.10 - Chronic lymphocytic leukemia of B-cell type not having achieved remission Status: Chronic Assessment and Plan: Patient completed chemotherapy for the Holding Venclexta (5) Type 2 diabetes mellitus: Qualifiers: 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 insulin use: without detention use 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 complication status: without complication Qualified Code(s): E11.9 - Type 2 diabetes mellitus without complications Code(s): E11.9 - Type 2 diabetes mellitus without complications Status: Chronic Assessment and Plan: Well controlled Continue to monitor (6) Hemoglobin A1c less than 7.0%: Code(s): R73.09 - Other abnormal glucose Status: Acute Assessment and Plan: Well controlled (7) Right-sided epistaxis: Code(s): R04.0 - Epistaxis Status: Acute Assessment and Plan: Status post silver nitrate cautery Resolved (8) Weakness generalized: Code(s): R53.1 - Weakness Status: Acute Assessment and Plan: Patient has been unable to participated in therapy sessions due to desaturating (9) Paroxysmal atrial flutter: Code(s): I48.92 - Unspecified atrial flutter Status: Acute Assessment and Plan: Rate controlled (10) Diastolic dysfunction: Code(s): I51.89 - Other ill-defined heart diseases Status: Chronic Assessment and Plan: Continue to monitor Intake and output daily Subjective Date/time seen: 05/26/20 16:22 Interval history: 74-year-old female with hypothyroidism, obstructive sleep apnea, type 2 diabetes mellitus, hypertension, paroxysmal atrial flutter status post cardioversion, and chronic lymphocytic leukemia who presented to the emergency department earlier today from home for evaluation of generalized weakness. Pt is here with covid pneumonia, pt is still oxygen dependent. Pt seen by ID and pulmonology see their recommendations. Plts are low today. Review of Systems Review of Systems: All systems reviewed & are unremarkable except as noted in HPI and below Exam Narrative: Exam Narrative: Chronically ill-looking in bed on 15 liters of oxygen Resp: Effort & Inspection: normal respiratory effort, able to speak in complete sentences, not labored and no respiratory distress Cardio: Jugular venous distension: no JVD Skin: General skin exam: pallor Rashes: no rashes Wounds: no wounds Neuro: General: patient oriented x3, CN's II-XI intact bilaterally and No confusion Cranial nerves: Yes CN's II-XII intact bilaterally and Yes Equal, round and reactive pupils present Cognition (Neuro): normal cognition Speech: normal speech Gait exam (Neuro): Normal gait present Motor exam (neuro): 5/5 motor strength present throughout Objective Data Vital Signs Vital Signs: Vital Signs - 24 hr 05/25/20 17:27 05/25/20 18:00 05/25/20 20:00 Temperature 35.8 C L 36.5 C Pulse Rate
[2020-05-26] MEDS: GABAPENTIN 300 MG CAPSULE PO (21:15)
[2020-05-27] VITALS (31 sets, daily range): BP systolic 94–150; BP diastolic 55–88; PULSE 88–114; RESP 16–24; TEMP 35.7–36.8; O2SAT 85–100
[2020-05-27] MEDS: ALBUTEROL SULFATE NEB 2.5 MG/0.5 ML INH INHALATION ×4 (02:19→22:29)
[2020-05-27] MEDS: CENTRAL LINE FLUSH 10 ML IV PUSH ×3 (06:47→21:27)
[2020-05-27] MEDS: MAGNESIUM OXIDE 400 MG TABLET PO (08:10)
[2020-05-27] MEDS: CHOLECALCIFEROL 1,000 UNITS TABLET 1000 UNITS PO (08:10)
[2020-05-27] MEDS: ROSUVASTATIN 10 MG TABLET PO (08:10)
[2020-05-27] MEDS: ASCORBIC ACID 500 MG TABLET 1000 MG PO (08:10)
[2020-05-27] MEDS: ACYCLOVIR 400 MG TABLET PO (08:11)
[2020-05-27] MEDS: MEGESTROL ACETATE (*CHEMO) 40 MG TABLET PO ×4 (08:11→20:23)
[2020-05-27] MEDS: APIXABAN 5 MG TABLET PO ×2 (08:11→20:21)
[2020-05-27] MEDS: FUROSEMIDE INJ 40 MG/4 ML VIAL IV PUSH ×2 (08:12→16:26)
[2020-05-27] MEDS: DEXAMETHASONE SOD PHOS INJ 4 MG/ML VIAL 6 MG IV PUSH (08:12)
[2020-05-27 10:17] LABS: Basophils Percent Auto 0.3 % (0.2-1.2); Hematocrit 37.6 % (37.0-47.0); Hemoglobin 12.2 g/dL (12.0-15.0); Immature Granulocyte Absolute 0.35 K/mm3 (0.00-0.031); Immature Granulocyte Percent A 2.5 % (0-0.5); Immature Platelet Fraction Pct 5.3 % (0.9-11.2); Lymphocytes Absolute Auto 0.22 K/mm3 (0.9-3.2); Lymphocytes Percent Auto 1.6 % (18.3-44.2); Mean Corpuscular HGB Conc 32.4 g/dl (32-36); Mean Corpuscular Hemoglobin 28.6 pg (26-34); Mean Corpuscular Volume 88.1 fl (80-100); Mean Platelet Volume 11.3 fl (7.4-10.4); Monocytes Absolute Auto 0.7 K/mm3 (0.1-0.6); Monocytes Percent Auto 5.2 % (2.6-8.5); Neutrophils Absolute Auto 12.8 K/mm3 (1.3-6.7); Neutrophils Percent Auto 90.4 % (45.5-73.1); Nucleated Red Blood Cells Perc 0.1 % (0.0-0.2); Platelet Count Result 67 k/mm3 (150-375); Red Blood Count 4.27 M/mm3 (4.2-5.4); Red Cell Distribution Width 14.3 % (11.5-14.5); White Blood Count 14.1 K/mm3 (4.5-10.0)
[2020-05-27 10:21] LABS: Anion Gap 4 mmol/L (8-16); Blood Urea Nitrogen 70 mg/dL (7-17); Calcium 9.7 mg/dL (8.4-10.2); Carbon Dioxide 33 mmol/L (22-30); Chloride 98 mmol/L (98-107); Estimated CRCL calculation 32 ml/min; Estimated Glomerular Filt Rate 37; Glucose 177 mg/dL (65-105); Potassium 3.9 mmol/L (3.4-5.0); Sodium 135 mmol/L (137-145)
[2020-05-27 10:35] LABS: Ovalocytes 1+ (NORMAL); Platelet Estimate Decreased (Adequate)
--- NOTE | 2020-05-27 11:05 | PCDIET ---
Nutrition Follow-Up Complete: Nutrition Diagnosis: Inadequate oral intake related to nausea, vomiting, and poor appetite as evidenced by average meal consumption of 13% and patient reported weight loss of 20 pounds in the past 2 weeks. Nutrition Goal: Patient to consume 75% or more of meals on current diet order. Goal in progress. Patient with average intake of 55% of recorded meals since 05/25/20 on heart healthy diet. Reports taking Ensure Clear supplement, but does not care for Nepro. Recommend discontinuing Nepro and increasing Ensure Clear to BID. Last recorded weight is 81.3 kg which is down from last review. -I/O. Bowel Motility: BM x 1 on 05/26/20. Labs Reviewed: WBC (10.9), Glu (169), BUN (67), Cr (1.5), Na (136) Meds Noted: Acyclovir, Albuterol, Vitamin C, Decadron, Lasix, Mag-Ox, Megace, Crestor, Vitamin D Additional Notes: Noted potassium level now normal. Buttocks macerated. Will continue to monitor with same goal. Nutrition Monitoring and Evaluation: Follow up every 5 days.
--- NOTE | 2020-05-27 15:13 | PM.IMPN ---
Progress Note: A&P Assessment and Plan (1) Bilateral pneumonia: Code(s): J18.9 - Pneumonia, unspecified organism Status: Acute Assessment and Plan: Patient completed a course of ceftriaxone Bactrim and acyclovir Was started on Remdesivir and Dexamethasone Supportive care now Awaiting improvement from convalescent plasma remdesivir and dexamethasone for 10 days with supportive care with high flow oxygen. Rpt CXr anticipated DC is 05/30. (2) Acute and chronic respiratory failure with hypoxia: Code(s): J96.21 - Acute and chronic respiratory failure with hypoxia Status: Acute Assessment and Plan: Patient on BiPAP at night time Currently on non-rebreather Appreciate pulmonology note (3) Obstructive sleep apnea on CPAP: Code(s): G47.33 - Obstructive sleep apnea (adult) (pediatric); Z99.89 - Dependence on other enabling machines and devices Status: Chronic Assessment and Plan: Will try house in house CPAP overnite (4) Chronic lymphocytic leukemia: Code(s): C91.10 - Chronic lymphocytic leukemia of B-cell type not having achieved remission Status: Chronic Assessment and Plan: Patient completed chemotherapy for the Holding Venclexta (5) Type 2 diabetes mellitus: 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 insulin use: without shelter use 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 complication status: without complication Qualified Code(s): E11.9 - Type 2 diabetes mellitus without complications Code(s): E11.9 - Type 2 diabetes mellitus without complications Status: Chronic Assessment and Plan: Well controlled Continue to monitor (6) Hemoglobin A1c less than 7.0%: Code(s): R73.09 - Other abnormal glucose Status: Acute Assessment and Plan: Well controlled (7) Right-sided epistaxis: Code(s): R04.0 - Epistaxis Status: Acute Assessment and Plan: Status post silver nitrate cautery Resolved (8) Weakness generalized: Code(s): R53.1 - Weakness Status: Acute Assessment and Plan: Patient has been unable to participated in therapy sessions due to desaturating (9) Paroxysmal atrial flutter: Code(s): I48.92 - Unspecified atrial flutter Status: Acute Assessment and Plan: Rate controlled (10) Diastolic dysfunction: Code(s): I51.89 - Other ill-defined heart diseases Status: Chronic Assessment and Plan: Continue to monitor Intake and output daily Subjective Date/time seen: 05/27/20 15:13 Interval history: 74-year-old female with hypothyroidism, obstructive sleep apnea, type 2 diabetes mellitus, hypertension, paroxysmal atrial flutter status post cardioversion, and chronic lymphocytic leukemia who presented to the emergency department earlier today from home for evaluation of generalized weakness. Pt is here with covid pneumonia, pt is still oxygen dependent. Pt seen by ID and pulmonology see their recommendations. Plts are low today. Cxr today shows pneumonia v pulmonary edema. PT is difficult to wean of the oxygen still remains on 15 liters high flow. Pt to continue with 3 more days of iv steroids and continue on iv lasix for diuresis. Pt has been here longer than 20 days and is needing ongoing hospital stay for medical needs Pt trying to eat something today. Review of Systems Review of Systems: All systems reviewed & are unremarkable except as noted in HPI and below Exam Narrative: Exam Narrative: Chronically ill-looking in bed on 15 liters of oxygen Const: General: comfortable, no acute distress, well developed, alert, awake and other ( chronically ill looking); No confusion Nutritional Appearance: average body habitus Orientation/consciousness: patient oriented x3 and No confusion Neck: Neck: full ROM, no lymphadenopathy and no JVD Thyroid: thyroid normal Lymphatic: no lymphadenopathy noted Resp: Effort & Inspection: normal respiratory effort Ca
[2020-05-27] MEDS: GABAPENTIN 300 MG CAPSULE PO (20:21)
[2020-05-27] MEDS: ALPRAZolam (*CRX) 0.5 MG TABLET PO (21:24)
[2020-05-28] VITALS (29 sets, daily range): BP systolic 112–140; BP diastolic 52–95; PULSE 73–119; RESP 18–34; TEMP 35.8–36.4; O2SAT 89–100
[2020-05-28 04:59] LABS: Basophils Percent Auto 0.1 % (0.2-1.2); Hematocrit 35.7 % (37.0-47.0); Hemoglobin 11.6 g/dL (12.0-15.0); Immature Granulocyte Percent A 2.2 % (0-0.5); Immature Platelet Fraction Pct 5.9 % (0.9-11.2); Lymphocytes Absolute Auto 0.24 K/mm3 (0.9-3.2); Lymphocytes Percent Auto 1.8 % (18.3-44.2); Mean Corpuscular HGB Conc 32.5 g/dl (32-36); Mean Corpuscular Hemoglobin 28.7 pg (26-34); Mean Corpuscular Volume 88.4 fl (80-100); Mean Platelet Volume 11.3 fl (7.4-10.4); Monocytes Absolute Auto 0.7 K/mm3 (0.1-0.6); Monocytes Percent Auto 5.3 % (2.6-8.5); Neutrophils Absolute Auto 12.1 K/mm3 (1.3-6.7); Neutrophils Percent Auto 90.6 % (45.5-73.1); Nucleated Red Blood Cells Perc 0.1 % (0.0-0.2); Platelet Count Result 63 k/mm3 (150-375); Red Blood Count 4.04 M/mm3 (4.2-5.4); Red Cell Distribution Width 14.1 % (11.5-14.5); White Blood Count 13.4 K/mm3 (4.5-10.0)
[2020-05-28] MEDS: CENTRAL LINE FLUSH 10 ML IV PUSH ×3 (05:15→20:59)
[2020-05-28 05:27] LABS: Anion Gap 3 mmol/L (8-16); Blood Urea Nitrogen 65 mg/dL (7-17); Calcium 9.7 mg/dL (8.4-10.2); Carbon Dioxide 35 mmol/L (22-30); Chloride 97 mmol/L (98-107); Estimated CRCL calculation 32 ml/min; Estimated Glomerular Filt Rate 37; Glucose 135 mg/dL (65-105); Sodium 135 mmol/L (137-145)
[2020-05-28] MEDS: ALBUTEROL SULFATE NEB 2.5 MG/0.5 ML INH INHALATION ×3 (07:58→21:17)
[2020-05-28] MEDS: DEXAMETHASONE SOD PHOS INJ 4 MG/ML VIAL 6 MG IV PUSH (08:23)
[2020-05-28] MEDS: FUROSEMIDE INJ 40 MG/4 ML VIAL IV PUSH ×2 (08:23→17:09)
[2020-05-28] MEDS: MAGNESIUM OXIDE 400 MG TABLET PO (08:24)
[2020-05-28] MEDS: CHOLECALCIFEROL 1,000 UNITS TABLET 1000 UNITS PO (08:25)
[2020-05-28] MEDS: ACYCLOVIR 400 MG TABLET PO (08:25)
[2020-05-28] MEDS: ROSUVASTATIN 10 MG TABLET PO (08:25)
[2020-05-28] MEDS: APIXABAN 5 MG TABLET PO ×2 (08:25→20:59)
[2020-05-28] MEDS: MEGESTROL ACETATE (*CHEMO) 40 MG TABLET PO ×3 (08:25→20:58)
[2020-05-28] MEDS: ASCORBIC ACID 500 MG TABLET 1000 MG PO (08:25)
--- NOTE | 2020-05-28 14:21 | PM.IMPN ---
Progress Note: A&P Assessment and Plan (1) Bilateral pneumonia: Code(s): J18.9 - Pneumonia, unspecified organism Status: Acute Assessment and Plan: Patient completed a course of ceftriaxone Bactrim and acyclovir Was started on Remdesivir and Dexamethasone Supportive care now Awaiting improvement from convalescent plasma remdesivir and dexamethasone for 10 days with supportive care with high flow oxygen. Rpt CXr anticipated DC is 05/30. (2) Acute and chronic respiratory failure with hypoxia: Code(s): J96.21 - Acute and chronic respiratory failure with hypoxia Status: Acute Assessment and Plan: Patient on BiPAP at night time Currently on non-rebreather Appreciate pulmonology note (3) Obstructive sleep apnea on CPAP: Code(s): G47.33 - Obstructive sleep apnea (adult) (pediatric); Z99.89 - Dependence on other enabling machines and devices Status: Chronic Assessment and Plan: Will try house in house CPAP overnite (4) Chronic lymphocytic leukemia: Code(s): C91.10 - Chronic lymphocytic leukemia of B-cell type not having achieved remission Status: Chronic Assessment and Plan: Patient completed chemotherapy for the Holding Venclexta (5) Type 2 diabetes mellitus: 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1 - Weakness Status: Acute Assessment and Plan: continue PT/OT (9) Paroxysmal atrial flutter: Code(s): I48.92 - Unspecified atrial flutter Status: Acute Assessment and Plan: Rate controlled (10) Diastolic dysfunction: Code(s): I51.89 - Other ill-defined heart diseases Status: Chronic Assessment and Plan: Continue to monitor Intake and output daily Additional Plan Discussed the need for LTAC if she does not improve by 05/30 Subjective Date/time seen: 05/28/20 14:21 Interval history: 74-year-old female with hypothyroidism, obstructive sleep apnea, type 2 diabetes mellitus, hypertension, paroxysmal atrial flutter status post cardioversion, and chronic lymphocytic leukemia who presented to the emergency department earlier today from home for evaluation of generalized weakness. Pt is here with covid pneumonia, pt is still oxygen dependent. Pt seen by ID and pulmonology see their recommendations. Plts are low today. Cxr today shows pneumonia v pulmonary edema. PT is difficult to wean of the oxygen still remains on 15 liters high flow. Pt to continue with 3 more days of iv steroids and continue on iv lasix for diuresis. Pt has been here longer than 20 days and is needing ongoing hospital stay for medical needs Review of Systems Review of Systems: All systems reviewed & are unremarkable except as noted in HPI and below Exam Narrative: Exam Narrative: Chronically ill-looking in bed on 15 liters of oxygen Const: General: other ( chronically ill looking) HENMT: Head: normocephalic Neck: Neck: full ROM Resp: Effort & Inspection: normal respiratory effort, able to speak in complete sentences, not labored and no respiratory distress Auscultation: crackles bilateral at the base and diminished lung sounds Cardio: Jugular venous distension: no JVD Rate: regular rate Rhythm: regular rhythm Heart sounds: S1 normal heart soun
[2020-05-28] MEDS: SALINE 0.65% NAS SOLN 44 ML BTL 1 SPRAY NASAL (17:15)
[2020-05-28] MEDS: GABAPENTIN 300 MG CAPSULE PO (20:59)
[2020-05-29] VITALS (28 sets, daily range): BP systolic 104–138; BP diastolic 41–89; PULSE 86–113; RESP 20–28; TEMP 35.6–36.5; O2SAT 92–100
[2020-05-29] MEDS: ALBUTEROL SULFATE NEB 2.5 MG/0.5 ML INH INHALATION ×3 (02:53→13:25)
[2020-05-29] MEDS: CENTRAL LINE FLUSH 10 ML IV PUSH ×2 (06:45→20:45)
[2020-05-29 06:54] LABS: Basophils Percent Auto 0.1 % (0.2-1.2); Hematocrit 33.6 % (37.0-47.0); Immature Granulocyte Absolute 0.22 K/mm3 (0.00-0.031); Immature Granulocyte Percent A 1.6 % (0-0.5); Immature Platelet Fraction Pct 5.6 % (0.9-11.2); Lymphocytes Absolute Auto 0.37 K/mm3 (0.9-3.2); Lymphocytes Percent Auto 2.7 % (18.3-44.2); Mean Corpuscular HGB Conc 32.7 g/dl (32-36); Mean Corpuscular Hemoglobin 28.6 pg (26-34); Mean Corpuscular Volume 87.3 fl (80-100); Mean Platelet Volume 11.6 fl (7.4-10.4); Monocytes Absolute Auto 0.7 K/mm3 (0.1-0.6); Monocytes Percent Auto 5.3 % (2.6-8.5); Neutrophils Absolute Auto 12.4 K/mm3 (1.3-6.7); Neutrophils Percent Auto 90.3 % (45.5-73.1); Platelet Count Result 65 k/mm3 (150-375); Red Blood Count 3.85 M/mm3 (4.2-5.4); Red Cell Distribution Width 14.2 % (11.5-14.5); White Blood Count 13.7 K/mm3 (4.5-10.0)
[2020-05-29 07:04] LABS: Anion Gap 3 mmol/L (8-16); Blood Urea Nitrogen 66 mg/dL (7-17); Calcium 9.2 mg/dL (8.4-10.2); Carbon Dioxide 35 mmol/L (22-30); Chloride 99 mmol/L (98-107); Estimated CRCL calculation 32 ml/min; Estimated Glomerular Filt Rate 37; Glucose 117 mg/dL (65-105); Potassium 3.8 mmol/L (3.4-5.0); Sodium 137 mmol/L (137-145)
[2020-05-29 07:45] LABS: Hypochromasia 1+ (NORMAL); Platelet Estimate Decreased (Adequate)
[2020-05-29 07:46] LABS: Ovalocytes 2+ (NORMAL)
[2020-05-29] MEDS: MEGESTROL ACETATE (*CHEMO) 40 MG TABLET PO ×4 (09:08→20:44)
[2020-05-29] MEDS: ASCORBIC ACID 500 MG TABLET 1000 MG PO (09:08)
[2020-05-29] MEDS: ROSUVASTATIN 10 MG TABLET PO (09:08)
[2020-05-29] MEDS: ACYCLOVIR 400 MG TABLET PO (09:08)
[2020-05-29] MEDS: APIXABAN 5 MG TABLET PO ×2 (09:08→20:43)
[2020-05-29] MEDS: CHOLECALCIFEROL 1,000 UNITS TABLET 1000 UNITS PO (09:08)
[2020-05-29] MEDS: MAGNESIUM OXIDE 400 MG TABLET PO (09:08)
[2020-05-29] MEDS: DEXAMETHASONE SOD PHOS INJ 4 MG/ML VIAL 6 MG IV PUSH (09:08)
[2020-05-29] MEDS: FUROSEMIDE INJ 40 MG/4 ML VIAL IV PUSH ×2 (09:09→16:54)
[2020-05-29] MEDS: SALINE 0.65% NAS SOLN 44 ML BTL 1 SPRAY NASAL (09:17)
[2020-05-29] MEDS: NEOMYCIN/POLYMYXIN/BACITRACIN OINTMENT 15 GM TUBE 1 APPLIC TOPICAL (09:17)
--- NOTE | 2020-05-29 15:12 | PM.IMPN ---
Progress Note: A&P Assessment and Plan (1) Bilateral pneumonia: Code(s): J18.9 - Pneumonia, unspecified organism Status: Acute Assessment and Plan: Patient completed a course of ceftriaxone Bactrim and acyclovir Was started on Remdesivir and Dexamethasone, completed steroids. Supportive care now Awaiting improvement from convalescent plasma remdesivir and dexamethasone for 10 days with supportive care with high flow oxygen. Discharge soon to either LTAC or Home with oxygen. (2) Acute and chronic respiratory failure with hypoxia: Code(s): J96.21 - Acute and chronic respiratory failure with hypoxia Status: Acute Assessment and Plan: Patient on BiPAP at night time Currently on non-rebreather Appreciate pulmonology note (3) Obstructive sleep apnea on CPAP: Code(s): G47.33 - Obstructive sleep apnea (adult) (pediatric); Z99.89 - Dependence on other enabling machines and devices Status: Chronic Assessment and Plan: Will try house in house CPAP overnite (4) Chronic lymphocytic leukemia: Code(s): C91.10 - Chronic lymphocytic leukemia of B-cell type not having achieved remission Status: Chronic Assessment and Plan: Patient completed chemotherapy for the Holding Venclexta (5) Type 2 diabetes mellitus: Qualifiers: 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 fci insulin use: without fci use 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 complication status: without complication Qualified Code(s): E11.9 - Type 2 diabetes mellitus without complications Code(s): E11.9 - Type 2 diabetes mellitus without complications Status: Chronic Assessment and Plan: Well controlled Continue to monitor (6) Hemoglobin A1c less than 7.0%: Code(s): R73.09 - Other abnormal glucose Status: Acute Assessment and Plan: Well controlled (7) Right-sided epistaxis: Code(s): R04.0 - Epistaxis Status: Acute Assessment and Plan: Status post silver nitrate cautery Resolved (8) Weakness generalized: Code(s): R53.1 - Weakness Status: Acute Assessment and Plan: continue PT/OT (9) Paroxysmal atrial flutter: Code(s): I48.92 - Unspecified atrial flutter Status: Acute Assessment and Plan: Rate controlled (10) Diastolic dysfunction: Code(s): I51.89 - Other ill-defined heart diseases Status: Chronic Assessment and Plan: Continue to monitor Intake and output daily Additional Plan Discussed the need for LTAC if she does not improve by sunday Subjective Date/time seen: 05/29/20 15:12 Interval history: 74-year-old female with hypothyroidism, obstructive sleep apnea, type 2 diabetes mellitus, hypertension, paroxysmal atrial flutter status post cardioversion, and chronic lymphocytic leukemia who presented to the emergency department earlier today from home for evaluation of generalized weakness. Pt is here with covid pneumonia, pt is still oxygen dependent. Pt seen by ID and pulmonology see their recommendations. Plts are low today. Cxr today shows pneumonia v pulmonary edema. Pt to continue with iv steroids and continue on iv lasix for diuresis. Pt has been here longer than 20 days and is needing ongoing hospital stay for medical needs. Pt weaning off oxygen slowly, down to 10 liters. Review of Systems Review of Systems: All systems reviewed & are unremarkable except as noted in HPI and below Exam Narrative: Exam Narrative: Chronically ill-looking in bed on 10 liters of oxygen Const: General: other ( chronically ill looking); No confusion Orientation/consciousness: patient oriented x3 and No confusion HENMT: General nose exam: Epistaxis present bilaterally Resp: Effort & Inspection: normal respiratory effort, able to speak in complete sentences, not labored and no respiratory distress Cardio: Rate: regular rate Rhythm: regular rhythm Heart sounds: S1 normal heart sound present and S2 normal
[2020-05-29] MEDS: ALBUTEROL SULFATE NEB 2.5 MG/3 ML INH (20:17)
[2020-05-29] MEDS: GABAPENTIN 300 MG CAPSULE PO (20:43)
[2020-05-30] VITALS (26 sets, daily range): BP systolic 104–149; BP diastolic 53–73; PULSE 97–120; RESP 18–21; TEMP 36.2–36.5; O2SAT 85–97
[2020-05-30] MEDS: ALBUTEROL SULFATE NEB 2.5 MG/0.5 ML INH INHALATION ×4 (02:15→20:51)
[2020-05-30] MEDS: CENTRAL LINE FLUSH 10 ML IV PUSH ×2 (06:48→21:26)
[2020-05-30 07:06] LABS: Basophils Percent Auto 0.2 % (0.2-1.2); Hematocrit 32.8 % (37.0-47.0); Hemoglobin 10.8 g/dL (12.0-15.0); Immature Granulocyte Absolute 0.21 K/mm3 (0.00-0.031); Immature Granulocyte Percent A 1.6 % (0-0.5); Immature Platelet Fraction Pct 5.1 % (0.9-11.2); Lymphocytes Absolute Auto 0.22 K/mm3 (0.9-3.2); Lymphocytes Percent Auto 1.7 % (18.3-44.2); Mean Corpuscular HGB Conc 32.9 g/dl (32-36); Mean Corpuscular Hemoglobin 28.6 pg (26-34); Mean Platelet Volume 10.5 fl (7.4-10.4); Monocytes Absolute Auto 0.7 K/mm3 (0.1-0.6); Monocytes Percent Auto 5.2 % (2.6-8.5); Neutrophils Absolute Auto 12.1 K/mm3 (1.3-6.7); Neutrophils Percent Auto 91.3 % (45.5-73.1); Platelet Count Result 75 k/mm3 (150-375); Red Blood Count 3.77 M/mm3 (4.2-5.4); Red Cell Distribution Width 14.4 % (11.5-14.5); White Blood Count 13.3 K/mm3 (4.5-10.0)
[2020-05-30 07:19] LABS: Anion Gap 4 mmol/L (8-16); Blood Urea Nitrogen 65 mg/dL (7-17); Calcium 9.3 mg/dL (8.4-10.2); Carbon Dioxide 36 mmol/L (22-30); Chloride 96 mmol/L (98-107); Estimated CRCL calculation 35 ml/min; Estimated Glomerular Filt Rate 40; Glucose 141 mg/dL (65-105); Potassium 3.3 mmol/L (3.4-5.0); Sodium 136 mmol/L (137-145)
[2020-05-30 07:48] LABS: Platelet Estimate Decreased (Adequate)
[2020-05-30 07:49] LABS: Anisocytosis 1+ (NORMAL); Hypochromasia 1+ (NORMAL); Ovalocytes 1+ (NORMAL)
[2020-05-30] MEDS: DEXAMETHASONE SOD PHOS INJ 4 MG/ML VIAL 6 MG IV PUSH (09:22)
[2020-05-30] MEDS: FUROSEMIDE INJ 40 MG/4 ML VIAL IV PUSH ×2 (09:22→17:33)
[2020-05-30] MEDS: POTASSIUM CHLORIDE 20 MEQ TABLET.ER 40 MEQ PO ×2 (09:27→17:33)
[2020-05-30] MEDS: MEGESTROL ACETATE (*CHEMO) 40 MG TABLET PO ×4 (09:28→21:25)
[2020-05-30] MEDS: ROSUVASTATIN 10 MG TABLET PO (09:28)
[2020-05-30] MEDS: CHOLECALCIFEROL 1,000 UNITS TABLET 1000 UNITS PO (09:28)
[2020-05-30] MEDS: ACYCLOVIR 400 MG TABLET PO (09:28)
[2020-05-30] MEDS: MAGNESIUM OXIDE 400 MG TABLET PO (09:28)
[2020-05-30] MEDS: APIXABAN 5 MG TABLET PO ×2 (09:28→21:25)
[2020-05-30] MEDS: ASCORBIC ACID 500 MG TABLET 1000 MG PO (09:28)
[2020-05-30] MEDS: ALPRAZolam (*CRX) 0.5 MG TABLET PO (10:05)
[2020-05-30] MEDS: ACETAMINOPHEN 325 MG TABLET 650 MG PO (10:05)
[2020-05-30 12:31] LABS: ANCA Screen Negative (Negative)
--- NOTE | 2020-05-30 13:39 | PM.IMPN ---
Progress Note: A&P Assessment and Plan (1) Bilateral pneumonia: Code(s): J18.9 - Pneumonia, unspecified organism Status: Acute Assessment and Plan: Patient completed a course of ceftriaxone Bactrim and acyclovir Was started on Remdesivir and Dexamethasone, completed steroids. Supportive care now Awaiting improvement from convalescent plasma remdesivir and dexamethasone for 10 days with supportive care with high flow oxygen. Discharge soon to Home with oxygen if patient stays at 6-7 liters of oxygen (2) Acute and chronic respiratory failure with hypoxia: Code(s): J96.21 - Acute and chronic respiratory failure with hypoxia Status: Acute Assessment and Plan: Patient on BiPAP at night time Currently on non-rebreather Appreciate pulmonology note (3) Obstructive sleep apnea on CPAP: Code(s): G47.33 - Obstructive sleep apnea (adult) (pediatric); Z99.89 - Dependence on other enabling machines and devices Status: Chronic Assessment and Plan: Will try house in house CPAP overnite (4) Chronic lymphocytic leukemia: Code(s): C91.10 - Chronic lymphocytic leukemia of B-cell type not having achieved remission Status: Chronic Assessment and Plan: Patient completed chemotherapy for the Holding Venclexta (5) Type 2 diabetes mellitus: Qualifiers: 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 complication status: without complication 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 exterminator insulin use: without exterminator use Qualified Code(s): E11.9 - Type 2 diabetes mellitus without complications Code(s): E11.9 - Type 2 diabetes mellitus without complications Status: Chronic Assessment and Plan: Well controlled Continue to monitor (6) Hemoglobin A1c less than 7.0%: Code(s): R73.09 - Other abnormal glucose Status: Acute Assessment and Plan: Well controlled (7) Right-sided epistaxis: Code(s): R04.0 - Epistaxis Status: Acute Assessment and Plan: Status post silver nitrate cautery Resolved (8) Weakness generalized: Code(s): R53.1 - Weakness Status: Acute Assessment and Plan: continue PT/OT (9) Paroxysmal atrial flutter: Code(s): I48.92 - Unspecified atrial flutter Status: Acute Assessment and Plan: Rate controlled (10) Diastolic dysfunction: Code(s): I51.89 - Other ill-defined heart diseases Status: Chronic Assessment and Plan: Continue to monitor Intake and output daily Subjective Date/time seen: 05/30/20 13:39 Interval history: 74-year-old female with hypothyroidism, obstructive sleep apnea, type 2 diabetes mellitus, hypertension, paroxysmal atrial flutter status post cardioversion, and chronic lymphocytic leukemia who presented to the emergency department earlier today from home for evaluation of generalized weakness. Pt is here with covid pneumonia, pt is still oxygen dependent. Pt seen by ID and pulmonology see their recommendations. Plts are low today. Cxr today shows pneumonia v pulmonary edema. Pt has completed her steroid course still to continue on iv lasix for diuresis. Pt has been here longer than 20 days and is needing ongoing hospital stay for medical needs. Pt weaning off oxygen slowly, down to 7 liters. I will order a cxr for tomorrow. Review of Systems Review of Systems: All systems reviewed & are unremarkable except as noted in HPI and below Exam Narrative: Exam Narrative: Chronically ill-looking in bed on 7 liters of oxygen Const: General: other ( chronically ill looking); No confusion Orientation/consciousness: patient oriented x3 Resp: Effort & Inspection: normal respiratory effort, able to speak in complete sentences, not labored and no respiratory distress Skin: General skin exam: pallor Rashes: no rashes Wounds: no wounds Neuro: General: patient oriented x3, CN's II-XI intact bilaterally and No confusion Cranial nerves: Yes CN's II-XII intact
[2020-05-30] MEDS: GABAPENTIN 300 MG CAPSULE PO (21:25)
[2020-05-31] VITALS (28 sets, daily range): BP systolic 113–153; BP diastolic 56–69; PULSE 99–123; RESP 18–35; TEMP 36.1–36.6; O2SAT 72–95
[2020-05-31] MEDS: ALBUTEROL SULFATE NEB 2.5 MG/0.5 ML INH INHALATION ×4 (02:49→21:02)
[2020-05-31] MEDS: CENTRAL LINE FLUSH 10 ML IV PUSH ×3 (05:35→21:03)
[2020-05-31 05:50] LABS: Basophils Percent Auto 0.1 % (0.2-1.2); Hematocrit 30.7 % (37.0-47.0); Hemoglobin 10.2 g/dL (12.0-15.0); Immature Granulocyte Absolute 0.16 K/mm3 (0.00-0.031); Immature Granulocyte Percent A 1.9 % (0-0.5); Lymphocytes Absolute Auto 0.13 K/mm3 (0.9-3.2); Lymphocytes Percent Auto 1.5 % (18.3-44.2); Mean Corpuscular HGB Conc 33.2 g/dl (32-36); Mean Corpuscular Hemoglobin 29.1 pg (26-34); Mean Corpuscular Volume 87.7 fl (80-100); Mean Platelet Volume 11.2 fl (7.4-10.4); Monocytes Absolute Auto 0.5 K/mm3 (0.1-0.6); Monocytes Percent Auto 5.4 % (2.6-8.5); Neutrophils Absolute Auto 7.7 K/mm3 (1.3-6.7); Neutrophils Percent Auto 91.1 % (45.5-73.1); Nucleated Red Blood Cells Perc 0.5 % (0.0-0.2); Platelet Count Result 72 k/mm3 (150-375); Red Cell Distribution Width 14.8 % (11.5-14.5); White Blood Count 8.5 K/mm3 (4.5-10.0)
[2020-05-31 06:02] LABS: Potassium 4.1 mmol/L (3.4-5.0)
[2020-05-31 06:11] LABS: Anion Gap 0 mmol/L (8-16); Blood Urea Nitrogen 58 mg/dL (7-17); Carbon Dioxide 36 mmol/L (22-30); Chloride 101 mmol/L (98-107); Estimated CRCL calculation 41 ml/min; Estimated Glomerular Filt Rate 48; Glucose 153 mg/dL (65-105); Sodium 137 mmol/L (137-145)
[2020-05-31 06:39] LABS: Ovalocytes 1+ (NORMAL); Platelet Estimate Decreased (Adequate); Tear Drop Cells 1+ (NORMAL)
[2020-05-31 06:40] LABS: Anisocytosis 1+ (NORMAL)
[2020-05-31] MEDS: FUROSEMIDE INJ 40 MG/4 ML VIAL IV PUSH ×2 (09:30→17:16)
[2020-05-31] MEDS: ACYCLOVIR 400 MG TABLET PO (09:31)
[2020-05-31] MEDS: CHOLECALCIFEROL 1,000 UNITS TABLET 1000 UNITS PO (09:31)
[2020-05-31] MEDS: MEGESTROL ACETATE (*CHEMO) 40 MG TABLET PO ×4 (09:31→21:03)
[2020-05-31] MEDS: MAGNESIUM OXIDE 400 MG TABLET PO (09:31)
[2020-05-31] MEDS: POTASSIUM CHLORIDE 20 MEQ TABLET.ER 40 MEQ PO ×2 (09:31→17:17)
[2020-05-31] MEDS: ROSUVASTATIN 10 MG TABLET PO (09:31)
[2020-05-31] MEDS: ASCORBIC ACID 500 MG TABLET 1000 MG PO (09:31)
[2020-05-31] MEDS: APIXABAN 5 MG TABLET PO ×2 (09:31→21:03)
--- NOTE | 2020-05-31 14:57 | HOMEO2EVAL ---
Home Oxygen Evaluation RC: Home Oxygen (O2) Evaluation Start: 05/31/20 13:14 Freq: ONCE Status: Active Protocol: RPE Activity Type Activity Date Activity User E-Sign Co-Sign Detail Recorded Client Recorded Date Recorded By Document 05/31/20 14:20 [email or web address] [email or web address] 05/31/20 14:57 KRM Document 05/31/20 14:21 [email or web address] [email or web address] 05/31/20 14:57 KRM Document 05/31/20 14:23 [email or web address] [email or web address] 05/31/20 14:57 KRM Document 05/31/20 14:25 [email or web address] [email or web address] 05/31/20 14:57 KRM Document 05/31/20 14:27 [email or web address] [email or web address] 05/31/20 14:57 KRM 05/31/20 05/31/20 05/31/20 14:20 14:21 14:23 Home O2 Evaluation Test Phase Resting Resting Exercise Oxygen Delivery Room Air Oxymizer Oxymizer Oxygen Flow Rate (L/min) 4 4 Pulse Oximetry (90-100 %) 82 L 90 82 L Pulse Rate (60-100 beats/min) 110 H 111 H 110 H Activity Tolerance Poor Home Oxygen Evaluation Comments Treatment Charges O2 Evaluation - Inpatient 05/31/20 05/31/20 14:25 14:27 Home O2 Evaluation Test Phase Exercise Exercise Oxygen Delivery Oxymizer Oxymizer Oxygen Flow Rate (L/min) 8 10 Pulse Oximetry (90-100 %) 72 L 75 L Pulse Rate (60-100 beats/min) 111 H 112 H Activity Tolerance Poor Poor Home Oxygen Evaluation Comments Sitting on side of bed pt. Spo2 dropped to 75% on 10lpm Oxymizer. Testing stopped and notified provider. Treatment Charges
--- NOTE | 2020-05-31 15:09 | PM.IMPN ---
Progress Note: A&P Assessment and Plan (1) Bilateral pneumonia: Code(s): J18.9 - Pneumonia, unspecified organism Status: Acute Assessment and Plan: Patient completed a course of ceftriaxone Bactrim and acyclovir Was started on Remdesivir and Dexamethasone, completed steroids. Supportive care now Awaiting improvement from convalescent plasma remdesivir and dexamethasone for 10 days with supportive care with high flow oxygen. Discharge soon to Home with oxygen if patient stays at 6-7 liters of oxygen, unable to discharge as pt is desaturating on ambulation. (2) Acute and chronic respiratory failure with hypoxia: Code(s): J96.21 - Acute and chronic respiratory failure with hypoxia Status: Acute Assessment and Plan: Patient on BiPAP at night time Currently on non-rebreather Appreciate pulmonology note (3) Obstructive sleep apnea on CPAP: Code(s): G47.33 - Obstructive sleep apnea (adult) (pediatric); Z99.89 - Dependence on other enabling machines and devices Status: Chronic Assessment and Plan: Will try house in house CPAP overnite (4) Chronic lymphocytic leukemia: Code(s): C91.10 - Chronic lymphocytic leukemia of B-cell type not having achieved remission Status: Chronic Assessment and Plan: Patient completed chemotherapy for the Holding Venclexta (5) Type 2 diabetes mellitus: Qualifiers: 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 nursing home insulin use: without extermination inspector use 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 complication status: without complication Qualified Code(s): E11.9 - Type 2 diabetes mellitus without complications Code(s): E11.9 - Type 2 diabetes mellitus without complications Status: Chronic Assessment and Plan: Well controlled Continue to monitor (6) Hemoglobin A1c less than 7.0%: Code(s): R73.09 - Other abnormal glucose Status: Acute Assessment and Plan: Well controlled (7) Right-sided epistaxis: Code(s): R04.0 - Epistaxis Status: Acute Assessment and Plan: Status post silver nitrate cautery Resolved (8) Weakness generalized: Code(s): R53.1 - Weakness Status: Acute Assessment and Plan: continue PT/OT (9) Paroxysmal atrial flutter: Code(s): I48.92 - Unspecified atrial flutter Status: Acute Assessment and Plan: Rate controlled (10) Diastolic dysfunction: Code(s): I51.89 - Other ill-defined heart diseases Status: Chronic Assessment and Plan: Continue to monitor Intake and output daily Additional Plan Discussed the need for LTAC if she does not improve by Sunday/ . Subjective Date/time seen: 05/31/20 15:09 Interval history: 74-year-old female with hypothyroidism, obstructive sleep apnea, type 2 diabetes mellitus, hypertension, paroxysmal atrial flutter status post cardioversion, and chronic lymphocytic leukemia who presented to the emergency department earlier today from home for evaluation of generalized weakness. Pt is here with covid pneumonia, pt is still oxygen dependent. Pt seen by ID and pulmonology see their recommendations. Pt has completed steroids, she is on 6-7 liters of oxygen. Unfortunately she is still desaturates on ambulation. And i feel she is not ready for dischrage yet. Review of Systems Review of Systems: All systems reviewed & are unremarkable except as noted in HPI and below Exam Narrative: Exam Narrative: Chronically ill-looking in bed on 6 liters of oxygen Const: General: other ( chronically ill looking) Nutritional Appearance: average body habitus Orientation/consciousness: patient oriented x3 HENMT: Head: normocephalic Ears: hearing grossly normal bilaterally General nose exam: Epistaxis present bilaterally Face and sinus: normal facial exam Eyes: General: appearance normal, both eyes and all related structures Pupils: Equal, round and reactive pupils present EOM: EOMs intact bilate
[2020-05-31] MEDS: GABAPENTIN 300 MG CAPSULE PO (21:03)
[2020-06-01] VITALS (25 sets, daily range): BP systolic 112–151; BP diastolic 52–119; PULSE 100–123; RESP 18–29; TEMP 36.1–37.6; O2SAT 86–100
[2020-06-01] MEDS: ALBUTEROL SULFATE NEB 2.5 MG/0.5 ML INH INHALATION ×4 (02:14→19:29)
[2020-06-01 05:52] LABS: Basophils Percent Auto 0.2 % (0.2-1.2); Eosinophils Percent Auto 0.2 % (0-4.4); Immature Granulocyte Absolute 0.16 K/mm3 (0.00-0.031); Immature Granulocyte Percent A 1.3 % (0-0.5); Lymphocytes Absolute Auto 0.18 K/mm3 (0.9-3.2); Lymphocytes Percent Auto 1.4 % (18.3-44.2); Mean Corpuscular HGB Conc 32.4 g/dl (32-36); Mean Corpuscular Volume 89.7 fl (80-100); Mean Platelet Volume 11.5 fl (7.4-10.4); Monocytes Absolute Auto 0.5 K/mm3 (0.1-0.6); Neutrophils Absolute Auto 11.8 K/mm3 (1.3-6.7); Neutrophils Percent Auto 92.9 % (45.5-73.1); Nucleated Red Blood Cells Absolute Auto 0.1 K/mm3 (0.0-0.012); Nucleated Red Blood Cells Perc 0.5 % (0.0-0.2); Platelet Count Result 80 k/mm3 (150-375); Red Blood Count 3.79 M/mm3 (4.2-5.4); Red Cell Distribution Width 15.7 % (11.5-14.5); White Blood Count 12.7 K/mm3 (4.5-10.0)
[2020-06-01 06:04] LABS: Anion Gap 2 mmol/L (8-16); Blood Urea Nitrogen 54 mg/dL (7-17); Calcium 9.7 mg/dL (8.4-10.2); Carbon Dioxide 35 mmol/L (22-30); Chloride 104 mmol/L (98-107); Estimated CRCL calculation 37 ml/min; Estimated Glomerular Filt Rate 44; Glucose 148 mg/dL (65-105); Potassium 4.9 mmol/L (3.4-5.0); Sodium 141 mmol/L (137-145)
[2020-06-01] MEDS: CENTRAL LINE FLUSH 10 ML IV PUSH ×3 (06:07→20:25)
[2020-06-01] MEDS: HEPARIN SOD FLUSH 500 UNITS/5 ML SYRINGE IV PUSH (06:07)
[2020-06-01] MEDS: MEGESTROL ACETATE (*CHEMO) 40 MG TABLET PO ×4 (09:54→20:24)
[2020-06-01] MEDS: ASCORBIC ACID 500 MG TABLET 1000 MG PO (09:55)
[2020-06-01] MEDS: CHOLECALCIFEROL 1,000 UNITS TABLET 1000 UNITS PO (09:55)
[2020-06-01] MEDS: ACYCLOVIR 400 MG TABLET PO (09:56)
[2020-06-01] MEDS: MAGNESIUM OXIDE 400 MG TABLET PO (09:56)
[2020-06-01] MEDS: ROSUVASTATIN 10 MG TABLET PO (09:56)
[2020-06-01] MEDS: APIXABAN 5 MG TABLET PO ×2 (09:56→20:25)
[2020-06-01] MEDS: FUROSEMIDE INJ 40 MG/4 ML VIAL IV PUSH ×2 (09:57→17:57)
--- NOTE | 2020-06-01 12:32 | PCDIET ---
Nutrition Follow-Up Complete: Nutrition Diagnosis: Inadequate oral intake related to nausea, vomiting, and poor appetite as evidenced by average meal consumption of 13% and patient reported weight loss of 20 pounds in the past 2 weeks. Nutrition Goal: Patient to consume 75% or more of meals on current diet order. Goal in progress. Average intake since 05/28/20 has been 63% of recorded meals, but patient does report taking Ensure Clear most of the time. Prefers to continue with Ensure Clear, rather than alternate supplement. Patient continues on heart healthy diet and denies complaints. Last recorded weight is 79.3 kg which is down from last review. Bowel Motility: Last documented BM on 05/29/20 x 1. Labs Reviewed: Hgb (11.0), Hct (34.0), Glu (148), BUN (54), Cr (1.2) Meds Noted: Acyclovir, Albuterol, Vitamin C, Lasix, Mag-Ox, Megace, Crestor, Vitamin D Additional Notes: Left buttock macerated. Will continue to monitor with same goal. Nutrition Monitoring and Evaluation: Follow up every 5 days.
--- NOTE | 2020-06-01 16:54 | PM.IMPN ---
Progress Note: A&P Assessment and Plan (1) Bilateral pneumonia: Code(s): J18.9 - Pneumonia, unspecified organism Status: Acute Assessment and Plan: 06/01/20 16:54 Patient completed a course of ceftriaxone Bactrim and acyclovir Was started on Remdesivir and Dexamethasone, completed steroids. Supportive care now Awaiting improvement from convalescent plasma remdesivir and dexamethasone for 10 days with supportive care with high flow oxygen. Discharge soon to Home with oxygen if patient stays at 6-7 liters of oxygen, unable to discharge as pt is desaturating on ambulation. Today patient is sitting in the chair on high-flow oxygen requiring 6 L, denies any complaint cough or shortness of fever or chills, discussed with the patient will continue to monitor if patient oxygen required decreases below 6 L may do the discharge planning otherwise may have to consider LTAC for the patient. (2) Acute and chronic respiratory failure with hypoxia: Code(s): J96.21 - Acute and chronic respiratory failure with hypoxia Status: Acute Assessment and Plan: Patient on BiPAP at night time Currently on non-rebreather Appreciate pulmonology note (3) Obstructive sleep apnea on CPAP: Code(s): G47.33 - Obstructive sleep apnea (adult) (pediatric); Z99.89 - Dependence on other enabling machines and devices Status: Chronic Assessment and Plan: Will try house in house CPAP overnite (4) Chronic lymphocytic leukemia: Code(s): C91.10 - Chronic lymphocytic leukemia of B-cell type not having achieved remission Status: Chronic Assessment and Plan: Patient completed chemotherapy for the Holding Venclexta (5) Type 2 diabetes mellitus: Qualifiers: 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 retirement insulin use: without retirement use 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 complication status: without complication Qualified Code(s): E11.9 - Type 2 diabetes mellitus without complications Code(s): E11.9 - Type 2 diabetes mellitus without complications Status: Chronic Assessment and Plan: Well controlled Continue to monitor (6) Hemoglobin A1c less than 7.0%: Code(s): R73.09 - Other abnormal glucose Status: Acute Assessment and Plan: Well controlled (7) Right-sided epistaxis: Code(s): R04.0 - Epistaxis Status: Acute Assessment and Plan: Status post silver nitrate cautery Resolved (8) Weakness generalized: Code(s): R53.1 - Weakness Status: Acute Assessment and Plan: continue PT/OT (9) Paroxysmal atrial flutter: Code(s): I48.92 - Unspecified atrial flutter Status: Acute Assessment and Plan: Rate controlled (10) Diastolic dysfunction: Code(s): I51.89 - Other ill-defined heart diseases Status: Chronic Assessment and Plan: Continue to monitor Intake and output daily Additional Plan Discussed the need for LTAC if she does not improve by Sunday/ . Subjective Date/time seen: 06/01/20 16:54 Patient completed a course of ceftriaxone Bactrim and acyclovir Was started on Remdesivir and Dexamethasone, completed steroids. Supportive care now Awaiting improvement from convalescent plasma remdesivir and dexamethasone for 10 days with supportive care with high flow oxygen. Discharge soon to Home with oxygen if patient stays at 6-7 liters of oxygen, unable to discharge as pt is desaturating on ambulation. Today patient is sitting in the chair on high-flow oxygen requiring 6 L, denies any complaint cough or shortness of fever or chills, discussed with the patient will continue to monitor if patient oxygen required decreases below 6 L may do the discharge planning otherwise may have to consider LTAC for the patient. Review of Systems Review of Systems: All systems reviewed & are unremarkable except as noted in HPI and below Exam Narrative: Exam Narrative: Moderately obese Patient is comforta
[2020-06-01] MEDS: GABAPENTIN 300 MG CAPSULE PO (20:25)
[2020-06-02] VITALS (25 sets, daily range): BP systolic 87–142; BP diastolic 54–76; PULSE 98–122; RESP 16–22; TEMP 36.4–36.6; O2SAT 82–100
[2020-06-02] MEDS: ALBUTEROL SULFATE NEB 2.5 MG/0.5 ML INH INHALATION ×4 (02:03→20:30)
[2020-06-02] MEDS: CENTRAL LINE FLUSH 10 ML IV PUSH ×3 (04:04→20:53)
[2020-06-02 04:14] LABS: Eosinophils Absolute Auto 0.1 K/mm3 (0-0.3); Eosinophils Percent Auto 1.2 % (0-4.4); Hematocrit 30.6 % (37.0-47.0); Hemoglobin 9.7 g/dL (12.0-15.0); Immature Granulocyte Percent A 1.5 % (0-0.5); Immature Platelet Fraction Pct 4.6 % (0.9-11.2); Lymphocytes Absolute Auto 0.19 K/mm3 (0.9-3.2); Lymphocytes Percent Auto 2.9 % (18.3-44.2); Mean Corpuscular HGB Conc 31.7 g/dl (32-36); Mean Corpuscular Volume 91.3 fl (80-100); Mean Platelet Volume 10.1 fl (7.4-10.4); Monocytes Absolute Auto 0.2 K/mm3 (0.1-0.6); Monocytes Percent Auto 3.6 % (2.6-8.5); Neutrophils Percent Auto 90.8 % (45.5-73.1); Nucleated Red Blood Cells Perc 0.3 % (0.0-0.2); Platelet Count Result 74 k/mm3 (150-375); Red Blood Count 3.35 M/mm3 (4.2-5.4); Red Cell Distribution Width 15.6 % (11.5-14.5); White Blood Count 6.6 K/mm3 (4.5-10.0)
[2020-06-02 04:22] LABS: Anion Gap -2 mmol/L (8-16); Blood Urea Nitrogen 51 mg/dL (7-17); Calcium 8.8 mg/dL (8.4-10.2); Carbon Dioxide 38 mmol/L (22-30); Chloride 102 mmol/L (98-107); Estimated CRCL calculation 34 ml/min; Estimated Glomerular Filt Rate 40; Glucose 129 mg/dL (65-105); Potassium 3.8 mmol/L (3.4-5.0); Sodium 138 mmol/L (137-145)
[2020-06-02] MEDS: ROSUVASTATIN 10 MG TABLET PO (08:30)
[2020-06-02] MEDS: APIXABAN 5 MG TABLET PO ×2 (08:30→20:53)
[2020-06-02] MEDS: MEGESTROL ACETATE (*CHEMO) 40 MG TABLET PO ×4 (08:30→20:53)
[2020-06-02] MEDS: ACYCLOVIR 400 MG TABLET PO (08:30)
[2020-06-02] MEDS: ASCORBIC ACID 500 MG TABLET 1000 MG PO (08:30)
[2020-06-02] MEDS: FUROSEMIDE INJ 40 MG/4 ML VIAL IV PUSH ×2 (08:31→17:21)
[2020-06-02] MEDS: CHOLECALCIFEROL 1,000 UNITS TABLET 1000 UNITS PO (08:31)
[2020-06-02] MEDS: MAGNESIUM OXIDE 400 MG TABLET PO (08:31)
--- NOTE | 2020-06-02 13:31 | PM.IMPN ---
Progress Note: A&P Assessment and Plan (1) Bilateral pneumonia: Code(s): J18.9 - Pneumonia, unspecified organism Status: Acute Assessment and Plan: 06/02/20 13:31 Patient completed a course of ceftriaxone Bactrim and acyclovir Was started on Remdesivir and Dexamethasone, completed steroids. Supportive care now Awaiting improvement from convalescent plasma remdesivir and dexamethasone for 10 days with supportive care with high flow oxygen. Discharge soon to Home with oxygen if patient stays at 6-7 liters of oxygen, unable to discharge as pt is desaturating on ambulation. 06/01 patient is sitting in the chair on high-flow oxygen requiring 6 L, denies any complaint cough or shortness of fever or chills, discussed with the patient will continue to monitor if patient oxygen required decreases below 6 L may do the discharge planning otherwise may have to consider LTAC for the patient. Today patient continued to desat patient slight exertion and requiring high-flow oxygen patient has completed a course of dexamethasone, remdesivir and also received convalescent plasma however patient oxygen requirement is not improving, will start the patient Solu-Medrol to help reduce inflammation and hopefully improve her oxygen will continue to monitor and further recommendation to follow (2) Acute and chronic respiratory failure with hypoxia: Code(s): J96.21 - Acute and chronic respiratory failure with hypoxia Status: Acute Assessment and Plan: Patient on BiPAP at night time Currently on non-rebreather Appreciate pulmonology note (3) Obstructive sleep apnea on CPAP: Code(s): G47.33 - Obstructive sleep apnea (adult) (pediatric); Z99.89 - Dependence on other enabling machines and devices Status: Chronic Assessment and Plan: Will try house in house CPAP overnite (4) Chronic lymphocytic leukemia: Code(s): C91.10 - Chronic lymphocytic leukemia of B-cell type not having achieved remission Status: Chronic Assessment and Plan: Patient completed chemotherapy for the Holding Venclext[employer] (5) Type 2 diabetes mellitus: Qualifiers: 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 care home insulin use: without senior web developer use 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 complication status: without complication Qualified Code(s): E11.9 - Type 2 diabetes mellitus without complications Code(s): E11.9 - Type 2 diabetes mellitus without complications Status: Chronic Assessment and Plan: Well controlled Continue to monitor (6) Hemoglobin A1c less than 7.0%: Code(s): R73.09 - Other abnormal glucose Status: Acute Assessment and Plan: Well controlled (7) Right-sided epistaxis: Code(s): R04.0 - Epistaxis Status: Acute Assessment and Plan: Status post silver nitrate cautery Resolved (8) Weakness generalized: Code(s): R53.1 - Weakness Status: Acute Assessment and Plan: continue PT/OT (9) Paroxysmal atrial flutter: Code(s): I48.92 - Unspecified atrial flutter Status: Acute Assessment and Plan: Rate controlled (10) Diastolic dysfunction: Code(s): I51.89 - Other ill-defined heart diseases Status: Chronic Assessment and Plan: Continue to monitor Intake and output daily Subjective Date/time seen: 06/02/20 13:31 Patient completed a course of ceftriaxone Bactrim and acyclovir Was started on Remdesivir and Dexamethasone, completed steroids. Supportive care now Awaiting improvement from convalescent plasma remdesivir and dexamethasone for 10 days with supportive care with high flow oxygen. Discharge soon to Home with oxygen if patient stays at 6-7 liters of oxygen, unable to discharge as pt is desaturating on ambulation. 06/01 patient is sitting in the chair on high-flow oxygen requiring 6 L, denies any complaint cough or shortness of fever or chills, discussed with the patient will continue to monitor if patient ox
[2020-06-02] MEDS: methylPREDNISolone SOD SUCC 125 MG VIAL IV PUSH (17:21)
[2020-06-02] MEDS: GABAPENTIN 300 MG CAPSULE PO (20:53)
[2020-06-03] VITALS (25 sets, daily range): BP systolic 116–145; BP diastolic 61–79; PULSE 90–118; RESP 12–24; TEMP 36.1–36.6; O2SAT 91–98
[2020-06-03] MEDS: ALBUTEROL SULFATE NEB 2.5 MG/0.5 ML INH INHALATION ×4 (02:04→19:54)
[2020-06-03] MEDS: CENTRAL LINE FLUSH 10 ML IV PUSH ×3 (04:35→21:03)
[2020-06-03] MEDS: methylPREDNISolone SOD SUCC 125 MG VIAL 60 MG IV PUSH ×3 (04:35→21:03)
[2020-06-03 04:50] LABS: Basophils Percent Auto 0.2 % (0.2-1.2); Hematocrit 29.9 % (37.0-47.0); Hemoglobin 9.6 g/dL (12.0-15.0); Immature Granulocyte Absolute 0.08 K/mm3 (0.00-0.031); Immature Granulocyte Percent A 1.7 % (0-0.5); Immature Platelet Fraction Pct 5.6 % (0.9-11.2); Lymphocytes Absolute Auto 0.07 K/mm3 (0.9-3.2); Lymphocytes Percent Auto 1.5 % (18.3-44.2); Mean Corpuscular HGB Conc 32.1 g/dl (32-36); Mean Corpuscular Hemoglobin 28.7 pg (26-34); Mean Corpuscular Volume 89.3 fl (80-100); Mean Platelet Volume 11.5 fl (7.4-10.4); Monocytes Absolute Auto 0.1 K/mm3 (0.1-0.6); Monocytes Percent Auto 1.7 % (2.6-8.5); Neutrophils Absolute Auto 4.6 K/mm3 (1.3-6.7); Neutrophils Percent Auto 94.9 % (45.5-73.1); Nucleated Red Blood Cells Perc 0.4 % (0.0-0.2); Platelet Count Result 77 k/mm3 (150-375); Red Blood Count 3.35 M/mm3 (4.2-5.4); Red Cell Distribution Width 15.9 % (11.5-14.5); White Blood Count 4.8 K/mm3 (4.5-10.0)
[2020-06-03 05:04] LABS: Anion Gap 2 mmol/L (8-16); Blood Urea Nitrogen 49 mg/dL (7-17); Calcium 8.8 mg/dL (8.4-10.2); Carbon Dioxide 36 mmol/L (22-30); Chloride 99 mmol/L (98-107); Estimated CRCL calculation 34 ml/min; Estimated Glomerular Filt Rate 40; Glucose 192 mg/dL (65-105); Potassium 4.1 mmol/L (3.4-5.0); Sodium 137 mmol/L (137-145)
[2020-06-03] MEDS: MEGESTROL ACETATE (*CHEMO) 40 MG TABLET PO ×4 (08:19→21:03)
[2020-06-03] MEDS: ASCORBIC ACID 500 MG TABLET 1000 MG PO (08:19)
[2020-06-03] MEDS: ACYCLOVIR 400 MG TABLET PO (08:19)
[2020-06-03] MEDS: MAGNESIUM OXIDE 400 MG TABLET PO (08:19)
[2020-06-03] MEDS: ROSUVASTATIN 10 MG TABLET PO (08:19)
[2020-06-03] MEDS: APIXABAN 5 MG TABLET PO ×2 (08:19→21:03)
[2020-06-03] MEDS: FUROSEMIDE INJ 40 MG/4 ML VIAL IV PUSH ×2 (08:19→17:40)
[2020-06-03] MEDS: CHOLECALCIFEROL 1,000 UNITS TABLET 1000 UNITS PO (08:20)
[2020-06-03 08:39] LABS: Alanine Aminotransferase 22 U/L (4-35); Alkaline Phosphatase 77 U/L (38-126); Aspartate Amino Transferase 32 U/L (14-36); Bilirubin,Total 0.4 mg/dL (0.2-1.3); Magnesium 1.9 mg/dL (1.6-2.3)
[2020-06-03] MEDS: ACETAMINOPHEN 325 MG TABLET 650 MG PO (10:22)
[2020-06-03] MEDS: ALPRAZolam (*CRX) 0.5 MG TABLET PO (10:22)
--- NOTE | 2020-06-03 13:46 | PM.IMPN ---
Progress Note: A&P Assessment and Plan (1) Bilateral pneumonia: Code(s): J18.9 - Pneumonia, unspecified organism Status: Acute Assessment and Plan: 06/03/20 13:47 Patient completed a course of ceftriaxone Bactrim and acyclovir Was started on Remdesivir and Dexamethasone, completed steroids. Supportive care now Awaiting improvement from convalescent plasma remdesivir and dexamethasone for 10 days with supportive care with high flow oxygen. Discharge soon to Home with oxygen if patient stays at 6-7 liters of oxygen, unable to discharge as pt is desaturating on ambulation. 06/01 patient is sitting in the chair on high-flow oxygen requiring 6 L, denies any complaint cough or shortness of fever or chills, discussed with the patient will continue to monitor if patient oxygen required decreases below 6 L may do the discharge planning otherwise may have to consider LTAC for the patient. 06/02 patient continued to desat patient slight exertion and requiring high-flow oxygen patient has completed a course of dexamethasone, remdesivir and also received convalescent plasma however patient oxygen requirement is not improving, will start the patient Solu-Medrol to help reduce inflammation and hopefully improve her oxygen will continue to monitor and further recommendation to follow. 06/03 patient was continued to desaturate on 06/02 with any slight exertion started the patient on loading dose of Solu-Medrol 125 mg times and 60 mg Solu-Medrol every 8 hours, to reduce pulmonary inflammation improved oxygenation, today patient is feeling littel better though still desaturating with exertion, recent studies at the [facility] showed addition of inhaled corticosteroid may improve outcome in patient with COVID-19, will add Symbicort, continue to monitor the patient and further recommendation to follow (2) Acute and chronic respiratory failure with hypoxia: Code(s): J96.21 - Acute and chronic respiratory failure with hypoxia Status: Acute Assessment and Plan: Patient on BiPAP at night time Currently on non-rebreather Appreciate pulmonology note (3) Obstructive sleep apnea on CPAP: Code(s): G47.33 - Obstructive sleep apnea (adult) (pediatric); Z99.89 - Dependence on other enabling machines and devices Status: Chronic Assessment and Plan: Will try house in house CPAP overnite (4) Chronic lymphocytic leukemia: Code(s): C91.10 - Chronic lymphocytic leukemia of B-cell type not having achieved remission Status: Chronic Assessment and Plan: Patient completed chemotherapy for the Holding Venclext[employer] (5) Type 2 diabetes mellitus: Qualifiers: 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1 - Weakness Status: Acute Assessment and Plan: continue PT/OT (9) Paroxysmal atrial flutter: Code(s): I48.92 - Unspecified atrial flutter Status: Acute Assessment and Plan: Rate controlled (10) Diastolic dysfunction: Code(s): I51.89 - Other ill-defined heart diseases Status: Chronic Assessment and Plan: Continue to monitor Intake and output daily Additional Plan Discussed the need for LTAC if she does not improve by Sunday/ . Subjective Date/time seen: 06/03/20
[2020-06-03] MEDS: GABAPENTIN 300 MG CAPSULE PO (21:03)
[2020-06-04] VITALS (31 sets, daily range): BP systolic 122–146; BP diastolic 51–72; PULSE 90–122; RESP 12–21; TEMP 36.1–36.7; O2SAT 80–99
[2020-06-04] MEDS: ALBUTEROL SULFATE NEB 2.5 MG/0.5 ML INH INHALATION ×4 (02:57→20:18)
[2020-06-04] MEDS: methylPREDNISolone SOD SUCC 125 MG VIAL 60 MG IV PUSH ×3 (05:06→22:02)
[2020-06-04] MEDS: CENTRAL LINE FLUSH 10 ML IV PUSH ×3 (05:06→22:02)
[2020-06-04 05:14] LABS: Hemoglobin 9.7 g/dL (12.0-15.0); Mean Corpuscular HGB Conc 32.3 g/dl (32-36); Mean Corpuscular Hemoglobin 28.6 pg (26-34); Mean Corpuscular Volume 88.5 fl (80-100); Platelet Count Result 102 k/mm3 (150-375); Red Blood Count 3.39 M/mm3 (4.2-5.4); Red Cell Distribution Width 15.9 % (11.5-14.5); White Blood Count 7.4 K/mm3 (4.5-10.0)
[2020-06-04 05:36] LABS: Alanine Aminotransferase 19 U/L (4-35); Albumin Level 3.1 g/dL (3.5-5.1); Alkaline Phosphatase 79 U/L (38-126); Anion Gap 4 mmol/L (8-16); Aspartate Amino Transferase 26 U/L (14-36); Bilirubin,Total 0.4 mg/dL (0.2-1.3); Blood Urea Nitrogen 61 mg/dL (7-17); CRP 2.2 mg/dL (<1.0); Calcium 9.4 mg/dL (8.4-10.2); Carbon Dioxide 34 mmol/L (22-30); Chloride 98 mmol/L (98-107); Estimated CRCL calculation 28 ml/min; Estimated Glomerular Filt Rate 31; Glucose 212 mg/dL (65-105); Potassium 3.8 mmol/L (3.4-5.0); Sodium 136 mmol/L (137-145)
[2020-06-04 08:42] LABS: Lymphocytes Absolute Manual 0.14 K/mm3 (1.1-4.5); Neutrophils Percent Manual 98 % (46-73); Total Cells Counted 100
[2020-06-04 08:43] LABS: Hypochromasia 1+ (NORMAL)
[2020-06-04 08:44] LABS: Ovalocytes 1+ (NORMAL)
[2020-06-04] MEDS: MAGNESIUM OXIDE 400 MG TABLET PO (09:43)
[2020-06-04] MEDS: MEGESTROL ACETATE (*CHEMO) 40 MG TABLET PO ×4 (09:43→20:11)
[2020-06-04] MEDS: FUROSEMIDE INJ 40 MG/4 ML VIAL IV PUSH ×2 (09:43→17:16)
[2020-06-04] MEDS: ASCORBIC ACID 500 MG TABLET 1000 MG PO (09:43)
[2020-06-04] MEDS: ROSUVASTATIN 10 MG TABLET PO (09:43)
[2020-06-04] MEDS: ACYCLOVIR 400 MG TABLET PO (09:43)
[2020-06-04] MEDS: APIXABAN 5 MG TABLET PO ×2 (09:43→20:11)
[2020-06-04] MEDS: CHOLECALCIFEROL 1,000 UNITS TABLET 1000 UNITS PO (09:43)
--- NOTE | 2020-06-04 11:16 | PCDIET ---
Nutrition Follow-Up Complete: Nutrition Diagnosis: Inadequate oral intake related to nausea, vomiting, and poor appetite as evidenced by average meal consumption of 13% and patient reported weight loss of 20 pounds in the past 2 weeks. Nutrition Goal: Patient to consume 75% or more of meals on current diet order. Goal in progress. Average intake from 06/02/20 has been 63% of recorded meals on heart healthy diet. Patient reports taking Ensure Clear BID. Recommend diabetic, carbohydrate controlled, low sodium diet. Could also consider use of hypoglycemic medication(s), if medically appropriate. Last recorded weight is 78.2 kg which is down 1.1kg from last review. Bowel Motility: Last documented BM on 06/02/20. Labs Reviewed: Hgb (9.7), Hct (30.0), Glu (212), BUN (61), Cr (1.6), Alb (3.1) Meds Noted: Acyclovir, Albuterol, Vitamin C, Symbicort, Lasix, Mag-Ox, Megace, Solu Medrol, Crestor, Vitamin D Additional Notes: Left buttock macerated. No pressure sores documented. Will continue to monitor with same goal. Nutrition Monitoring and Evaluation: Follow up every 5 days.
--- NOTE | 2020-06-04 14:03 | PM.IMPN ---
Progress Note: A&P Assessment and Plan (1) Bilateral pneumonia: Code(s): J18.9 - Pneumonia, unspecified organism Status: Acute Assessment and Plan: 06/04/20 14:03 Patient completed a course of ceftriaxone Bactrim and acyclovir Was started on Remdesivir and Dexamethasone, completed steroids. Supportive care now Awaiting improvement from convalescent plasma remdesivir and dexamethasone for 10 days with supportive care with high flow oxygen. Discharge soon to Home with oxygen if patient stays at 6-7 liters of oxygen, unable to discharge as pt is desaturating on ambulation. 06/01 patient is sitting in the chair on high-flow oxygen requiring 6 L, denies any complaint cough or shortness of fever or chills, discussed with the patient will continue to monitor if patient oxygen required decreases below 6 L may do the discharge planning otherwise may have to consider LTAC for the patient. 06/02 patient continued to desat patient slight exertion and requiring high-flow oxygen patient has completed a course of dexamethasone, remdesivir and also received convalescent plasma however patient oxygen requirement is not improving, will start the patient Solu-Medrol to help reduce inflammation and hopefully improve her oxygen will continue to monitor and further recommendation to follow. 06/03 patient was continued to desaturate on 06/02 with any slight exertion started the patient on loading dose of Solu-Medrol 125 mg times and 60 mg Solu-Medrol every 8 hours, to reduce pulmonary inflammation improved oxygenation, today patient is feeling littel better though still desaturating with exertion, recent studies at the [facility] showed addition of inhaled corticosteroid may improve outcome in patient with COVID-19, will add Symbicort, continue to monitor the patient and further recommendation to follow. 06/04 today patient states feeling much better not a short of breath and was requiring 4 L of oxygen at this morning, will continue present management with Solu-Medrol and Symbicort, will do the home O2 eval and further recommendation to follow if patient is requiring less than 6 L of oxygen and clinically stable we may do discharge planning will continue to monitor and further recommendation to follow (2) Acute and chronic respiratory failure with hypoxia: Code(s): J96.21 - Acute and chronic respiratory failure with hypoxia Status: Acute Assessment and Plan: Patient on BiPAP at night time Currently on non-rebreather Appreciate pulmonology note (3) Obstructive sleep apnea on CPAP: Code(s): G47.33 - Obstructive sleep apnea (adult) (pediatric); Z99.89 - Dependence on other enabling machines and devices Status: Chronic Assessment and Plan: Will try house in house CPAP overnite (4) Chronic lymphocytic leukemia: Code(s): C91.10 - Chronic lymphocytic leukemia of B-cell type not having achieved remission Status: Chronic Assessment and Plan: Patient completed chemotherapy for the Holding Venclexta (5) Type 2 diabetes mellitus: Qualifiers: 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 truck driver insulin use: without intermodal truck driver use 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 complication status: without complication Qualified Code(s): E11.9 - Type 2 diabetes mellitus without complications Code(s): E11.9 - Type 2 diabetes mellitus without complications Status: Chronic Assessment and Plan: Well controlled Continue to monitor (6) Hemoglobin A1c less than 7.0%: Code(s): R73.09 - Other abnormal glucose Status: Acute Assessment and Plan: Well controlled (7) Right-sided epistaxis: Code(s): R04.0 - Epistaxis Status: Acute Assessment and Plan: Status post silver nitrate cautery Resolved (8) Weakness generalized: Code(s): R53.1 - Weakness Status: Acute Assessment and Plan: continue PT/OT (9) Paroxysmal atrial flutter: Code(s): I48.92 - Unspe
--- NOTE | 2020-06-04 16:29 | HOMEO2EVAL ---
Evaluation was performed at [facility] Home Oxygen Evaluation RC: Home Oxygen (O2) Evaluation Start: 06/04/20 10:57 Freq: ONCE Status: Active Protocol: RPE Activity Type Activity Date Activity User E-Sign Co-Sign Detail Recorded Client Recorded Date Recorded By Document 06/04/20 12:00 GERALD [email or web address] 06/04/20 16:29 GERALD Document 06/04/20 12:04 GERALD [email or web address] 06/04/20 16:29 GERALD Document 06/04/20 12:06 GERALD [email or web address] 06/04/20 16:29 GERALD Document 06/04/20 12:10 GERALD [email or web address] 06/04/20 16:29 GERALD Document 06/04/20 12:13 GERALD [email or web address] 06/04/20 16:29 GERALD Document 06/04/20 12:15 GERALD [email or web address] 06/04/20 16:29 GERALD Document 06/04/20 12:18 GERALD [email or web address] 06/04/20 16:29 GERALD Document 06/04/20 12:30 GERALD [email or web address] 06/04/20 16:29 GERALD 06/04/20 06/04/20 06/04/20 12:00 12:04 12:06 Home O2 Evaluation Test Phase Resting Resting Resting Oxygen Delivery Room Air High Flow High Flow Therapy with Therapy with Nasal Cannula Nasal Cannula Oxygen Flow Rate (L/min) 4 6 Pulse Oximetry (90-100 %) 85 L 86 L 90 Pulse Rate (60-100 beats/min) 90 92 99 Activity Tolerance Home Oxygen Evaluation Comments Treatment Charges O2 Evaluation - Inpatient 06/04/20 06/04/20 06/04/20 12:10 12:13 12:15 Home O2 Evaluation Test Phase Exercise Exercise Exercise Oxygen Delivery High Flow High Flow High Flow Therapy with Therapy with Therapy with Nasal Cannula Nasal Cannula Nasal Cannula Oxygen Flow Rate (L/min) 6 7 8 Pulse Oximetry (90-100 %) 80 L 82 L 85 L Pulse Rate (60-100 beats/min) 122 H 118 H 116 H Activity Tolerance Poor Poor Poor Home Oxygen Evaluation Comments up to side of bed, transfer to chair. Treatment Charges 06/04/20 06/04/20 12:18 12:30 Home O2 Evaluation Test Phase Exercise Resting Oxygen Delivery High Flow High Flow Therapy with Therapy with Nasal Cannula Nasal Cannula Oxygen Flow Rate (L/min) 9 6 Pulse Oximetry (90-100 %) 89 L 90 Pulse Rate (60-100 beats/min) 110 H 96 Activity Tolerance Home Oxygen Evaluation Comments Pt requires 6L HFNC rest, 9L HFNC exertion Treatment Charges
--- NOTE | 2020-06-04 16:29 | PCRCNOTE ---
Addendum entered by Katherine Sanders, SILK SNAPPER 06/07/20 08:37: Please disregard note about Home O2 company [employer] and [employer] with [facility]. I charted this info on the wrong pt. This pt. will require a new set up of home O2 if she discharges home. Original Note: Home O2 eval done, Pt could not tolerate Oxymizer at this time. Currently needs a higher continuous flow of O2. Seems to tolerate the high flow cannula much better, although requires a higher liter flow with this device. RN aware, no O2 has been set up with a home O2 company, I think she currently has O2 at home with [employer] from what I have heard. [facility] has the [facility] unit set up.
[2020-06-04] MEDS: ALPRAZolam (*CRX) 0.5 MG TABLET PO (17:28)
[2020-06-04] MEDS: GABAPENTIN 300 MG CAPSULE PO (20:11)
[2020-06-05] VITALS (21 sets, daily range): BP systolic 127–162; BP diastolic 60–109; PULSE 88–108; RESP 12–20; TEMP 36–36.9; O2SAT 87–100
[2020-06-05] MEDS: ALBUTEROL SULFATE NEB 2.5 MG/0.5 ML INH INHALATION ×4 (02:05→21:00)
[2020-06-05] MEDS: methylPREDNISolone SOD SUCC 125 MG VIAL 60 MG IV PUSH ×3 (05:50→21:14)
[2020-06-05] MEDS: CENTRAL LINE FLUSH 10 ML IV PUSH ×3 (05:50→21:15)
[2020-06-05 06:20] LABS: Hematocrit 29.6 % (37.0-47.0); Hemoglobin 9.6 g/dL (12.0-15.0); Immature Granulocyte Absolute 0.09 K/mm3 (0.00-0.031); Immature Granulocyte Percent A 1.4 % (0-0.5); Lymphocytes Absolute Auto 0.09 K/mm3 (0.9-3.2); Lymphocytes Percent Auto 1.4 % (18.3-44.2); Mean Corpuscular HGB Conc 32.4 g/dl (32-36); Mean Corpuscular Hemoglobin 29.5 pg (26-34); Mean Corpuscular Volume 91.1 fl (80-100); Mean Platelet Volume 11.3 fl (7.4-10.4); Monocytes Absolute Auto 0.2 K/mm3 (0.1-0.6); Monocytes Percent Auto 3.6 % (2.6-8.5); Neutrophils Absolute Auto 5.9 K/mm3 (1.3-6.7); Neutrophils Percent Auto 93.6 % (45.5-73.1); Nucleated Red Blood Cells Perc 0.5 % (0.0-0.2); Platelet Count Result 103 k/mm3 (150-375); Red Blood Count 3.25 M/mm3 (4.2-5.4); Red Cell Distribution Width 16.1 % (11.5-14.5); White Blood Count 6.3 K/mm3 (4.5-10.0)
[2020-06-05 06:32] LABS: Alanine Aminotransferase 18 U/L (4-35); Alkaline Phosphatase 69 U/L (38-126); Anion Gap 5 mmol/L (8-16); Aspartate Amino Transferase 23 U/L (14-36); Bilirubin,Total 0.3 mg/dL (0.2-1.3); Blood Urea Nitrogen 74 mg/dL (7-17); CRP 1.1 mg/dL (<1.0); Calcium 9.3 mg/dL (8.4-10.2); Carbon Dioxide 34 mmol/L (22-30); Chloride 99 mmol/L (98-107); Estimated CRCL calculation 26 ml/min; Estimated Glomerular Filt Rate 29; Glucose 212 mg/dL (65-105); Potassium 3.7 mmol/L (3.4-5.0); Sodium 138 mmol/L (137-145)
[2020-06-05 06:52] LABS: Platelet Estimate Adequate (Adequate); Polychromasia 1+ (NORMAL)
[2020-06-05 06:53] LABS: Anisocytosis 1+ (NORMAL); Stomatocytes 1+ (NORMAL)
[2020-06-05] MEDS: ACYCLOVIR 400 MG TABLET PO (08:58)
[2020-06-05] MEDS: MAGNESIUM OXIDE 400 MG TABLET PO (08:58)
[2020-06-05] MEDS: ROSUVASTATIN 10 MG TABLET PO (08:58)
[2020-06-05] MEDS: ASCORBIC ACID 500 MG TABLET 1000 MG PO (08:58)
[2020-06-05] MEDS: FUROSEMIDE INJ 40 MG/4 ML VIAL IV PUSH ×2 (08:59→16:05)
[2020-06-05] MEDS: MEGESTROL ACETATE (*CHEMO) 40 MG TABLET PO ×3 (08:59→21:14)
[2020-06-05] MEDS: CHOLECALCIFEROL 1,000 UNITS TABLET 1000 UNITS PO (08:59)
[2020-06-05] MEDS: APIXABAN 5 MG TABLET PO ×2 (08:59→21:14)
[2020-06-05] MEDS: ALPRAZolam (*CRX) 0.5 MG TABLET PO (10:11)
[2020-06-05] MEDS: SODIUM CHLORIDE 0.9% IV 1,000 ML 125 ML IV CONT (10:11)
--- NOTE | 2020-06-05 15:29 | PM.IMPN ---
Progress Note: A&P Assessment and Plan (1) Bilateral pneumonia: Code(s): J18.9 - Pneumonia, unspecified organism Status: Acute Assessment and Plan: 06/05/20 15:29 Patient completed a course of ceftriaxone Bactrim and acyclovir Was started on Remdesivir and Dexamethasone, completed steroids. Supportive care now Awaiting improvement from convalescent plasma remdesivir and dexamethasone for 10 days with supportive care with high flow oxygen. Discharge soon to Home with oxygen if patient stays at 6-7 liters of oxygen, unable to discharge as pt is desaturating on ambulation. 06/01 patient is sitting in the chair on high-flow oxygen requiring 6 L, denies any complaint cough or shortness of fever or chills, discussed with the patient will continue to monitor if patient oxygen required decreases below 6 L may do the discharge planning otherwise may have to consider LTAC for the patient. 06/02 patient continued to desat patient slight exertion and requiring high-flow oxygen patient has completed a course of dexamethasone, remdesivir and also received convalescent plasma however patient oxygen requirement is not improving, will start the patient Solu-Medrol to help reduce inflammation and hopefully improve her oxygen will continue to monitor and further recommendation to follow. 06/03 patient was continued to desaturate on 06/02 with any slight exertion started the patient on loading dose of Solu-Medrol 125 mg times and 60 mg Solu-Medrol every 8 hours, to reduce pulmonary inflammation improved oxygenation, today patient is feeling littel better though still desaturating with exertion, recent studies at the [facility] showed addition of inhaled corticosteroid may improve outcome in patient with COVID-19, will add Symbicort, continue to monitor the patient and further recommendation to follow. 06/04 today patient states feeling much better not a short of breath and was requiring 4 L of oxygen at this morning, will continue present management with Solu-Medrol and Symbicort, will do the home O2 eval and further recommendation to follow if patient is requiring less than 6 L of oxygen and clinically stable we may do discharge planning will continue to monitor and further recommendation to follow. 06/05 today patient is feeling better and remains on 4 L of oxygen at rest however oxygen requirement does go up to 6 L with exertion and patient wants to go home, patient is not able to do her ADLs and needs assistance indicates desaturate, we will taper her Solu-Medrol to p.o. prednisone and continue Symbicort will continue to monitor have PT OT work with the patient and further recommendation to follow. (2) Acute and chronic respiratory failure with hypoxia: Code(s): J96.21 - Acute and chronic respiratory failure with hypoxia Status: Acute Assessment and Plan: Patient on BiPAP at night time Currently on non-rebreather Appreciate pulmonology note (3) Obstructive sleep apnea on CPAP: Code(s): G47.33 - Obstructive sleep apnea (adult) (pediatric); Z99.89 - Dependence on other enabling machines and devices Status: Chronic Assessment and Plan: Will try house in house CPAP overnite (4) Chronic lymphocytic leukemia: Code(s): C91.10 - Chronic lymphocytic leukemia of B-cell type not having achieved remission Status: Chronic Assessment and Plan: Patient completed chemotherapy for the [employer] (5) Type 2 diabetes mellitus: Qualifiers: 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 longterm insulin use: 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
--- NOTE | 2020-06-05 19:01 | PC.NURSE ---
This patient, Kavitha Ceron[facility] at 1850. Personal belongings sent with patient. Report given to Zeina ORTEGA. Appropriate documentation sent with patient.
[2020-06-05] MEDS: GABAPENTIN 300 MG CAPSULE PO (21:14)
[2020-06-06] VITALS (13 sets, daily range): BP systolic 136–171; BP diastolic 64–87; PULSE 83–104; RESP 14–22; TEMP 35.9–36.6; O2SAT 92–100
[2020-06-06] MEDS: ALBUTEROL SULFATE NEB 2.5 MG/0.5 ML INH INHALATION ×4 (02:25→20:29)
[2020-06-06] MEDS: methylPREDNISolone SOD SUCC 125 MG VIAL 60 MG IV PUSH (06:07)
[2020-06-06] MEDS: CENTRAL LINE FLUSH 10 ML IV PUSH ×3 (06:07→21:54)
[2020-06-06 06:09] LABS: Basophils Percent Auto 0.1 % (0.2-1.2); Hematocrit 30.1 % (37.0-47.0); Hemoglobin 9.9 g/dL (12.0-15.0); Immature Granulocyte Absolute 0.13 K/mm3 (0.00-0.031); Immature Granulocyte Percent A 1.8 % (0-0.5); Lymphocytes Absolute Auto 0.11 K/mm3 (0.9-3.2); Lymphocytes Percent Auto 1.5 % (18.3-44.2); Mean Corpuscular HGB Conc 32.9 g/dl (32-36); Mean Corpuscular Hemoglobin 29.7 pg (26-34); Mean Corpuscular Volume 90.4 fl (80-100); Mean Platelet Volume 11.2 fl (7.4-10.4); Monocytes Absolute Auto 0.3 K/mm3 (0.1-0.6); Neutrophils Absolute Auto 6.7 K/mm3 (1.3-6.7); Neutrophils Percent Auto 92.6 % (45.5-73.1); Nucleated Red Blood Cells Perc 0.4 % (0.0-0.2); Platelet Count Result 111 k/mm3 (150-375); Red Blood Count 3.33 M/mm3 (4.2-5.4); Red Cell Distribution Width 16.1 % (11.5-14.5); White Blood Count 7.2 K/mm3 (4.5-10.0)
[2020-06-06 06:23] LABS: Alanine Aminotransferase 19 U/L (4-35); Albumin Level 3.2 g/dL (3.5-5.1); Alkaline Phosphatase 56 U/L (38-126); Anion Gap 5 mmol/L (8-16); Aspartate Amino Transferase 25 U/L (14-36); Bilirubin,Total 0.5 mg/dL (0.2-1.3); Blood Urea Nitrogen 80 mg/dL (7-17); CRP 0.8 mg/dL (<1.0); Calcium 9.2 mg/dL (8.4-10.2); Carbon Dioxide 33 mmol/L (22-30); Chloride 97 mmol/L (98-107); Estimated CRCL calculation 37 ml/min; Estimated Glomerular Filt Rate 44; Glucose 220 mg/dL (65-105); Sodium 135 mmol/L (137-145)
[2020-06-06 06:53] LABS: Anisocytosis 1+ (NORMAL); Microcytosis 1+ (NORMAL); Platelet Estimate Decreased (Adequate); Polychromasia 1+ (NORMAL)
[2020-06-06] MEDS: MEGESTROL ACETATE (*CHEMO) 40 MG TABLET PO ×4 (10:35→20:52)
[2020-06-06] MEDS: ACYCLOVIR 400 MG TABLET PO (10:36)
[2020-06-06] MEDS: ROSUVASTATIN 10 MG TABLET PO (10:36)
[2020-06-06] MEDS: CHOLECALCIFEROL 1,000 UNITS TABLET 1000 UNITS PO (10:36)
[2020-06-06] MEDS: FUROSEMIDE INJ 40 MG/4 ML VIAL IV PUSH ×2 (10:37→18:13)
[2020-06-06] MEDS: APIXABAN 5 MG TABLET PO ×2 (10:37→20:52)
[2020-06-06] MEDS: MAGNESIUM OXIDE 400 MG TABLET PO (11:25)
[2020-06-06] MEDS: ASCORBIC ACID 500 MG TABLET 1000 MG PO (11:25)
--- NOTE | 2020-06-06 14:28 | PM.IMPN ---
Progress Note: A&P Assessment and Plan (1) Bilateral pneumonia: Code(s): J18.9 - Pneumonia, unspecified organism Status: Acute Assessment and Plan: 06/06/20 14:29 Patient completed a course of ceftriaxone Bactrim and acyclovir Was started on Remdesivir and Dexamethasone, completed steroids. Supportive care now Awaiting improvement from convalescent plasma remdesivir and dexamethasone for 10 days with supportive care with high flow oxygen. Discharge soon to Home with oxygen if patient stays at 6-7 liters of oxygen, unable to discharge as pt is desaturating on ambulation. 06/01 patient is sitting in the chair on high-flow oxygen requiring 6 L, denies any complaint cough or shortness of fever or chills, discussed with the patient will continue to monitor if patient oxygen required decreases below 6 L may do the discharge planning otherwise may have to consider LTAC for the patient. 06/02 patient continued to desat patient slight exertion and requiring high-flow oxygen patient has completed a course of dexamethasone, remdesivir and also received convalescent plasma however patient oxygen requirement is not improving, will start the patient Solu-Medrol to help reduce inflammation and hopefully improve her oxygen will continue to monitor and further recommendation to follow. 06/03 patient was continued to desaturate on 06/02 with any slight exertion started the patient on loading dose of Solu-Medrol 125 mg times and 60 mg Solu-Medrol every 8 hours, to reduce pulmonary inflammation improved oxygenation, today patient is feeling littel better though still desaturating with exertion, recent studies at the [facility] showed addition of inhaled corticosteroid may improve outcome in patient with COVID-19, will add Symbicort, continue to monitor the patient and further recommendation to follow. 06/04 today patient states feeling much better not a short of breath and was requiring 4 L of oxygen at this morning, will continue present management with Solu-Medrol and Symbicort, will do the home O2 eval and further recommendation to follow if patient is requiring less than 6 L of oxygen and clinically stable we may do discharge planning will continue to monitor and further recommendation to follow. 06/05 today patient is feeling better and remains on 4 L of oxygen at rest however oxygen requirement does go up to 6 L with exertion and patient wants to go home, patient is not able to do her ADLs and needs assistance indicates desaturate, we will taper her Solu-Medrol to p.o. prednisone and continue Symbicort will continue to monitor have PT OT work with the patient and further recommendation to follow. 06/06 today patient sitting on the side of the bed, is feeling better and remains on 4 L of oxygen at rest however oxygen requirement does go up to 6 L with exertion and patient wants to go home, discussed with physical therapy, patient is requiring full assistance, patient is not able to do her ADLs and needs assistance indicates desaturate, we will taper her Solu-Medrol to p.o. prednisone and continue Symbicort will continue to monitor have PT OT work with the patient and further recommendation to follow. Non that the patient oxygen requirement is between 4-6 L patient may qualify to go to [facility] for rehab will discuss with managed care nurse and further recommendation to follow. (2) Acute and chronic respiratory failure with hypoxia: Code(s): J96.21 - Acute and chronic respiratory failure with hypoxia Status: Acute Assessment and Plan: Patient on BiPAP at night time Currently on non-rebreather Appreciate pulmonology note (3) Obstructive sleep apnea on CPAP: Code(s): G47.33 - Obstructive sleep apnea (adult) (pediatric); Z99.89 - Dependence on other enabling machines and devices Status: Chronic Assessment and Plan: Will try house in house CPAP overnite (4) Chronic lymphocytic leukemia: Code(s):
--- NOTE | 2020-06-06 14:40 | ECG_ITS ---
Measurements Intervals [place] Rate: 121 P: RI: 0 QRS: 13 QRSD: 97 T: 138 QT: 294 QTc: 417 Interpretive Statements MULTIFOCAL ATRIAL TACHYCARDIA ATRIAL PREMATURE COMPLEXES ST-T WAVE ABNORMALITY IN HIGH LATERAL LEADS- CONSIDER ISCHEMIA ABNORMAL ECG Electronically Signed On 06-06-2020 21:55:38 CDT by Flip Staley D.O.
[2020-06-06] MEDS: dilTIAZem HCL 30 MG TABLET 90 MG PO ×2 (15:32→20:52)
[2020-06-06] MEDS: GABAPENTIN 300 MG CAPSULE PO (20:53)
[2020-06-07] VITALS (16 sets, daily range): BP systolic 113–114; BP diastolic 50–86; PULSE 71–90; RESP 14–20; TEMP 35.9–36.6; O2SAT 93–100
[2020-06-07] MEDS: ALBUTEROL SULFATE NEB 2.5 MG/0.5 ML INH INHALATION ×4 (01:15→19:56)
[2020-06-07] MEDS: CENTRAL LINE FLUSH 10 ML IV PUSH ×3 (05:53→22:00)
[2020-06-07 05:59] LABS: Basophils Percent Auto 0.1 % (0.2-1.2); Hematocrit 28.9 % (37.0-47.0); Hemoglobin 9.5 g/dL (12.0-15.0); Immature Granulocyte Absolute 0.14 K/mm3 (0.00-0.031); Immature Granulocyte Percent A 1.9 % (0-0.5); Lymphocytes Absolute Auto 0.09 K/mm3 (0.9-3.2); Lymphocytes Percent Auto 1.2 % (18.3-44.2); Mean Corpuscular HGB Conc 32.9 g/dl (32-36); Mean Corpuscular Hemoglobin 29.5 pg (26-34); Mean Corpuscular Volume 89.8 fl (80-100); Mean Platelet Volume 10.8 fl (7.4-10.4); Monocytes Absolute Auto 0.5 K/mm3 (0.1-0.6); Monocytes Percent Auto 6.5 % (2.6-8.5); Neutrophils Absolute Auto 6.5 K/mm3 (1.3-6.7); Neutrophils Percent Auto 90.3 % (45.5-73.1); Nucleated Red Blood Cells Absolute Auto 0.1 K/mm3 (0.0-0.012); Nucleated Red Blood Cells Perc 0.7 % (0.0-0.2); Platelet Count Result 115 k/mm3 (150-375); Red Blood Count 3.22 M/mm3 (4.2-5.4); Red Cell Distribution Width 16.5 % (11.5-14.5); White Blood Count 7.2 K/mm3 (4.5-10.0)
[2020-06-07 06:13] LABS: Alanine Aminotransferase 21 U/L (4-35); Alkaline Phosphatase 61 U/L (38-126); Anion Gap 6 mmol/L (8-16); Aspartate Amino Transferase 29 U/L (14-36); Bilirubin,Total 0.3 mg/dL (0.2-1.3); Blood Urea Nitrogen 81 mg/dL (7-17); CRP 0.5 mg/dL (<1.0); Calcium 9.5 mg/dL (8.4-10.2); Carbon Dioxide 33 mmol/L (22-30); Chloride 97 mmol/L (98-107); Estimated CRCL calculation 26 ml/min; Estimated Glomerular Filt Rate 29; Glucose 207 mg/dL (65-105); Potassium 3.7 mmol/L (3.4-5.0); Sodium 136 mmol/L (137-145)
[2020-06-07 06:30] LABS: Anisocytosis 1+ (NORMAL); Microcytosis 1+ (NORMAL); Ovalocytes 1+ (NORMAL); Platelet Estimate Decreased (Adequate); Polychromasia 1+ (NORMAL)
[2020-06-07] MEDS: predniSONE 40 MG, predniSONE 10 MG 50 MG PO (08:58)
[2020-06-07] MEDS: MEGESTROL ACETATE (*CHEMO) 40 MG TABLET PO ×4 (08:58→20:06)
[2020-06-07] MEDS: POTASSIUM CHLORIDE 20 MEQ TABLET 40 MEQ PO (08:58)
[2020-06-07] MEDS: APIXABAN 5 MG TABLET PO ×2 (08:58→20:06)
[2020-06-07] MEDS: CHOLECALCIFEROL 1,000 UNITS TABLET 1000 UNITS PO (08:59)
[2020-06-07] MEDS: ACYCLOVIR 400 MG TABLET PO (08:59)
[2020-06-07] MEDS: ASCORBIC ACID 500 MG TABLET 1000 MG PO (09:03)
[2020-06-07] MEDS: ROSUVASTATIN 10 MG TABLET PO (09:03)
[2020-06-07] MEDS: dilTIAZem HCL 30 MG TABLET 90 MG PO ×2 (09:04→20:06)
[2020-06-07] MEDS: FUROSEMIDE INJ 40 MG/4 ML VIAL IV PUSH ×2 (09:04→17:46)
[2020-06-07] MEDS: MAGNESIUM OXIDE 400 MG TABLET PO (09:04)
--- NOTE | 2020-06-07 14:28 | PM.IMPN ---
Progress Note: A&P Assessment and Plan (1) Bilateral pneumonia: Code(s): J18.9 - Pneumonia, unspecified organism Status: Acute Assessment and Plan: 06/07/20 14:28 Patient completed a course of ceftriaxone Bactrim and acyclovir Was started on Remdesivir and Dexamethasone, completed steroids. Supportive care now Awaiting improvement from convalescent plasma remdesivir and dexamethasone for 10 days with supportive care with high flow oxygen. Discharge soon to Home with oxygen if patient stays at 6-7 liters of oxygen, unable to discharge as pt is desaturating on ambulation. 06/01 patient is sitting in the chair on high-flow oxygen requiring 6 L, denies any complaint cough or shortness of fever or chills, discussed with the patient will continue to monitor if patient oxygen required decreases below 6 L may do the discharge planning otherwise may have to consider LTAC for the patient. 06/02 patient continued to desat patient slight exertion and requiring high-flow oxygen patient has completed a course of dexamethasone, remdesivir and also received convalescent plasma however patient oxygen requirement is not improving, will start the patient Solu-Medrol to help reduce inflammation and hopefully improve her oxygen will continue to monitor and further recommendation to follow. 06/03 patient was continued to desaturate on 06/02 with any slight exertion started the patient on loading dose of Solu-Medrol 125 mg times and 60 mg Solu-Medrol every 8 hours, to reduce pulmonary inflammation improved oxygenation, today patient is feeling littel better though still desaturating with exertion, recent studies at the [facility] showed addition of inhaled corticosteroid may improve outcome in patient with COVID-19, will add Symbicort, continue to monitor the patient and further recommendation to follow. 06/04 today patient states feeling much better not a short of breath and was requiring 4 L of oxygen at this morning, will continue present management with Solu-Medrol and Symbicort, will do the home O2 eval and further recommendation to follow if patient is requiring less than 6 L of oxygen and clinically stable we may do discharge planning will continue to monitor and further recommendation to follow. 06/05 today patient is feeling better and remains on 4 L of oxygen at rest however oxygen requirement does go up to 6 L with exertion and patient wants to go home, patient is not able to do her ADLs and needs assistance indicates desaturate, we will taper her Solu-Medrol to p.o. prednisone and continue Symbicort will continue to monitor have PT OT work with the patient and further recommendation to follow. 06/06 today patient sitting on the side of the bed, is feeling better and remains on 4 L of oxygen at rest however oxygen requirement does go up to 6 L with exertion and patient wants to go home, discussed with physical therapy, patient is requiring full assistance, patient is not able to do her ADLs and needs assistance indicates desaturate, we will taper her Solu-Medrol to p.o. prednisone and continue Symbicort will continue to monitor have PT OT work with the patient and further recommendation to follow. Non that the patient oxygen requirement is between 4-6 L patient may qualify to go to [facility] for rehab will discuss with children's zoo caretaker and further recommendation to follow. 06/07 today again patient participated in ADL and desaturating with slight exertion and needs assistance, patient is requiring high-flow oxygen 9L unable to discharge the patient home, patient is not able to [facility] such high requirement oxygen and her family does not want her to go to [facility], will discuss with children's zoo caretaker and further recommendation to follow, (2) Acute and chronic respiratory failure with hypoxia: Code(s): J96.21 - Acute and chronic respiratory failure with hypoxia Status: Acute Assessment and Plan: Patient on BiPAP a
--- NOTE | 2020-06-07 15:39 | PCRCNOTE ---
SPOKE WITH CHERYL AT [facility] TODAY. DME SET UP HIGH FLOW CONCENTRATOR AT PATIENT'S HOME ON SUNDAY FOR PATIENT. WHEN THE PATIENT GETS CLOSER TO DISCHARGE DATE SHE WILL NEED RE EVALUATED TO SEE IF SHE STILL NEEDS HER CURRENT HOME OXYGEN SETTINGS OF 6LPM AT REST AND 9LPM WITH ACTIVITY.
[2020-06-08] VITALS (12 sets, daily range): BP systolic 117–152; BP diastolic 53–57; PULSE 60–99; RESP 16–22; TEMP 35.6–36.6; O2SAT 96–98
[2020-06-08] MEDS: ALBUTEROL SULFATE NEB 2.5 MG/0.5 ML INH INHALATION ×4 (02:01→20:06)
[2020-06-08 05:03] LABS: Basophils Percent Auto 0.1 % (0.2-1.2); Hematocrit 28.8 % (37.0-47.0); Hemoglobin 9.6 g/dL (12.0-15.0); Immature Granulocyte Absolute 0.16 K/mm3 (0.00-0.031); Immature Granulocyte Percent A 1.9 % (0-0.5); Lymphocytes Absolute Auto 0.09 K/mm3 (0.9-3.2); Lymphocytes Percent Auto 1.1 % (18.3-44.2); Mean Corpuscular HGB Conc 33.3 g/dl (32-36); Mean Corpuscular Hemoglobin 29.6 pg (26-34); Mean Corpuscular Volume 88.9 fl (80-100); Mean Platelet Volume 11.3 fl (7.4-10.4); Monocytes Absolute Auto 0.6 K/mm3 (0.1-0.6); Monocytes Percent Auto 6.6 % (2.6-8.5); Neutrophils Absolute Auto 7.5 K/mm3 (1.3-6.7); Neutrophils Percent Auto 90.3 % (45.5-73.1); Nucleated Red Blood Cells Absolute Auto 0.1 K/mm3 (0.0-0.012); Nucleated Red Blood Cells Perc 1.1 % (0.0-0.2); Platelet Count Result 131 k/mm3 (150-375); Red Blood Count 3.24 M/mm3 (4.2-5.4); Red Cell Distribution Width 16.8 % (11.5-14.5); White Blood Count 8.3 K/mm3 (4.5-10.0)
[2020-06-08] MEDS: CENTRAL LINE FLUSH 10 ML IV PUSH ×3 (05:17→21:03)
[2020-06-08 05:18] LABS: Alanine Aminotransferase 24 U/L (4-35); Alkaline Phosphatase 63 U/L (38-126); Anion Gap 5 mmol/L (8-16); Aspartate Amino Transferase 27 U/L (14-36); Bilirubin,Total 0.5 mg/dL (0.2-1.3); Blood Urea Nitrogen 82 mg/dL (7-17); CRP < 0.5 mg/dL (<1.0); Calcium 9.6 mg/dL (8.4-10.2); Carbon Dioxide 33 mmol/L (22-30); Chloride 101 mmol/L (98-107); Estimated CRCL calculation 28 ml/min; Estimated Glomerular Filt Rate 31; Glucose 191 mg/dL (65-105); Potassium 4.1 mmol/L (3.4-5.0); Sodium 139 mmol/L (137-145)
[2020-06-08] MEDS: FUROSEMIDE INJ 40 MG/4 ML VIAL IV PUSH ×2 (08:48→17:18)
[2020-06-08] MEDS: ACYCLOVIR 400 MG TABLET PO (08:49)
[2020-06-08] MEDS: APIXABAN 5 MG TABLET PO ×2 (08:49→21:03)
[2020-06-08] MEDS: dilTIAZem HCL 30 MG TABLET 90 MG PO ×2 (08:49→21:03)
[2020-06-08] MEDS: MEGESTROL ACETATE (*CHEMO) 40 MG TABLET PO ×2 (08:49→13:49)
[2020-06-08] MEDS: predniSONE 40 MG, predniSONE 10 MG 50 MG PO (08:49)
[2020-06-08] MEDS: MAGNESIUM OXIDE 400 MG TABLET PO (08:50)
[2020-06-08] MEDS: HEPARIN SOD FLUSH 500 UNITS/5 ML SYRINGE IV PUSH (13:49)
--- NOTE | 2020-06-08 15:02 | PM.IMPN ---
Progress Note: A&P Assessment and Plan (1) Bilateral pneumonia: Code(s): J18.9 - Pneumonia, unspecified organism Status: Acute Assessment and Plan: 06/08/20 15:02 Patient completed a course of ceftriaxone Bactrim and acyclovir Was started on Remdesivir and Dexamethasone, completed steroids. Supportive care now Awaiting improvement from convalescent plasma remdesivir and dexamethasone for 10 days with supportive care with high flow oxygen. Discharge soon to Home with oxygen if patient stays at 6-7 liters of oxygen, unable to discharge as pt is desaturating on ambulation. 06/01 patient is sitting in the chair on high-flow oxygen requiring 6 L, denies any complaint cough or shortness of fever or chills, discussed with the patient will continue to monitor if patient oxygen required decreases below 6 L may do the discharge planning otherwise may have to consider LTAC for the patient. 06/02 patient continued to desat patient slight exertion and requiring high-flow oxygen patient has completed a course of dexamethasone, remdesivir and also received convalescent plasma however patient oxygen requirement is not improving, will start the patient Solu-Medrol to help reduce inflammation and hopefully improve her oxygen will continue to monitor and further recommendation to follow. 06/03 patient was continued to desaturate on 06/02 with any slight exertion started the patient on loading dose of Solu-Medrol 125 mg times and 60 mg Solu-Medrol every 8 hours, to reduce pulmonary inflammation improved oxygenation, today patient is feeling littel better though still desaturating with exertion, recent studies at the [facility] showed addition of inhaled corticosteroid may improve outcome in patient with COVID-19, will add Symbicort, continue to monitor the patient and further recommendation to follow. 06/04 today patient states feeling much better not a short of breath and was requiring 4 L of oxygen at this morning, will continue present management with Solu-Medrol and Symbicort, will do the home O2 eval and further recommendation to follow if patient is requiring less than 6 L of oxygen and clinically stable we may do discharge planning will continue to monitor and further recommendation to follow. 06/05 today patient is feeling better and remains on 4 L of oxygen at rest however oxygen requirement does go up to 6 L with exertion and patient wants to go home, patient is not able to do her ADLs and needs assistance indicates desaturate, we will taper her Solu-Medrol to p.o. prednisone and continue Symbicort will continue to monitor have PT OT work with the patient and further recommendation to follow. 06/06 today patient sitting on the side of the bed, is feeling better and remains on 4 L of oxygen at rest however oxygen requirement does go up to 6 L with exertion and patient wants to go home, discussed with physical therapy, patient is requiring full assistance, patient is not able to do her ADLs and needs assistance indicates desaturate, we will taper her Solu-Medrol to p.o. prednisone and continue Symbicort will continue to monitor have PT OT work with the patient and further recommendation to follow. Non that the patient oxygen requirement is between 4-6 L patient may qualify to go to [facility] for rehab will discuss with child care team lead and further recommendation to follow. 06/07 today again patient participated in ADL and desaturating with slight exertion and needs assistance, patient is requiring high-flow oxygen 9L unable to discharge the patient home, patient is not able to retirement such high requirement oxygen and her family does not want her to go to retirement, will discuss with child care team lead and further recommendation to follow, 06/08 patient continued to desaturate into 70s on 7 L with exertion unable to be discharged at home or retirement it such high oxygen requirement, I had placed RO Solu-Medrol to help improve her oxygen
--- NOTE | 2020-06-08 15:53 | PC.NURSE ---
Observed care and reviewed documentation completed by Rodney GOLDBERG [id number]
[2020-06-08] MEDS: DOCUSATE SODIUM 100 MG CAPSULE PO (21:03)
[2020-06-08] MEDS: GABAPENTIN 300 MG CAPSULE PO (21:03)
[2020-06-09] VITALS (13 sets, daily range): BP systolic 128–160; BP diastolic 53–72; PULSE 74–100; RESP 18–19; TEMP 36.4–36.6; O2SAT 92–100
[2020-06-09] MEDS: ALBUTEROL SULFATE NEB 2.5 MG/0.5 ML INH INHALATION ×4 (01:40→20:02)
[2020-06-09] MEDS: CENTRAL LINE FLUSH 10 ML IV PUSH ×3 (05:30→21:09)
[2020-06-09 05:37] LABS: Basophils Percent Auto 0.1 % (0.2-1.2); Hematocrit 28.1 % (37.0-47.0); Hemoglobin 9.1 g/dL (12.0-15.0); Immature Granulocyte Absolute 0.13 K/mm3 (0.00-0.031); Immature Granulocyte Percent A 1.8 % (0-0.5); Lymphocytes Absolute Auto 0.13 K/mm3 (0.9-3.2); Lymphocytes Percent Auto 1.8 % (18.3-44.2); Mean Corpuscular HGB Conc 32.4 g/dl (32-36); Mean Corpuscular Hemoglobin 29.7 pg (26-34); Mean Corpuscular Volume 91.8 fl (80-100); Mean Platelet Volume 10.5 fl (7.4-10.4); Monocytes Absolute Auto 0.4 K/mm3 (0.1-0.6); Monocytes Percent Auto 5.8 % (2.6-8.5); Neutrophils Absolute Auto 6.6 K/mm3 (1.3-6.7); Neutrophils Percent Auto 90.5 % (45.5-73.1); Nucleated Red Blood Cells Absolute Auto 0.1 K/mm3 (0.0-0.012); Platelet Count Result 117 k/mm3 (150-375); Red Blood Count 3.06 M/mm3 (4.2-5.4); Red Cell Distribution Width 17.4 % (11.5-14.5); White Blood Count 7.3 K/mm3 (4.5-10.0)
[2020-06-09 05:54] LABS: Alanine Aminotransferase 23 U/L (4-35); Albumin Level 2.7 g/dL (3.5-5.1); Alkaline Phosphatase 56 U/L (38-126); Anion Gap 2 mmol/L (8-16); Aspartate Amino Transferase 27 U/L (14-36); Bilirubin,Total 0.4 mg/dL (0.2-1.3); Blood Urea Nitrogen 80 mg/dL (7-17); CRP 0.5 mg/dL (<1.0); Calcium 9.4 mg/dL (8.4-10.2); Carbon Dioxide 37 mmol/L (22-30); Chloride 100 mmol/L (98-107); Estimated CRCL calculation 30 ml/min; Estimated Glomerular Filt Rate 34; Glucose 161 mg/dL (65-105); Sodium 139 mmol/L (137-145)
[2020-06-09] MEDS: APIXABAN 5 MG TABLET PO ×2 (08:39→21:09)
[2020-06-09] MEDS: DOCUSATE SODIUM 100 MG CAPSULE PO ×2 (08:39→21:09)
[2020-06-09] MEDS: dilTIAZem HCL 30 MG TABLET 90 MG PO ×2 (08:39→21:09)
[2020-06-09] MEDS: predniSONE 40 MG, predniSONE 10 MG 50 MG PO (08:39)
[2020-06-09] MEDS: MAGNESIUM OXIDE 400 MG TABLET PO (08:40)
[2020-06-09] MEDS: ACYCLOVIR 400 MG TABLET PO (08:40)
[2020-06-09] MEDS: FUROSEMIDE INJ 40 MG/4 ML VIAL IV PUSH ×2 (08:40→17:07)
--- NOTE | 2020-06-09 10:01 | PM.IMPN ---
Progress Note: A&P Additional Plan 06/08/20 15:02 Patient completed a course of ceftriaxone Bactrim and acyclovir Was started on Remdesivir and Dexamethasone, completed steroids. Supportive care now Awaiting improvement from convalescent plasma remdesivir and dexamethasone for 10 days with supportive care with high flow oxygen. Discharge soon to Home with oxygen if patient stays at 6-7 liters of oxygen, unable to discharge as pt is desaturating on ambulation. 06/01 patient is sitting in the chair on high-flow oxygen requiring 6 L, denies any complaint cough or shortness of fever or chills, discussed with the patient will continue to monitor if patient oxygen required decreases below 6 L may do the discharge planning otherwise may have to consider LTAC for the patient. 06/02 patient continued to desat patient slight exertion and requiring high-flow oxygen patient has completed a course of dexamethasone, remdesivir and also received convalescent plasma however patient oxygen requirement is not improving, will start the patient Solu-Medrol to help reduce inflammation and hopefully improve her oxygen will continue to monitor and further recommendation to follow. 06/03 patient was continued to desaturate on 06/02 with any slight exertion started the patient on loading dose of Solu-Medrol 125 mg times and 60 mg Solu-Medrol every 8 hours, to reduce pulmonary inflammation improved oxygenation, today patient is feeling littel better though still desaturating with exertion, recent studies at the [facility] showed addition of inhaled corticosteroid may improve outcome in patient with COVID-19, will add Symbicort, continue to monitor the patient and further recommendation to follow. 06/04 today patient states feeling much better not a short of breath and was requiring 4 L of oxygen at this morning, will continue present management with Solu-Medrol and Symbicort, will do the home O2 eval and further recommendation to follow if patient is requiring less than 6 L of oxygen and clinically stable we may do discharge planning will continue to monitor and further recommendation to follow. 06/05 today patient is feeling better and remains on 4 L of oxygen at rest however oxygen requirement does go up to 6 L with exertion and patient wants to go home, patient is not able to do her ADLs and needs assistance indicates desaturate, we will taper her Solu-Medrol to p.o. prednisone and continue Symbicort will continue to monitor have PT OT work with the patient and further recommendation to follow. 06/06 today patient sitting on the side of the bed, is feeling better and remains on 4 L of oxygen at rest however oxygen requirement does go up to 6 L with exertion and patient wants to go home, discussed with physical therapy, patient is requiring full assistance, patient is not able to do her ADLs and needs assistance indicates desaturate, we will taper her Solu-Medrol to p.o. prednisone and continue Symbicort will continue to monitor have PT OT work with the patient and further recommendation to follow. Non that the patient oxygen requirement is between 4-6 L patient may qualify to go to [facility] for [facility] will discuss with direct care specialist and further recommendation to follow. 06/07 today again patient participated in ADL and desaturating with slight exertion and needs assistance, patient is requiring high-flow oxygen 9L unable to discharge the patient home, patient is not able to [facility] such high requirement oxygen and her family does not want her to go to detention, will discuss with direct care specialist and further recommendation to follow, 06/08 patient continued to desaturate into 70s on 7 L with exertion unable to be discharged at home or detention it such high oxygen requirement, I had placed RO Solu-Medrol to help improve her oxygenation and Symbicort without significant improvement, I have tapered to prednisone, will continue Symbicort will continue to monitor and fur
--- NOTE | 2020-06-09 13:08 | PCNFU ---
Nutrition Follow-Up Complete: Inadequate oral intake related to nausea, vomiting, and poor appetite as evidenced by average meal consumption of 13% and patient reported weight loss of 20 pounds in the past 2 weeks. Goal: Patient to consume 75% or more of meals on current diet order. Patient has met current goal. Pt current nutrition is Heart Healthy. Last recorded weight is 78.7 kg. Decreased from admitting weight of 87.2 kg. Bowel Motility: Last BM 06/04 Labs Reviewed: Hgb 9.1, Hct 28.1, Alb 2.7, Na 139, K 4.0 GFR 34, BUN 80, Cr 1.5, Glu 161 Meds Noted: Acyclovir, Albuterol, Xanax, Eliquis, Symbicort, Cardizem tab, Colace, Lasix, Gabapentin, Mag-ox, Prednisone, Sodium chloride central line flush, Heparin IV flush Additional Notes: Ensure Clear Apple BID providing 240 kcals and 8g protein. Eating 75 to 100% of meals. Agree with diet orders. Monitor patients labs, medications, weight, and oral intake every 5 days.
--- NOTE | 2020-06-09 13:28 | PCNSR ---
On 06/09/20, the student,Sugar Gentile, provided care and completed [facility] documentation on this patient. I have reviewed the student's documentation and agree with the findings.
--- NOTE | 2020-06-09 14:40 | PCOTNOTE ---
Attempted therapy session with patient, but patient refused stating she had just done physical therapy and was done for the day. Patient refused all ADLs, exercises and functional transfers.
[2020-06-09] MEDS: polyethylene glycoL 3350 17 GM POWD.PACK PO (17:07)
[2020-06-09] MEDS: GABAPENTIN 300 MG CAPSULE PO (21:09)
[2020-06-10] VITALS (9 sets, daily range): BP systolic 130–139; BP diastolic 61–68; PULSE 68–88; RESP 16–20; TEMP 35.7–36.6; O2SAT 94–100
[2020-06-10] MEDS: ALBUTEROL SULFATE NEB 2.5 MG/0.5 ML INH INHALATION ×3 (01:09→14:56)
[2020-06-10] MEDS: CENTRAL LINE FLUSH 10 ML IV PUSH (05:09)
--- NOTE | 2020-06-10 07:40 | PM.IMPN ---
Progress Note: A&P Assessment and Plan (1) Bilateral pneumonia: Code(s): J18.9 - Pneumonia, unspecified organism Status: Acute Assessment and Plan: treated pending recovery of lung fxn s/p covid (2) Acute and chronic respiratory failure with hypoxia: Code(s): J96.21 - Acute and chronic respiratory failure with hypoxia Status: Acute Assessment and Plan: Patient on BiPAP at night time Currently on NC 7L Appreciate pulmonology note (3) Obstructive sleep apnea on CPAP: Code(s): G47.33 - Obstructive sleep apnea (adult) (pediatric); Z99.89 - Dependence on other enabling machines and devices Status: Chronic Assessment and Plan: Will try house in house CPAP overnite (4) Chronic lymphocytic leukemia: Code(s): C91.10 - Chronic lymphocytic leukemia of B-cell type not having achieved remission Status: Chronic Assessment and Plan: Patient completed chemotherapy for the Holding Venclexta x 2 weeks; defer to pulm timing to restart (5) Type 2 diabetes mellitus: Qualifiers: 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 group home insulin use: without group home use 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 complication status: without complication Qualified Code(s): E11.9 - Type 2 diabetes mellitus without complications Code(s): E11.9 - Type 2 diabetes mellitus without complications Status: Chronic Assessment and Plan: Well controlled Continue to monitor (6) Hemoglobin A1c less than 7.0%: Code(s): R73.09 - Other abnormal glucose Status: Acute Assessment and Plan: Well controlled (7) Right-sided epistaxis: Code(s): R04.0 - Epistaxis Status: Acute Assessment and Plan: Status post silver nitrate cautery Resolved (8) Weakness generalized: Code(s): R53.1 - Weakness Status: Acute Assessment and Plan: continue PT/OT (9) Paroxysmal atrial flutter: Code(s): I48.92 - Unspecified atrial flutter Status: Acute Assessment and Plan: Rate controlled (10) Diastolic dysfunction: Code(s): I51.89 - Other ill-defined heart diseases Status: Chronic Assessment and Plan: Continue to monitor Intake and output daily Additional Plan Additional Plan 06/08/20 15:02 Patient completed a course of ceftriaxone Bactrim and acyclovir Was started on Remdesivir and Dexamethasone, completed steroids. Supportive care now Awaiting improvement from convalescent plasma remdesivir and dexamethasone for 10 days with supportive care with high flow oxygen. Discharge soon to Home with oxygen if patient stays at 6-7 liters of oxygen, unable to discharge as pt is desaturating on ambulation. 06/01 patient is sitting in the chair on high-flow oxygen requiring 6 L, denies any complaint cough or shortness of fever or chills, discussed with the patient will continue to monitor if patient oxygen required decreases below 6 L may do the discharge planning otherwise may have to consider LTAC for the patient. 06/02 patient continued to desat patient slight exertion and requiring high-flow oxygen patient has completed a course of dexamethasone, remdesivir and also received convalescent plasma however patient oxygen requirement is not improving, will start the patient Solu-Medrol to help reduce inflammation and hopefully improve her oxygen will continue to monitor and further recommendation to follow. 06/03 patient was continued to desaturate on 06/02 with any slight exertion started the patient on loading dose of Solu-Medrol 125 mg times and 60 mg Solu-Medrol every 8 hours, to reduce pulmonary inflammation improved oxygenation, today patient is feeling littel better though still desaturating with exertion, recent studies at the [employer] showed addition of inhaled corticosteroid may improve outcome in patient with COVID-19, will add Symbicort, continue to monitor the patient and further recommendation to follow. 06/04 today patien
[2020-06-10] MEDS: DOCUSATE SODIUM 100 MG CAPSULE PO (08:57)
[2020-06-10] MEDS: APIXABAN 5 MG TABLET PO (08:57)
[2020-06-10] MEDS: ACYCLOVIR 400 MG TABLET PO (08:57)
[2020-06-10] MEDS: predniSONE 40 MG, predniSONE 10 MG 50 MG PO (08:57)
[2020-06-10] MEDS: MAGNESIUM OXIDE 400 MG TABLET PO (08:58)
[2020-06-10] MEDS: dilTIAZem HCL 30 MG TABLET 90 MG PO (08:58)
[2020-06-10] MEDS: FUROSEMIDE INJ 40 MG/4 ML VIAL IV PUSH (08:58)
--- NOTE | 2020-06-10 12:44 | PM.DS ---
DS: Admitting Diagnosis Admitting Diagnosis Admitting Diagnosis: Dehydration: (2) Abnormal chest x-ray: (3) Diastolic dysfunction: (4) Obstructive sleep apnea on CPAP: (5) Chronic lymphocytic leukemia: (6) Type 2 diabetes mellitus: (7) Paroxysmal atrial flutter: (8) Hypertension: DS: Discharge Diagnosis Discharge Diagnosis (1) Bilateral pneumonia: Code(s): J18.9 - Pneumonia, unspecified organism Status: Acute Assessment and Plan: treated pending recovery of lung fxn s/p covid (2) Acute and chronic respiratory failure with hypoxia: Code(s): J96.21 - Acute and chronic respiratory failure with hypoxia Status: Acute Assessment and Plan: Patient on BiPAP at night time Currently on NC 7L [facility] pulmonology note (3) Obstructive sleep apnea on CPAP: Code(s): G47.33 - Obstructive sleep apnea (adult) (pediatric); Z99.89 - Dependence on other enabling machines and devices Status: Chronic Assessment and Plan: Will try house in house CPAP overnite (4) Chronic lymphocytic leukemia: Code(s): C91.10 - Chronic lymphocytic leukemia of B-cell type not having achieved remission Status: Chronic Assessment and Plan: Patient completed chemotherapy for the Holding Venclexta x 2 weeks; defer to pulm timing to restart (5) Type 2 diabetes mellitus: Qualifiers: 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 complication status: without complication 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 Qualified Code(s): E11.9 - Type 2 diabetes mellitus without complications Code(s): E11.9 - Type 2 diabetes mellitus without complications Status: Chronic Assessment and Plan: Well controlled Continue to monitor (6) Hemoglobin A1c less than 7.0%: Code(s): R73.09 - Other abnormal glucose Status: Acute Assessment and Plan: Well controlled (7) Right-sided epistaxis: Code(s): R04.0 - Epistaxis Status: Acute Assessment and Plan: Status post silver nitrate cautery Resolved (8) Weakness generalized: Code(s): R53.1 - Weakness Status: Acute Assessment and Plan: continue PT/OT (9) Paroxysmal atrial flutter: Code(s): I48.92 - Unspecified atrial flutter Status: Acute Assessment and Plan: Rate controlled (10) Diastolic dysfunction: Code(s): I51.89 - Other ill-defined heart diseases Status: Chronic Assessment and Plan: Continue to monitor Intake and output daily (11) Critical illness myopathy: Code(s): G72.81 - Critical illness myopathy Status: Acute (12) BMI 36.0-36.9,adult: Code(s): Z68.36 - Body mass index [BMI] 36.0-36.9, adult Status: Acute (13) Atrial flutter with rapid ventricular response: Code(s): I48.92 - Unspecified atrial flutter Status: Acute (14) Cardiomegaly: Code(s): I51.7 - Cardiomegaly Status: Chronic (15) Hypertension: Qualifiers: Hypertension type: unspecified Qualified Code(s): I10 - Essential (primary) hypertension Code(s): I10 - Essential (primary) hypertension Status: Chronic (16) Hypokalemia: Code(s): E87.6 - Hypokalemia Status: Acute (17) Current use of shelter anticoagulation: 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
[2020-06-10] MEDS: HEPARIN SOD FLUSH 500 UNITS/5 ML SYRINGE IV PUSH (17:19)
== END 2020-06-10 17:42 | DRG 177 ==
LOC: ANHED 13:21 → ANH2MED 18:33 → ANHIMU 06-04 18:44 → ANH3MED 06-10 12:44 → ANH2MED 06-11 13:06 → ANH3MED 06-11 13:06 → ANHIMU 06-11 13:06
PROVIDERS: Family Medicine; Internal Medicine; Internal Medicine Infectious Disease; Internal Medicine Pulmonary Disease; Nurse Practitioner; Physician Assistant; Admitting Provider Family Medicine; Emergency Provider Emergency Medicine; PCP Internal Medicine; Visit Provider Family Medicine
DX: U07.1 COVID-19 (principal); J12.82 Pneumonia due to coronavirus disease 2019; J96.21 Acute and chronic respiratory failure with hypoxia; I50.31 Acute diastolic (congestive) heart failure; I13.0 Hypertensive heart and chronic kidney disease with heart failure and stage 1 through stage 4 chronic kidney disease, or unspecified chronic kidney disease; C91.10 Chronic lymphocytic leukemia of B-cell type not having achieved remission; I48.92 Unspecified atrial flutter; G72.81 Critical illness myopathy; E11.22 Type 2 diabetes mellitus with diabetic chronic kidney disease; N18.30 Chronic kidney disease, stage 3 unspecified; I95.1 Orthostatic hypotension; E86.0 Dehydration; G47.33 Obstructive sleep apnea (adult) (pediatric); R04.0 Epistaxis; I51.7 Cardiomegaly; F41.8 Other specified anxiety disorders; E78.5 Hyperlipidemia, unspecified; M19.90 Unspecified osteoarthritis, unspecified site; E03.9 Hypothyroidism, unspecified; E87.6 Hypokalemia; Z96.653 Presence of artificial knee joint, bilateral; Z96.641 Presence of right artificial hip joint; Z79.01 Long term (current) use of anticoagulants; Z86.718 Personal history of other venous thrombosis and embolism; Z98.42 Cataract extraction status, left eye; Z98.41 Cataract extraction status, right eye; Z90.49 Acquired absence of other specified parts of digestive tract
CPT/HCPCS: 36415; 36430; 36600; 71045; 71046; 71250; 71275; 80048; 80053; 80076; 81001; 82375; 82565; 82805; 83050; 83735; 83880; 84132; 84443; 84460; 85025; 85027; 85055; 86021; 86038; 86140; 86331; 86430; 86606; 86609; 86900; 86901; 87040; 87086; 87385; 87449; 87899; 92610; 93005; 93308; 94002; 94003; 94618; 94640; 96360; 96375; 97110; 97161; 97165; 97530; 97535; 99285; A9270; C8929; J0456; J0610; J0692; J0696; J1100; J1642; J1815; J1940; J2405; J2930; J2997; J3475; J3480; J7030; J7050; J7060; J7512; P9059; Q9957; Q9967